=== PATIENT | male | born 1935 | race Caucasian/White ===

== ENCOUNTER 2018-06-15 02:56 | Emergency (ER) | payer MEDICARE, BC, SELFPAY ==
[2018-06-15 02:51] VITALS: BP 157/77; PULSE 59; RESP 20; TEMP 36.4; O2SAT 96; BMI 34.9
[2018-06-15] MEDS: TRAMADOL 50 MG TABLET 100 MG PO (02:58)
--- NOTE | 2018-06-15 03:30 | ED.BACK ---
HPI - Back Pain/Injury General Chief Complaint: Back Pain/Injury Stated Complaint: low back pain Time Seen by Provider: 06/15/18 03:01 Source: EMS Mode of arrival: ambulatory Limitations: no limitations History of Present Illness HPI Narrative: Patient is an 82-year-old male who presents with a left-sided back pain. He has had chronic back pain for last 40 years. He says that over the last couple of hours it has gotten significantly worse possibly over the last 2 days. He had an injection done 4-6 weeks ago. He returned from [place] 24 hr ago. He says he did not have any issue sitting on the airplane or in the car. His pain really started this evening when he woke up and tried to get up to go the bathroom. He normally has pain midline and right-sided however he is experiencing pain on the left side. It is not radiating to his legs or abdomen. He has no loss urine no change in bowel or bladder habits. He is on Eliquis for atrial fibrillation. He has not taken anything for the pain MD Complaint: back pain Related Data Previous Rx's Medication Instructions Recorded tramadol 50 mg PO Q6H PRN #10 tab 06/15/18 Allergies Allergy/AdvReac Type Severity Reaction Status Date / Time No Known Drug Allergies Allergy Verified 06/15/18 03:31 Review of Systems Review of Systems All systems reviewed & are unremarkable except as noted in HPI and below Constitutional Denies chills, Denies fever(s), Denies lethargy and Denies weakness ENT Ears, Nose, Mouth, and Throat: Denies vertigo and Denies dizziness Cardiovascular Denies chest pain, Denies irregular heart rhythm, Denies lightheadedness, Denies palpitations, Denies dyspnea, Denies dyspnea on exertion and Denies orthopnea Respiratory Denies cough, Denies dyspnea, Denies dyspnea on exertion and Denies wheezing Gastrointestinal Gastrointestinal: Denies abdominal pain, Denies change in bowel habits, Denies diarrhea, Denies nausea and Denies vomiting Musculoskeletal Reports system reviewed and no additional complaints, except as docu and Reports as per HPI Integumentary/Breasts Denies pruritus, Denies erythema, Denies rash and Denies wounds Neurologic Denies vertigo, Denies dizziness and Denies weakness Endocrine Denies palpitations Hematologic/Lymphatic Denies easy bruising Allergic/Immunologic Denies wheezing Exam Initial Vital Signs Initial Vital Signs: Vital Signs Temperature 97.5 F L 06/15/18 02:51 Pulse Rate 59 L 06/15/18 02:51 Respiratory Rate 20 06/15/18 02:51 Blood Pressure 157/77 H 06/15/18 02:51 Pulse Oximetry 96 06/15/18 02:51 GENERAL: alert elderly male ambulatory in the ED holding left side. HEENT: Head atraumatic,EOMI, pupils reactive, face symmetric, CARDIOVASCULAR: Regular rate and rhythm without murmurs, rubs or gallops. RESPIRATORY: Breath sounds equal bilaterally, no wheezes rales or rhonchi. ABDOMEN: Soft, nontender. Normoactive bowel sounds all 4 quadrants. No guarding or rebound. BACK: no midline pain he does have some paraspinal muscle pain bilaterally both right and left seems to be worse on the left. He does obviously gets spasms across his back. : No CVA tenderness EXTREMITIES: Normal range of motion, no clubbing or edema. Neurovascularly intact NEUROLOGICAL: Alert and oriented x4.Normal gait and speech. Cranial nerves II through XII grossly intact. Sensation in lower extremities equal and intact bilaterally SKIN: Warm, dry, no laceration, no petechiae, no rashes or lesions. Course Orders Ordered: Discontinued Medications Morphine Sulfate (Morphine) 4 mg SUBCUT NOW ONE Stop: 06/15/18 04:08 Last Admin: 06/15/18 04:08 Dose: 4 mg Tramadol HCl (Ultram) 100 mg PO NOW ONE Stop: 06/15/18 02:50 Last Admin: 06/15/18 02:58 Dose: 100 mg Vital Signs - 8 hr 06/15/18 02:51 06/15/18 05:00 06/15/18 05:22 Temperature 97.5 F L Pulse Rate 59 L 53 L 52 L Respiratory Rate 20 16 16 Blood Pressure 157/77 H Blood Pressure [Right Arm] 129/74 125/76 Pulse Oximetry 96 96 95 MDM - Back Pain/Injury Lab Data Lab Results 06/15/18 Range/Units 03:30 Urine Color Yellow Urine Appearance Clear Urine pH 5.0 (4.5-8.0) Ur Specific [place] 1.025 (1.000-1.035) Urine Protein Trace H (Negative) Urine Glucose (UA) Negative (Normal) g/dL Urine Ketones Trace H (NEGATIVE) Urine Occult Blood Negative (Negative) Urine Nitrate Negative (Negative) Urine Bilirubin Negative (NEGATIVE) Urine Urobilinogen 0.2 (0.2) E.U./dL Ur Leukocyte Esterase Negative (NEGATIVE) Urine RBC None seen (0-5/HPF) Urine WBC None seen (0-5/HPF) Ur Squamous Epith Cells 0-1 /hpf Urine Bacteria Occasional (0-1) (None) Hyaline Casts 0-1/lpf (None) Urine Mucus 2+ H (Negative) Ur Culture Indicated? Cult not indicated Micro UA Comment Not Reportable MDM Narrative Medical decision making narrative: resting in chair comfortably after tramadol. However once he is awake and he again has severe spasms requiring morphine. Morphine made him slightly lightheaded but not nauseous she still remains arousable. Discharge Plan Departure Patient Disposition: Home Clinical Impression: Acute exacerbation of chronic low back pain, Muscle spasm Discharge Date/Time: 06/15/18 08:51 Interventions: ED Discharge Assessment Last Done: 06/15/18 08:50 Instructions: DI for Low Back Pain Activity Restrictions/Additional Instructions: *You have been diagnosed with acute on chronic back pain *What to do: He seemed to be having muscle spasms. Heating pad, light activity increase activity as tolerated *Continue to take medications as directed Tramadol 1-2 tablets every 6 hr if needed for severe pain Tylenol 650 mg every 4-6 hours if needed for mild pain *Follow up with your primary care provider in 2-3 days *Return to ER if you should have worsening pain, increased leg weakness, loss of urine, fever or any new, worsening or concerning symptoms Prescriptions: New tramadol 50 mg tablet 50 mg PO Q6H PRN (Reason: pain) Qty: 10 RF: 0 Referrals: Ratna Antoine [Primary Care Provider] -
[2018-06-15 03:32] LABS: RBC Urine None Seen (0-5/HPF); WBC Urine None Seen (0-5/HPF)
[2018-06-15 03:33] LABS: Appearance Urine UA CLEAR; Bilirubin Urine UA NEGATIVE (NEGATIVE); Color Urine UA YELLOW; Glucose Urine UA NEGATIVE (Normal); Ketones Urine UA TRACE (NEGATIVE); Leukocyte Esterase Urine UA NEGATIVE (NEGATIVE); Nitrite Urine UA NEGATIVE (Negative); Occult Blood Urine UA NEGATIVE (Negative); Protein Urine UA TRACE (Negative); Specific Gravity Urine UA 1.025 (1.000-1.035); Urobilinogen Urine UA 0.2 E.U./dL (0.2)
[2018-06-15 03:45] LABS: Bacteria Urine Occasional (0-1); Culture Indicated Urine Cult Not Indicated; Hyaline Casts Urine 0-1/LPF; Mucus Urine 2+ (Negative); Squamous Epithelial Cell Urine 0-1 /HPF
[2018-06-15] MEDS: MORPHINE 4 MG/ML INJ SUBCUT (04:08)
[2018-06-15 05:00] VITALS: BP 129/74; PULSE 53; RESP 16; O2SAT 96
[2018-06-15 05:22] VITALS: BP 125/76; PULSE 52; RESP 16; O2SAT 95
[2018-06-15 06:27] VITALS: BP 128/79; PULSE 51; RESP 16; O2SAT 95
[2018-06-15 07:21] VITALS: BP 144/75; PULSE 52; RESP 20; O2SAT 96
[2018-06-15 08:50] VITALS: BP 133/74; PULSE 50; RESP 18; O2SAT 96
== END 2018-06-15 08:51 | disposition home or self-care (01) ==
PROVIDERS: Emergency Provider Emergency Medicine; PCP Internal Medicine
DX: M62.830 Muscle spasm of back (principal); M54.5 Low back pain; G89.29 Other chronic pain
CPT/HCPCS: 81001; 99283; J2270

== ENCOUNTER → 2018-08-26 08:14 | Outpatient (CLI) | payer MEDICARE, BC, SELFPAY ==
[2018-08-26 09:04] LABS: Appearance Urine UA CLEAR; Bilirubin Urine UA NEGATIVE (NEGATIVE); Color Urine UA YELLOW; Glucose Urine UA NEGATIVE (Negative); Ketones Urine UA NEGATIVE (NEGATIVE); Leukocyte Esterase Urine UA NEGATIVE (NEGATIVE); Nitrite Urine UA NEGATIVE (Negative); Occult Blood Urine UA NEGATIVE (Negative); Protein Urine UA NEGATIVE (Negative); Urobilinogen Urine UA 0.2 E.U./dL (0.2); pH Urine UA 5.5 (4.5-8.0)
[2018-08-26 09:38] LABS: Add Manual Diff / Slide Review NO; Basophils Absolute Auto 100 /uL (0-100); Basophils Percent Auto 1.1 % (0-2); Eosinophils Absolute Auto 200 /uL (0-450); Eosinophils Percent Auto 2.9 % (2-4); Hematocrit 48.2 % (41-53); Hemoglobin 15.9 g/dL (13.5-17.5); Lymphocytes Absolute Auto 1900 /uL (1100-4500); Lymphocytes Percent Auto 29.9 % (25-40); Mean Corpuscular HGB Conc 32.9 % (30-36); Mean Corpuscular Hemoglobin 29.1 PG (26-34); Mean Corpuscular Volume 88.5 fL (80-100); Monocytes Absolute Auto 500 /uL (0-900); Neutrophils Absolute Auto 3800 /uL (1500-7000); Neutrophils Percent Auto 58.1 % (50-75); Platelet Count 146 X10^3/uL (150-400); Red Blood Cell Count 5.44 X10^6/uL (4.5-5.9); Red Cell Distribution Width 14.5 % (11.6-14.8); White Blood Cell Count 6.5 X10^3/uL (4.5-11.0)
[2018-08-26 09:55] LABS: Alanine Aminotransferase 33 IU/L (21-72); Albumin 4.2 g/dL (3.5-5.0); Albumin Globulin Ratio 1.8 (1.0-2.8); Alkaline Phosphatase 51 U/L (38-126); Aspartate Aminotransferase 24 IU/L (17-59); BUN Creatinine Ratio 24.5 (6-22); Bilirubin Total 1.1 mg/dL (0.2-1.3); Blood Urea Nitrogen 27 mg/dL (9-20); Carbon Dioxide 26 mmol/L (22-32); Chloride 105 mmol/L (98-107); Cholesterol 191 mg/dL (140-199); Estimated Glomerular Filt Rate > 60.0 mL/min (>60); Globulin 2.3 g/dL (1.7-4.1); Glucose 99 mg/dL (80-110); HDL Cholesterol 33 mg/dL (40-60); HEMOLYSIS < 15 (0-50); LDL Cholesterol Calculated 121 mg/dL (<100); Potassium 4.3 mmol/L (3.4-5.1); Sodium 140 mmol/L (137-145); Total Protein 6.5 g/dL (6.3-8.2); Triglycerides 184 mg/dL (35-150)
== END ==
PROVIDERS: PCP Family Medicine; Visit Provider Family Medicine
DX: I10 Essential (primary) hypertension (principal); Z51.81 Encounter for therapeutic drug level monitoring; Z86.711 Personal history of pulmonary embolism
CPT/HCPCS: 36415; 80053; 80061; 81003; 84443; 85025

== ENCOUNTER 2018-10-15 13:31 | Day surgery (SDC) | payer MEDICARE, BC, SELFPAY ==
[2018-10-15] VITALS (7 sets, daily range): BP systolic 125–152; BP diastolic 76–93; PULSE 61–66; RESP 16–188; TEMP 36–37.4; O2SAT 94–99
--- NOTE | 2018-10-15 | PATH_ITS ---
[facility] Accession Number: [id number] . 01 Material submitted: . ESOPHAGUS BIOPSY AT 41CM . 01 Clinical history: . BARR'S . 02 Diagnosis: Esophagus, Biopsy at 41 cm: Squamocolumnar junctional mucosa with specialized intestinal metaplasia, consistent with Barr's esophagus. Negative for dysplasia and malignancy. MRV/10/20/2018 . 02 Electronically signed: . Honey Alfaro MD, Pathologist NPI- [id number] . 01 Gross description: . ESOPHAGUS BIOPSY AT 41CM: Received in formalin are multiple fragment(s) of arzola, soft tissue measuring 0.3 x 0.2 x 0.1 cm in aggregate submitted entirely in 1 cassette(s) /CKI /CKI . 02 Microscopic: . An alcian blue stain was performed to evaluate for intestinal metaplasia and is positive. The control stain showed appropriate reactivity. . 02 Pathologist provided ICD-10: K22.70 . 02 CPT . 126577, 990950 Performed at: 01 [facility] [address] [facility], [place], [place] [id number] MD Cabrera Silva MD Phone: [phone] Performed at: 02 [facility] [address] [place], [place] [id number] MD Honey Alfaro MD Phone: [phone]
[2018-10-15] MEDS: SODIUM CHLORIDE 0.9% 1,000 ML 200 ML IV (14:52)
--- NOTE | 2018-10-15 15:29 | PM.HP.1 ---
History of Present Illness Chief complaint: EGD 58092/[id number] Patient History Medical History AAA (abdominal aortic aneurysm) (Chronic ~2013) Ankle pain (Chronic) Atrial fibrillation (Chronic) Haile's syndrome (Chronic) Cataracts, bilateral (Chronic) Chronic back pain (Chronic) Colon polyps (Chronic) Deep vein thrombosis (Chronic) Diverticular disease (Chronic) Elevated PSA (Chronic) Foot pain (Chronic) Gout (Chronic) Hearing loss (Chronic) Heart failure, diastolic (Chronic) History of urinary incontinence (Chronic) Hypertension (Chronic) Knee pain (Chronic) Lumbar spine pain (Chronic) Peripheral neuropathy (Chronic) Prostate cancer (Chronic ~2007) Pulmonary embolism (Chronic ~2013) Rheumatoid arthritis (Chronic) Shoulder pain (Chronic) Skin cancer (Chronic ~1989) Chicken pox (Resolved) Fractures (Resolved) Measles (Resolved) Social History household members: spouse Smoking Status: Former smoker (quite 1975) Tobacco: How many years used: 20 alcohol intake: current (Occasional) Family & Social History Social History: household members spouse Tobacco & Substance use: Smoking Status Former smoker alcohol intake current alcohol intake frequency 0-2 drinks per day Substance Use Type does not use Meds Home Medications Medication Instructions Recorded Confirmed Type tramadol 50 mg PO Q6H PRN #10 tab 06/15/18 08/20/18 Rx apixaban 5 mg tablet 2.5 mg PO BID tab 08/18/18 08/20/18 History calcium polycarbophil 625 mg tablet 625 mg PO DAILY tab 08/18/18 08/20/18 History furosemide 40 mg tablet 40 mg PO DAILY 08/18/18 08/20/18 History gabapentin 100 mg capsule 100 mg PO DAILY 08/18/18 08/20/18 History hydralazine 10 mg tablet 10 mg PO BID tab 08/18/18 08/20/18 History lisinopril 20 mg tablet 20 mg PO DAILY 08/18/18 08/20/18 History magnesium oxide 400 mg capsule 400 mg PO DAILY cap 08/18/18 08/20/18 History metoprolol tartrate 25 mg tablet 25 mg PO BID 08/18/18 10/15/18 History potassium chloride ER 10 mEq 10 meq PO DAILY 08/18/18 08/20/18 History tablet,extended release(part/cryst) tizanidine 2 mg capsule 2 mg PO TID PRN 08/18/18 10/15/18 History apixaban [Eliquis] 5 mg PO BID 10/15/18 10/15/18 History atorvastatin 10 mg PO QPM 10/15/18 10/15/18 History chlorthalidone 25 mg PO DAILY 10/15/18 10/15/18 History gabapentin 100 mg PO 10/15/18 History losartan 100 mg PO DAILY 10/15/18 10/15/18 History Allergies Allergy/AdvReac Type Severity Reaction Status Date / Time No Known Drug Allergies Allergy Verified 10/15/18 14:45 Review of Systems Review of Systems All systems reviewed & are unremarkable except as noted in HPI and below Exam Vital Signs (past 8 hours): - 10/15/18 14:32 Temperature 98.4 F Pulse Rate 65 Respiratory Rate 16 Blood Pressure 152/86 H Pulse Oximetry 98 Oxygen Delivery Method Room Air Narrative Exam Narrative: Awake alert oriented x3, pupil equal round reactive to light, lungs clear to auscultation, heart regular rate and rhythm, abdomen soft nontender nondistended Assessment & Plan Assessment & Plan narrative: EGD with biopsies, Haile's esophagus
--- NOTE | 2018-10-15 16:41 | PM.OP.ENDO ---
Operative Date/Time/Diagnoses Date of procedure: 10/15/18 Procedure & Clinicians Study performed: EGD with biopsy Monitored anesthesia care Indications: History of Haile's esophagus Procedure Notes Procedure in detail: Prior to the procedure, history and physical was performed, and patient medications and allergies were reviewed. Preprocedure nursing history and assessment was reviewed. Patient identification and proposed procedure were verified by the physician and nurse in the procedure room. The physical status of the patient was reassessed after the procedure. After informed consent was obtained including risks, benefits, and alternatives, the scope was passed under direct vision. Throughout the procedure, the patient's blood pressure, pulse, and oxygen saturations were monitored continuously. The upper endoscope was introduced through the mouth and advanced to the 2nd portion of the duodenum. Retroflexion was performed in the stomach. The patient tolerated the procedure well. In the lower esophagus, there were 3 tongues of flat, salmon colored mucosa the longest of which extended 2 cm above the top of the gastric folds. The upper extent of salmon-colored mucosa was 39-40 cm from the incisors. Top of the gastric folds was located at 42 cm. There were no other suspicious looking lesions or nodules noted. Haile's Biopsies taken in a targeted fashion and placed into a single jar. If Haile's is confirmed, [place] class would be C0M2. A 5 cm hiatal hernia was noted. Retroflexion revealed an otherwise normal fundus and cardia. The stomach was otherwise normal appearing The examined duodenum was normal appearing Impression: Short segment Haile's esophagus, biopsied 5 cm hiatal hernia Normal appearing duodenum Plan for aftercare: Follow-up pathology results Follow an anti-reflux diet and lifestyle Resume home medications Follow-up in GI clinic as previously recommended Discharge home with escort
--- NOTE | 2018-10-15 16:56 | SUR.PHASEI ---
turned self to his back. Sleeping, resp unlabored
--- NOTE | 2018-10-15 17:06 | SUR.PHASEI ---
1706 VSS, anxious to go home. Resp unlabored, doesn't use O2 at home, weaning off.
--- NOTE | 2018-10-15 17:21 | SUR.PHASEII ---
1710 late entry - to bedside. Patient declines PO intake. IV dc''d, clothes given. States that he does not need additional assistance in dressing.
--- NOTE | 2018-10-15 17:29 | SUR.PHASEII ---
1726 To car in W/C by an RN. Stable, No questions/concerns.
== END 2018-10-15 17:26 | disposition home or self-care (01) ==
PROVIDERS: PCP Family Medicine; Visit Provider Internal Medicine
PROC: 0DJ08ZZ Inspection of Upper Intestinal Tract, Via Natural or Artificial Opening Endoscopic (ICD-10-PCS; CPT 43235; principal; 2018-10-15 15:00)
DX: K22.70 Barrett's esophagus without dysplasia (principal); R13.14 Dysphagia, pharyngoesophageal phase; K21.9 Gastro-esophageal reflux disease without esophagitis; K44.9 Diaphragmatic hernia without obstruction or gangrene; I48.91 Unspecified atrial fibrillation; I50.9 Heart failure, unspecified; I10 Essential (primary) hypertension; Z79.01 Long term (current) use of anticoagulants
CPT/HCPCS: 43239; 88305; 88313; J2704

== ENCOUNTER → 2018-10-16 08:16 | Outpatient (CLI) | payer MEDICARE, BC, SELFPAY ==
--- NOTE | 2018-10-16 09:00 | DI.NM.S_ITS ---
PATIENT NAME: SALLY VELA : 1935 EXAM DATE: 10/16/2018 9:27 ORD. : BENNY JONES M.D. CC: QUAN GILL D.O. MODALITY: DE PATIENT TYPE: Out CONTRAST MEDIA: STATION ID: [id number] FLUORO TIME: PROCEDURE: DE LUH PERF SPECT R&S PHARM Rest and pharmacological stress myocardial perfusion SPECT with gated imaging and ejection fraction RADIOPHARMACEUTICAL: 26.3 mCi Tc-99m tetrafosmin IV at rest and 24.9 mCi Tc-99m tetrafosmin IV at peak effect of pharmacological stress. [id number]-ubaxzefv was performed. INDICATIONS: PERSISTENT ATRIAL FIBRILLATION TECHNIQUE: Radiopharmaceutical was injected at peak stress test, and also at rest. SPECT images were obtained. SPECT myocardial perfusion images were displayed in short axis, horizontal long axis, and vertical long axis views. Gated images were reviewed using Nanostellar software. COMPARISON: None. CARDIAC STRESS: A pharmacologic stress test was performed under the supervision of an attending staff, using an infusion of Lexiscan. Hemodynamic data: There is normal blood pressure and heart rate response to pharmacologic stress. Symptoms: The patient denied anginal chest pain. Aminophylline: Not used EKG: No diagnostic changes of ischemia; no ectopy. FINDINGS: Raw data: There is good myocardial uptake of radiotracer. No significant motion artifacts. Lung-toheart ratio is 0.37 (normal is less than 0.38 for tetrafosmin tracer). Left ventricle function: Gated images demonstrate mild septal hypokinesis and otherwise normal left ventricular wall thickening. No other segmental wall motion abnormalities. No transient ischemic dilation; TID is 1.01 (normal less than 1.3). Left ventricle resting end diastolic volume is 158 mL. Left ventricle stress ejection fraction is 69%; normal range is above 45%. Myocardial perfusion: There is a small, mild fixed defect in in the apical to mid anteroseptal wall which is present both at rest and stress. Unfortunately prone imaging could not be performed due to patient's inability to lay prone. IMPRESSION: Continued Report - Page 2 of 2 PATIENT NAME: SALLY VELA : 1935 EXAM DATE: 10/16/2018 9:[address] BENNY JONES M.D. CC: QUAN GILL D.O. MODALITY: NM PATIENT TYPE: Out CONTRAST MEDIA: STATION ID: [id number] FLUORO TIME: -Probably abnormal stress study with a small, fixed, anteroseptal defect and associated septal hypokinesis. However, the prone imaging could not be performed. SSS is 3, SRS is 4. -Normal ejection fraction. -No TID. Dictated by: Teodoro Loco on 10/17/2018 at 19:23 Approved by: Teodoro Loco on 10/17/2018 at 19:32
--- NOTE | 2018-10-16 09:22 | PM.TREADMILL ---
Cardiac Stress Test Report Referral & Results Date Patient Seen: 10/16/18 Requesting provider: Yony Cline Indication: Atrial fibrillation Rest ECG: Atrial fibrillation with controlled ventricular response Procedure Note: After both written and verbal informed consent the patient had an IV started by the diagnostic imaging RN and then was hooked up to the treadmill monitoring system. The patient was placed on the treadmill at 1 mile an hour with no elevation and was then injected with the Sheryl scan material. The Cardiolite was then immediately administered. The patient spent an additional 2-3 minutes on the treadmill before being returned to the [facility] in the supine position. The patient had a normal response to all infused materials. Impression: Severely limited exercise capacity has patient was barely able to keep up with the treadmill at its lowest settings Perfusion imaging will be reported separately Please note: Actual ECG tracings can be found in the PACS system.
== END ==
PROVIDERS: PCP Family Medicine; Visit Provider Internal Medicine Cardiovascular Disease
DX: I48.1 Persistent atrial fibrillation (principal)
CPT/HCPCS: 78452; 93016; 93017; 93018; A9502; J2785

== ENCOUNTER → 2018-10-17 08:30 | Outpatient (CLI) | payer MEDICARE, BC, SELFPAY ==
--- NOTE | 2018-10-17 | DI.ECHO.S_ITS ---
[facility] +---------+ : : [address] [place] : : : : [id number] : : : : Phone: [phone] Echocardiogram Report + + :Name: SALLY VELA Study Date: 10/17/2018 Height: 75 in : :[facility] Weight: 285 lb : : Gender: Male BSA: 2.6 m2 : :: 1935 Age: 83 yrs BP: 138/82 mmHg: :Reason For Study: AFIB : : Performed By: Bessy Washington : :Referring: BENNY CLINE : + + Interpretation Summary 1) Mildly increase left ventricular thickness with normal size and low normal systolic function (EF 50-55%). 2) Normal right ventricular size and function. 3) Left atrium is moderately to severely enlarged. 4) No significant valvular abnormalities. 5) The ascending aorta is mildly enlarged at 4.3cm. 6) No prior Echo available for comparison. Procedure: A two-dimensional transthoracic echocardiogram with color flow and Doppler was performed. The study quality was technically adequate. Comparison is made with the echocardiogram of 10/11/2005. Patient was supine after left ventricular endocardium images were taken in the apicals due to unbearable left shoulder pain. The patient was in atrial fibrillation with heart rates between 50-64 bpm during the exam. Left Ventricle: Left ventricular wall thickness is mildly increased. The left ventricle is normal in size. The ejection fraction is estimated to be 50- 55%. Diastolic function could not be accurately assessed due to atrial fibrillation. Right Ventricle: The right ventricle is normal in size and function. Atria: Left atrium is moderately to severely enlarged. Right atrial size is normal. There is no Doppler evidence for an interatrial shunt. Mitral Valve: There is mild mitral annular calcification. There is trace mitral regurgitation. Aortic Valve: The aortic valve is mildly calcified. Aortic valve appears to be trileaflet. There is no aortic valve stenosis. There is mild aortic regurgitation. Tricuspid Valve: The tricuspid valve is normal in structure and function. There is a trace or physiologic amount of tricuspid regurgitation. Pulmonic Valve: The pulmonic valve is not well visualized. There is a trace or physiologic amount of pulmonic regurgitation. Great Vessels: The aortic root is normal size. The ascending aorta is mildly enlarged. The aortic arch is mildly enlarged. The pulmonary is not well visualized. The IVC is dilated (diameter is greater than 2.1 cm) and it collapses less than 50% with a sniff. This suggests a high right atrial pressure of 15 mm Hg. Pericardium/ Pleura There is no pericardial effusion. There is no pleural effusion. MMode/2D Measurements & Calculations LVIDd: 5.0 cm LVOT diam: 2.5 cm LVIDs: 3.5 cm Ao root diam: 3.7 cm FS: 30.5 % asc Aorta Diam: 4.3 cm IVSd: 1.2 cm Ao Arch Diam (distal): 3.6 cm LVPWd: 1.1 cm LV ford. diameter/BSA (cm/m^2): 2.0 LV sys. diameter/BSA (cm/m^2): 1.4 LA A2 area: 31.7 cm2 RA long axis: 6.2 cm LA A4 area: 27.1 cm2 RA area: 21.7 cm2 LA length (vol): 6.6 cm RA vol: 64.3 ml LA vol: 110.0 ml RA : 25.2 ml/m2 LA vol index: 43.1 ml/m2 RVD1 (basal): 2.9 cm Doppler Measurements & Calculations Ao V2 max: 123.4 cm/sec LVOT Max Gary: 89.6 cm/sec Ao V2 mean: 79.0 cm/sec LV V1 max P.2 mmHg Ao max P.1 mmHg LV V1 VTI: 18.4 cm Ao mean P.8 mmHg OSMANY(I,D): 4.1 cm2 Ao V2 VTI: 21.8 cm OSMANY(V,D): 3.5 cm2 sev ratio: 0.85 OSMANY indexed to BSA (cm^2/m^2): 1.6 MV E max gary: 87.9 cm/sec SV(LVOT): 89.4 ml MV dec time: 0.20 sec Reading Physician:10:06 AM
== END ==
PROVIDERS: PCP Family Medicine; Visit Provider Internal Medicine Cardiovascular Disease
DX: I35.1 Nonrheumatic aortic (valve) insufficiency (principal); I48.1 Persistent atrial fibrillation; I77.89 Other specified disorders of arteries and arterioles
CPT/HCPCS: 93306

== ENCOUNTER → 2018-11-24 15:40 | Outpatient (CLI) | payer MEDICARE, BC, SELFPAY ==
--- NOTE | 2018-11-24 | DI.RAD.S_ITS ---
PROCEDURE: XR CHEST 2V INDICATIONS: Dynspnea on exertion TECHNIQUE: 2 views of the chest were acquired. COMPARISON: None. FINDINGS: Surgical changes and devices: Internal aortic stent graft, descending thoracic aorta.. Lungs and pleura: Lungs are clear. No pleural effusions or pneumothorax. Mediastinum: Mediastinal contours are normal. Heart size is normal. Bones and chest wall: No suspicious bony abnormalities. Soft tissues appear unremarkable. IMPRESSION: Aortic stent graft, no sign of CHF or cardiomegaly at this time. Dictated by: Harvey Eubanks M.D. on 11/24/2018 at 17:16 Approved by: Harvey Eubanks M.D. on 11/24/2018 at 17:17
[2018-11-24 16:24] LABS: Add Manual Diff / Slide Review NO; Basophils Absolute Auto 0 /uL (0-100); Basophils Percent Auto 0.3 % (0-2); Eosinophils Absolute Auto 100 /uL (0-450); Eosinophils Percent Auto 0.7 % (2-4); Hematocrit 49.2 % (41-53); Hemoglobin 16.3 g/dL (13.5-17.5); Lymphocytes Absolute Auto 900 /uL (1100-4500); Lymphocytes Percent Auto 11.6 % (25-40); Mean Corpuscular HGB Conc 33.1 % (30-36); Mean Corpuscular Hemoglobin 29.1 PG (26-34); Monocytes Absolute Auto 500 /uL (0-900); Neutrophils Absolute Auto 6200 /uL (1500-7000); Neutrophils Percent Auto 81.4 % (50-75); Platelet Count 132 X10^3/uL (150-400); Red Blood Cell Count 5.58 X10^6/uL (4.5-5.9); Red Cell Distribution Width 14.8 % (11.6-14.8); White Blood Cell Count 7.6 X10^3/uL (4.5-11.0)
[2018-11-24 17:36] LABS: Blood Urea Nitrogen 25 mg/dL (9-20); Calcium 9.5 mg/dL (8.4-10.2); Carbon Dioxide 22 mmol/L (22-32); Chloride 103 mmol/L (98-107); Estimated Glomerular Filt Rate > 60.0 mL/min (>60); Glucose 103 mg/dL (80-110); HEMOLYSIS < 15 (0-50); Potassium 4.3 mmol/L (3.4-5.1); Sodium 138 mmol/L (137-145)
== END ==
PROVIDERS: Family Provider Family Medicine; PCP Family Medicine; Visit Provider Internal Medicine Cardiovascular Disease
DX: R06.09 Other forms of dyspnea (principal)
CPT/HCPCS: 36415; 71046; 80048; 85025

== ENCOUNTER → 2019-05-04 10:25 | Outpatient (CLI) | payer MEDICARE, BC, SELFPAY ==
--- NOTE | 2019-05-04 | DI.RAD.S_ITS ---
PROCEDURE: XR CHEST 2V INDICATIONS: SHORTNESS OF BREATH TECHNIQUE: 2 views of the chest were acquired. COMPARISON: [facility], CR, XR CHEST 2V, 11/24/2018, 15:58. FINDINGS: Surgical changes and devices: Thoracic aortic stent graft noted, as before Lungs and pleura: No acute consolidation. Scattered subsegmental atelectasis and/or scarring. No pleural effusion. No pneumothorax. Elevation right hemidiaphragm as before Mediastinum: Mediastinal contours are normal. Heart size is normal. Bones and chest wall: No suspicious bony abnormalities. Soft tissues appear unremarkable. IMPRESSION: No acute consolidation. No interval change Dictated by: Dante Patel M.D. on 05/04/2019 at 11:34 Approved by: Dante Patel M.D. on 05/04/2019 at 11:35
[2019-05-04 11:10] LABS: Add Manual Diff / Slide Review NO; Basophils Absolute Auto 100 /uL (0-100); Basophils Percent Auto 0.9 % (0-2); Eosinophils Absolute Auto 200 /uL (0-450); Eosinophils Percent Auto 2.4 % (2-4); Hematocrit 47.7 % (41-53); Hemoglobin 16.2 g/dL (13.5-17.5); Lymphocytes Absolute Auto 1800 /uL (1100-4500); Mean Corpuscular Hemoglobin 30.5 PG (26-34); Mean Corpuscular Volume 89.7 fL (80-100); Monocytes Absolute Auto 500 /uL (0-900); Monocytes Percent Auto 7.1 % (3-14); Neutrophils Absolute Auto 4700 /uL (1500-7000); Neutrophils Percent Auto 64.6 % (50-75); Platelet Count 149 X10^3/uL (150-400); Red Blood Cell Count 5.31 X10^6/uL (4.5-5.9); White Blood Cell Count 7.3 X10^3/uL (4.5-11.0)
[2019-05-04 11:23] LABS: BUN Creatinine Ratio 22.7 (6-22); Blood Urea Nitrogen 25 mg/dL (9-20); Calcium 9.3 mg/dL (8.4-10.2); Carbon Dioxide 26 mmol/L (22-32); Chloride 103 mmol/L (98-107); Estimated Glomerular Filt Rate > 60.0 mL/min (>60); Glucose 103 mg/dL (80-110); HEMOLYSIS 18 (0-50); Potassium 3.8 mmol/L (3.4-5.1); Sodium 141 mmol/L (137-145)
[2019-05-04 11:32] LABS: B Type Natriuretic Peptide 138 (<100)
== END ==
PROVIDERS: Family Provider Family Medicine; PCP Family Medicine; Visit Provider Internal Medicine Cardiovascular Disease
DX: R06.02 Shortness of breath (principal); I10 Essential (primary) hypertension
CPT/HCPCS: 36415; 71046; 80048; 83880; 85025

== ENCOUNTER → 2019-05-19 08:49 | Outpatient (CLI) | payer MEDICARE, BC, SELFPAY ==
--- NOTE | 2019-05-19 | DI.US.S_ITS ---
PROCEDURE: US RENAL COMPLETE INDICATIONS: CYST OF KIDNEY, ACQUIRED TECHNIQUE: Real-time scanning was performed of the kidneys and bladder, with image documentation. COMPARISON: US, ABDOMEN SONOGRAM, 10/18/2008, 8:06. FINDINGS: Kidneys: Kidneys are normal in size. Right kidney measures 11.0 cm long; left kidney measures 10.7 cm long. Right renal cortical thickness is 1.6 cm; left renal cortical thickness is 1.2 cm. Renal cortical echotexture is normal. No hydronephrosis or nephrolithiasis. No suspicious solid mass lesions. There are multiple bilateral renal cysts, largest which is on the left which is mildly complex with wall irregularity and mural calcification measuring 3.9 x 3.7 x 4.0 cm. Focal right renal cortical scarring present. Bladder: Urinary bladder decompressed and suboptimally visualized. Miscellaneous: No free pelvic fluid. IMPRESSION: 1. Bilateral renal cysts, largest of which is on the left and mildly complex (Bosniak 2F). Recommend continued sonographic surveillance or alternatively renal protocol CT could be performed for further characterization as underlying cystic renal neoplasm cannot entirely be excluded. Dictated by: Amilcar LR Interpreted: Jayne Slaughter MD on 05/19/2019 at 10:07 Approved by: Jayne Slaughter M.D. on 05/19/2019 at 12:48
== END ==
PROVIDERS: Family Provider Family Medicine; PCP Family Medicine; Visit Provider Physician Assistant
DX: N28.1 Cyst of kidney, acquired (principal)
CPT/HCPCS: 76770

== ENCOUNTER → 2019-06-09 08:56 | Outpatient (CLI) | payer MEDICARE, BC, SELFPAY ==
--- NOTE | 2019-06-09 | DI.RAD.S_ITS ---
PROCEDURE: XR CHEST 2V INDICATIONS: SHORT OF BREATH TECHNIQUE: 2 views of the chest were acquired. COMPARISON: [facility], CR, XR CHEST 2V, 05/04/2019, 10:36. FINDINGS: Surgical changes and devices: Descending aortic stentgraft. Lungs and pleura: Lungs are clear. No pleural effusions or pneumothorax. Mediastinum: Mediastinal contours are normal. Heart size is normal. Bones and chest wall: No suspicious bony abnormalities. Soft tissues appear unremarkable. IMPRESSION: No acute process. Dictated by: Ayaan Madsen M.D. on 06/09/2019 at 9:38 Approved by: Ayaan Madsen M.D. on 06/09/2019 at 9:39
[2019-06-09 09:34] LABS: Add Manual Diff / Slide Review NO; Basophils Absolute Auto 0 /uL (0-100); Basophils Percent Auto 0.7 % (0-2); Eosinophils Absolute Auto 200 /uL (0-450); Eosinophils Percent Auto 2.4 % (2-4); Hematocrit 48.3 % (41-53); Hemoglobin 16.2 g/dL (13.5-17.5); Lymphocytes Absolute Auto 1600 /uL (1100-4500); Lymphocytes Percent Auto 25.6 % (25-40); Mean Corpuscular HGB Conc 33.5 % (30-36); Mean Corpuscular Hemoglobin 30.3 PG (26-34); Mean Corpuscular Volume 90.4 fL (80-100); Monocytes Absolute Auto 500 /uL (0-900); Monocytes Percent Auto 8.2 % (3-14); Neutrophils Absolute Auto 3900 /uL (1500-7000); Neutrophils Percent Auto 63.1 % (50-75); Platelet Count 137 X10^3/uL (150-400); Red Blood Cell Count 5.34 X10^6/uL (4.5-5.9); Red Cell Distribution Width 14.2 % (11.6-14.8); White Blood Cell Count 6.2 X10^3/uL (4.5-11.0)
[2019-06-09 09:45] LABS: BUN Creatinine Ratio 27.3 (6-22); Blood Urea Nitrogen 30 mg/dL (9-20); Calcium 9.3 mg/dL (8.4-10.2); Carbon Dioxide 27 mmol/L (22-32); Chloride 104 mmol/L (98-107); Estimated Glomerular Filt Rate > 60.0 mL/min (>60); Glucose 110 mg/dL (80-110); HEMOLYSIS < 15 (0-50); Potassium 4.1 mmol/L (3.4-5.1); Sodium 142 mmol/L (137-145)
[2019-06-09 09:53] LABS: B Type Natriuretic Peptide 143 (<100)
== END ==
PROVIDERS: PCP Family Medicine; Visit Provider Internal Medicine Cardiovascular Disease
DX: R06.02 Shortness of breath (principal); I10 Essential (primary) hypertension
CPT/HCPCS: 36415; 71046; 80048; 83880; 85025

== ENCOUNTER → 2019-11-02 13:32 | Outpatient (CLI) | payer MEDICARE, BC, SELFPAY ==
--- NOTE | 2019-11-02 13:34 | DI.RAD.S_ITS ---
PROCEDURE: XR LUMBAR SPINE 2-3V INDICATIONS: R lumbar pain post fall TECHNIQUE: 3 views of the lumbar spine were acquired. COMPARISON: [facility], CR, XR LUMBAR SPINE WITH OBLIQUES, 06/08/2019, 8:13. [facility], MR, MR LUMBAR SPINE WITHOUT CONTRAST, 12/02/2017, 10:17. [facility], CR, XR CHEST 2V, 06/09/2019, 9:23. FINDINGS: Bones: 5 [id number] vertebrae are present. There is normal bony alignment. No lower vertebral body compression fractures but there is a presumed acute mild superior endplate impaction fracture with slight anterior wedging at L1, with approximately 20% middle third vertebral body height reduction when compared to the normal L2 level immediately below.. No suspicious bony lesions. Soft tissues: Overlying bowel gas pattern is normal. No suspicious soft tissue calcifications. IVC filter noted to right of the spinal margin, previously present IMPRESSION: 20% height reduction from presumed acute T1 compression fracture. IVC filter positioned to right of the spine. Dictated by: Harvey Eubanks M.D. on 11/02/2019 at 14:00 Approved by: Harvey Eubanks M.D. on 11/02/2019 at 14:04
== END ==
PROVIDERS: PCP Internal Medicine; Referring Provider Nurse Practitioner; Visit Provider Nurse Practitioner
DX: M54.5 Low back pain (principal)
CPT/HCPCS: 72100

== ENCOUNTER → 2019-11-13 13:35 | Outpatient (CLI) | payer MEDICARE, BC, SELFPAY ==
[2019-11-15 05:01] LABS: COVID19 Sendout Not Detected (Not Detected)
== END ==
PROVIDERS: PCP Internal Medicine; Visit Provider Internal Medicine
DX: Z20.828 Contact with and (suspected) exposure to other viral communicable diseases (principal)
CPT/HCPCS: 87635

== ENCOUNTER 2019-11-17 06:34 | Day surgery (SDC) | payer MEDICARE, BC, SELFPAY ==
[2019-11-13 12:53] VITALS: BMI 35.8
[2019-11-17] VITALS (11 sets, daily range): BP systolic 95–138; BP diastolic 54–81; PULSE 54–68; RESP 8–20; TEMP 36–36.1; O2SAT 92–99; BMI 33.9
--- NOTE | 2019-11-17 | PATH_ITS ---
[facility] Accession Number: [id number] . 01 Material submitted: . bone - L1 BONE BIOPSY . 02 Diagnosis: L1 Vertebral Bone, Biopsy: Fragments of remodeling bone. Variably fibrotic marrow with maturing trilineage hematopoiesis. No evidence of malignancy. [facility] 11/19/2019 1217 Local . 02 Electronically signed: . Kush Cristobal MD, PhD, Pathologist NPI- [id number] . 01 Gross description: . Received one formalin-filled container, labeled with the patient's name and labeled L1 bone biopsy. The specimen consists of a 0.5 x 0.3 x 0.3 cm portion of bone, entirely submitted in one cassette and will be placed in decal for softening. ([id number]) /[facility] 11/18/2019 0224 Local . 02 Pathologist provided ICD-10: S32.010A, M54.5 . 02 CPT . 846856, 353805 Performed at: 01 [facility] [address] [facility], [place], [place] [id number] MD Cabrera Silva MD Phone: [phone] Performed at: 02 [facility] [address] [place], [place] [id number] MD Honey Alfaro MD Phone: [phone]
--- NOTE | 2019-11-17 | DI.RAD.S_ITS ---
PROCEDURE: XR LUMBAR SPINE 2-3V INDICATIONS: KYPHO TECHNIQUE: 2 views of the lumbar spine were acquired. COMPARISON: [facility], CR, XR LUMBAR SPINE 2-3V, 11/02/2019, 13:33. FINDINGS: Bones: Immediate postprocedural imaging, showing vertebroplasty/kyphoplasty bone cement placed within the L1 vertebral body without retropulsion of bone cement into the spinal canal. Soft tissues: Overlying bowel gas pattern is normal. No suspicious soft tissue calcifications. IMPRESSION: Vertebroplasty/kyphoplasty bone cement within the L1, and normal position. Dictated by: Harvey Eubanks M.D. on 11/17/2019 at 9:42 Approved by: Harvey Eubanks M.D. on 11/17/2019 at 9:49
[2019-11-17] MEDS: LACTATED RINGERS 1,000 ML 42 ML IV (07:30)
--- NOTE | 2019-11-17 07:46 | PM.PREOP ---
Pre-operative Note Interval Note History & Physical reviewed/Exam performed by Physician: Yes Changes to H&P: No
[2019-11-17] MEDS: CEFAZOLIN 2 GM/100 ML FROZ.PIGGY IV (08:00)
--- NOTE | 2019-11-17 08:21 | SUR.OPER ---
Prone on flat padded spine table, head in foam head support, padded chest supports, gel pad at knees, lower legs supported by pillows; nipples, genitalia and toes free of pressure, arms secured on foam padded arm boards at <90 degrees abduction. Tape over blanket at thigh secured to table.
[2019-11-17] MEDS: BUPIVACAINE 0.25% W/ EPI 30 ML VIAL INJ (08:26)
--- NOTE | 2019-11-17 08:47 | PM.OP.1 ---
Operative Date/Time/Diagnoses Date of procedure: 11/17/19 Time of procedure: 08:47 Pre-op diagnosis: L1 compression fracture Back pain Post-op diagnosis: same Procedure & Clinicians Procedure: L1 kyphoplasty Same procedure as scheduled: Yes Indications: [age] year old male with intractable pain from an acute L1 compression fracture. They had failed conservative management and requested operative intervention. Risks and benefits of surgery were discussed and appropriate consents were obtained. Surgeon: Tacho Chang Click Yes if Unassisted: Yes Anesthesia Type: General Operative Notes Findings: None Closure Type: primary Specimen(s): other (L1 vertebral biopsy) Estimated Blood Loss (mL): 2 Procedure in detail: The patient was brought to the operating room and intubated on the table. They were then rolled over to the well-padded prone position. Time-out was performed. We confirmed positioning with two fluoroscopy views. The back was prepped and draped in the standard sterile fashion. Preoperative antibiotics were given. Using fluoroscopic guidance, the planned incision site was infiltrated with Marcaine with epinephrine and injected down to the entry site of the left pedicle of L1. A small stab incision was made and we advanced a Jamshiedi needle down the left pedicle into the vertebral body. A bone biopsy was harvested from this and sent to pathology. We then passed the DFine osteotome and opened it up to create a void inside the vertebral body. We then began injecting the cement. This was done with frequent fluoroscopy imaging. There was no extravasation. Once we had good fill of the L1 vertebral body the injection was stopped and the trocars were removed. Final x-rays were taken. The wound was cleaned. Steri-Strips and sterile dressing were placed. Patient was rolled over, extubated, and brought to recovery without complications. Complications: none Post-operative Condition: stable Disposition: PACU Plan for aftercare: Outpatient. Activity as tolerated.
[2019-11-17] MEDS: fentaNYL 100 MCG/2 ML INJ IV (08:55)
--- NOTE | 2019-11-17 08:57 | SUR.PHASEI ---
0855 moaning, rates pain 8/10, lying still. Rx given per patient request. Resp unlabored, skin warm and dry.
[2019-11-17] MEDS: HYDROCODONE/ACET 5/325 TABLET 2 TAB PO (09:31)
--- NOTE | 2019-11-17 09:43 | SUR.PHASEI ---
resting at a tolerable pain level, states that it is fine unless he moves. Attempting to get ahold of daughter and w/o success. He is now able to get his on his cell phone. Watch placed on his left wrist per pt request. Tolerating PO intake well.
--- NOTE | 2019-11-17 09:55 | SUR.PHASEII ---
pt able to reach daughter, will be here in 1/2 hour. Pt declines to move, will check dressing when he is up. Pain is controlled if he is still, not if he moves.
--- NOTE | 2019-11-17 10:37 | SUR.PHASEII ---
1023 Stable, states that he feels much better, move slowly. Denies dizziness after initial episode upon sitting up. Has his possessions. Daughter here, questions answered. To car in w/c by BRIANA Sosa
--- NOTE | 2019-11-17 10:41 | SUR.PHASEII ---
Called Carin (daughter), told her that Dr. Chang wants to follow up with him in 1 1/2 weeks and that he is to resume eliquis tomorrow. Daughter repeated back instructions.
== END 2019-11-17 10:31 | disposition home or self-care (01) ==
PROVIDERS: PCP Internal Medicine; Referring Provider Orthopaedic Surgery; Visit Provider Orthopaedic Surgery
PROC: (CPT 22514; principal; 2019-11-17 07:45)
DX: M80.08XA Age-related osteoporosis with current pathological fracture, vertebra(e), initial encounter for fracture (principal); S32.010A Wedge compression fracture of first lumbar vertebra, initial encounter for closed fracture; M54.9 Dorsalgia, unspecified; M25.78 Osteophyte, vertebrae; I10 Essential (primary) hypertension; I50.9 Heart failure, unspecified; I48.91 Unspecified atrial fibrillation; I25.10 Atherosclerotic heart disease of native coronary artery without angina pectoris; Z86.711 Personal history of pulmonary embolism; Z79.01 Long term (current) use of anticoagulants
CPT/HCPCS: 22514; 72100; 76000; C1776; J0690; J2704; J3010

== ENCOUNTER → 2019-11-25 13:14 | Outpatient (CLI) | payer MEDICARE, BC, SELFPAY ==
[2019-11-25 14:33] LABS: Blood Urea Nitrogen 23 mg/dL (9-20); Calcium 9.8 mg/dL (8.4-10.2); Carbon Dioxide 30 mmol/L (22-32); Chloride 98 mmol/L (98-107); Estimated Glomerular Filt Rate > 60.0 mL/min (>60); Glucose 90 mg/dL (80-110); HEMOLYSIS < 15 (0-50); Potassium 3.5 mmol/L (3.4-5.1); Sodium 139 mmol/L (137-145)
== END ==
PROVIDERS: PCP Internal Medicine; Referring Provider Internal Medicine Cardiovascular Disease; Visit Provider Internal Medicine Cardiovascular Disease
DX: R60.0 Localized edema (principal)
CPT/HCPCS: 36415; 80048

== ENCOUNTER → 2019-12-14 12:18 | Outpatient (CLI) | payer MEDICARE, BC, SELFPAY ==
--- NOTE | 2019-12-14 | DI.US.S_ITS ---
PROCEDURE: US PERIPH VENOUS LOW EXTREM RT INDICATIONS: RIGHT LOWER EXTREMITY SWELLING TECHNIQUE: Real-time imaging, as well as color and pulse Doppler interrogation, were performed of the lower extremity deep veins from the inguinal ligament to the popliteal fossa. COMPARISON: None. FINDINGS: The common femoral, femoral and popliteal veins are normally compressible, and free of intraluminal thrombus. Color and pulse Doppler demonstrate normal phasic intraluminal flow. There is normal augmentation response to distal compression maneuver. IMPRESSION: Negative for deep venous thrombosis. Dictated by: Maurice Richard M.D. on 12/14/2019 at 14:09 Approved by: Maurice Richard M.D. on 12/14/2019 at 14:09
== END ==
PROVIDERS: PCP Internal Medicine; Referring Provider Orthopaedic Surgery; Visit Provider Orthopaedic Surgery
DX: M79.89 Other specified soft tissue disorders (principal)
CPT/HCPCS: 93971

== ENCOUNTER → 2019-12-23 12:42 | Outpatient (CLI) | payer MEDICARE, BC, SELFPAY ==
--- NOTE | 2019-12-23 | DI.MRI.S_ITS ---
PROCEDURE: MR LUMBAR SPINE WO CON INDICATIONS: Spinal stenosis, lumbar region TECHNIQUE: Noncontrast sagittal T1 spin echo and T2 fast echo, sagittal STIR, axial T1 and T2 fast spin echo through the lumbar spine. In cases with scoliosis, additional coronal T2 fast spin echo may be performed. COMPARISON: [facility], CR, XR LUMBAR SPINE 2-3V, 11/02/2019, 13:33. [facility], CR, XR LUMBAR SPINE 2-3V, 11/17/2019, 8:36. FINDINGS: Image quality: Bilateral renal cysts are partially seen. Alignment and Curvature: There is normal bony alignment. Bone Marrow: Marrow is of normal overall signal. L1 vertebroplasty cement can be seen. Spinal Cord: Conus medullaris terminates at the L1 level. Visualized cord demonstrates normal signal and size. Paraspinous Soft Tissues: No paravertebral masses. T12-L1: Mild loss of disc height is seen. Loss of disc signal is seen. Mild generalized disc bulge is seen. No significant neural foraminal or central canal narrowing can be seen. L1-L2: Moderate loss of disc height is seen. Loss of disc signal is seen. Mild to moderate disc bulge is seen. Reactive marrow endplate changes are seen, which demonstrate mixed T1 weighted and T2-weighted signal, and are attributed to a combination of edema and fatty metaplasia (Modic type I and Modic type II changes). No significant neural foraminal or central canal narrowing can be seen. L2-L3: Moderate loss of disc height is seen. Loss of disc signal is seen. Reactive marrow endplate changes are seen, which demonstrate mixed T1 weighted and T2-weighted signal, and are attributed to a combination of edema and fatty metaplasia (Modic type I and Modic type II changes). Moderate disc bulge is seen, which is eccentric to the right. There is moderate right-sided and no significant left-sided neural foraminal narrowing seen. Mild central canal narrowing is seen. L3-L4: Moderate loss of disc height is seen. Loss of disc signal is seen. Reactive marrow endplate changes are seen, which are hyperintense on T1-weighted and T2-weighted imaging and most consistent with fatty metaplasia (Modic type II changes). Moderate disc bulge is seen, which is eccentric to the right. There is at least moderate facet hypertrophy seen. Hypertrophy of the ligamentum flavum can also be seen. There is mild right-sided and no significant left-sided neural foraminal narrowing seen. Moderate central canal narrowing is seen. L4-L5: Moderate loss of disc height is seen. Loss of disc signal is seen. Moderate disc bulge is seen, which is eccentric to the right. Moderate facet joint hypertrophy is seen. Associated hypertrophy of the ligamentum flavum can be seen. There is moderate right-sided and no significant left-sided neural foraminal narrowing seen. Moderate central canal narrowing is seen. L5-S1: Mild to moderate loss of disc height and disc signal can be seen. Moderate disc bulge is seen, which is eccentric to the left. There is moderate to prominent facet hypertrophy seen. There is moderate left-sided and mild right-sided neural foraminal narrowing seen. Mild central canal narrowing is seen. IMPRESSION: L1 kyphoplasty changes. Multiple levels of degenerative change are seen, including moderate central canal narrowing at L3-L4 and L4-L5. Dictated by: Maurice Richard M.D. on 12/23/2019 at 13:54 Approved by: Maurice Richard M.D. on 12/23/2019 at 14:07
== END ==
PROVIDERS: PCP Internal Medicine; Referring Provider Orthopaedic Surgery; Visit Provider Orthopaedic Surgery
DX: M48.062 Spinal stenosis, lumbar region with neurogenic claudication (principal); M47.816 Spondylosis without myelopathy or radiculopathy, lumbar region; M47.817 Spondylosis without myelopathy or radiculopathy, lumbosacral region; N28.1 Cyst of kidney, acquired
CPT/HCPCS: 72148

== ENCOUNTER → 2020-01-05 10:02 | Outpatient (CLI) | payer MEDICARE, BC, SELFPAY ==
--- NOTE | 2020-01-05 10:06 | DI.RAD.S_ITS ---
PROCEDURE: XR CHEST 2V INDICATIONS: shortness of breath TECHNIQUE: 2 views of the chest were acquired. COMPARISON: [facility], CR, XR CHEST 2V, 06/09/2019, 9:23. [facility], CR, XR CHEST 2V, 05/04/2019, 10:36. FINDINGS: Surgical changes and devices: Aortic stent is seen overlying the descending thoracic aorta just beyond the arch.. Lungs and pleura: Lungs are clear considering mild interstitial prominence and mild chronic elevation of the right hemidiaphragm.. No pleural effusions or pneumothorax. Mediastinum: Mediastinal contours are normal. Heart size is normal. Bones and chest wall: No suspicious bony abnormalities. Soft tissues appear unremarkable. IMPRESSION: Chronic mild interstitial prominence, chronic mild elevation of the right hemidiaphragm. The source of acute shortness of breath is not seen. Aortic stent is noted. Dictated by: Harvey Eubanks M.D. on 01/05/2020 at 10:57 Approved by: Harvey Eubanks M.D. on 01/05/2020 at 10:58
[2020-01-05 11:54] LABS: Add Manual Diff / Slide Review NO; Basophils Absolute Auto 100 /uL (0-100); Basophils Percent Auto 0.9 % (0-2); Eosinophils Absolute Auto 100 /uL (0-450); Eosinophils Percent Auto 2.5 % (2-4); Hemoglobin 15.1 g/dL (13.5-17.5); Lymphocytes Absolute Auto 1400 /uL (1100-4500); Lymphocytes Percent Auto 24.2 % (25-40); Mean Corpuscular HGB Conc 33.5 % (30-36); Mean Corpuscular Hemoglobin 29.9 PG (26-34); Mean Corpuscular Volume 89.3 fL (80-100); Monocytes Absolute Auto 500 /uL (0-900); Monocytes Percent Auto 8.5 % (3-14); Neutrophils Absolute Auto 3800 /uL (1500-7000); Neutrophils Percent Auto 63.9 % (50-75); Platelet Count 123 X10^3/uL (150-400); Red Blood Cell Count 5.03 X10^6/uL (4.5-5.9); Red Cell Distribution Width 15.5 % (11.6-14.8); White Blood Cell Count 5.9 X10^3/uL (4.5-11.0)
[2020-01-05 12:23] LABS: Alanine Aminotransferase 22 IU/L (<50); Albumin 4.1 g/dL (3.5-5.0); Albumin Globulin Ratio 1.9 (1.0-2.8); Alkaline Phosphatase 63 U/L (38-126); Aspartate Aminotransferase 25 IU/L (17-59); BUN Creatinine Ratio 18.4 (6-22); Bilirubin Total 2.4 mg/dL (0.2-1.3); Blood Urea Nitrogen 19 mg/dL (9-20); Calcium 9.4 mg/dL (8.4-10.2); Carbon Dioxide 24 mmol/L (22-32); Chloride 106 mmol/L (98-107); Estimated Glomerular Filt Rate > 60.0 mL/min (>60); Globulin 2.2 g/dL (1.7-4.1); Glucose 108 mg/dL (80-110); HEMOLYSIS < 15 (0-50); Potassium 4.1 mmol/L (3.4-5.1); Sodium 141 mmol/L (137-145); Total Protein 6.3 g/dL (6.3-8.2)
[2020-01-05 12:30] LABS: NT-proBNP (BNP-Adult 18+) 1840 pg/mL (<450)
[2020-01-05 12:47] LABS: TSH w/ Reflex to FT4 1.87 uIU/mL (0.47-4.68)
== END ==
PROVIDERS: PCP Internal Medicine; Referring Provider Internal Medicine; Visit Provider Internal Medicine
DX: G89.29 Other chronic pain (principal); I10 Essential (primary) hypertension; I48.91 Unspecified atrial fibrillation; I50.30 Unspecified diastolic (congestive) heart failure; M54.9 Dorsalgia, unspecified; R06.02 Shortness of breath
CPT/HCPCS: 36415; 71046; 80053; 83880; 84443; 85025

== ENCOUNTER → 2020-01-08 06:57 | Outpatient (CLI) | payer MEDICARE, BC, SELFPAY ==
--- NOTE | 2020-01-08 07:03 | DI.ECHO.S_ITS ---
[facility]+ [facility] +---------+ : : [address] : : : : [id number] : : : : Phone: [phone]+ Echocardiogram Report + + :Name: SALLY VELA Study Date: 01/08/2020 Height: 75 in : :[facility] Weight: 280 lb : : Gender: Male BSA: 2.5 m2 : :: 1935 Age: 84 yrs BP: 142/80 mmHg: :Reason For Study: Heart failure : :Ordering Physician: Dr. Lobato : :Octavio Performed By: Latoya Page : + + Interpretation Summary Left ventricular systolic function is borderline reduced. Left ventricular ejection fraction is estimated to be 50 +/- 5%. LVEF visually has borderline decreased since prior study. There is a significant dyssynchronous contraction pattern, consistent with a conduction abnormality. Diastolic function could not be accurately assessed due to atrial fibrillation. The right ventricle is at the upper limits of normal in size. Right ventricular systolic function is at the lower limits of normal. The right ventricular systolic pressure is estimated to be at least 42 mmHg based on an estimated right atrial pressure of 15 mm Hg. Both atria are severely dilated. There is mild aortic regurgitation. There is no other significant valvular heart disease. 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 Procedure: A two-dimensional transthoracic echocardiogram with color flow and Doppler was performed. The study quality was technically adequate. Comparison is made with the echocardiogram of 10/17/2018. The patient was in atrial fibrillation with heart rates between 43-74 bpm during the exam. Left Ventricle: Based on the patient's BSA and volume measurement the left ventricle is normal in size. Left ventricular systolic function is borderline reduced. Left ventricular ejection fraction is estimated to be 50 +/- 5%. There is a significant dyssynchronous contraction pattern, consistent with a conduction abnormality. Diastolic function could not be accurately assessed due to atrial fibrillation. Right Ventricle: The right ventricle is at the upper limits of normal in size. Right ventricular systolic function is at the lower limits of normal. Atria: Both atria are severely dilated. There is no Doppler evidence for an interatrial shunt. Mitral Valve: There is mild mitral annular calcification. There is trace mitral regurgitation. Aortic Valve: The aortic valve is trileaflet. The aortic valve is mildly calcified. There is no aortic valve stenosis. There is mild aortic regurgitation. There is an eccentric jet of aortic insufficiency directed against the septum. Tricuspid Valve: The tricuspid valve is normal in structure and function. There is trace tricuspid regurgitation. The right ventricular systolic pressure is estimated to be at least 42 mmHg based on an estimated right atrial pressure of 15 mm Hg. Pulmonic Valve: The pulmonic valve is not well seen, but is grossly normal. There is trace pulmonic regurgitation. There is no other significant valvular heart disease. Great Vessels: The aortic root is normal size. 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 This is unchanged compared to the previous study. The pulmonary artery is not well visualized, but is probably normal size. The IVC is dilated (diameter is greater than 2.1 cm) and it collapses less than 50% with a sniff. This suggests a high right atrial pressure of 15 mm Hg. Pericardium/ Pleura There is no pericardial effusion. There is no pleural effusion. MMode/2D Measurements & Calculations LVIDd: 5.9 cm LVOT diam: 2.6 cm LVIDs: 5.5 cm Ao root diam: 3.8 cm FS: 6.7 % asc Aorta Diam: 4.3 cm EPSS: 0.49 cm IVSd: 0.56 cm LVPWd: 0.69 cm LV ford. diameter/BSA (cm/m^2): 2.3 LV sys. diameter/BSA (cm/m^2): 2.2 LA A2 area: 39.5 cm2 RA long axis: 6.3 cm LA A4 area: 34.7 cm2 RA area: 31.6 cm2 LA length (vol): 7.1 cm RA vol: 134.5 ml LA vol: 164.8 ml RA : 53.1 ml/m2 LA vol index: 65.1 ml/m2 IVC diam: 2.5 cm RVD1 (basal): 5.2 cm RVD2 (mid): 4.4 cm Doppler Measurements & Calculations Ao V2 max: 144.8 cm/sec LVOT Max Gary: 90.5 cm/sec Ao V2 mean: 95.8 cm/sec LV V1 max P.3 mmHg Ao max P.4 mmHg LV V1 VTI: 17.3 cm Ao mean P.2 mmHg OSMANY(I,D): 2.8 cm2 Ao V2 VTI: 31.5 cm OSMANY(V,D): 3.2 cm2 sev ratio: 0.55 OSMANY indexed to BSA (cm^2/m^2): 1.1 MV E max gary: 81.5 cm/sec TR max gary: 257.9 cm/sec Med Peak E' Gary: 7.3 cm/sec TR max P.7 mmHg E/E' med: 11.2 PA V2 max: 67.8 cm/sec Lat Peak E' Gary: 10.9 cm/sec PA V2 mean: 46.8 cm/sec E/E' lat: 7.5 PA mean P.98 mmHg E/e' average: 9.3 MV P1/2t: 52.0 msec MV P1/2t max gary: 79.9 cm/sec SV(LVOT): 89.6 ml MVA(P1/2t): 4.2 cm2 Reading Physician:04:27 PM
== END ==
PROVIDERS: PCP Internal Medicine; Referring Provider Internal Medicine; Visit Provider Internal Medicine
DX: I35.1 Nonrheumatic aortic (valve) insufficiency (principal); I77.89 Other specified disorders of arteries and arterioles; I50.30 Unspecified diastolic (congestive) heart failure; I48.91 Unspecified atrial fibrillation; I10 Essential (primary) hypertension; R06.02 Shortness of breath; M54.9 Dorsalgia, unspecified; G89.29 Other chronic pain
CPT/HCPCS: 93306

== ENCOUNTER → 2020-01-15 10:26 | Outpatient (CLI) | payer MEDICARE, BC, SELFPAY ==
[2020-01-15 12:07] LABS: BUN Creatinine Ratio 37.8 (6-22); Blood Urea Nitrogen 42 mg/dL (9-20); Calcium 9.4 mg/dL (8.4-10.2); Carbon Dioxide 30 mmol/L (22-32); Chloride 98 mmol/L (98-107); Estimated Glomerular Filt Rate > 60.0 mL/min (>60); Glucose 121 mg/dL (80-110); HEMOLYSIS < 15 (0-50); Sodium 137 mmol/L (137-145)
[2020-01-15 12:13] LABS: NT-proBNP (BNP-Adult 18+) 1520 pg/mL (<450)
== END ==
PROVIDERS: PCP Internal Medicine; Referring Provider Internal Medicine; Visit Provider Internal Medicine
DX: I10 Essential (primary) hypertension (principal); I50.30 Unspecified diastolic (congestive) heart failure; R06.02 Shortness of breath; I50.33 Acute on chronic diastolic (congestive) heart failure
CPT/HCPCS: 36415; 80048; 83880

== ENCOUNTER → 2020-02-17 08:39 | Outpatient (CLI) | payer MEDICARE, BC, SELFPAY ==
[2020-02-17 09:39] LABS: Add Manual Diff / Slide Review NO; Basophils Absolute Auto 100 /uL (0-100); Basophils Percent Auto 0.9 % (0-2); Eosinophils Absolute Auto 200 /uL (0-450); Eosinophils Percent Auto 2.7 % (2-4); Hematocrit 48.1 % (41-53); Hemoglobin 16.1 g/dL (13.5-17.5); Lymphocytes Absolute Auto 1900 /uL (1100-4500); Lymphocytes Percent Auto 28.6 % (25-40); Mean Corpuscular HGB Conc 33.4 % (30-36); Mean Corpuscular Hemoglobin 29.8 PG (26-34); Mean Corpuscular Volume 89.2 fL (80-100); Monocytes Absolute Auto 700 /uL (0-900); Monocytes Percent Auto 10.2 % (3-14); Neutrophils Absolute Auto 3900 /uL (1500-7000); Neutrophils Percent Auto 57.6 % (50-75); Platelet Count 135 X10^3/uL (150-400); Red Blood Cell Count 5.39 X10^6/uL (4.5-5.9); White Blood Cell Count 6.8 X10^3/uL (4.5-11.0)
[2020-02-17 09:52] LABS: BUN Creatinine Ratio 28.1 (6-22); Blood Urea Nitrogen 34 mg/dL (9-20); Calcium 9.6 mg/dL (8.4-10.2); Carbon Dioxide 30 mmol/L (22-32); Chloride 97 mmol/L (98-107); Estimated Glomerular Filt Rate 57.1 mL/min (>60); Glucose 98 mg/dL (80-110); HEMOLYSIS < 15 (0-50); Potassium 3.6 mmol/L (3.4-5.1); Sodium 137 mmol/L (137-145)
[2020-02-17 10:00] LABS: NT-proBNP (BNP-Adult 18+) 2110 pg/mL (<450)
== END ==
PROVIDERS: PCP Internal Medicine; Referring Provider Internal Medicine Cardiovascular Disease; Visit Provider Internal Medicine Cardiovascular Disease
DX: I10 Essential (primary) hypertension (principal); R06.09 Other forms of dyspnea
CPT/HCPCS: 36415; 80048; 83880; 85025

== ENCOUNTER → 2020-04-28 14:04 | Outpatient (CLI) | payer MEDICARE, BC, SELFPAY ==
--- NOTE | 2020-04-28 14:08 | DI.RAD.S_ITS ---
PROCEDURE: XR ABDOMEN MIN 2V INDICATIONS: abd pain TECHNIQUE: 2 views of the abdomen were acquired. COMPARISON: None. FINDINGS: Surgical changes and devices: IVC filter is projected over the L3-4 vertebral bodies. Patient is status post L1 vertebroplasty. Surgical clips are projected over the symphysis pubis and bilateral iliac bones. Bowel: No pneumoperitoneum. The bowel gas pattern is normal. Soft tissues: No masses; visualized solid organ contours appear normal in size. No suspicious abdominal calcifications. Bones: No suspicious bony abnormalities. IMPRESSION: No acute intra-abdominal findings. Dictated by: Billie Ramirez M.D. on 04/28/2020 at 16:25 Approved by: Billie Ramirez M.D. on 04/28/2020 at 16:26
--- NOTE | 2020-04-28 14:08 | DI.RAD.S_ITS ---
PROCEDURE: XR CHEST 2V INDICATIONS: congestive heart failure TECHNIQUE: 2 views of the chest were acquired. COMPARISON: [facility], CR, XR CHEST 2V, 01/05/2020, 9:30. FINDINGS: Surgical changes and devices: Thoracic aortic endograft is unchanged. Lungs and pleura: Lungs are clear. No pleural effusions or pneumothorax. Mediastinum: Mediastinal contours are normal. Heart size is normal. Bones and chest wall: No suspicious bony abnormalities. Soft tissues appear unremarkable. IMPRESSION: No acute cardiopulmonary findings. Dictated by: Billie Ramirez M.D. on 04/28/2020 at 16:25 Approved by: Billie Ramirez M.D. on 04/28/2020 at 16:25
[2020-04-28 15:17] LABS: Add Manual Diff / Slide Review NO; Basophils Absolute Auto 100 /uL (0-100); Basophils Percent Auto 0.5 % (0-2); Eosinophils Absolute Auto 100 /uL (0-450); Eosinophils Percent Auto 0.8 % (2-4); Hematocrit 51.1 % (41-53); Hemoglobin 17.4 g/dL (13.5-17.5); Lymphocytes Absolute Auto 3000 /uL (1100-4500); Lymphocytes Percent Auto 28.9 % (25-40); Mean Corpuscular Hemoglobin 30.6 PG (26-34); Mean Corpuscular Volume 90.1 fL (80-100); Monocytes Absolute Auto 700 /uL (0-900); Monocytes Percent Auto 6.6 % (3-14); Neutrophils Absolute Auto 6500 /uL (1500-7000); Neutrophils Percent Auto 63.2 % (50-75); Platelet Count 142 X10^3/uL (150-400); Red Blood Cell Count 5.68 X10^6/uL (4.5-5.9); Red Cell Distribution Width 15.9 % (11.6-14.8); White Blood Cell Count 10.3 X10^3/uL (4.5-11.0)
[2020-04-28 15:40] LABS: Alanine Aminotransferase 25 IU/L (<50); Albumin 4.3 g/dL (3.5-5.0); Albumin Globulin Ratio 1.8 (1.0-2.8); Alkaline Phosphatase 60 U/L (38-126); Amylase 80 U/L (30-110); Aspartate Aminotransferase 27 IU/L (17-59); BUN Creatinine Ratio 35.4 (6-22); Bilirubin Total 2.4 mg/dL (0.2-1.3); Blood Urea Nitrogen 62 mg/dL (9-20); Calcium 9.7 mg/dL (8.4-10.2); Carbon Dioxide 25 mmol/L (22-32); Chloride 96 mmol/L (98-107); Estimated Glomerular Filt Rate 37.3 mL/min (>60); Globulin 2.4 g/dL (1.7-4.1); Glucose 108 mg/dL (80-110); HEMOLYSIS < 15 (0-50); Lipase 206 U/L (23-300); Magnesium 2.3 mg/dL (1.6-2.3); Potassium 3.6 mmol/L (3.4-5.1); Sodium 134 mmol/L (137-145); Total Protein 6.7 g/dL (6.3-8.2)
[2020-04-28 15:49] LABS: NT-proBNP (BNP-Adult 18+) 1220 pg/mL (<450)
== END ==
PROVIDERS: PCP Internal Medicine; Referring Provider Internal Medicine; Visit Provider Internal Medicine
DX: I10 Essential (primary) hypertension (principal); I25.5 Ischemic cardiomyopathy; I50.32 Chronic diastolic (congestive) heart failure; R60.9 Edema, unspecified; R10.9 Unspecified abdominal pain
CPT/HCPCS: 36415; 71046; 74019; 80053; 82150; 83690; 83735; 83880; 85025

== ENCOUNTER → 2020-05-25 09:22 | Outpatient (CLI) | payer MEDICARE, BC, SELFPAY ==
[2020-05-25 10:44] LABS: Add Manual Diff / Slide Review NO; Basophils Absolute Auto 100 /uL (0-100); Basophils Percent Auto 0.9 % (0-2); Eosinophils Absolute Auto 100 /uL (0-450); Eosinophils Percent Auto 1.5 % (2-4); Hematocrit 47.5 % (41-53); Hemoglobin 16.1 g/dL (13.5-17.5); Lymphocytes Absolute Auto 2100 /uL (1100-4500); Lymphocytes Percent Auto 31.6 % (25-40); Mean Corpuscular HGB Conc 33.8 % (30-36); Mean Corpuscular Volume 91.6 fL (80-100); Monocytes Absolute Auto 600 /uL (0-900); Monocytes Percent Auto 8.5 % (3-14); Neutrophils Absolute Auto 3800 /uL (1500-7000); Neutrophils Percent Auto 57.5 % (50-75); Platelet Count 142 X10^3/uL (150-400); Red Blood Cell Count 5.18 X10^6/uL (4.5-5.9); Red Cell Distribution Width 15.7 % (11.6-14.8); White Blood Cell Count 6.6 X10^3/uL (4.5-11.0)
[2020-05-25 11:18] LABS: BUN Creatinine Ratio 36.1 (6-22); Blood Urea Nitrogen 48 mg/dL (9-20); Calcium 9.6 mg/dL (8.4-10.2); Carbon Dioxide 34 mmol/L (22-32); Chloride 98 mmol/L (98-107); Estimated Glomerular Filt Rate 51.2 mL/min (>60); Glucose 98 mg/dL (80-110); HEMOLYSIS < 15 (0-50); Potassium 3.6 mmol/L (3.4-5.1); Sodium 138 mmol/L (137-145)
== END ==
PROVIDERS: PCP Internal Medicine; Referring Provider Internal Medicine Cardiovascular Disease; Visit Provider Internal Medicine Cardiovascular Disease
DX: I50.32 Chronic diastolic (congestive) heart failure (principal)
CPT/HCPCS: 36415; 80048; 85025

== ENCOUNTER 2020-05-30 13:59 | Emergency (ER) | payer MEDICARE, BC, SELFPAY ==
[2020-05-30] VITALS (7 sets, daily range): BP systolic 115–141; BP diastolic 68–92; PULSE 65–90; RESP 12–16; TEMP 36.2; O2SAT 95–97; BMI 32.2
--- NOTE | 2020-05-30 14:04 | ED.MALEGU ---
HPI - Male Genitourinary General Chief complaint: Urogenital-Male Stated complaint: blood in urine Time Seen by Provider: 05/30/20 14:00 Source: patient and family Mode of arrival: Ambulatory Limitations: no limitations History of Present Illness HPI Narrative: 84-year-old male former smoker with extensive medical history including AFib with anticoagulation, AAA repair, dependent edema, hypertension, hyperlipidemia presents with family in the chief complaint of pain in his lower abdomen and back, blood in his urine and inability to urinate for the past few days. He does take an anticoagulant. He has a history of a surgically repaired AAA. He is not dizzy nor weak or lightheaded. Denies any fever or chills. His discomfort is made worse with motion and improves with rest. MD Complaint: other Onset (ago): day(s) Duration: constant Location: abdomen Severity: moderate Quality: aching Relieving factors: none Exacerbating factors: none Related Data Home Medications Medication Instructions Recorded Confirmed magnesium oxide 400 mg PO Q OTHER DAY cap 08/18/18 04/28/20 apixaban 5 mg PO BID 10/15/18 04/28/20 chlorthalidone 25 mg PO DAILY 10/15/18 04/28/20 losartan 100 mg PO DAILY 10/15/18 04/28/20 atorvastatin 10 mg tablet 10 mg PO DAILY 10/19/19 04/28/20 calcium polycarbophil 625 mg tablet 1,250 mg PO DAILY 02/02/20 04/28/20 docusate sodium 100 mg capsule 100 mg PO DAILY 02/02/20 04/28/20 furosemide 40 mg tablet 40 mg PO DAILY tab 02/02/20 04/28/20 potassium chloride 20 mEq 20 meq PO DAILY tab 02/02/20 04/28/20 tablet,extended release Previous Rx's Medication Instructions Recorded gabapentin 300 mg capsule 300 mg PO DAILY #90 cap 12/25/19 oxybutynin chloride 5 mg tablet 5 mg PO BID-TID PRN #90 tab 02/02/20 finasteride 5 mg PO DAILY #20 tab 05/30/20 Allergies Allergy/AdvReac Type Severity Reaction Status Date / Time No Known Drug Allergies Allergy Verified 04/28/20 13:34 Review of Systems Constitutional Constitutional: Denies chills, Denies fatigue, Denies fever(s), Denies frequent falls, Denies lethargy and Denies weakness Eyes Eyes: Denies change in vision, Denies eye discharge, Denies irritation and Denies loss of vision ENT Ears, Nose, Mouth, and Throat: Denies change in voice, Denies dizziness, Denies neck pain, Denies sore throat and Denies throat swelling Cardiovascular Cardiovascular: Denies chest pain, Denies irregular heart rhythm, Denies lightheadedness, Denies palpitations, Denies dyspnea, Denies dyspnea on exertion and Denies orthopnea Respiratory Respiratory: Denies cough, Denies dyspnea, Denies dyspnea on exertion and Denies wheezing Gastrointestinal Gastrointestinal: Denies abdominal pain, Denies change in bowel habits, Denies diarrhea, Denies nausea and Denies vomiting Genitourinary Genitourinary: Reports hematuria and Reports oliguria Genitourinary: Reports hematuria Musculoskeletal Musculoskeletal: Denies neck pain and Denies numbness Integumentary/Breasts Skin/Breast: Denies pruritus, Denies erythema, Denies rash and Denies wounds Neurologic Neurologic: Denies behavioral changes, Denies confusion, Denies dizziness, Denies frequent falls, Denies loss of vision, Denies numbness and Denies weakness Psychiatric Psychiatric: Denies anxiety, Denies behavioral changes, Denies confusion, Denies depression, Denies homicidal ideation and Denies suicidal ideation Endocrine Endocrine: Denies fatigue, Denies flushing and Denies palpitations Hematologic/Lymphatic Hematologic/Lymphatic: Denies easy bruising Allergic/Immunologic Allergic/Immunologic: Denies urticaria, Denies throat swelling and Denies wheezing Patient History Medical History AAA (abdominal aortic aneurysm) (Chronic ~2014) Acquired anal stenosis (Chronic) Anxiety (Acute) Aortic dilatation (Acute) Haile's syndrome (Chronic) CAD (coronary artery disease) (Acute) Cardiomyopathy (Chronic) Cataracts, bilateral (Chronic) CHF (congestive heart failure) (Acute) Chronic back pain (Chronic) Chronic diastolic congestive heart failure (Chronic) Colon polyps (Chronic) Deep vein thrombosis (Resolved ~2014) Diverticular disease (Chronic) Former smoker (Acute) Fractures (Resolved) Gout (Chronic) Hearing loss (Chronic) History of urinary incontinence (Chronic) HLD (hyperlipidemia) (Acute) Hypertension (Chronic) Knee pain (Chronic) Lumbar spine pain (Chronic) Meningitis spinal (Acute) Paroxysmal atrial fibrillation (Resolved) Peripheral edema (Chronic) Peripheral neuropathy (Chronic) Persistent atrial fibrillation (Chronic) Prostate cancer (Chronic ~2007) Pulmonary embolism (Chronic ~2013) Pulmonic valve insufficiency (Acute) Rheumatoid arthritis (Chronic) Shoulder pain (Chronic) Skin cancer (Chronic ~1989) Tricuspid insufficiency (Acute) 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 Well-nourished, well-developed patient, in mild distress. HEAD: Atraumatic. Normocephalic. EYES: Pupils equal round and reactive. Extraocular motions intact. No scleral icterus. No injection or drainage. ENT: Nose without bleeding, purulent drainage. Throat without erythema, tonsillar hypertrophy or exudate. Airway patent. NECK: Trachea midline. Non tender CARDIOVASCULAR: Irregular rate and rhythm rhythm without murmurs, gallops, or rubs. RESPIRATORY: Clear to auscultation. Breath sounds equal bilaterally. No wheezes, rales, or rhonchi. GASTROINTESTINAL: Abdomen soft, non-tender, nondistended. EXTREMITIES: No edema or joint tenderness. BACK: Nontender without deformity or crepitance. No flank tenderness. NEURO: AOx3. SKIN: No rash or erythema of visible areas Initial Vital Signs Initial Vital Signs: Vital Signs Temperature 97.1 F L 05/30/20 14:00 Pulse Rate 90 05/30/20 14:00 Respiratory Rate 16 05/30/20 14:00 Blood Pressure 141/92 H 05/30/20 14:00 Pulse Oximetry 95 05/30/20 14:00 Course Orders Ordered: ED Orders 05/30/20 14:18 Complete Blood Count AUTO DIFF Stat Comprehensive Metabolic Panel Stat Lipase Stat Partial Thromboplastin Time Stat Prostate Specific Antigen Stat Prothrombin Time INR Stat 05/30/20 15:02 CT angio chest abdomen pelvis Stat Discontinued Medications Finasteride (Proscar) 5 mg PO NOW ONE Stop: 05/30/20 17:07 Sodium Chloride (Normal Saline 0.9%) 500 mls @ 1,000 mls/hr IV BOLUS ONE Stop: 05/30/20 15:31 Last Infusion: 05/30/20 15:50 Dose: 0 mls/hr Documented by: Admin: 05/30/20 15:00 Dose: 1,000 mls/hr Documented by: RENNY Reevaluation(s) Reevaluation #1: patient passed large volume of urine, no longer having suprapubic tenderness. No abnormal findings on POC Consultations Consultation #1: Lengthy discussion with on-call Urology. Recommendation to hold oxybutynin, add finasteride, PSA, call office in the morning for close follow-up. We did discuss holding Eliquis, however high risk of stroke and vascular complications in the absence of ongoing bleeding or hemodynamic instability would suggest this is not needed this point time. Question prostate is the source of the bleeding versus, less likely hemorrhagic cyst in the kidney which appears unchanged since prior imaging in 2018. Vital Signs Vital signs: Vital Signs - 8 hr 05/30/20 14:00 05/30/20 15:00 05/30/20 15:31 Temperature 97.1 F L Pulse Rate 90 Respiratory Rate 16 Blood Pressure 141/92 H 124/69 115/71 Pulse Oximetry 95 05/30/20 16:57 05/30/20 16:58 05/30/20 17:00 Temperature Pulse Rate 68 65 Respiratory Rate Blood Pressure 117/78 120/68 Pulse Oximetry 97 96 96 MDM - Male Genitourinary Lab Data Result diagrams: 05/30/20 14:18 05/30/20 14:18 Labs: Lab Results 05/30/20 05/30/20 05/30/20 Range/Units 14:18 14:18 14:18 WBC 8.2 (4.5-11.0) X10^3/uL RBC 5.13 (4.5-5.9) X10^6/uL Hgb 15.7 (13.5-17.5) g/dL Hct 46.7 (41-53) % MCV 91.0 (80-100) fL MCH 30.7 (26-34) PG MCHC 33.8 (30-36) % RDW 15.4 H (11.6-14.8) % Plt Count 150 (150-400) X10^3/uL Neut % (Auto) 62.1 (50-75) % Lymph % (Auto) 26.0 (25-40) % Gray % (Auto) 8.5 (3-14) % Eos % (Auto) 2.2 (2-4) % Baso % (Auto) 1.2 (0-2) % Neut # (Auto) 5100 (6707-4047) /uL Lymph # (Auto) 2100 (7858-4480) /uL Gray # (Auto) 700 (0-900) /uL Eos # (Auto) 200 (0-450) /uL Baso # (Auto) 100 (0-100) /uL PT 18.1 H (10.1-12.7) SECONDS INR 1.6 H (0.9-1.3) APTT 33 (26.4-36.2) SECONDS Sodium 135 L (137-145) mmol/L Potassium 3.6 (3.4-5.1) mmol/L Chloride 98 (98-107) mmol/L Carbon Dioxide 30 (22-32) mmol/L BUN 54 H (9-20) mg/dL Creatinine 1.64 H (0.66-1.25) mg/dL Estimated GFR 40.2 L (>60) mL/min BUN/Creatinine Ratio 32.9 H (6-22) Glucose 115 H (80-110) mg/dL Calcium 9.5 (8.4-10.2) mg/dL Total Bilirubin 1.8 H (0.2-1.3) mg/dL AST 28 (17-59) IU/L ALT 21 (<50) IU/L Alkaline Phosphatase 65 (38-126) U/L Total Protein 6.7 (6.3-8.2) g/dL Albumin 4.3 (3.5-5.0) g/dL Globulin 2.4 (1.7-4.1) g/dL Albumin/Globulin Ratio 1.8 (1.0-2.8) Lipase 129 (23-300) U/L Urine Dip Bedside Urine Glucose Negative Bedside Urine Bilirubin - Negative Bedside Urine Ketone - Negative Urine Specific [place] 1.015 Bedside Urine Occult Blood - Negative Bedside Urine pH 6.0 Bedside Urine Protein - Negative Bedside Urine Urobilinogen - Negative Bedside Urine Nitrite - Negative Bedside Urine Leukocytes - Negative Esterase Imaging Data CT scan - abdomen/pelvis: Radiologist's Impression: [address] [address] [address] Scan Report Signed Patient: Nazario Liang JMR#: [id number] : 5Acct:[id number] Age/Sex: 84 / MDate of Service: 05/30/20 Loc: ED Accession Number: [id number] Procedure: CT angio chest abdomen pelvis Ordering Provider: Woody Lowry D.O. PROCEDURE: CT ANGIO CHEST ABDOMEN PELVIS INDICATIONS: abdominal pain, back pain, hematuria, known AAA TECHNIQUE: Precontrast 5 mm thick sections acquired from the lung apices to the iliac crests. After the administration of intravenous contrast, 2.5 mm thick sections again acquired from the lung apices to the iliac crests. Maximum intensity projection (MIP) oblique sagittal and coronal reformats were then acquired. For radiation dose reduction, the following was used: automated exposure control. COMPARISON: [facility], MR, MR LUMBAR SPINE WITHOUT CONTRAST, 12/02/2017, 10:17. [facility], MR, MR LUMBAR SPINE WO CON, 12/23/2019, 13:18. FINDINGS: Image quality: Excellent. AORTA: The ascending thoracic aorta has a normal caliber. The coronary arteries have atherosclerotic calcifications. The aortic arch and its branches have standard anatomy with atherosclerotic calcifications. The descending aorta has a stent graft. There is no evidence of aneurysm or dissection. No endoleak. The celiac trunk, SMA, and both renal arteries are patent. The HERBERT is patent. Lungs and pleura: No acute air space opacities. No pleural effusions or pneumothorax. Central and peripheral airways are patent and normal in caliber. Mediastinum: Heart size is normal. No pericardial effusion. No mediastinal adenopathy by size criteria. Esophagus is normal in caliber. No hiatal hernia. Bones and chest wall: No suspicious bony lesions. Multilevel degenerative changes. Vertebroplasty has been performed at L1. Schmorl's nodes are seen at multiple levels. No axillary or supraclavicular adenopathy by size criteria. The thyroid gland has multiple nodules symmetrically consistent with thyroid goiter. Solid organs: Liver: The liver has no mass or intrahepatic biliary ductal dilatation. The portal vein and hepatic veins are patent. Biliary: The gallbladder has no gallstones, pericholecystic fluid, gallbladder wall thickening, or surrounding inflammatory change. Pancreas: The pancreas has no mass or ductal dilatation. There is no surrounding inflammation. Spleen: Normal size. There are no masses. Adrenals: No hypertrophy or nodules. Kidneys: No obstructive calculus or hydronephrosis. The right kidney has a 2.7 cm cyst in the midpole and a 2.3 cm cyst in the midpole. The left kidney has a 4.1 cm cyst in the midpole, a 2.1 cm cyst in the inferior pole, a 1.8 cm cyst and in the midpole. There is a hyperdense mass measuring 54 Hounsfield units extending exophytically from the superior pole measuring 3.2 cm, likely a hemorrhagic cyst and is unchanged in size compared to a prior MRI on 12/02/2017. Peritoneum and bowel: The distal esophagus and stomach are normal. The small bowel has a normal caliber and appearance. The terminal ileum is normal. The large bowel has diverticulosis without evidence of diverticulitis. The appendix is normal. No free fluid or air. Nodes and vessels: No retroperitoneal or mesenteric adenopathy by size criteria. The IVC contains an IVC filter in an infrarenal location. Miscellaneous: No abdominal wall mass or hernia. Genitourinary: The bladder has no wall thickening or mass. No bladder calcifications. Abdominal wall: No inguinal hernias or adenopathy. IMPRESSION: 1. No aortic dissection or aneurysm of the thoracic or abdominal aorta. 2. A stent graft in the descending aorta appears well positioned with no endoleak. 3. The mesenteric arteries and renal arteries are patent with no significant stenosis. 4. IVC filter appears well position. 5. Multiple simple cysts bilaterally. 6. A hyperdense mass extending exophytically from the superior pole measuring 3.2 cm is likely a hemorrhagic cyst. 7. Thyroid goiter. This could be further evaluated with thyroid ultrasound. 8. Diverticulosis without evidence of diverticulitis. Dictated by: Helder Talamantes M.D. on 05/30/2020 at 16:24 Approved by: Helder Talamantes M.D. on 05/30/2020 at 16:46 Discharge Plan Departure Patient Disposition: Home Clinical Impression: Hematuria Qualifiers: Hematuria type: unspecified type Qualified Code(s): R31.9 - Hematuria, unspecified Instructions: DI for Hematuria Activity Restrictions/Additional Instructions: *You have been diagnosed with [hematuria, on anticoagulation] *What to do: * per my discussion with Urology please stop taking her oxybutynin. He will start 1 new prescription, finasteride which has been sent to [facility] in [place]. Otherwise, Take medications as directed *Follow up with your primary care provider in 2-3 days, call for an appointment. Let them know you were seen in the Emergency Department and that we ask that you be seen in follow up. Also, I have set this information to Urology, please call the office tomorrow morning to discuss a follow-up plan *Return to ER if you should have any new, worsening or concerning symptoms, such as [fever greater than 101, chills, inability urinate, or other bothersome symptoms] Prescriptions: New finasteride 5 mg tablet 5 mg PO DAILY Qty: 20 RF: 0 No Action magnesium oxide 400 mg capsule 400 mg PO Q OTHER DAY RF: 0 gabapentin 300 mg capsule 300 mg PO DAILY Qty: 90 RF: 1 atorvastatin 10 mg tablet 10 mg PO DAILY RF: 0 furosemide 40 mg tablet 40 mg PO DAILY RF: 0 potassium chloride 20 mEq tablet extended release 20 meq PO DAILY RF: 0 docusate sodium [Stool Softener] 100 mg capsule 100 mg PO DAILY RF: 0 calcium polycarbophil [FiberCon] 625 mg tablet 1,250 mg PO DAILY RF: 0 oxybutynin chloride 5 mg tablet 5 mg PO BID-TID PRN (Reason: bladder spasms) Qty: 90 RF: 3 apixaban 5 mg tablet 5 mg PO BID RF: 0 losartan 100 mg Tablet 100 mg PO DAILY RF: 0 chlorthalidone 25 mg Tablet 25 mg PO DAILY RF: 0 Referrals: Alberto Elder MD [Physician] - Luis Alfredo Cunningham MD [Primary Care Provider] - Yony Cline MD [Physician] -
[2020-05-30 14:27] LABS: Add Manual Diff / Slide Review NO; Basophils Absolute Auto 100 /uL (0-100); Basophils Percent Auto 1.2 % (0-2); Eosinophils Absolute Auto 200 /uL (0-450); Eosinophils Percent Auto 2.2 % (2-4); Hematocrit 46.7 % (41-53); Hemoglobin 15.7 g/dL (13.5-17.5); Lymphocytes Absolute Auto 2100 /uL (1100-4500); Mean Corpuscular HGB Conc 33.8 % (30-36); Mean Corpuscular Hemoglobin 30.7 PG (26-34); Monocytes Absolute Auto 700 /uL (0-900); Monocytes Percent Auto 8.5 % (3-14); Neutrophils Absolute Auto 5100 /uL (1500-7000); Neutrophils Percent Auto 62.1 % (50-75); Platelet Count 150 X10^3/uL (150-400); Red Blood Cell Count 5.13 X10^6/uL (4.5-5.9); Red Cell Distribution Width 15.4 % (11.6-14.8); White Blood Cell Count 8.2 X10^3/uL (4.5-11.0)
[2020-05-30 14:33] LABS: INR 1.6 (0.9-1.3); Prothrombin Time 18.1 SECONDS (10.1-12.7)
[2020-05-30 14:35] LABS: PTT Partial Thromboplastin Tim 33 SECONDS (26.4-36.2)
[2020-05-30 14:40] LABS: Alanine Aminotransferase 21 IU/L (<50); Albumin 4.3 g/dL (3.5-5.0); Albumin Globulin Ratio 1.8 (1.0-2.8); Alkaline Phosphatase 65 U/L (38-126); Aspartate Aminotransferase 28 IU/L (17-59); BUN Creatinine Ratio 32.9 (6-22); Bilirubin Total 1.8 mg/dL (0.2-1.3); Blood Urea Nitrogen 54 mg/dL (9-20); Calcium 9.5 mg/dL (8.4-10.2); Carbon Dioxide 30 mmol/L (22-32); Chloride 98 mmol/L (98-107); Estimated Glomerular Filt Rate 40.2 mL/min (>60); Globulin 2.4 g/dL (1.7-4.1); Glucose 115 mg/dL (80-110); HEMOLYSIS < 15 (0-50); Lipase 129 U/L (23-300); Potassium 3.6 mmol/L (3.4-5.1); Sodium 135 mmol/L (137-145); Total Protein 6.7 g/dL (6.3-8.2)
[2020-05-30] MEDS: SODIUM CHLORIDE 0.9% 500 ML 1000 ML IV (15:00)
--- NOTE | 2020-05-30 15:02 | DI.CT.S_ITS ---
PROCEDURE: CT ANGIO CHEST ABDOMEN PELVIS INDICATIONS: abdominal pain, back pain, hematuria, known AAA TECHNIQUE: Precontrast 5 mm thick sections acquired from the lung apices to the iliac crests. After the administration of intravenous contrast, 2.5 mm thick sections again acquired from the lung apices to the iliac crests. Maximum intensity projection (MIP) oblique sagittal and coronal reformats were then acquired. For radiation dose reduction, the following was used: automated exposure control. COMPARISON: [facility], MR, MR LUMBAR SPINE WITHOUT CONTRAST, 12/02/2017, 10:17. [facility], MR, MR LUMBAR SPINE WO CON, 12/23/2019, 13:18. FINDINGS: Image quality: Excellent. AORTA: The ascending thoracic aorta has a normal caliber. The coronary arteries have atherosclerotic calcifications. The aortic arch and its branches have standard anatomy with atherosclerotic calcifications. The descending aorta has a stent graft. There is no evidence of aneurysm or dissection. No endoleak. The celiac trunk, SMA, and both renal arteries are patent. The HERBERT is patent. Lungs and pleura: No acute air space opacities. No pleural effusions or pneumothorax. Central and peripheral airways are patent and normal in caliber. Mediastinum: Heart size is normal. No pericardial effusion. No mediastinal adenopathy by size criteria. Esophagus is normal in caliber. No hiatal hernia. Bones and chest wall: No suspicious bony lesions. Multilevel degenerative changes. Vertebroplasty has been performed at L1. Schmorl's nodes are seen at multiple levels. No axillary or supraclavicular adenopathy by size criteria. The thyroid gland has multiple nodules symmetrically consistent with thyroid goiter. Solid organs: Liver: The liver has no mass or intrahepatic biliary ductal dilatation. The portal vein and hepatic veins are patent. Biliary: The gallbladder has no gallstones, pericholecystic fluid, gallbladder wall thickening, or surrounding inflammatory change. Pancreas: The pancreas has no mass or ductal dilatation. There is no surrounding inflammation. Spleen: Normal size. There are no masses. Adrenals: No hypertrophy or nodules. Kidneys: No obstructive calculus or hydronephrosis. The right kidney has a 2.7 cm cyst in the midpole and a 2.3 cm cyst in the midpole. The left kidney has a 4.1 cm cyst in the midpole, a 2.1 cm cyst in the inferior pole, a 1.8 cm cyst and in the midpole. There is a hyperdense mass measuring 54 Hounsfield units extending exophytically from the superior pole measuring 3.2 cm, likely a hemorrhagic cyst and is unchanged in size compared to a prior MRI on 12/02/2017. Peritoneum and bowel: The distal esophagus and stomach are normal. The small bowel has a normal caliber and appearance. The terminal ileum is normal. The large bowel has diverticulosis without evidence of diverticulitis. The appendix is normal. No free fluid or air. Nodes and vessels: No retroperitoneal or mesenteric adenopathy by size criteria. The IVC contains an IVC filter in an infrarenal location. Miscellaneous: No abdominal wall mass or hernia. Genitourinary: The bladder has no wall thickening or mass. No bladder calcifications. Abdominal wall: No inguinal hernias or adenopathy. IMPRESSION: 1. No aortic dissection or aneurysm of the thoracic or abdominal aorta. 2. A stent graft in the descending aorta appears well positioned with no endoleak. 3. The mesenteric arteries and renal arteries are patent with no significant stenosis. 4. IVC filter appears well position. 5. Multiple simple cysts bilaterally. 6. A hyperdense mass extending exophytically from the superior pole measuring 3.2 cm is likely a hemorrhagic cyst. 7. Thyroid goiter. This could be further evaluated with thyroid ultrasound. 8. Diverticulosis without evidence of diverticulitis. Dictated by: Helder Talamantes M.D. on 05/30/2020 at 16:24 Approved by: Helder Talamantes M.D. on 05/30/2020 at 16:46
[2020-05-30] MEDS: FINASTERIDE 5 MG TABLET PO (17:24)
[2020-05-30 18:07] LABS: Prostate Specific Antigen 0.121 ng/mL (0.10-4.00)
== END 2020-05-30 17:32 | disposition home or self-care (01) ==
PROVIDERS: Nurse Practitioner Family; Emergency Provider Emergency Medicine; PCP Internal Medicine
DX: R31.9 Hematuria, unspecified (principal); R10.30 Lower abdominal pain, unspecified; I10 Essential (primary) hypertension; E78.5 Hyperlipidemia, unspecified; R60.9 Edema, unspecified
CPT/HCPCS: 36415; 71275; 74174; 80053; 81003; 83690; 84153; 85025; 85610; 85730; 96360; 99284; Q9967

== ENCOUNTER → 2020-06-17 10:01 | Outpatient (CLI) | payer MEDICARE, BC, SELFPAY ==
--- NOTE | 2020-06-17 10:09 | DI.CT.S_ITS ---
PROCEDURE: CT ABDOMEN PELVIS WO/W CON INDICATIONS: Gross hematuria TECHNIQUE: Optional 5 mm thick noncontrast images acquired from the diaphragm to the symphysis pubis. After the administration of intravenous contrast, 5 mm thick images acquired from the diaphragm to the symphysis pubis after a 10-minute delay. 2 mm thick coronal and sagittal reformats were then performed of the kidneys and ureters. For radiation dose reduction, the following was used: automated exposure control, adjustment of mA and/or kV according to patient size. COMPARISON: , CT, CT ANGIO CHEST ABDOMEN PELVIS, 05/30/2020, 15:45. FINDINGS: Image quality: Excellent. Lung bases: Lung bases are clear. Heart size is normal. Small pericardial effusion. There is a partially imaged stent of the descending thoracic aorta. Urinary system: Hyperdense 3.3 cm exophytic upper pole left renal cyst. Other exophytic cysts arise from the mid and lower pole of the left kidney. The largest is 4.3 cm. 2 exophytic cysts arise from the mid and lower pole of the right kidney. Numerous other subcentimeter cortical cysts are present postcontrast bird no suspicious solid renal masses. Collecting systems are normal in caliber without filling defect. The opacified portions of the ureter are normal caliber. No evidence of ureteral calcification. The urinary bladder is decompressed. No calcifications. The prostate gland is normal in to diminutive in size and there are brachytherapy or a localizer seeds in place. Other solid organs: Liver is normal in size and enhancement. Gallbladder is decompressed . Biliary system is non dilated. Pancreas enhances normally. Spleen is normal in size and enhancement. No adrenal nodules. Peritoneum and bowel: Stomach and small bowel loops are normal. There is extensive diverticular disease throughout the colon. A normal appendix is seen. Bowel loops demonstrate normal wall thickness and caliber. No free fluid or air. Nodes and vessels: No retroperitoneal or mesenteric adenopathy by size criteria. Aorta and inferior vena cava are normal in size. An IVC filter is in place. Mild abdominal aortic atherosclerotic calcification. Abdominal wall: No ventral hernias. Pelvis: No pathologic free pelvic fluid. No inguinal hernias or adenopathy. Bones: No suspicious bony lesions. Vertebroplasty changes within the chronic L1 compression fracture. IMPRESSION: 1. Multiple bilateral renal cysts, one is hyperdense, but no suspicious solid renal or urinary masses. 2. 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 3. Pandiverticulosis. Dictated by: Brittney Bartholomew M.D. on 06/17/2020 at 13:15 Approved by: Brittney Bartholomew M.D. on 06/17/2020 at 13:26
== END ==
PROVIDERS: PCP Internal Medicine; Referring Provider Urology; Visit Provider Urology
DX: R31.0 Gross hematuria (principal); N28.1 Cyst of kidney, acquired; I31.3 Pericardial effusion (noninflammatory); K57.90 Diverticulosis of intestine, part unspecified, without perforation or abscess without bleeding
CPT/HCPCS: 74178; Q9967

== ENCOUNTER 2020-07-16 18:40 | Emergency (ER) | payer MEDICARE, BC, SELFPAY ==
[2020-07-16 18:48] VITALS: BP 127/73; PULSE 89; RESP 22; TEMP 36.7; O2SAT 97; BMI 33.7
--- NOTE | 2020-07-16 20:09 | ED_ITS ---
HPI - Wound/Laceration General Chief Complaint: Wound/Laceration Stated Complaint: laceration to left calf/on thinners Time Seen by Provider: 07/16/20 19:45 Source: patient and family Mode of arrival: Ambulatory Limitations: no limitations History of Present Illness HPI narrative: Patient here with his . Complains of left calf laceration. Measures 20 cm in total length. In [place] flap-like laceration. On the flap side there is of very large hematoma that is displacing the edges. Patient is on blood thinner for atrial fibrillation. Patient states he bumped into a dresser drawer that cut his left leg. No numbness or tingling. No footdrop. Related Data Home Medications Medication Instructions Recorded Confirmed magnesium oxide 400 mg PO Q OTHER DAY cap 08/18/18 06/20/20 apixaban 5 mg PO BID 10/15/18 06/20/20 chlorthalidone 25 mg PO DAILY 10/15/18 06/20/20 losartan 100 mg PO DAILY 10/15/18 06/20/20 atorvastatin 10 mg tablet 10 mg PO DAILY 10/19/19 06/20/20 calcium polycarbophil 625 mg tablet 1,250 mg PO DAILY 02/02/20 06/20/20 docusate sodium 100 mg capsule 100 mg PO DAILY 02/02/20 06/20/20 potassium chloride 20 mEq 20 meq PO DAILY tab 02/02/20 06/20/20 tablet,extended release furosemide 40 mg tablet 40 mg PO DAILY PRN tab 06/20/20 06/20/20 Previous Rx's Medication Instructions Recorded gabapentin 300 mg capsule 300 mg PO DAILY #90 cap 12/25/19 finasteride 5 mg PO DAILY #20 tab 05/30/20 cephalexin 500 mg PO QID 10 Days #40 cap 07/16/20 Allergies Allergy/AdvReac Type Severity Reaction Status Date / Time No Known Drug Allergies Allergy Verified 07/16/20 18:48 Review of Systems Review of Systems Narrative: GENERAL: Denies chills, fatigue, malaise, fever, sweats. HEENT: Denies sinus pain, ear pain, sore throat, difficulty swallowing RESPIRATORY: Denies dyspnea, cough CARDIOVASCULAR: Denies chest pain, palpitations, edema, GASTROINTESTINAL: Denies nausea, vomiting, abdominal pain, diarrhea, constipation, melena. : Denies dysuria, frequency, hematuria MUSCULOSKELETAL: Complains muscle denies bony pain SKIN: Denies rash, skin lesions NEUROLOGIC: Denies weakness, headache, numbness, change in speech, confusion PSYCHIATRIC: No SI or HI or hallucinations ROS Unobtainable: All systems reviewed & are unremarkable except as noted in HPI and below Patient History Medical History AAA (abdominal aortic aneurysm) (~2013) Acquired anal stenosis Anxiety Aortic dilatation Haile's syndrome CAD (coronary artery disease) Cardiomyopathy Cataracts, bilateral CHF (congestive heart failure) Chronic back pain Chronic diastolic congestive heart failure Chronic renal failure, stage 3 (moderate) Colon polyps Deep vein thrombosis (~2013) Diverticular disease Former smoker Fractures Gout Hearing loss History of urinary incontinence HLD (hyperlipidemia) Hypertension Knee pain Lumbar spine pain Meningitis spinal Paroxysmal atrial fibrillation Peripheral edema Peripheral neuropathy Persistent atrial fibrillation Prostate cancer (~2007) Pulmonary embolism (~2013) Pulmonic valve insufficiency Rheumatoid arthritis Shoulder pain Skin cancer (~1989) Tricuspid insufficiency Urinary incontinence due to urethral sphincter incompetence Venous stasis dermatitis Surgical History History of abdominal aortic aneurysm repair History of hydrocelectomy Hx of hernia repair Hx of shoulder surgery S/P skin biopsy Social History household members: spouse Smoking Status: Former smoker Tobacco: How many years used: 20 alcohol intake: current Smoking Status: Former smoker alcohol intake frequency: 0-2 drinks per day Substance Use Type: does not use Exam Narrative Exam Narrative: GENERAL: patient appears stated age. Well-nourished, well- developed patient, in no distress, not toxic not dyspneic HEAD: Normocephalic. . RESPIRATORY: Clear to auscultation. Breath sounds equal bilaterally. No wheezes, rales, or rhonchi. EXTREMITIES: Examination left lower extremity. No knee or ankle or foot tenderness or injury. At the mid calf laterally there is a 20 cm total length large gaping laceration in [place] like shape, skin flap. On the flap side there is a large hematoma that is displacing the edges of the skin. Unable to bring the edges together. I attempted to decompress the hematoma and also aspirate without success. I did infiltrate with lidocaine 1% with epinephrine for hemostasis. No muscle or bone injury seen. Able flex and extend at the left ankle foot without difficulty. Light touch intact to foot and toes. Strong pedal pulse. Foot is warm soft and pink. NEURO: AOx4. SKIN: Warm and dry PSYCH: Not anxious, is cooperative Initial Vital Signs Initial Vital Signs: Vital Signs Temperature 98.1 F 07/16/20 18:48 Pulse Rate 89 07/16/20 18:48 Respiratory Rate 22 07/16/20 18:48 Blood Pressure 127/73 07/16/20 18:48 Pulse Oximetry 97 07/16/20 18:48 Course Orders Ordered: Discontinued Medications Cephalexin HCl (Cephalexin 250 Mg Capsule) 500 mg PO NOW ONE Stop: 07/16/20 20:33 Last Admin: 07/16/20 20:42 Dose: 500 mg Documented by: SEAN Diphtheria/Tetanus/Acell Pertussis (Tet,Diph,Pertuss(Acell),Vac/Pf 0.5 Ml Syringe) 0.5 ml IM .ONCE ONE Stop: 07/16/20 20:33 Last Admin: 07/16/20 20:42 Dose: 0.5 ml Documented by: SEAN Reevaluation(s) Reevaluation #1: Nonocclusive/Vaseline gauze dressing with Kerlix and Coban applied. No bleeding. Patient understands at this time will need to follow-up with wound clinic as edges are not amenable to be approximated due to very large hematoma displacing the edges. Time: 20:15 Vital Signs Vital signs: Vital Signs - 8 hr 07/16/20 18:48 07/16/20 21:05 Temperature 98.1 F Pulse Rate 89 70 Respiratory Rate 22 17 Blood Pressure 127/73 123/72 Pulse Oximetry 97 96 MDM - Wound/Laceration Differential Diagnosis Differential diagnosis: Likely laceration MDM Narrative Medical decision making narrative: Appropriate for follow-up with wound clinic. [facility] wound care phone number [phone]. Will need follow-up next week. Unable to approximate the edges due to very large hematoma that is displacing the edges approximation. No blood work indicated this time. No imaging indicated. Wound is subcutaneous. No muscle or tendon or bony injury seen. Wound care office referral sheet filled out and faxed to their office from here. Discharge Plan Departure Patient Disposition: Home Clinical Impression: Laceration of left leg Qualifiers: Encounter type: initial encounter Qualified Code(s): S81.812A - Laceration without foreign body, left lower leg, initial encounter Instructions: DI for Wound Infection Activity Restrictions/Additional Instructions: Change dressing once a day with warm soap and water and then apply nonocclusive/Vaseline gauze and then Kerlix dressing and then Coban or Mono wrap to secure dressing in place. Call provided [facility] on Saturday phone #[phone]. May also see family doctor next week for recheck of your wound. Prescription for Keflex asthma sent to [facility] pharmacy here in [facility]. Pick it up tomorrow and continue it. Return if worse if any questions concerns or rebleeding of the wound that will not stop and soaking through the dressing. Prescriptions: New cephalexin 500 mg capsule 500 mg PO QID 10 Days Qty: 40 RF: 0 No Action magnesium oxide 400 mg capsule 400 mg PO Q OTHER DAY RF: 0 gabapentin 300 mg capsule 300 mg PO DAILY Qty: 90 RF: 1 atorvastatin 10 mg tablet 10 mg PO DAILY RF: 0 potassium chloride 20 mEq tablet extended release 20 meq PO DAILY RF: 0 docusate sodium [Stool Softener] 100 mg capsule 100 mg PO DAILY RF: 0 calcium polycarbophil [FiberCon] 625 mg tablet 1,250 mg PO DAILY RF: 0 furosemide 40 mg tablet 40 mg PO DAILY PRN (Reason: edema) RF: 0 apixaban 5 mg tablet 5 mg PO BID RF: 0 losartan 100 mg Tablet 100 mg PO DAILY RF: 0 chlorthalidone 25 mg Tablet 25 mg PO DAILY RF: 0 finasteride 5 mg tablet 5 mg PO DAILY Qty: 20 RF: 0 Referrals: Luis Alfredo Cunningham MD [Primary Care Provider] -
[2020-07-16] MEDS: TET,DIPH,PERTUSS(ACELL),VAC/PF 0.5 ML SYRINGE IM (20:42)
[2020-07-16] MEDS: LIDOCAINE 1% W/EPI 30 ML (20:42)
[2020-07-16] MEDS: cephALEXin 250 MG CAPSULE 500 MG PO (20:42)
[2020-07-16 21:05] VITALS: BP 123/72; PULSE 70; RESP 17; O2SAT 96
== END 2020-07-16 21:06 | disposition home or self-care (01) ==
PROVIDERS: Emergency Provider Emergency Medicine; PCP Internal Medicine
DX: S81.812A Laceration without foreign body, left lower leg, initial encounter (principal); I48.0 Paroxysmal atrial fibrillation; Z79.01 Long term (current) use of anticoagulants; I11.0 Hypertensive heart disease with heart failure; I50.9 Heart failure, unspecified; I25.10 Atherosclerotic heart disease of native coronary artery without angina pectoris; Z23 Encounter for immunization
CPT/HCPCS: 90471; 99281; 99283; 90715

== ENCOUNTER → 2020-07-20 12:05 | Outpatient (CLI) | payer MEDICARE, BC, SELFPAY | PROVIDERS: PCP Internal Medicine; Referring Provider Emergency Medicine; Visit Provider Family Medicine | DX: S91.302A Unspecified open wound, left foot, initial encounter (principal); S81.802A Unspecified open wound, left lower leg, initial encounter; L08.9 Local infection of the skin and subcutaneous tissue, unspecified; R60.0 Localized edema; I87.2 Venous insufficiency (chronic) (peripheral); N18.30 Chronic kidney disease, stage 3 unspecified; I50.9 Heart failure, unspecified | CPT/HCPCS: 11042; 11045; 87070; 87075; 87077; 87147; 87186; 87205; 99203; 99213 ==

== ENCOUNTER → 2020-07-26 12:09 | Outpatient (CLI) | payer MEDICARE, BC, SELFPAY | PROVIDERS: PCP Internal Medicine; Referring Provider Internal Medicine; Visit Provider Family Medicine | DX: S81.812A Laceration without foreign body, left lower leg, initial encounter (principal); S91.302A Unspecified open wound, left foot, initial encounter; L08.89 Other specified local infections of the skin and subcutaneous tissue | CPT/HCPCS: 87070; 87077; 87147; 87186; 87205; 99214 ==

== ENCOUNTER → 2020-07-26 14:02 | Outpatient (ROUT) | payer MEDICARE, BC, SELFPAY | PROVIDERS: PCP Internal Medicine; Visit Provider Family Medicine | DX: L08.89 Other specified local infections of the skin and subcutaneous tissue (principal) | CPT/HCPCS: 87070; 87075; 87077; 87147; 87186; 87205 ==

== ENCOUNTER → 2020-08-08 09:33 | Outpatient (CLI) | payer MEDICARE, BC, SELFPAY | PROVIDERS: PCP Internal Medicine; Referring Provider Internal Medicine; Visit Provider Family Medicine | DX: S81.802A Unspecified open wound, left lower leg, initial encounter (principal); I87.2 Venous insufficiency (chronic) (peripheral); R60.0 Localized edema | CPT/HCPCS: 99213; 99214 ==

== ENCOUNTER → 2020-08-09 09:41 | Outpatient (CLI) | payer MEDICARE, BC, SELFPAY ==
--- NOTE | 2020-08-09 | DI.MRI.S_ITS ---
PROCEDURE: MR LOWER LEG LT WO/W CON INDICATIONS: UNSPECIFIED OPEN WOUND, LOWER LEFT LEG TECHNIQUE: Noncontrast coronal T1 spin echo and STIR, sagittal T1 spin echo with fat saturation and STIR, axial T1 spin echo and T2 fast spin echo with fat saturation. After the administration of contrast, axial/sagittal/coronal T1 spin echo with fat saturation through the left lower leg. COMPARISON: None. FINDINGS: Image quality: Excellent. Bones: The visualized bone marrow demonstrates normal signal on all sequences. The overlying cortex appears intact. No abnormal intraosseous enhancement. Soft tissues: The scanned muscles demonstrate increase intramuscular fat signal suggestive of muscle atrophy. No intramuscular fluid collection or did enhancing mass. 2.6 x 1.3 x 4.1 cm oval T2 hyperintense and heterogeneously T1 hyperintense structure is noted in posterior lateral lower leg subcutaneous soft tissue at the level of proximal to mid fibular shaft and show no definite contrast enhancement. There is suggestion of ulceration over posterior aspect of mid calf region with extensive subcutaneous soft tissue edema and swelling throughout lower leg particularly over lateral aspect. No enhancing soft tissue mass is seen. IMPRESSION: 1. Full-thickness ulceration over posterior aspect of mid calf region with extensive lower leg cellulitis particularly over posterior and lateral aspect. 2.6 x 1.3 x 4.1 cm oval T2 hyperintense and heterogeneously T1 hyperintense structure in posterior lateral lower leg subcutaneous soft tissue and show no definite contrast enhancement. The appearance is not typical for an abscess collection. Finding may represent organizing hematoma or sebaceous cyst. 2. No enhancing soft tissue mass. No intramuscular fluid collection or abnormal enhancement. Mild atrophy of the calf muscles. 3. No marrow signal abnormality. No evidence of osteomyelitis. No abnormal intraosseous enhancement. Dictated by: Frankie Rivas M.D. on 08/09/2020 at 12:20 Approved by: Frankie Rivas M.D. on 08/09/2020 at 12:52
[2020-08-09 12:43] LABS: BUN Creatinine Ratio 32.8 (6-22); Blood Urea Nitrogen 44 mg/dL (9-20); Estimated Glomerular Filt Rate 50.7 mL/min (>60)
== END ==
PROVIDERS: PCP Internal Medicine; Referring Provider Family Medicine; Visit Provider Family Medicine
DX: S81.802A Unspecified open wound, left lower leg, initial encounter (principal); N18.30 Chronic kidney disease, stage 3 unspecified; L97.229 Non-pressure chronic ulcer of left calf with unspecified severity; L03.116 Cellulitis of left lower limb; R60.0 Localized edema
CPT/HCPCS: 36415; 73720; 82565; 84520

== ENCOUNTER → 2020-08-09 13:18 | Outpatient (CLI) | payer MEDICARE, BC, SELFPAY | PROVIDERS: PCP Internal Medicine; Referring Provider Internal Medicine; Visit Provider Family Medicine | DX: I87.2 Venous insufficiency (chronic) (peripheral) (principal); S81.802A Unspecified open wound, left lower leg, initial encounter; R60.0 Localized edema; L03.116 Cellulitis of left lower limb; N18.30 Chronic kidney disease, stage 3 unspecified; L97.229 Non-pressure chronic ulcer of left calf with unspecified severity | CPT/HCPCS: 36415; 73720; 82565; 84520; 99212; 99214 ==

== ENCOUNTER 2020-08-12 08:32 | Emergency (ER) | payer MEDICARE, BC, SELFPAY ==
[2020-08-12] VITALS (16 sets, daily range): BP systolic 110–157; BP diastolic 69–79; PULSE 65–86; RESP 18; TEMP 36.8; O2SAT 94–99; BMI 33.1
--- NOTE | 2020-08-12 09:12 | DI.RAD.S_ITS ---
PROCEDURE: XR KNEE RT 1TO2V INDICATIONS: fall TECHNIQUE: 2 view(s) of the knee acquired. COMPARISON: None. FINDINGS: Bones: Patient is status post knee joint arthroplasty. Hardware components are in expected positions. Visualized bony structures are intact. Soft tissues: Deep laceration over lateral aspect of right knee joint at the level of proximal tibial shaft/fibular head is seen. No other radiopaque foreign body is seen. IMPRESSION: No gross acute right knee fracture or dislocation. Deep laceration over lateral aspect of right knee with subcutaneous emphysema. Prior right total knee arthroplasty. No gross hardware complication. No other radiopaque foreign body. Dictated by: Frankie Rivas M.D. on 08/12/2020 at 10:24 Approved by: Frankie Rivas M.D. on 08/12/2020 at 10:25
--- NOTE | 2020-08-12 09:12 | DI.RAD.S_ITS ---
PROCEDURE: XR FOOT LT 2V INDICATIONS: fall TECHNIQUE: 2 views of the foot were acquired. COMPARISON: None. FINDINGS: Bones: There is moderate to severe hallux valgus. Moderate osteoarthritic changes at 1st MTP joint and articulation between 1st metatarsal head and sesamoids are seen. Well-defined plantar calcaneal enthesophyte is also noted. Hammertoe deformities are noted involving 2nd through 4th toes. No fractures or dislocations. No suspicious bony lesions. Soft tissues: No tibiotalar joint effusion. Achilles tendon appears normal. IMPRESSION: No gross acute left foot fracture or dislocation. Moderate to severe hallux valgus and moderate 2nd through 4th hammertoes. 1st MTP joint osteoarthritis. Dictated by: Frankie Rivas M.D. on 08/12/2020 at 10:18 Approved by: Frankie Rivas M.D. on 08/12/2020 at 10:21
--- NOTE | 2020-08-12 09:15 | DI.RAD.S_ITS ---
PROCEDURE: XR FOOT RT 2V INDICATIONS: fall, concern for mulitple toes TECHNIQUE: To views of the foot were acquired. COMPARISON: None. FINDINGS: Bones: Moderate to severe hallux valgus deformity is seen. 1st MTP joint osteoarthritic changes are noted. There are hammertoe deformities involving 2nd through 5th toes which obscures evaluation of the proximal phalanges. No definite acute fractures or dislocations. Well-defined plantar and dorsal calcaneal enthesophytes are seen. No suspicious bony lesions. Soft tissues: No tibiotalar joint effusion. Achilles tendon appears normal. IMPRESSION: Moderate to severe hallux valgus and 2nd through 5th hammertoes. No definite acute fracture or dislocation seen in the right foot. 1st MTP joint osteoarthritis. Well-defined plantar and dorsal calcaneal enthesophytes. Dictated by: Frankie Rivas M.D. on 08/12/2020 at 10:22 Approved by: Frankie Rivas M.D. on 08/12/2020 at 10:23
[2020-08-12] MEDS: HYDROMORPHONE 0.5 MG INJ IV ×2 (09:26→10:28)
[2020-08-12] MEDS: hydrOXYzine pamoate 25 MG CAPSULE PO (09:26)
--- NOTE | 2020-08-12 11:18 | ED.FALL ---
HPI - Fall <Yaneli Ty MD - Last Filed: 08/12/20 14:14> General Chief Complaint: Fall Stated Complaint: Fall Time Seen by Provider: 08/12/20 09:04 Source: patient and EMS Mode of arrival: EMS History of Present Illness HPI Narrative: 85-year-old gentleman with multiple medical problems diabetes, peripheral neuropathy, congestive heart failure and chronic lower extremity edema. He currently has a left lower extremity wound being followed by wound care and general surgery for which he is currently on Levaquin. This is resolving nicely. Today he suffered a mechanical fall tripped over the edge of a curve and landed on his left knee suffering a large laceration. This fall was not associated with syncope, palpitations, diaphoresis, loss of consciousness and he did not have any head impact. He has no complaints aside from the laceration to the right knee and severe knee pain. Related Data Home Medications Medication Instructions Recorded Confirmed magnesium oxide 400 mg PO Q OTHER DAY cap 08/18/18 07/27/20 apixaban 5 mg PO BID 10/15/18 07/27/20 chlorthalidone 25 mg PO DAILY 10/15/18 07/27/20 losartan 100 mg PO DAILY 10/15/18 07/27/20 atorvastatin 10 mg tablet 10 mg PO DAILY 10/19/19 07/27/20 calcium polycarbophil 625 mg tablet 1,250 mg PO DAILY 02/02/20 07/27/20 docusate sodium 100 mg capsule 100 mg PO DAILY 02/02/20 07/27/20 potassium chloride 20 mEq 20 meq PO DAILY tab 02/02/20 07/27/20 tablet,extended release furosemide 40 mg tablet 40 mg PO DAILY PRN tab 06/20/20 07/27/20 levofloxacin 750 mg tablet 750 mg PO DAILY 07/27/20 07/27/20 Previous Rx's Medication Instructions Recorded gabapentin 300 mg capsule 300 mg PO DAILY #90 cap 12/25/19 finasteride 5 mg PO DAILY #20 tab 05/30/20 Allergies Allergy/AdvReac Type Severity Reaction Status Date / Time No Known Drug Allergies Allergy Verified 08/12/20 08:38 Review of Systems <Yaneli Ty MD - Last Filed: 08/12/20 14:14> Review of Systems Narrative: Remainder of review of systems including constitutional, ENT, cardiovascular, respiratory, GI, , musculoskeletal, skin, neurologic and psychiatric systems reviewed and are unremarkable except as noted in HPI. Patient History <Yaneli Ty MD - Last Filed: 08/12/20 14:14> Medical History AAA (abdominal aortic aneurysm) (~2013) Acquired anal stenosis Anxiety Aortic dilatation Haile's syndrome CAD (coronary artery disease) Cardiomyopathy Cataracts, bilateral CHF (congestive heart failure) Chronic back pain Chronic diastolic congestive heart failure Chronic renal failure, stage 3 (moderate) Colon polyps Deep vein thrombosis (~2013) Diverticular disease Former smoker Fractures Gout Hearing loss History of urinary incontinence HLD (hyperlipidemia) Hypertension Knee pain Lumbar spine pain Meningitis spinal Paroxysmal atrial fibrillation Peripheral edema Peripheral neuropathy Persistent atrial fibrillation Prostate cancer (~2007) Pulmonary embolism (~2013) Pulmonic valve insufficiency Rheumatoid arthritis Shoulder pain Skin cancer (~1989) Tricuspid insufficiency Urinary incontinence due to urethral sphincter incompetence Venous stasis dermatitis Surgical History History of abdominal aortic aneurysm repair History of hydrocelectomy Hx of hernia repair Hx of shoulder surgery S/P skin biopsy Social History household members: spouse Smoking Status: Former smoker Tobacco: How many years used: 20 alcohol intake: current Smoking Status: Former smoker alcohol intake frequency: 0-2 drinks per day Substance Use Type: does not use Exam <Yaneli Ty MD - Last Filed: 08/12/20 14:14> Narrative Exam Narrative: General: Healthy appearing, in obvious pain secondary to the knee injury. Able to give a complete and coherent history. Well-nourished well-developed HEENT: Moist mucous membranes, normal sclera with reactive pupils, Neck: No JVD, supple Respiratory: Lungs are clear to auscultation, no wheezing no rales no rhonchi. Full and symmetrical air movement Cardiac: Regular rate and rhythm with 3/6 systolic ejection murmur murmurs no bruits Abdomen: Soft nontender good bowel tones, no flank pain Skin: Warm and dry, no rashes Neurologic: Grossly neurologically intact with no obvious asymmetries or abnormalities Extremities: He has large full-thickness laceration to the right knee that does not appear to penetrate through fascia or into the knee joint itself. He has multiple abrasions to toes 2 3 and 4 on the right side and the great toe on the left side. No other trauma to upper extremities. Not complaining of thigh hip or back pain at this time. Psych: Cooperative, appropriate insight and affect Initial Vital Signs Initial Vital Signs: Vital Signs Pulse Rate 86 08/12/20 08:35 Pulse Oximetry 99 08/12/20 08:35 <RENE Hernandez - Last Filed: 08/12/20 14:10> Initial Vital Signs Initial Vital Signs: Vital Signs Pulse Rate 86 08/12/20 08:35 Pulse Oximetry 99 08/12/20 08:35 <RENE Hernandez - Last Filed: 08/12/20 14:10> Laceration Repair Laceration 1: Site: lower extremity Side (If applicable): right Size (cm): 12 Description: flap and contaminated (Ten+ pieces of grass, dirt removed) Depth: simple, single layer (Through fascia) Local Anesthetic: lidocaine 2% and with epi Amount of anesthesia used (mL): 10 Pre-repair: wound explored, irrigated extensively (1000 cc sterile water) and deep structures intact Skin layer closed with: nylon Size (cm): 4-0 Number of sutures: 12 Technique: simple, interrupted (8) and horizontal mattress (4) Subcutaneous layer closed with: vicryl Size: 4-0 Number of sutures: 2 Technique: simple, interrupted Course <Yaneli Ty MD - Last Filed: 08/12/20 14:14> Orders Ordered: ED Orders 08/12/20 09:12 XR foot LT 2V Stat XR knee RT 1to2V Stat 08/12/20 09:15 XR foot RT 2V Stat Hydromorphone HCl (Hydromorphone 0.5 Mg Inj) 0.5 mg IV Q15MIN PRN PRN Reason: Pain, Last Admin: 08/12/20 10:28 Dose: 0.5 mg Documented by: Admin: 08/12/20 09:26 Dose: 0.5 mg Documented by: JULIETA Discontinued Medications Bacitracin (Bacitracin Oint 0.9 Gm Pckt) 1 applic TOP NOW ONE Stop: 08/12/20 14:05 Hydroxyzine Pamoate (Hydroxyzine Pamoate 25 Mg Capsule) 25 mg PO NOW ONE Stop: 08/12/20 09:13 Last Admin: 08/12/20 09:26 Dose: 25 mg Documented by: JULIETA Lidocaine/Epinephrine (Lidocaine 2% W/Epi Inj) 20 ml INJ INTRA-OP ONE Stop: 08/12/20 11:32 Last Admin: 08/12/20 11:35 Dose: 20 ml Documented by: JULIETA Vital Signs Vital signs: Vital Signs - 8 hr 08/12/20 08:35 08/12/20 08:36 08/12/20 08:38 Temperature 98.2 F Pulse Rate 86 86 83 Respiratory Rate 18 Blood Pressure 157/76 H 157/76 H Pulse Oximetry 99 98 97 08/12/20 09:00 08/12/20 09:30 08/12/20 09:31 Temperature Pulse Rate 78 80 79 Respiratory Rate Blood Pressure 113/71 120/77 Pulse Oximetry 94 99 98 08/12/20 10:31 08/12/20 10:32 08/12/20 11:00 Temperature Pulse Rate 76 65 Respiratory Rate Blood Pressure 117/69 110/69 Pulse Oximetry 99 97 95 08/12/20 11:30 08/12/20 12:00 08/12/20 12:30 Temperature Pulse Rate 73 70 67 Respiratory Rate Blood Pressure 134/79 131/71 124/71 Pulse Oximetry 98 95 94 08/12/20 13:00 Temperature Pulse Rate 70 Respiratory Rate Blood Pressure 132/78 Pulse Oximetry 97 <JAYLA Hernandez-BC - Last Filed: 08/12/20 14:10> Orders Ordered: ED Orders 08/12/20 09:12 XR foot LT 2V Stat XR knee RT 1to2V Stat 08/12/20 09:15 XR foot RT 2V Stat Hydromorphone HCl (Hydromorphone 0.5 Mg Inj) 0.5 mg IV Q15MIN PRN PRN Reason: Pain, Last Admin: 08/12/20 10:28 Dose: 0.5 mg Documented by: Admin: 08/12/20 09:26 Dose: 0.5 mg Documented by: JULIETA Discontinued Medications Bacitracin (Bacitracin Oint 0.9 Gm Pckt) 1 applic TOP NOW ONE Stop: 08/12/20 14:05 Hydroxyzine Pamoate (Hydroxyzine Pamoate 25 Mg Capsule) 25 mg PO NOW ONE Stop: 08/12/20 09:13 Last Admin: 08/12/20 09:26 Dose: 25 mg Documented by: JULIETA Lidocaine/Epinephrine (Lidocaine 2% W/Epi Inj) 20 ml INJ INTRA-OP ONE Stop: 08/12/20 11:32 Last Admin: 08/12/20 11:35 Dose: 20 ml Documented by: JULIETA Vital Signs Vital signs: Vital Signs - 8 hr 08/12/20 08:35 08/12/20 08:36 08/12/20 08:38 Temperature 98.2 F Pulse Rate 86 86 83 Respiratory Rate 18 Blood Pressure 157/76 H 157/76 H Pulse Oximetry 99 98 97 08/12/20 09:00 08/12/20 09:30 08/12/20 09:31 Temperature Pulse Rate 78 80 79 Respiratory Rate Blood Pressure 113/71 120/77 Pulse Oximetry 94 99 98 08/12/20 10:31 08/12/20 10:32 08/12/20 11:00 Temperature Pulse Rate 76 65 Respiratory Rate Blood Pressure 117/69 110/69 Pulse Oximetry 99 97 95 08/12/20 11:30 08/12/20 12:00 08/12/20 12:30 Temperature Pulse Rate 73 70 67 Respiratory Rate Blood Pressure 134/79 131/71 124/71 Pulse Oximetry 98 95 94 08/12/20 13:00 Temperature Pulse Rate 70 Respiratory Rate Blood Pressure 132/78 Pulse Oximetry 97 MDM - Fall <Yaneli Ty MD - Last Filed: 08/12/20 14:14> Medical Records Attestation: I reviewed the patient's medical records. Lab Data Attestation: I reviewed the patient's lab results. Imaging Data X-ray knee: Radiologist's Impression: FINDINGS: Bones: Patient is status post knee joint arthroplasty. Hardware components are in expected positions. Visualized bony structures are intact. Soft tissues: Deep laceration over lateral aspect of right knee joint at the level of proximal tibial shaft/fibular head is seen. No other radiopaque foreign body is seen. IMPRESSION: No gross acute right knee fracture or dislocation. Deep laceration over lateral aspect of right knee with subcutaneous emphysema. Prior right total knee arthroplasty. No gross hardware complication. No other radiopaque foreign body. Dictated by: Frankie Rivas M.D. on 08/12/2020 at 10:24 X-ray left foot: Radiologist's Impression: FINDINGS: Bones: There is moderate to severe hallux valgus. Moderate osteoarthritic changes at 1st MTP joint and articulation between 1st metatarsal head and sesamoids are seen. Well-defined plantar calcaneal enthesophyte is also noted. Hammertoe deformities are noted involving 2nd through 4th toes. No fractures or dislocations. No suspicious bony lesions. Soft tissues: No tibiotalar joint effusion. Achilles tendon appears normal. IMPRESSION: No gross acute left foot fracture or dislocation. Moderate to severe hallux valgus and moderate 2nd through 4th hammertoes. 1st MTP joint osteoarthritis. Dictated by: Frankie Rivas M.D. on 08/12/2020 at 10:18 X-ray right foot: Radiologist's Impression: FINDINGS: Bones: Moderate to severe hallux valgus deformity is seen. 1st MTP joint osteoarthritic changes are noted. There are hammertoe deformities involving 2nd through 5th toes which obscures evaluation of the proximal phalanges. No definite acute fractures or dislocations. Well-defined plantar and dorsal calcaneal enthesophytes are seen. No suspicious bony lesions. Soft tissues: No tibiotalar joint effusion. Achilles tendon appears normal. IMPRESSION: Moderate to severe hallux valgus and 2nd through 5th hammertoes. No definite acute fracture or dislocation seen in the right foot. 1st MTP joint osteoarthritis. Well-defined plantar and dorsal calcaneal enthesophytes. Dictated by: Frankie Rivas M.D. on 08/12/2020 at 10:22 [facility] Narrative Medical decision making narrative: 85-year-old gentleman with a mechanical fall this morning. He stumbled over a curb and landed on his right knee suffering a large laceration to the knee. The laceration itself does not extend into the knee joint. He has some chronic venous stasis changes over the lower extremities and abrasions to multiple toes. X-rays of both feet do not suggest any fractures. The fall was not associated with syncope, loss of consciousness, or head injury. He describes no other injuries at this time. Laceration to the right knee is repaired. There is a large area of abrasion. He is currently on Levaquin so will not need additional coverage. He is up-to-date on his tetanus status. He has an appointment with wound care on Saturday to follow up with a left lower injury wound. Will ask them to evaluate the right knee as well and evaluate when it might be appropriate to have his sutures removed. Given the depth of wound near joint I would recommend at least 14 if not 18 days Discharge Plan Departure Patient Disposition: Home Clinical Impression: Fall Qualifiers: Encounter type: initial encounter Qualified Code(s): W19.XXXA - Unspecified fall, initial encounter Contusion of knee, right Qualifiers: Encounter type: initial encounter Qualified Code(s): S80.01XA - Contusion of right knee, initial encounter Laceration of leg Qualifiers: Encounter type: initial encounter Laterality: right Qualified Code(s): S81.811A - Laceration without foreign body, right lower leg, initial encounter Instructions: DI for Laceration Repair Activity Restrictions/Additional Instructions: Thank you for coming in today You had at deep cut on your right knee that did not go into the bone or the joint. You are up-to-date on your tetanus. Your currently on Levaquin for other wound infections and that should cover any concerns for developing infections on the right side. Your next appointment at wound care is on Tuesday 08/15, we have called them to let them know that you have a new wound on the right knee and will ask them to help you care for that wound as well. Prescriptions: No Action magnesium oxide 400 mg capsule 400 mg PO Q OTHER DAY RF: 0 gabapentin 300 mg capsule 300 mg PO DAILY Qty: 90 RF: 1 atorvastatin 10 mg tablet 10 mg PO DAILY RF: 0 potassium chloride 20 mEq tablet extended release 20 meq PO DAILY RF: 0 docusate sodium [Stool Softener] 100 mg capsule 100 mg PO DAILY RF: 0 calcium polycarbophil [FiberCon] 625 mg tablet 1,250 mg PO DAILY RF: 0 furosemide 40 mg tablet 40 mg PO DAILY PRN (Reason: edema) RF: 0 levofloxacin 750 mg tablet 750 mg PO DAILY RF: 0 apixaban 5 mg tablet 5 mg PO BID RF: 0 losartan 100 mg Tablet 100 mg PO DAILY RF: 0 chlorthalidone 25 mg Tablet 25 mg PO DAILY RF: 0 finasteride 5 mg tablet 5 mg PO DAILY Qty: 20 RF: 0 Referrals: Luis Alfredo Cunningham MD [Primary Care Provider] -
[2020-08-12] MEDS: LIDOCAINE 2% W/EPI INJ 20 ML INJ (11:35)
--- NOTE | 2020-08-12 14:00 | PC.NURSE ---
I called [facility]ound [facility] regarding this patient. He has an appointment next week, and the doctor wanted them to assist with his new wounds from his fall today on his knee(s). I left them a message at 1400 today, asked them to follow up with his knees and stitch removal later on.
[2020-08-12] MEDS: BACITRACIN OINT 0.9 GM PCKT 1 APPLIC TOP (14:15)
== END 2020-08-12 14:36 | disposition home or self-care (01) ==
PROVIDERS: Emergency Provider Emergency Medicine; PCP Internal Medicine
DX: S81.011A Laceration without foreign body, right knee, initial encounter (principal); S80.01XA Contusion of right knee, initial encounter; W19.XXXA Unspecified fall, initial encounter; E11.42 Type 2 diabetes mellitus with diabetic polyneuropathy; I50.9 Heart failure, unspecified; R60.0 Localized edema
CPT/HCPCS: 12004; 73560; 73620; 96374; 99283; 99284; J1170

== ENCOUNTER 2020-08-13 12:21 | Inpatient (IN) | payer MEDICARE, BC, SELFPAY ==
[2020-08-13] VITALS (13 sets, daily range): BP systolic 95–148; BP diastolic 54–72; PULSE 67–88; RESP 15–25; TEMP 36.4–36.9; O2SAT 79–99; BMI 33.1; BMI 33.3
--- NOTE | 2020-08-13 12:37 | ED.DIZZY ---
HPI - Dizziness General Chief Complaint: Dizziness Stated Complaint: Blood Pressure Way Down, Pain Way Up, Dizzy Time Seen by Provider: 08/13/20 12:37 Source: patient, family (son-in-law) and old records reviewed Mode of arrival: Wheelchair Limitations: no limitations History of Present Illness HPI Narrative: This is a 85-year-old male who comes to the emergency department with complaint of dizziness and shortness of breath. Patient was actually seen here yesterday after trip on fall over the edge of a sidewalk that caused him to have a significant laceration over his right knee. He states he has continued to have pain in that leg and a spasm sensation but denies any new issues with his lower extremity. He states the pain started after the fall not prior to. Patient states that they checked his blood pressure at home it was low in the 70 range systolic. Patient felt lightheaded but did not pass out. He denies any chest pain or pressure but did feel short of breath he states his shortness of breath has improved he has denies any fevers, no cough, cold or congestion type symptoms. He has had some nausea but no vomiting. No diaphoresis. No major issues with bowel movements. He has had some issues with urination and difficulty urinating which started after being seen in the emergency department. Patient does have some pain in his left shoulder/arm movement. He is not sure exactly how he landed but states it is just below the shoulder joint. He denies any numbness, tingling or new weakness. Patient is on apixaban for atrial fibrillation and states he also has a history of pulmonary emboli. He also has a stent in his aorta. Patient states he did hold his 2 blood pressure medications this morning. Patient states he did take an oxycodone overnight which was helpful with sleep. Related Data Home Medications Medication Instructions Recorded Confirmed magnesium oxide 400 mg PO Q OTHER DAY cap 08/18/18 07/27/20 apixaban 5 mg PO BID 10/15/18 07/27/20 chlorthalidone 25 mg PO DAILY 10/15/18 07/27/20 losartan 100 mg PO DAILY 10/15/18 07/27/20 atorvastatin 10 mg tablet 10 mg PO DAILY 10/19/19 07/27/20 calcium polycarbophil 625 mg tablet 1,250 mg PO DAILY 02/02/20 07/27/20 docusate sodium 100 mg capsule 100 mg PO DAILY 02/02/20 07/27/20 potassium chloride 20 mEq 20 meq PO DAILY tab 02/02/20 07/27/20 tablet,extended release furosemide 40 mg tablet 40 mg PO DAILY PRN tab 06/20/20 07/27/20 levofloxacin 750 mg tablet 750 mg PO DAILY 07/27/20 07/27/20 Previous Rx's Medication Instructions Recorded gabapentin 300 mg capsule 300 mg PO DAILY #90 cap 12/25/19 finasteride 5 mg PO DAILY #20 tab 05/30/20 Allergies Allergy/AdvReac Type Severity Reaction Status Date / Time No Known Drug Allergies Allergy Verified 08/13/20 12:25 Review of Systems Review of Systems ROS Unobtainable: All systems reviewed & are unremarkable except as noted in HPI and below Patient History Medical History AAA (abdominal aortic aneurysm) (~2013) Acquired anal stenosis Anxiety Aortic dilatation Haile's syndrome CAD (coronary artery disease) Cardiomyopathy Cataracts, bilateral CHF (congestive heart failure) Chronic back pain Chronic diastolic congestive heart failure Chronic renal failure, stage 3 (moderate) Colon polyps Deep vein thrombosis (~2013) Diverticular disease Former smoker Fractures Gout Hearing loss History of urinary incontinence HLD (hyperlipidemia) Hypertension Knee pain Lumbar spine pain Meningitis spinal Paroxysmal atrial fibrillation Peripheral edema Peripheral neuropathy Persistent atrial fibrillation Prostate cancer (~2007) Pulmonary embolism (~2013) Pulmonic valve insufficiency Rheumatoid arthritis Shoulder pain Skin cancer (~1989) Tricuspid insufficiency Urinary incontinence due to urethral sphincter incompetence Venous stasis dermatitis Surgical History History of abdominal aortic aneurysm repair History of hydrocelectomy Hx of hernia repair Hx of shoulder surgery S/P skin biopsy Social History household members: spouse Smoking Status: Former smoker Tobacco: How many years used: 20 alcohol intake: current Smoking Status: Former smoker alcohol intake frequency: 0-2 drinks per day Substance Use Type: does not use Exam Narrative Exam Narrative: GEN: well nourished, well appearing male, alert and oriented x 3, patient appears to be in mild distress. HEENT: Atraumatic, pupils are equal round reactive to light, extraocular movements are intact, nares are clear, TMs are clear with no fluid, there is no conjunctival pallor. Throat is clear without any exudates, erythema, tonsillar enlargement or uvular deviation HEART: Regular rate and rhythm without murmur, clicks, rubs. JVD. LUNGS:Lungs clear to auscultation, no wheezes, rales, crackles, chest moves symmetrically, no tachypnea accessory muscle use. ABD:bowel sounds normal, soft, non-tender, no guarding, rebound, rigidity, no masses noted, no hepatosplenomegaly :No CVA tenderness MSCL: Non-tender, no muscle atrophy, muscles strength 5/5 upper and lower extremities, patient has pain of palpation just proximal left humerus below the AC joint other some point tenderness. Patient has decreased flexion and abduction, but no issues with adduction. Patient does not have any bony tenderness of the left upper arm otherwise. BACK: No cervical, thoracic or lumbar vertebral point tenderness. Patient has no discrete pain in neck with palpation. Patient has normal range of motion. Patient has sensation bilateral lower extremities. He has chronic changes in bilateral lower extremities. Patient has laceration which has been sutured on his right knee as well as abrasions on his toes, 2-4 on right and toe 1 on left. NEURO:CN 2-12 intact, sensation normal SKIN: Please see above, no other skin changes noted. Initial Vital Signs Initial Vital Signs: Vital Signs Temperature 98.5 F 08/13/20 12:25 Pulse Rate 88 08/13/20 12:25 Respiratory Rate 16 08/13/20 12:25 Blood Pressure 148/72 H 08/13/20 12:25 Pulse Oximetry 98 08/13/20 12:25 Scores GCS [place] coma scale eye opening: Spontaneous Adri coma scale verbal response: Orientated Adri coma scale motor response: Obey commands [place] coma scale total score: 15 Course Orders Ordered: ED Orders 08/13/20 12:55 XR chest 1V Stat XR shoulder LT min 2V Stat 08/13/20 13:03 CT cervical spine wo con Stat CT head/brain wo con Stat 08/13/20 13:05 Complete Blood Count AUTO DIFF Stat Comprehensive Metabolic Panel Stat NT-proBNP (BNP-Adult 18+) Stat Partial Thromboplastin Time Stat Procalcitonin Stat Prothrombin Time INR Stat Troponin I Stat 08/13/20 13:20 COVID19 Stat 08/13/20 15:03 Troponin I Stat Acetaminophen (Acetaminophen 325 Mg Tablet) 650 mg PO Q6HR PRN PRN Reason: Fever/Mild Pain (1-3) Hydrocodone Bitart/Acetaminophen (Hydrocodone/Acet 5/325 Tablet) 2 tab PO Q6HR [facility] Last Admin: 08/13/20 18:23 Dose: 2 tab Documented by: FARRAH Apixaban (Apixaban 5 Mg Tablet) 5 mg PO BID [facility] Atorvastatin Calcium (Atorvastatin 20 Mg Tablet) 10 mg PO BEDTIME [facility] Chlorthalidone (Chlorthalidone 25 Mg Tablet) 25 mg PO DAILY [facility] Docusate Sodium (Docusate 100 Mg Capsule) 100 mg PO DAILY [facility] Finasteride (Finasteride 5 Mg Tablet) 5 mg PO DAILY [facility] Furosemide (Furosemide 40 Mg/4 Ml Vial) 40 mg IV Q12HR [facility] Gabapentin (Gabapentin 300 Mg Capsule) 300 mg PO DAILY [facility] Levofloxacin (Levofloxacin 250 Mg Tablet) 750 mg PO Q48H [facility] Losartan Potassium (Losartan 50 Mg Tablet) 100 mg PO DAILY [facility] Magnesium Oxide (Magnesium Oxide 400 Mg Tablet) 400 mg PO Q48H [facility] Ondansetron HCl (Ondansetron 4 Mg/2 Ml Inj) 4 mg IV Q8HR PRN PRN Reason: Nausea And Vomiting Potassium Chloride (Potassium Chloride 20 Meq Tab) 20 meq PO BIDWM GUSTAVO Discontinued Medications Furosemide (Furosemide 40 Mg/4 Ml Vial) 40 mg IV NOW ONE Stop: 08/13/20 14:53 Last Admin: 08/13/20 14:58 Dose: 40 mg Documented by: MARTIN Furosemide (Furosemide 40 Mg/4 Ml Vial) 40 mg IV Q12HR [facility] Last Admin: 08/13/20 19:45 Dose: Not Given Documented by: FARRAH Hydromorphone HCl (Hydromorphone 0.5 Mg Inj) 0.5 mg IV NOW ONE Stop: 08/13/20 15:28 Last Admin: 08/13/20 15:34 Dose: 0.5 mg Documented by: MARTIN Oxycodone HCl (Oxycodone Ir 5 Mg Tablet) 5 mg PO NOW ONE Stop: 08/13/20 12:58 Last Admin: 08/13/20 13:16 Dose: 5 mg Documented by: MARTIN Consultations Consultation #1: Discussed with Dr. Ahmadi, accepts for observation for RHONDA with possible CHF. Time: 15:13 Vital Signs Vital signs: Vital Signs - 8 hr 08/13/20 12:25 08/13/20 12:44 08/13/20 13:00 Temperature 98.5 F Pulse Rate 88 79 75 Respiratory Rate 16 25 H Blood Pressure 148/72 H 104/63 102/57 L Pulse Oximetry 98 99 98 08/13/20 13:47 08/13/20 13:49 08/13/20 14:00 Temperature Pulse Rate 77 76 78 Respiratory Rate 19 24 21 Blood Pressure 110/56 L 104/56 L Pulse Oximetry 79 L 99 98 08/13/20 14:30 08/13/20 15:00 Temperature Pulse Rate 73 74 Respiratory Rate 18 19 Blood Pressure 99/54 L 102/60 Pulse Oximetry 97 97 MDM - Dizziness Lab Data Result diagrams: 08/13/20 13:05 08/13/20 13:05 Labs: Lab Results 08/13/20 08/13/20 08/13/20 Range/Units 13:05 13:05 13:05 WBC 10.1 (4.5-11.0) X10^3/uL RBC 4.35 L (4.5-5.9) X10^6/uL Hgb 13.5 (13.5-17.5) g/dL Hct 40.4 L (41-53) % MCV 93.0 (80-100) fL MCH 31.1 (26-34) PG MCHC 33.5 (30-36) % RDW 14.1 (11.6-14.8) % Plt Count 141 L (150-400) X10^3/uL Neut % (Auto) 74.7 (50-75) % Lymph % (Auto) 12.9 L (25-40) % [place] % (Auto) 11.3 (3-14) % Eos % (Auto) 0.3 L (2-4) % Baso % (Auto) 0.8 (0-2) % Neut # (Auto) 7500 H (9330-2095) /uL Lymph # (Auto) 1300 (2474-2081) /uL [place] # (Auto) 1100 H (0-900) /uL Eos # (Auto) 0 (0-450) /uL Baso # (Auto) 100 (0-100) /uL PT 25.3 H (10.1-12.7) SECONDS INR 2.2 H (0.9-1.3) APTT 32 (26.4-36.2) SECONDS Sodium (137-145) mmol/L Potassium (3.4-5.1) mmol/L Chloride (98-107) mmol/L Carbon Dioxide (22-32) mmol/L BUN (9-20) mg/dL Creatinine (0.66-1.25) mg/dL Estimated GFR (>60) mL/min BUN/Creatinine Ratio (6-22) Glucose (80-110) mg/dL Calcium (8.4-10.2) mg/dL Total Bilirubin (0.2-1.3) mg/dL AST (17-59) IU/L ALT (<50) IU/L Alkaline Phosphatase (38-126) U/L Troponin I 0.063 H (0.01-0.034) ng/mL NT-Pro-B Natriuret Pep (<450) pg/mL Total Protein (6.3-8.2) g/dL Albumin (3.5-5.0) g/dL Globulin (1.7-4.1) g/dL Albumin/Globulin Ratio (1.0-2.8) Procalcitonin (<0.5) ng/mL SARS-CoV-2 (PCR) (Negative) 08/13/20 08/13/20 08/13/20 Range/Units 13:05 13:05 13:20 WBC (4.5-11.0) X10^3/uL RBC (4.5-5.9) X10^6/uL Hgb (13.5-17.5) g/dL Hct (41-53) % MCV (80-100) fL MCH (26-34) PG MCHC (30-36) % RDW (11.6-14.8) % Plt Count (150-400) X10^3/uL Neut % (Auto) (50-75) % Lymph % (Auto) (25-40) % [place] % (Auto) (3-14) % Eos % (Auto) (2-4) % Baso % (Auto) (0-2) % Neut # (Auto) (0618-7077) /uL Lymph # (Auto) (3104-9161) /uL [place] # (Auto) (0-900) /uL Eos # (Auto) (0-450) /uL Baso # (Auto) (0-100) /uL PT (10.1-12.7) SECONDS INR (0.9-1.3) APTT (26.4-36.2) SECONDS Sodium 133 L (137-145) mmol/L Potassium 3.6 (3.4-5.1) mmol/L Chloride 97 L (98-107) mmol/L Carbon Dioxide 32 (22-32) mmol/L BUN 50 H (9-20) mg/dL Creatinine 2.58 H (0.66-1.25) mg/dL Estimated GFR 23.8 L (>60) mL/min BUN/Creatinine Ratio 19.4 (6-22) Glucose 98 (80-110) mg/dL Calcium 9.0 (8.4-10.2) mg/dL Total Bilirubin 2.8 H (0.2-1.3) mg/dL AST 25 (17-59) IU/L ALT 14 (<50) IU/L Alkaline Phosphatase 48 (38-126) U/L Troponin I (0.01-0.034) ng/mL NT-Pro-B Natriuret Pep 2610 H (<450) pg/mL Total Protein 6.0 L (6.3-8.2) g/dL Albumin 3.6 (3.5-5.0) g/dL Globulin 2.4 (1.7-4.1) g/dL Albumin/Globulin Ratio 1.5 (1.0-2.8) Procalcitonin 0.32 (<0.5) ng/mL SARS-CoV-2 (PCR) Negative (Negative) 08/13/20 Range/Units 15:03 WBC (4.5-11.0) X10^3/uL RBC (4.5-5.9) X10^6/uL Hgb (13.5-17.5) g/dL Hct (41-53) % MCV (80-100) fL MCH (26-34) PG MCHC (30-36) % RDW (11.6-14.8) % Plt Count (150-400) X10^3/uL Neut % (Auto) (50-75) % Lymph % (Auto) (25-40) % [place] % (Auto) (3-14) % Eos % (Auto) (2-4) % Baso % (Auto) (0-2) % Neut # (Auto) (3889-9083) /uL Lymph # (Auto) (0095-3972) /uL [place] # (Auto) (0-900) /uL Eos # (Auto) (0-450) /uL Baso # (Auto) (0-100) /uL PT (10.1-12.7) SECONDS INR (0.9-1.3) APTT (26.4-36.2) SECONDS Sodium (137-145) mmol/L Potassium (3.4-5.1) mmol/L Chloride (98-107) mmol/L Carbon Dioxide (22-32) mmol/L BUN (9-20) mg/dL Creatinine (0.66-1.25) mg/dL Estimated GFR (>60) mL/min BUN/Creatinine Ratio (6-22) Glucose (80-110) mg/dL Calcium (8.4-10.2) mg/dL Total Bilirubin (0.2-1.3) mg/dL AST (17-59) IU/L ALT (<50) IU/L Alkaline Phosphatase (38-126) U/L Troponin I 0.062 H (0.01-0.034) ng/mL NT-Pro-B Natriuret Pep (<450) pg/mL Total Protein (6.3-8.2) g/dL Albumin (3.5-5.0) g/dL Globulin (1.7-4.1) g/dL Albumin/Globulin Ratio (1.0-2.8) Procalcitonin (<0.5) ng/mL SARS-CoV-2 (PCR) (Negative) ECG Data Attestation: I personally reviewed and interpreted this ECG as follows: Prior ECG tracings: not available for review Interpretation: AFib rate of 80, QRS 86 and QTC 404. No ST elevation appreciated. T-wave inversion in V5 and V6. No priors available. Discharge Plan Departure Patient Disposition: Admitted as Observation Clinical Impression: Acute kidney injury, CHF (congestive heart failure) Admit Date/Time: 08/13/20 15:14 Admit Provider: Joe Ahmadi
--- NOTE | 2020-08-13 12:55 | DI.RAD.S_ITS ---
PROCEDURE: XR SHOULDER LT MIN 2V INDICATIONS: shoulder pain, fall yesterday TECHNIQUE: 3 views of the shoulder were acquired. COMPARISON: [facility], CT, CT CERVICAL SPINE WO CON, 08/13/2020, 13:22. [facility], CR, XR CHEST 1V, 08/13/2020, 13:04. FINDINGS: Bones: No fractures or dislocations. No suspicious bony lesions. Visualized ribs appear intact. Moderate degenerative change. Soft tissues: No suspicious soft tissue calcifications. Aortic stent. IMPRESSION: No fracture or dislocation. Dictated by: Gurpreet Rowe M.D. on 08/13/2020 at 13:31 Approved by: Gurpreet Rowe M.D. on 08/13/2020 at 13:33
--- NOTE | 2020-08-13 12:55 | DI.RAD.S_ITS ---
PROCEDURE: XR CHEST 1V INDICATIONS: dizziness, sob, fall yesterday TECHNIQUE: One view of the chest was acquired. COMPARISON: [facility], CT, CT ABDOMEN PELVIS WO/W CON, 06/17/2020, 10:07. [facility], CR, XR CHEST 2V, 04/28/2020, 14:16. [facility], CR, XR CHEST 2V, 01/05/2020, 9:30. FINDINGS: Surgical changes and devices: Descending thoracic aortic stent. Lungs and pleura: Minimal streaky opacity at the left lung base. No pleural effusions or pneumothorax. Mediastinum: Mediastinal contours appear unchanged. Elevation of the right hemidiaphragm. Heart size is normal. Bones and chest wall: No suspicious bony lesions. Prior vertebroplasty. Overlying soft tissues appear unremarkable. IMPRESSION: Minimal streaky opacity at the left lung base. Favor atelectasis. Dictated by: Gurpreet Rowe M.D. on 08/13/2020 at 13:33 Approved by: Gurpreet Rowe M.D. on 08/13/2020 at 13:35
--- NOTE | 2020-08-13 13:03 | DI.CT.S_ITS ---
PROCEDURE: CT CERVICAL SPINE WO CON INDICATIONS: fall, neck pain, not midline TECHNIQUE: Noncontrast 3 mm thick sections acquired from the skull base to the T4 level. Sagittal and coronal reformats were then constructed. For radiation dose reduction, the following was used: automated exposure control, adjustment of mA and/or kV according to patient size. COMPARISON: None. FINDINGS: Image quality: Excellent. Bones: No fractures or dislocations. Visualized superior ribs are intact. Severe degenerative change of the cervical spine. Soft tissues: Prevertebral soft tissues are normal in thickness. No paravertebral hematomas. No apical pneumothoraces. Mild mucosal thickening in the maxillary sinuses. Multinodular thyroid goiter. IMPRESSION: No acute osseous abnormality. Severe degenerative change. Multinodular thyroid goiter. Consider further evaluation with thyroid ultrasound. Dictated by: Gurpreet Rowe M.D. on 08/13/2020 at 13:35 Approved by: Gurpreet Rowe M.D. on 08/13/2020 at 13:38
--- NOTE | 2020-08-13 13:03 | DI.CT.S_ITS ---
PROCEDURE: CT HEAD/BRAIN WO CON INDICATIONS: fall, unsure if head injury, on thinners TECHNIQUE: Noncontrast 4.5 mm thick angled axial sections acquired from the foramen magnum to the vertex, with coronal and sagittal reformats. For radiation dose reduction, the following was used: automated exposure control, adjustment of mA and/or kV according to patient size. COMPARISON: None. FINDINGS: Image quality: Excellent. CSF spaces: Basal cisterns are patent. No extra-axial fluid collections. Ventricles are normal in size and shape. Brain: No midline shift. No intracranial masses or hemorrhage. No area of hypodensity in a large vascular distribution to suggest acute infarction. Periventricular hypodensity consistent with chronic microvascular ischemic change. Age-related parenchymal loss. Skull and face: Calvarium and visualized facial bones are intact, without suspicious lesions. Sinuses: Visualized sinuses and mastoids are clear. IMPRESSION: No acute intracranial abnormality. Dictated by: Gurpreet Rowe M.D. on 08/13/2020 at 13:20 Approved by: Gurpreet Rowe M.D. on 08/13/2020 at 13:22
[2020-08-13 13:14] LABS: Add Manual Diff / Slide Review NO; Basophils Absolute Auto 100 /uL (0-100); Basophils Percent Auto 0.8 % (0-2); Eosinophils Absolute Auto 0 /uL (0-450); Eosinophils Percent Auto 0.3 % (2-4); Hematocrit 40.4 % (41-53); Hemoglobin 13.5 g/dL (13.5-17.5); Lymphocytes Absolute Auto 1300 /uL (1100-4500); Lymphocytes Percent Auto 12.9 % (25-40); Mean Corpuscular HGB Conc 33.5 % (30-36); Mean Corpuscular Hemoglobin 31.1 PG (26-34); Monocytes Absolute Auto 1100 /uL (0-900); Monocytes Percent Auto 11.3 % (3-14); Neutrophils Absolute Auto 7500 /uL (1500-7000); Neutrophils Percent Auto 74.7 % (50-75); Platelet Count 141 X10^3/uL (150-400); Red Blood Cell Count 4.35 X10^6/uL (4.5-5.9); Red Cell Distribution Width 14.1 % (11.6-14.8); White Blood Cell Count 10.1 X10^3/uL (4.5-11.0)
[2020-08-13] MEDS: OXYCODONE IR 5 MG TABLET PO (13:16)
[2020-08-13 13:45] LABS: Troponin I 0.063 ng/mL (0.01-0.034)
[2020-08-13 13:46] LABS: COVID19 -Nasal RAPID Negative (Negative)
[2020-08-13 13:48] LABS: Alanine Aminotransferase 14 IU/L (<50); Albumin 3.6 g/dL (3.5-5.0); Albumin Globulin Ratio 1.5 (1.0-2.8); Alkaline Phosphatase 48 U/L (38-126); Aspartate Aminotransferase 25 IU/L (17-59); BUN Creatinine Ratio 19.4 (6-22); Bilirubin Total 2.8 mg/dL (0.2-1.3); Blood Urea Nitrogen 50 mg/dL (9-20); Carbon Dioxide 32 mmol/L (22-32); Chloride 97 mmol/L (98-107); Estimated Glomerular Filt Rate 23.8 mL/min (>60); Globulin 2.4 g/dL (1.7-4.1); Glucose 98 mg/dL (80-110); HEMOLYSIS 26 (0-50); INR 2.2 (0.9-1.3); Potassium 3.6 mmol/L (3.4-5.1); Prothrombin Time 25.3 SECONDS (10.1-12.7); Sodium 133 mmol/L (137-145)
[2020-08-13 13:51] LABS: PTT Partial Thromboplastin Tim 32 SECONDS (26.4-36.2)
[2020-08-13 13:56] LABS: NT-proBNP (BNP-Adult 18+) 2610 pg/mL (<450)
[2020-08-13 14:27] LABS: Procalcitonin 0.32 ng/mL (<0.5)
[2020-08-13] MEDS: FUROSEMIDE 40 MG/4 ML VIAL IV ×2 (14:58→23:39)
[2020-08-13] MEDS: HYDROMORPHONE 0.5 MG INJ IV (15:34)
[2020-08-13 15:51] LABS: Troponin I 0.062 ng/mL (0.01-0.034)
--- NOTE | 2020-08-13 16:15 | PC.NURSE ---
report given to BRIANA Bajwa on AC
--- NOTE | 2020-08-13 17:34 | PM.HP.1 ---
History of Present Illness History of Present Illness Date Patient Seen: 08/13/20 Time Patient Seen: 16:07 Chief complaint: Blood Pressure Way Down, Pain Way Up, Dizzy Narrative: 85-year-old male history of congestive heart atrial fibrillation failure chronic renal failure cardiomyopathy chronic edema and lower extremity wounds peripheral neuropathy and stasis dermatitis presents to the emergency room again today with increasing pain and shortness of breath. Patient yesterday was traveling into his house. He there is a small curve that he has to climb over to get into his house. His foot hit the curb and he landed on his knee. Patient sustained a significant laceration to his knee was evaluated in the emergency department for this. Had repair and an x-ray done of his knee and was discharged home. Over the ensuing 24 hours patient had worsening symptoms. He says his knee is quite bad with some spasms. But he is also now having neck pain left shoulder pain and knee pain. He would have been too bothered about the pain. But he also became short of breath this morning. His breathlessness is new to him. He just felt what like he was winded. Did not appreciate any associated dizziness or lightheaded or palpitations with it. He became concerned enough that he presented to the emergency department. In the emergency department he had a workup and evaluation. Patient had initially some mild low blood pressure but this then gradually increased. Had a CT scan of his head neck and x-rays of parts of his body that were hurting. He each 1 of these imaging showed no significant concerns. Patient had laboratory tests done. His laboratory revealed that he had quite elevated BNP over previous numbers and significantly worse kidney function. The patient states other than the shortness of breath he has been regularly taking his medication. He weighs himself every day and his weight fluctuates 10 lb. Patient has been on diuretics before for his heart failure he he says he has been taking them. Patient History Medical History AAA (abdominal aortic aneurysm) (~2013) Acquired anal stenosis Anxiety Aortic dilatation Haile's syndrome CAD (coronary artery disease) Cardiomyopathy Cataracts, bilateral CHF (congestive heart failure) Chronic back pain Chronic diastolic congestive heart failure Chronic renal failure, stage 3 (moderate) Colon polyps Deep vein thrombosis (~2013) Diverticular disease Former smoker Fractures Gout Hearing loss History of urinary incontinence HLD (hyperlipidemia) Hypertension Knee pain Lumbar spine pain Meningitis spinal Paroxysmal atrial fibrillation Peripheral edema Peripheral neuropathy Persistent atrial fibrillation Prostate cancer (~2007) Pulmonary embolism (~2013) Pulmonic valve insufficiency Rheumatoid arthritis Shoulder pain Skin cancer (~1989) Tricuspid insufficiency Urinary incontinence due to urethral sphincter incompetence Venous stasis dermatitis Surgical History History of abdominal aortic aneurysm repair History of hydrocelectomy Hx of hernia repair Hx of shoulder surgery S/P skin biopsy Family & Social History Social History: household members spouse Safety & Behavioral: Feels Safe in Current Yes Environment Been Physically Hurt or No Threatened By a Person Suicidal Ideation Description None Suicide Plan Description No Plan Tobacco & Substance use: Smoking Status Former smoker alcohol intake current alcohol intake frequency 0-2 drinks per day Substance Use Type does not use Meds Home Medications and Allergies Home Medications Medication Instructions Recorded Confirmed Type magnesium oxide 400 mg PO Q OTHER DAY cap 08/18/18 07/27/20 History apixaban 5 mg PO BID 10/15/18 07/27/20 History chlorthalidone 25 mg PO DAILY 10/15/18 07/27/20 History losartan 100 mg PO DAILY 10/15/18 07/27/20 History atorvastatin 10 mg tablet 10 mg PO DAILY 10/19/19 07/27/20 History gabapentin 300 mg capsule 300 mg PO DAILY #90 cap 12/25/19 07/27/20 Rx calcium polycarbophil 625 mg tablet 1,250 mg PO DAILY 02/02/20 07/27/20 History docusate sodium 100 mg capsule 100 mg PO DAILY 02/02/20 07/27/20 History potassium chloride 20 mEq 20 meq PO DAILY tab 02/02/20 07/27/20 History tablet,extended release finasteride 5 mg PO DAILY #20 tab 05/30/20 07/27/20 Rx furosemide 40 mg tablet 40 mg PO DAILY PRN tab 06/20/20 07/27/20 History levofloxacin 750 mg tablet 750 mg PO DAILY 07/27/20 07/27/20 History Allergies Allergy/AdvReac Type Severity Reaction Status Date / Time No Known Drug Allergies Allergy Verified 08/13/20 12:25 Exam Vital Signs (past 8 hours): - 08/13/20 12:25 08/13/20 12:44 08/13/20 13:00 Temperature 98.5 F Pulse Rate 88 79 75 Respiratory Rate 16 25 H Blood Pressure 148/72 H 104/63 102/57 L Pulse Oximetry 98 99 98 08/13/20 13:47 08/13/20 13:49 08/13/20 14:00 Temperature Pulse Rate 77 76 78 Respiratory Rate 19 24 21 Blood Pressure 110/56 L 104/56 L Pulse Oximetry 79 L 99 98 08/13/20 14:30 08/13/20 15:00 08/13/20 15:30 Temperature Pulse Rate 73 74 75 Respiratory Rate 18 19 16 Blood Pressure 99/54 L 102/60 95/56 L Pulse Oximetry 97 97 98 08/13/20 16:00 08/13/20 16:30 08/13/20 17:27 Temperature 98.2 F Pulse Rate 72 71 78 Respiratory Rate 22 18 20 Blood Pressure 103/61 108/64 Pulse Oximetry 93 96 98 Oxygen Delivery Method Room Air Objective Labs Result Diagrams: 08/13/20 13:05 08/13/20 13:05 Labs: Laboratory Results - last 24 hr 08/13/20 08/13/20 08/13/20 13:05 13:05 13:05 WBC 10.1 RBC 4.35 L Hgb 13.5 Hct 40.4 L MCV 93.0 MCH 31.1 MCHC 33.5 RDW 14.1 Plt Count 141 L Neut % (Auto) 74.7 Lymph % (Auto) 12.9 L [place] % (Auto) 11.3 Eos % (Auto) 0.3 L Baso % (Auto) 0.8 Neut # (Auto) 7500 H Lymph # (Auto) 1300 [place] # (Auto) 1100 H Eos # (Auto) 0 Baso # (Auto) 100 PT 25.3 H INR 2.2 H APTT 32 Sodium Potassium Chloride Carbon Dioxide BUN Creatinine Estimated GFR BUN/Creatinine Ratio Glucose Calcium Total Bilirubin AST ALT Alkaline Phosphatase Troponin I 0.063 H NT-Pro-B Natriuret Pep Total Protein Albumin Globulin Albumin/Globulin Ratio Procalcitonin SARS-CoV-2 (PCR) 08/13/20 08/13/20 08/13/20 13:05 13:05 13:20 WBC RBC Hgb Hct MCV MCH MCHC RDW Plt Count Neut % (Auto) Lymph % (Auto) [place] % (Auto) Eos % (Auto) Baso % (Auto) Neut # (Auto) Lymph # (Auto) [place] # (Auto) Eos # (Auto) Baso # (Auto) PT INR APTT Sodium 133 L Potassium 3.6 Chloride 97 L Carbon Dioxide 32 BUN 50 H Creatinine 2.58 H Estimated GFR 23.8 L BUN/Creatinine Ratio 19.4 Glucose 98 Calcium 9.0 Total Bilirubin 2.8 H AST 25 ALT 14 Alkaline Phosphatase 48 Troponin I NT-Pro-B Natriuret Pep 2610 H Total Protein 6.0 L Albumin 3.6 Globulin 2.4 Albumin/Globulin Ratio 1.5 Procalcitonin 0.32 SARS-CoV-2 (PCR) Negative 08/13/20 15:03 WBC RBC Hgb Hct MCV MCH MCHC RDW Plt Count Neut % (Auto) Lymph % (Auto) [place] % (Auto) Eos % (Auto) Baso % (Auto) Neut # (Auto) Lymph # (Auto) [place] # (Auto) Eos # (Auto) Baso # (Auto) PT INR APTT Sodium Potassium Chloride Carbon Dioxide BUN Creatinine Estimated GFR BUN/Creatinine Ratio Glucose Calcium Total Bilirubin AST ALT Alkaline Phosphatase Troponin I 0.062 H NT-Pro-B Natriuret Pep Total Protein Albumin Globulin Albumin/Globulin Ratio Procalcitonin SARS-CoV-2 (PCR) Assessment & Plan Assessment & Plan narrative: Acute systolic congestive heart failure patient with signs and symptoms consistent with acute systolic heart failure acute bleeding elevated BNP current shortness of breath signs and symptoms of fluid overload. Patient has a known history of cardiomyopathy and congestive heart failure. Patient also has poor renal function. Will begin gentle diuresis with Lasix 40 mg IV. Patient will be on potassium supplementation. Patient states he does not want a Gillis catheter. Will do daily weights. Will hold off on telemetry monitoring at this point. Patient will be gently diuresed over the next 12:24 p.m. is help with his shortness of breath. Or also hoping it will help improve his kidney function. Will monitor closely his electrolytes. Acute kidney injury on top of chronic renal failure stage 3. Patient has acute in [place] to his kidneys presume due to his underlying congestive heart failure and mild hypotension. Will gently diurese him. Hopefully his blood pressure tolerate this. Hopefully his kidney function will improve with diuresis. Will monitor closely his electrolytes. Fall with a recent injury and laceration to his right knee pain in his right shoulder and posterior neck and head. CT scan imaging of x-rays of his elbow and shoulder shows no significant bony abnormality or fracture. Patient has quite a bit of pain due to his fall. He will will need local wound care to his knee from the recent laceration. He has ongoing wound care due to his chronic venous stasis and ulcers. Patient will require pain medication and help with ambulation as he is quite uncomfortable. Persistent atrial fibrillation. Patient on anticoagulation his heart rate is well controlled. Will continue with his anticoagulation monitor his heart rate and blood pressure closely during his hospital stay. Chronic venous stasis and stasis dermatitis and peripheral neuropathy. Patient has some chronic wounds which she is meeting with wound care. Patient already on Levaquin will continue his Levaquin during his hospital stay. Hyperlipidemia. Patient will be continued on statin medication. Hypertension. Patient's blood pressure medication will be monitor closely as he is a little bit hypotensive. Disposition and plan will be admitted as an inpatient due to his chronic kidney disease disease with acute kidney injury systolic test suggestive heart failure and weakness and recent fall. Quality VTE Deep Vein Thrombosis/Pulmonary Embolism Present on Admission: No
[2020-08-13] MEDS: HYDROCODONE/ACET 5/325 TABLET 2 TAB PO ×2 (18:23→23:55)
[2020-08-13] MEDS: ATORVASTATIN 20 MG TABLET 10 MG PO (20:31)
[2020-08-14] VITALS (10 sets, daily range): BP systolic 80–107; BP diastolic 42–65; PULSE 62–79; RESP 13–18; TEMP 35.9–36.6; O2SAT 97–99
--- NOTE | 2020-08-14 00:35 | PC.NURSE ---
Addendum entered by Ashley Hahn R.N. 08/14/20 04:12: New order from Dr. Ahmadi for low BP, 250mL bolus NS to be given if pt becomes symptomatic. Currently pt states that he is slightly lightheaded but this is tolerable. Requested pt alert staff VOLODYMYR if he becomes more symptomatic or if his symptoms change in any way. Addendum entered by Ashley Hahn R.N. 08/14/20 03:53: BP running low, pls see worklist, call to Dr. Ahmadi Original Note: bladder scan at 2300 = 41 mL total.
[2020-08-14 05:58] LABS: Add Manual Diff / Slide Review NO; Basophils Absolute Auto 0 /uL (0-100); Basophils Percent Auto 0.5 % (0-2); Eosinophils Absolute Auto 100 /uL (0-450); Eosinophils Percent Auto 1.6 % (2-4); Hematocrit 39.6 % (41-53); Hemoglobin 13.2 g/dL (13.5-17.5); Lymphocytes Absolute Auto 1400 /uL (1100-4500); Lymphocytes Percent Auto 19.3 % (25-40); Mean Corpuscular HGB Conc 33.3 % (30-36); Mean Corpuscular Volume 93.1 fL (80-100); Monocytes Absolute Auto 800 /uL (0-900); Monocytes Percent Auto 10.7 % (3-14); Neutrophils Absolute Auto 5000 /uL (1500-7000); Neutrophils Percent Auto 67.9 % (50-75); Platelet Count 107 X10^3/uL (150-400); Red Blood Cell Count 4.25 X10^6/uL (4.5-5.9); Red Cell Distribution Width 14.1 % (11.6-14.8); White Blood Cell Count 7.4 X10^3/uL (4.5-11.0)
[2020-08-14 06:03] LABS: Creatine Kinase 115 U/L (55-170)
[2020-08-14 06:05] LABS: Alanine Aminotransferase 11 IU/L (<50); Albumin 3.3 g/dL (3.5-5.0); Albumin Globulin Ratio 1.5 (1.0-2.8); Alkaline Phosphatase 47 U/L (38-126); Aspartate Aminotransferase 23 IU/L (17-59); BUN Creatinine Ratio 20.8 (6-22); Bilirubin Total 2.4 mg/dL (0.2-1.3); Blood Urea Nitrogen 58 mg/dL (9-20); Calcium 8.6 mg/dL (8.4-10.2); Carbon Dioxide 33 mmol/L (22-32); Chloride 96 mmol/L (98-107); Estimated Glomerular Filt Rate 21.7 mL/min (>60); Globulin 2.2 g/dL (1.7-4.1); Glucose 117 mg/dL (80-110); HEMOLYSIS 16 (0-50); Potassium 3.5 mmol/L (3.4-5.1); Sodium 134 mmol/L (137-145); Total Protein 5.5 g/dL (6.3-8.2)
[2020-08-14 06:13] LABS: NT-proBNP (BNP-Adult 18+) 2660 pg/mL (<450)
[2020-08-14 06:16] LABS: Troponin I 0.052 ng/mL (0.01-0.034)
[2020-08-14 06:18] LABS: CKMB % Relative Index 1.9 % (1.5-5.0); Creatine Kinase MB 2.18 ng/mL (<2.37)
--- NOTE | 2020-08-14 08:57 | P.PN_ITS ---
Subjective Subjective Date Patient Seen: 08/14/20 Time Patient Seen: 08:57 Interval history: Patient seen and evaluated this morning. Said he had an okay night last night. Lots of knee and leg pain and spasms after his fall. Says the pain medications helping. Quite stiff. He has some significant edema and chronic venous changes and meets with wound care. Eating regular diet this morning says he does not like the food. Says he was hoping to go home today. Over the night had some hypotension episodes. Getting some blood pressure medication and Lasix to help control heart failure. Despite this his kidney function has worsened again this morning. Exam Vital Signs (past 8 hours): - 08/14/20 02:15 08/14/20 03:23 08/14/20 03:30 Temperature 97.3 F L Pulse Rate 71 68 68 Respiratory Rate 13 Blood Pressure 87/42 L 80/53 L 92/64 Pulse Oximetry 97 97 98 08/14/20 03:53 08/14/20 04:48 Temperature Pulse Rate 74 Respiratory Rate 18 Blood Pressure 86/51 L 95/56 L Pulse Oximetry 98 Oxygen Delivery Method Room Air Narrative Exam Narrative: Gen.: Alert good historian HEENT: Pupils equal round and reactive or mucosa is moist neck is supple Cardio: S1-S2 systolic murmur heart irregular Respiratory: Lungs are clear to auscultation no wheezes or crackles normal resp iratory effort. Abdomen: Soft obese nontender Extremities: Lower extremity edema chronic venous changes. Wounds which are covered. No significant drainage or signs of cellulitis or infection Neurologic: Grossly intact. Objective Labs Result Diagrams: 08/14/20 05:16 08/14/20 05:16 Labs: Laboratory Results - last 24 hr 08/13/20 08/13/20 08/13/20 13:05 13:05 13:05 WBC 10.1 RBC 4.35 L Hgb 13.5 Hct 40.4 L MCV 93.0 MCH 31.1 MCHC 33.5 RDW 14.1 Plt Count 141 L Neut % (Auto) 74.7 Lymph % (Auto) 12.9 L [place] % (Auto) 11.3 Eos % (Auto) 0.3 L Baso % (Auto) 0.8 Neut # (Auto) 7500 H Lymph # (Auto) 1300 [place] # (Auto) 1100 H Eos # (Auto) 0 Baso # (Auto) 100 PT 25.3 H INR 2.2 H APTT 32 Sodium Potassium Chloride Carbon Dioxide BUN Creatinine Estimated GFR BUN/Creatinine Ratio Glucose Calcium Total Bilirubin AST ALT Alkaline Phosphatase Total Creatine Kinase CK-MB (CK-2) CK-MB (CK-2) Rel Index Troponin I 0.063 H NT-Pro-B Natriuret Pep Total Protein Albumin Globulin Albumin/Globulin Ratio Procalcitonin SARS-CoV-2 (PCR) 08/13/20 08/13/20 08/13/20 13:05 13:05 13:20 WBC RBC Hgb Hct MCV MCH MCHC RDW Plt Count Neut % (Auto) Lymph % (Auto) [place] % (Auto) Eos % (Auto) Baso % (Auto) Neut # (Auto) Lymph # (Auto) [place] # (Auto) Eos # (Auto) Baso # (Auto) PT INR APTT Sodium 133 L Potassium 3.6 Chloride 97 L Carbon Dioxide 32 BUN 50 H Creatinine 2.58 H Estimated GFR 23.8 L BUN/Creatinine Ratio 19.4 Glucose 98 Calcium 9.0 Total Bilirubin 2.8 H AST 25 ALT 14 Alkaline Phosphatase 48 Total Creatine Kinase CK-MB (CK-2) CK-MB (CK-2) Rel Index Troponin I NT-Pro-B Natriuret Pep 2610 H Total Protein 6.0 L Albumin 3.6 Globulin 2.4 Albumin/Globulin Ratio 1.5 Procalcitonin 0.32 SARS-CoV-2 (PCR) Negative 08/13/20 08/14/20 08/14/20 15:03 05:16 05:16 WBC 7.4 RBC 4.25 L Hgb 13.2 L Hct 39.6 L MCV 93.1 MCH 31.0 MCHC 33.3 RDW 14.1 Plt Count 107 L Neut % (Auto) 67.9 Lymph % (Auto) 19.3 L [place] % (Auto) 10.7 Eos % (Auto) 1.6 L Baso % (Auto) 0.5 Neut # (Auto) 5000 Lymph # (Auto) 1400 [place] # (Auto) 800 Eos # (Auto) 100 Baso # (Auto) 0 PT INR APTT Sodium 134 L Potassium 3.5 Chloride 96 L Carbon Dioxide 33 H BUN 58 H Creatinine 2.79 H Estimated GFR 21.7 L BUN/Creatinine Ratio 20.8 Glucose 117 H Calcium 8.6 Total Bilirubin 2.4 H AST 23 ALT 11 Alkaline Phosphatase 47 Total Creatine Kinase CK-MB (CK-2) CK-MB (CK-2) Rel Index Troponin I 0.062 H NT-Pro-B Natriuret Pep 2660 H Total Protein 5.5 L Albumin 3.3 L Globulin 2.2 Albumin/Globulin Ratio 1.5 Procalcitonin SARS-CoV-2 (PCR) 08/14/20 05:16 WBC RBC Hgb Hct MCV MCH MCHC RDW Plt Count Neut % (Auto) Lymph % (Auto) [place] % (Auto) Eos % (Auto) Baso % (Auto) Neut # (Auto) Lymph # (Auto) [place] # (Auto) Eos # (Auto) Baso # (Auto) PT INR APTT Sodium Potassium Chloride Carbon Dioxide BUN Creatinine Estimated GFR BUN/Creatinine Ratio Glucose Calcium Total Bilirubin AST ALT Alkaline Phosphatase Total Creatine Kinase 115 CK-MB (CK-2) 2.18 CK-MB (CK-2) Rel Index 1.9 Troponin I 0.052 H NT-Pro-B Natriuret Pep Total Protein Albumin Globulin Albumin/Globulin Ratio Procalcitonin SARS-CoV-2 (PCR) [facility] Medical History AAA (abdominal aortic aneurysm) (~2013) Acquired anal stenosis Anxiety Aortic dilatation Haile's syndrome CAD (coronary artery disease) Cardiomyopathy Cataracts, bilateral CHF (congestive heart failure) Chronic back pain Chronic diastolic congestive heart failure Chronic renal failure, stage 3 (moderate) Colon polyps Deep vein thrombosis (~2013) Diverticular disease Former smoker Fractures Gout Hearing loss History of urinary incontinence HLD (hyperlipidemia) Hypertension Knee pain Lumbar spine pain Meningitis spinal Paroxysmal atrial fibrillation Peripheral edema Peripheral neuropathy Persistent atrial fibrillation Prostate cancer (~2007) Pulmonary embolism (~2013) Pulmonic valve insufficiency Rheumatoid arthritis Shoulder pain Skin cancer (~1989) Tricuspid insufficiency Urinary incontinence due to urethral sphincter incompetence Venous stasis dermatitis Surgical History History of abdominal aortic aneurysm repair History of hydrocelectomy Hx of hernia repair Hx of shoulder surgery S/P skin biopsy Social History household members: spouse Smoking Status: Former smoker Tobacco: How many years used: 20 alcohol intake: current Assessment & Plan Assessment & Plan narrative: Acute kidney injury with chronic renal failure. Artem pollard's BUN and creatinine has worsened again this morning. Had hypotension yesterday evening. Was also given Lasix for her heart failure. Plan today.. Anti hypertension medication. Renally dose other medication. Think will have to gently hydrate to help blood pressure up and perfuse kidneys better. Congestive heart failure chronic with acute exacerbation. Patient has an elevated BNP known history of systolic congestive heart failure. Had some diuresis yesterday with some hypotension. Renal function has worsened. Unfortunately I think we can have to give him some fluids today. Which we will do to see if we can perfuse the kidneys due to the low blood pressure. He has ongoing kidney injury. Fall with recent laceration to knee and ongoing shoulder pain neck pain. Patient has some stiffness in his knee today. He will work with physical therapy. Has a lot to chronic venous changes and wound therapy. This laceration will be difficult for the patient to recover from and will need wound care for help in healing. Persistent atrial fibrillation. Heart rate well controlled blood pressure is low. Not any rate control at this point. Will renally dose his anticoagulation today as his creatinine is quite elevated. Continue to monitor closely his blood pressure and pulse. Chronic venous stasis and stasis dermatitis with ongoing wound care his next appointment is Saturday I do not think he is going to make this he is quite worried about this. He is on Levaquin treatment for his wounds. We will continue this during his hospital stay Hypertension patient is hypotensive blood pressure medication will be held. Disposition and plan. Hold antihypertensive medication. Gently hydrate. Work with Physical therapy today and some wound care. Recheck kidney function tomorrow hopefully patient's kidney function will improve he is anxious to go home. Quality VTE Deep Vein Thrombosis/Pulmonary Embolism Present on Admission: No
[2020-08-14] MEDS: MAGNESIUM OXIDE 400 MG TABLET PO (09:56)
[2020-08-14] MEDS: POTASSIUM CHLORIDE 20 MEQ TAB PO ×2 (09:56→17:16)
[2020-08-14] MEDS: SODIUM CHLORIDE 0.9% 1,000 ML 100 ML IV ×2 (09:56→23:48)
[2020-08-14] MEDS: FINASTERIDE 5 MG TABLET PO (09:57)
[2020-08-14] MEDS: GABAPENTIN 300 MG CAPSULE PO (09:57)
[2020-08-14] MEDS: DOCUSATE 100 MG CAPSULE PO (09:58)
[2020-08-14] MEDS: levoFLOXacin 250 MG TABLET 750 MG PO (09:58)
[2020-08-14] MEDS: APIXABAN 5 MG TABLET 2.5 MG PO ×2 (09:59→20:24)
--- NOTE | 2020-08-14 13:30 | PC.NURSE ---
Addendum entered by Elena Naylor R.N. 08/14/20 14:19: Patient now working with physical and occupational therapy. We will change out his bed to a lynet as soon as he is up. Refused offer of vicodin now x2. Original Note: Patient is unable to stand up with walker and gait belt and two staff members. He has multiple skin issues to his body including a bruise to his coccyx, a laceration to his knee with 20 stitches, and bilateral lower leg PVD, with edema. He also has bilateral neuropathy to both feet. into see patient and has d/cd his blood pressure medication and his lasix. He has a history of kidney function issues and some chf. He is on NS at 100cc/hr. He has refused his vicodin x2 when offered. He has voiced about 410cc of yellow urine in the urinal, he has his own underpants on with a pad applied in the inside as he has significant urgency incontinence.
--- NOTE | 2020-08-14 14:50 | PT.IIE ---
Current Diagnoses Heart failure, unspecified (08/13/20) Surgical History (Last Reviewed 08/13/20 @ 17:38 by Joe Ahmadi MD) History of abdominal aortic aneurysm repair History of hydrocelectomy Hx of hernia repair Hx of shoulder surgery S/P skin biopsy Medical History (Last Reviewed 08/13/20 @ 17:38 by Joe Ahmadi MD) AAA (abdominal aortic aneurysm) (~2013) Acquired anal stenosis Anxiety Aortic dilatation Haile's syndrome CAD (coronary artery disease) Cardiomyopathy Cataracts, bilateral CHF (congestive heart failure) Chronic back pain Chronic diastolic congestive heart failure Chronic renal failure, stage 3 (moderate) Colon polyps Deep vein thrombosis (~2013) Diverticular disease Former smoker Fractures Gout Hearing loss History of urinary incontinence HLD (hyperlipidemia) Hypertension Knee pain Lumbar spine pain Meningitis spinal Paroxysmal atrial fibrillation Peripheral edema Peripheral neuropathy Persistent atrial fibrillation Prostate cancer (~2007) Pulmonary embolism (~2013) Pulmonic valve insufficiency Rheumatoid arthritis Shoulder pain Skin cancer (~1989) Tricuspid insufficiency Urinary incontinence due to urethral sphincter incompetence Venous stasis dermatitis Physical Therapy Inpatient Evaluation/Re-Eval M1 PT/OT-IP Prior Functional Status Start: 08/14/20 15:22 Freq: NEEDED Status: Active Protocol: Document 08/14/20 15:22 RM (Rec: 08/14/20 15:33 RM [id number]) Medical Review Prior Functional Status Medical History Reviewed Yes Communication no defecits, able to make needs known Mobility and Gait (I) without AD, reports limited distance 50-100 yds d/ t hip and back pain Activities of Daily Living and IADL's (I) with ADL/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 2 w/ grab bar Home Environment Standard Height Toilet,Walk in Shower,Built-In Shower Seat Home Equipment Grab Bars In Shower Employment Status Retired Additional Social History Comment Patient reports that his has limited ability to provide physical assist, but that his children may be able to provide some assistance. M2 PT-IP Current Condition Start: 08/14/20 13:51 Freq: NEEDED Status: Active Protocol: Document 08/14/20 14:48 AW (Rec: 08/14/20 16:48 AW [id number]) Physical Therapy Current Condition Current Condition Evaluation Date 08/14/20 Treatment Diagnosis RHONDA, acute CHF exacerbation; R knee pain; difficulty in walking Onset Date 08/12/20 Weight Bearing Status Weight Bearing Status Full Weight Bearing M3 PT-IP Subjective Start: 08/14/20 13:51 Freq: NEEDED Status: Active Protocol: Document 08/14/20 14:48 AW (Rec: 08/14/20 16:48 AW [id number]) Subjective Physical Therapy Visit Type Type Initial Evaluation Visit Start Time 14:11 Visit Stop Time 14:48 Total Visit Minutes 37 Notes Co-eval with OT Number of WEATHER OBSERVER Visits 0 Physical Therapy Visit Comments Patient Comments I haven't been out of bed in two days and I'm not sure I can stand on this leg. Patient Goals Pt hopes to return home. Therapy Pain Assessment Pain When Pain Assessed During Mobility Pain Present Pain Present Pain Reported Location Right Knee Intensity 10 Scale Used 0/10 at rest M4 PT-IP Mobility and Gait Start: 08/14/20 13:51 Freq: NEEDED Status: Active Protocol: Document 08/14/20 14:48 AW (Rec: 08/14/20 16:48 AW [id number]) PT-Bed Mobility Assessment Supine to Sit Supine to Sit Minimal Assistance,1 Person Assistance Scooting Scooting to Edge of Bed Contact Guard Assistance PT-Transfer Assessment Sit to and From Stand Sit to and from Stand Minimal Assistance,2 Person Assistance,Use of Upper Extremities Equipment Transfer Assistive Device Gait Belt,Front Wheeled Walker Orthotic/Prosthetic Devices or Brace: No Transfers Transfer Destination Chair Transfer Technique Stand Step Pivot Transfer Ability Level of Assist Contact Guard Assistance,Use of Upper Extremities Comments Mobility Comments Pt was lying in bed as PT and OT arrived. He was exceptionally reactive to touch at RLE but was able to move his legs toward the left EOB with PT providing assist to gently lower the right leg. Pt was able to sit EOB with good balance. PT procured bariatric walker and pt stood from the bed (raised ~3 from lowest position) min A x 2 with cues to push from the bed surface. Pt required min assist to move his hands from bed to walker frame but once standing, he was able to bear weight on both legs, shifting with heavy BUE weightbearing as weight shifted to the right . Pt marched in place with FWW and then took steps ~3 feet toward the chair to transfer with cues for RLE positioning and use of BUE to slow descent . Sitting was poorly controlled due to RLE pain. Pt then stood from the chair with min 2PA and ambulated around the room with chair follow min 1PA before sitting again. Pt agreed to sit up on the chair and to use the call light for all mobility needs. Call light and all needs were placed within reach. Gait Assessment Gait Gait Assistance Required: Contact Guard Assist,Minimum Assistance Distance (Feet) 20 Able to Maintain Weight Bearing Status Yes During Gait Assistive Devices Assistive Device Gait Belt,Front Wheeled Walker Orthotic/Prosthetic Devices or Brace: No Gait Deviations General Gait Pattern Antalgic,Decreased Stride Length,Decreased Feet Clearance,Flexed Trunk,Step-to Gait,Wide Based Gait Factors Limiting Gait Function Factors Limiting Gait Function Decreased Activity Tolerance, Decreased Sensation,Decreased Strength,Limited Range of Motion,Pain,Poor Balance,Poor Safety Awareness Comments Gait Comments See mobility comments for details. Stair Climbing Assessment Comments Stair Climbing Comments Not assessed. PT-Balance Assessment Sitting Balance and Reactions Static Sitting Balance Ability Good Dynamic Sitting Balance Ability Good Standing Balance and Reactions Static Standing Balance Ability Fair Dynamic Standing Balance Ability Fair Device Used FWW M5 PT-IP Objective Assessments Start: 08/14/20 13:51 Freq: NEEDED Status: Active Protocol: Document 08/14/20 14:48 AW (Rec: 08/14/20 16:48 AW [id number]) Orientation Orientation/Cognition Level of Alertness Alert Orientation Name,Date,Day of Week,Place, Situation Language Function Ability No Deficits Noted Safety Awareness Decreased Safety Awareness Gross Range of Motion Lower Extremity ROM Assessment Right Impaired Impairments right knee AROM limited by pain Strength Lower Extremity Strength Assessment Bilaterally Impaired Hip L 4-/5 Knee L 3-/5 Ankle L 4/5 Comments Strength Comments RLE grossly 4/5 Coordination Assessment Gross Coordination Gross Coordination WNL Sensation Assessment Sensation Gross Sensation Right LE Impaired,Left LE Impaired Comments Sensation Comments peripheral neuropathy affects sensation in bilateral feet with distal more affected than proximal Muscle Tone Muscle Tone WNL Yes M6 PT-IP Treatment Start: 08/14/20 13:51 Freq: NEEDED Status: Active Protocol: Document 08/14/20 14:48 AW (Rec: 08/14/20 16:48 AW [id number]) Physical Therapy Treatment Education Education Provided Safety Other Treatments Other Treatment Performed Provided education on role of PT, plan of care, rationale for use of an assistive device . M7 PT-IP Assessment and Plan Start: 08/14/20 13:51 Freq: NEEDED Status: Active Protocol: Document 08/14/20 14:48 AW (Rec: 08/14/20 16:48 AW [id number]) PT Summary Assessment and Plan Potential Rehabilitation Potential Good Status of Condition at Evaluation Evolving Summary Impairments Pain,ROM,Strength,Balance, Sensation,Bed Mobility, Transfers,Gait,Activity Tolerance Assessment Summary Nazario is an 85 yo man seen for PT evaluation after a GLF resulting in right knee pain. He is also admitted with RHONDA and acute CHF with SOB. Pt is an independent ambulator up to 100 yards without AD at baseline. On evaluation, pt required min assist x 2 for short distance ambulation with FWW. Pt states his will not be able to physically assist him at home. PT recommends SNF rehab to improve independent mobility prior to safe return home. If pt goes home, will need HH PT. Goals Bed Mobility Goal Independent Transfer Goal Standby Assistance,Front Wheeled Walker Gait Goal Standby Assistance,Front Wheel Walker Gait Distance 100 Other Goals - up/down 2 steps with unilateral rail SBA - improve gait to 100 feet SBA without AD Days to Meet Goals 10 Frequency of Treatment Frequency Of Treatment Once a Day Treatment Plan Physical Therapy Treatment Plan Bed Mobility Training,Transfer Training,Gait Training, Therapeutic Exercise,Balance Retraining,Discharge Planning, Hot or Cold Pack Other Recommendations and Next Treatment transfers; progress gait Focus training with FWW; stairs when able if pt going home Recommendations To Nursing Amount of Assist Needed 2 Person Assist Discharge Recommendations PT Discharge Recommendations Home with Assistance,Home Health,SNF Rehab Other Discharge Recommendations SNF vs home with assist and HH depending on progress Equipment Needed for Home Before May need FWW (wide or enmanuel) Discharge Transportation Needs at Discharge Private Vehicle,Wheelchair/ Cabulance
--- NOTE | 2020-08-14 15:35 | OT.IP.EVAL ---
Current Diagnoses Heart failure, unspecified (08/13/20) Past Medical History (Last Reviewed 08/13/20 @ 17:38 by Joe Ahmadi MD) AAA (abdominal aortic aneurysm) (~2013) Acquired anal stenosis Anxiety Aortic dilatation Haile's syndrome CAD (coronary artery disease) Cardiomyopathy Cataracts, bilateral CHF (congestive heart failure) Chronic back pain Chronic diastolic congestive heart failure Chronic renal failure, stage 3 (moderate) Colon polyps Deep vein thrombosis (~2013) Diverticular disease Former smoker Fractures Gout Hearing loss History of urinary incontinence HLD (hyperlipidemia) Hypertension Knee pain Lumbar spine pain Meningitis spinal Paroxysmal atrial fibrillation Peripheral edema Peripheral neuropathy Persistent atrial fibrillation Prostate cancer (~2007) Pulmonary embolism (~2013) Pulmonic valve insufficiency Rheumatoid arthritis Shoulder pain Skin cancer (~1989) Tricuspid insufficiency Urinary incontinence due to urethral sphincter incompetence Venous stasis dermatitis Surgical History (Last Reviewed 08/13/20 @ 17:38 by Joe Ahmadi MD) History of abdominal aortic aneurysm repair History of hydrocelectomy Hx of hernia repair Hx of shoulder surgery S/P skin biopsy Occupational Therapy Inpatient Evaluation/Re-Eval M1 PT/OT-IP Prior Functional Status Start: 08/14/20 15:22 Freq: NEEDED Status: Active Protocol: Document 08/14/20 15:22 RM (Rec: 08/14/20 15:33 RM [id number]) Medical Review Prior Functional Status Medical History Reviewed Yes Communication no defecits, able to make needs known Mobility and Gait (I) without AD, reports limited distance 50-100 yds d/ t hip and back pain Activities of Daily Living and IADL's (I) with 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 2 w/ grab bar Home Environment Standard Height Toilet,Walk in Shower,Built-In Shower Seat Home Equipment Grab Bars In Shower Employment Status Retired Additional Social History Comment Patient reports that his has limited ability to provide physical assist, but that his children may be able to provide some assistance. M2 OT-IP Current Condition Start: 08/14/20 15:22 Freq: Status: Active Protocol: Document 08/14/20 15:22 RM (Rec: 08/14/20 15:33 RM [id number]) Occupational Therapy Current Condition Current Condition Evaluation Date 08/14/20 Treatment Diagnosis GLF w/ R knee pain and impaired mobility and acute CHF and kidney injury Diagnosis Onset Date 08/13/20 M3 OT- IP Subjective and Pain Start: 08/14/20 15:22 Freq: Status: Active Protocol: Document 08/14/20 15:22 RM (Rec: 08/14/20 15:33 RM [id number]) OT- Subjective Occupational Therapy Visit Type Type Initial Evaluation Visit Start Time 14:10 Visit Stop Time 14:45 Total Visit Minutes 35 Notes co-tx w/ PT Humera Gibbs Occupational Therapy Visit Comments Patient Comments I just have trouble standing up and then I can do it. Patient/Caregiver Goals Discharge home OT Pain Assessment Pain When Pain Assessed During Mobility Pain Present Pain Present Pain Reported Location Right Knee Intensity 10 Scale Used Numeric (0 - 10) Description Acute Management Techniques Modification of Treatment M4 OT- IP ADL's Start: 08/14/20 15:22 Freq: Status: Active Protocol: Document 08/14/20 15:22 RM (Rec: 08/14/20 15:33 RM [id number]) OT ADL-Dressing General Eval Lower Body Dressing Ability Moderate Assistance OT ADL-Toileting General Evaluation Toileting Ability Minimal Assistance Areas Needing Assistance Manage Clothing Devices Toileting Assistive Devices Urinal M5 OT- IP IADL's Start: 08/14/20 15:22 Freq: Status: Active Protocol: Document 08/14/20 15:22 RM (Rec: 08/14/20 15:33 [id number]) OT-Instrumental Activities of Daily Living Deficits IADL Deficits Identified Deficits Home Safety Awareness Awareness of Need for Assistance at Home Decreased Awareness M6 OT- IP Functional Cognition Start: 08/14/20 15:22 Freq: Status: Active Protocol: Document 08/14/20 15:22 RM (Rec: 08/14/20 15:33 [id number]) Cognitive Factors Limiting Selfcare Function Cognitive Ability Level of Alertness Alert Patient Orientation Name,Age,Birthday,Month,Date, Year,Day of Week,Place, Situation Attention Span Ability Capable of Focused Attention, Capable of Sustained Attention Ability to Follow Commands Able to Follow Multi-Step Commands Safety Awareness Underestimates Need for Assistance OT- Vision and Hearing OT- Hearing Assessment OT- Hearing Assessment WFL OT- Vision Assessment Visual Acuity WFL M7 OT- IP Mobility and Balance Start: 08/14/20 15:22 Freq: Status: Active Protocol: Document 08/14/20 15:22 RM (Rec: 08/14/20 15:33 RM [id number]) OT- Bed Mobility Assessment Supine to Sit Supine to Sit Assist Contact Guard Assistance,1 Person Assistance OT-Transfer Assessment Sit to and From Stand Sit to and from Stand Minimal Assistance,2 Person Assistance Transfers Transfer Ability Contact Guard Assistance Technique Transfer Destination Chair Devices Transfer Assistive Devices Gait Belt,Front Wheeled Walker OT- Gait Assessment Gait Gait Assistance Required: Contact Guard Assist,1 Person Assist Distance (Feet) 20 OT- Balance Assessment Sitting Balance and Reactions Static Sitting Balance Ability Good Dynamic Sitting Balance Ability Good Standing Balance and Reactions Static Standing Balance Ability Fair Dynamic Standing Balance Ability Fair M8 OT- IP Objective Assessments Start: 08/14/20 15:22 Freq: Status: Active Protocol: Document 08/14/20 15:22 RM (Rec: 08/14/20 15:33 RM [id number]) OT Gross Range of Motion Upper Extremity Range of Motion Assessment Within Functional Limits OT Strength Upper Extremity Strength Assessment Bilaterally Impaired 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 Strength Hand Dominance Right Comments Strength Comments generalized weakness 4/5 M9 OT- IP Assessment and Plan Start: 08/14/20 15:22 Freq: Status: Active Protocol: Document 08/14/20 15:22 RM (Rec: 08/14/20 15:33 RM [id number]) OT Summary Assessment and Plan Potential Rehabilitation Potential Good Analytic Complexity at Evaluation Moderate Summary OT Impairments Pain,Range of Motion,Strength, Balance,Functional Mobility, Dressing,Toileting,Bathing, Toilet Transfers,Shower Transfers,Activity Tolerance Progress Towards Goals Slow Progress due to Pain Assessment Summary Patient is an 85 year old male who presents with significant RLE pain with movement as well as decreased strength and balance resulting in impaired performance with functional mobility and self-care. Discussed recommendation for SNF given limited support and home and need for 2 person assist with transfers at this time. Patient endorses goal still to discharge home at this time. Goals Dressing Goal Independent Toileting Goal Independent Bathing Goal Independent Toilet Transfer Goal Independent Shower Transfer Goal Independent Days to Meet Goals 14 Frequency of Treatment Frequency Of Treatment Once a Day Treatment Plan OT Treatment Plan ADL Training,Functional Mobility,IADL Training, Neuromuscular Re-education, Therapeutic Exercises,Patient/ Family Education,Discharge Planning Discharge Recommendations OT Discharge Recommendations SNF Rehab Home Equipment Needs BSC, shower chair Transportation Needs at Discharge Private Vehicle
--- NOTE | 2020-08-14 16:46 | CM.DANOTE ---
Discharge Planning/Care Management DCP: assessment: case received, EMR reviewed and met with pt this afternoon. Introduced self and role. Pt is found lying in bed, listening to opera song on TV. He winces in apparent pain every few minutes, noting, it's just a spasm. Pt is an 85 year old male who admitted yesterday afternoon to care of Dr. Ahmadi. PCP: Dr. Cunningham Payer: Medicare and [facility]. Pt confirms he has never had HH services or a snf stay. I am sure I won't need anything, I really hope to be able to go home maybe tomorrow and continue with wound care clinic/[facility] and Dr. [facility] clinic. Pt says between the 2 places he gets care about every week. He drives himself there. PT and OT did first eval co-treat today and their notes say snf is recommended. Pt says once I am on my feet I am fine. Pt uses no AD at baseline. Assured him the DCP team would be following as POC unfolds to assist with any d/c needs. Will need close followup and will also look to Dr. Cunningham or partner on some guidance with the d/c plan. Advanced directive, confirm from FAMILY Start: 08/13/20 17:27 Freq: Q24H Status: Active Protocol: Document 08/13/20 17:48 KMD (Rec: 08/13/20 17:54 KMD [id number]) Advance Directive, confirm on record Time 17:54 Person contacted Patient Copy received No CM Discharge Assessment Start: 08/14/20 16:45 Freq: Status: Active Protocol: Document 08/14/20 16:45 ITV (Rec: 08/14/20 16:46 ITV [id number]) Discharge Planning Assessment Advance Directives? Yes History Provided By Patient,Medical Record Has Patient been admitted in last 30 No days? Prior Living Arrangements House Household Members spouse Type of transporation used prior to Drives own vehicle admit Is patient alert and oriented? Yes
[2020-08-14] MEDS: HYDROCODONE/ACET 5/325 TABLET 2 TAB PO ×2 (17:50→23:49)
[2020-08-14] MEDS: ATORVASTATIN 20 MG TABLET 10 MG PO (20:24)
[2020-08-15] VITALS (7 sets, daily range): BP systolic 97–123; BP diastolic 55–76; PULSE 60–83; RESP 15–20; TEMP 36.1–37.1; O2SAT 96–99
[2020-08-15] MEDS: HYDROCODONE/ACET 5/325 TABLET 2 TAB PO ×2 (05:22→15:56)
[2020-08-15 06:12] LABS: BUN Creatinine Ratio 26.1 (6-22); Blood Urea Nitrogen 53 mg/dL (9-20); Calcium 8.2 mg/dL (8.4-10.2); Carbon Dioxide 31 mmol/L (22-32); Chloride 101 mmol/L (98-107); Estimated Glomerular Filt Rate 31.4 mL/min (>60); Glucose 117 mg/dL (80-110); HEMOLYSIS < 15 (0-50); Potassium 3.5 mmol/L (3.4-5.1); Sodium 136 mmol/L (137-145)
[2020-08-15] MEDS: GABAPENTIN 300 MG CAPSULE PO (08:17)
[2020-08-15] MEDS: DOCUSATE 100 MG CAPSULE PO (08:17)
[2020-08-15] MEDS: POTASSIUM CHLORIDE 20 MEQ TAB PO ×2 (08:17→17:52)
[2020-08-15] MEDS: APIXABAN 5 MG TABLET 2.5 MG PO ×2 (08:17→20:04)
[2020-08-15] MEDS: FINASTERIDE 5 MG TABLET PO (08:18)
--- NOTE | 2020-08-15 08:23 | PM.PN.1 ---
Subjective Subjective Date Patient Seen: 08/15/20 Time Patient Seen: 08:23 Interval history: Patient status at time of admission and care over the weekend discussed with Dr. Garrido Patient this morning was really hoping to make it to his wound care appointment. Having lots of pain in the right knee where he fell and lacerated himself prior to this admission. Feels much better. Was sitting up in the chair at the bedside working on eating breakfast and felt like that went a lot better. If warned for the pain he feel like he be back to normal. No other complaints issues problems. Specifically denies any shortness of breath or trouble breathing etcetera Exam Vital Signs (past 8 hours): - 08/15/20 05:15 08/15/20 07:00 Temperature 97.3 F L 97.9 F Pulse Rate 62 83 Respiratory Rate 16 20 Blood Pressure 104/67 123/76 Pulse Oximetry 96 99 Oxygen Delivery Method Room Air Oxygen Flow Rate 0 Narrative Exam Narrative: Right knee dressed without drainage exquisitely tender to palpation however no erythema fluid collection etcetera Objective Labs Result Diagrams: 08/14/20 05:16 08/15/20 05:15 Labs: Laboratory Results - last 24 hr 08/15/20 05:15 Sodium 136 L Potassium 3.5 Chloride 101 Carbon Dioxide 31 BUN 53 H Creatinine 2.03 H Estimated GFR 31.4 L BUN/Creatinine Ratio 26.1 H Glucose 117 H Calcium 8.2 L PFSH Medical History AAA (abdominal aortic aneurysm) (~2013) Acquired anal stenosis Anxiety Aortic dilatation Haile's syndrome CAD (coronary artery disease) Cardiomyopathy Cataracts, bilateral CHF (congestive heart failure) Chronic back pain Chronic diastolic congestive heart failure Chronic renal failure, stage 3 (moderate) Colon polyps Deep vein thrombosis (~2013) Diverticular disease Former smoker Fractures Gout Hearing loss History of urinary incontinence HLD (hyperlipidemia) Hypertension Knee pain Lumbar spine pain Meningitis spinal Paroxysmal atrial fibrillation Peripheral edema Peripheral neuropathy Persistent atrial fibrillation Prostate cancer (~2007) Pulmonary embolism (~2013) Pulmonic valve insufficiency Rheumatoid arthritis Shoulder pain Skin cancer (~1989) Tricuspid insufficiency Urinary incontinence due to urethral sphincter incompetence Venous stasis dermatitis Surgical History History of abdominal aortic aneurysm repair History of hydrocelectomy Hx of hernia repair Hx of shoulder surgery S/P skin biopsy Social History household members: spouse Smoking Status: Former smoker Tobacco: How many years used: 20 alcohol intake: current Assessment & Plan Assessment & Plan narrative: 1. Acute kidney injury-numbers are better this morning. I think he needs to continue on IV fluids for now. Ejection fraction is relatively normal his congestive heart failure is diastolic based and therefore I do not think he is exquisitely sensitive to fluids. He should remain off of furosemide for now. Blood pressure for now however until renal function improves. Patient's baseline creatinine is probably about 1.3-1.6. He is approaching that. 2. Atrial fibrillation with long-term anticoagulation-at this point I am beginning to wonder whether not anticoagulation is safe for this patient. He has had 2 significant falls and or injuries in the last several weeks. He certainly is at high risk. Will continue for now however. Of note his metoprolol was discontinued by Cardiology back in May because of bradycardia. Will take that off of his home med list 3. Right knee pain-fully evaluated in the ER with his initial presentation no evidence of fracture etcetera. No evidence of secondary complications such as infection etcetera. Likely some element of contusion perhaps exacerbated by his anticoagulation. Continue with skilled therapies and conservative management. Overall patient would benefit from additional time in the hospital for IV fluids and skilled therapies. Continue with both of the above and recheck creatinine/BUN tomorrow. Anticipate more likely than not discharge in the next 24 hours. Note: Greater than 30 minutes was spent evaluating the patient on the floor, including examining the patient, discussing clinical course with clinical and nursing staff, reviewing clinical course in the computer, preparing documentation and writing orders for continued management of care, discussing status with family as appropriate, reviewing plans for the next 24 hours with both patient/family and nursing staff as appropriate. Quality VTE Deep Vein Thrombosis/Pulmonary Embolism Present on Admission: No
[2020-08-15] MEDS: SODIUM CHLORIDE 0.9% 1,000 ML 100 ML IV ×2 (08:24→20:00)
--- NOTE | 2020-08-15 09:27 | OT.IP.TRT ---
Current Diagnoses Heart failure, unspecified (08/13/20) Occupational Therapy Treatment Note M2 OT-IP Current Condition Start: 08/14/20 15:22 Freq: Status: Active Protocol: Document 08/14/20 15:22 RM (Rec: 08/14/20 15:33 RM [id number]) Occupational Therapy Current Condition Current Condition Evaluation Date 08/14/20 Treatment Diagnosis GLF w/ R knee pain and impaired mobility and acute CHF and kidney injury Diagnosis Onset Date 08/13/20 M3 OT- IP Subjective and Pain Start: 08/14/20 15:22 Freq: Status: Active Protocol: Document 08/15/20 10:37 [facility] (Rec: 08/15/20 10:47 [facility] [id number]) OT- Subjective Occupational Therapy Visit Type Type Treatment Note Visit Start Time 08:05 Visit Stop Time 09:27 Total Visit Minutes 23 Notes Pt seen for split treatment of [phone] and [phone] Occupational Therapy Visit Comments Patient Comments Pt not wanting to get up as waiting on breakfast and when checking on pt later just assisted by nursing to get back in bed. Patient/Caregiver Goals To go home. OT Pain Assessment Pain When Pain Assessed At Rest Pain Present Pain Present Pain Reported M4 OT- IP ADL's Start: 08/14/20 15:22 Freq: Status: Active Protocol: Document 08/15/20 10:37 [facility] (Rec: 08/15/20 10:47 [facility] [id number]) OT MLG-Tixy-Gwuvzdi Comments OT Self-Feeding Comments Pt states had no issues. OT ADL-Grooming Comments OT Grooming Comments Pt not wanting to do at this time. OT ADL-Dressing Comments OT Dressing Comments Suggested use of lb dressing equipment and pt states is content on doing it his way and mainly just wears shorts and slip on shoes. OT ADL-Toileting Comments OT Toileting Comments Pt not having to go. Pt states does not feel that he needs a RTS or BSC as is use to pulling on the wash basin and pushing down on the toilet at home. OT ADL-Bathing Comments OT Bathing Comments Pt refused as states will just take one at home if he goes home today. Pt states has built in shower seats but questionable as to how low they are and would benefit from a shower chair. M5 OT- IP IADL's Start: 08/14/20 15:22 Freq: Status: Active Protocol: Document 08/14/20 15:22 RM (Rec: 08/14/20 15:33 RM [id number]) OT-Instrumental Activities of Daily Living Deficits IADL Deficits Identified Deficits Home Safety Awareness Awareness of Need for Assistance at Home Decreased Awareness. Spoke to pt on use of tall chair to assist for cooking needs, so he can sit and be off his legs. M6 OT- IP Functional Cognition Start: 08/14/20 15:22 Freq: Status: Active Protocol: Document 08/14/20 15:22 RM (Rec: 08/14/20 15:33 RM [id number]) Cognitive Factors Limiting Selfcare Function Cognitive Ability Level of Alertness Alert Patient Orientation Name,Age,Birthday,Month,Date, Year,Day of Week,Place, Situation Attention Span Ability Capable of Focused Attention, Capable of Sustained Attention Ability to Follow Commands Able to Follow Multi-Step Commands Safety Awareness Underestimates Need for Assistance OT- Vision and Hearing OT- Hearing Assessment OT- Hearing Assessment WFL OT- Vision Assessment Visual Acuity WFL M8 OT- IP Objective Assessments Start: 08/14/20 15:22 Freq: Status: Active Protocol: Document 08/14/20 15:22 RM (Rec: 08/14/20 15:33 RM [id number]) OT Gross Range of Motion Upper Extremity Range of Motion Assessment Within Functional Limits OT Strength Upper Extremity Strength Assessment Bilaterally Impaired Hand Log Snaker Strength Hand Dominance Right Comments Strength Comments generalized weakness 4/5 M9 OT- IP Assessment and Plan Start: 08/14/20 15:22 Freq: Status: Active Protocol: Document 08/15/20 10:37 [facility] (Rec: 08/15/20 10:47 [facility] [id number]) OT Summary Assessment and Plan Potential Rehabilitation Potential Good Analytic Complexity at Evaluation Moderate Summary OT Impairments Pain,Range of Motion,Strength, Balance,Functional Mobility, Dressing,Toileting,Bathing, Toilet Transfers,Shower Transfers,Activity Tolerance Progress Towards Goals Progressing Toward Goals,Slow Progress due to Medical Issues ,Slow Progress due to Activity Tolerance Assessment Summary Pt not wanting to get up for therapist as waiting on breakfast and nursing just assisted him back to bed. Pt is insistent that his set-up at home is more conducive to him being able to get up better as has a lift chair and mobile lift that also assist him to stand. Able to go over energy conservation and fall prevention strategies with pt and pt able to said good understanding. When medically stable suggest home with assist and home health as pt refusing to go to skilled rehab. Pt will also benefit from a FWW, pt is insistent that he will not need one as he furniture cruises. Goals Dressing Goal Independent Toileting Goal Independent Bathing Goal Independent Toilet Transfer Goal Independent Shower Transfer Goal Independent Days to Meet Goals 10 Frequency of Treatment Frequency Of Treatment Once a Day Treatment Plan OT Treatment Plan ADL Training,Functional Mobility,IADL Training, Neuromuscular Re-education, Therapeutic Exercises,Patient/ Family Education,Discharge Planning Discharge Recommendations OT Discharge Recommendations Home with Assistance,Home Health,SNF Rehab Home Equipment Needs BSC, shower chair, FWW Transportation Needs at Discharge Private Vehicle,Wheelchair/ Cabulance
--- NOTE | 2020-08-15 11:15 | PT.IPTN ---
Current Diagnoses Heart failure, unspecified (08/13/20) Physical Therapy Treatment Note M2 PT-IP Current Condition Start: 08/14/20 13:51 Freq: NEEDED Status: Active Protocol: Document 08/14/20 14:48 AW (Rec: 08/14/20 16:48 AW [id number]) Physical Therapy Current Condition Current Condition Evaluation Date 08/14/20 Treatment Diagnosis RHONDA, acute CHF exacerbation; R knee pain; difficulty in walking Onset Date 08/12/20 Weight Bearing Status Weight Bearing Status Full Weight Bearing M3 PT-IP Subjective Start: 08/14/20 13:51 Freq: NEEDED Status: Active Protocol: Document 08/15/20 11:14 AW (Rec: 08/15/20 12:32 AW [id number]) Subjective Physical Therapy Visit Type Type Treatment Note Visit Start Time 10:44 Visit Stop Time 11:14 Total Visit Minutes 30 Number of [employer] TECHNICIAN Visits 0 Physical Therapy Visit Comments Patient Comments The spasms are the worst part but once I'm up, I'm ok. Patient Goals Pt hopes to return home. Therapy Pain Assessment Pain When Pain Assessed At Rest Pain Present Pain Present Pain Reported Location Right Knee Intensity 10 Scale Used Numeric (0 - 10) M4 PT-IP Mobility and Gait Start: 08/14/20 13:51 Freq: NEEDED Status: Active Protocol: Document 08/15/20 11:14 AW (Rec: 08/15/20 12:32 AW [id number]) PT-Bed Mobility Assessment Supine to Sit Supine to Sit Contact Guard Assistance,1 Person Assistance Scooting Scooting to Edge of Bed Contact Guard Assistance PT-Transfer Assessment Sit to and From Stand Sit to and from Stand Moderate Assistance,1 Person Assistance,Use of Upper Extremities Equipment Transfer Assistive Device Gait Belt,Front Wheeled Walker Orthotic/Prosthetic Devices or Brace: No Transfers Transfer Destination Bed Transfer Technique Stand Step Pivot Transfer Ability Level of Assist Minimal Assistance,1 Person Assistance,Use of Upper Extremities Comments Mobility Comments Pt was lying in bed as PT arrived with minimal pain complaint at rest. Pt completed bed mobility with CGA in order to protect his skin from shear injury on the bed frame. Pt was able to sit EOB with good seated balance. With bed raised ~3 ( consistent with height of bed at home), sit to stand required mod assist x 1 with verbal cues for hand and LE placement. Pt stood with urinal to void while PT provided CGA for stability. Pt then ambulated around the room 25 feet with FWW CGA. He returned to EOB and required assist to control descent. Pt agreed to practice sit to stand and completed three more reps with mod 1PA and reduced cueing needed. Pt returned to supine CGA to protect LE from scraping on bed. Pt was positioned with call light and all needs in reach, bed alarm on for safety. Gait Assessment Gait Gait Assistance Required: Contact Guard Assist,1 Person Assist Distance (Feet) 25 Able to Maintain Weight Bearing Status Yes During Gait Assistive Devices Assistive Device Gait Belt,Front Wheeled Walker Orthotic/Prosthetic Devices or Brace: No Gait Deviations General Gait Pattern Antalgic,Decreased Stride Length,Decreased Feet Clearance,Flexed Trunk,Step-to Gait,Wide Based Gait Factors Limiting Gait Function Factors Limiting Gait Function Decreased Activity Tolerance, Decreased Sensation,Decreased Strength,Limited Range of Motion,Pain,Poor Balance,Poor Safety Awareness Comments Gait Comments Pt was able to don his own left shoe in preparation for gait. Donning right shoe required PT assist. Swelling is more significant on right side today. See mobility comments for gait details. Stair Climbing Assessment Comments Stair Climbing Comments Not assessed. PT-Balance Assessment Sitting Balance and Reactions Static Sitting Balance Ability Good Dynamic Sitting Balance Ability Good Standing Balance and Reactions Static Standing Balance Ability Fair Dynamic Standing Balance Ability Fair Device Used FWW Physical Therapy Treatment Education Education Provided Safety Other Treatments Other Treatment Performed Educated pt on need for FWW during transfers and gait. Also suggesting raised toilet seat and/or BSC for home if pt discharging to home environment. M7 PT-IP Assessment and Plan Start: 08/14/20 13:51 Freq: NEEDED Status: Active Protocol: Document 08/15/20 11:14 AW (Rec: 08/15/20 12:32 AW [id number]) PT Summary Assessment and Plan Potential Rehabilitation Potential Good Status of Condition at Evaluation Evolving Summary Impairments Pain,ROM,Strength,Balance, Sensation,Bed Mobility, Transfers,Gait,Activity Tolerance Progress Towards Goals Slow Progress due to Pain,Slow Progress due to Medical Issues,Slow Progress due to Activity Tolerance Assessment Summary Pt states he has a mobile assist device which he can attach to chairs to help him stand at home. Treatment focused on sit to stand, transfers, and short distance ambulation with FWW today. Pt continues to require assist with all activities. With PT present, pt coordinated with his daughter, Maryam, to be present at 10:00 tomorrow morning for caregiver training since pt is refusing SNF. Pt is open to HH PT. Pt's daughter Maryam lives in [place] but is currently staying at the pt's house and can stay until other daughter, Cecilia, arrives Saturday night from [place]. Pt also identifies a son-in- law, Nader, in [place] who will be able to assist intermittently. Goals Bed Mobility Goal Independent Transfer Goal Standby Assistance,Front Wheeled Walker Gait Goal Standby Assistance,Front Wheel Walker Gait Distance 100 Other Goals - up/down 2 steps with unilateral rail SBA - improve gait to 100 feet SBA without AD Days to Meet Goals 10 Frequency of Treatment Frequency Of Treatment Once a Day Treatment Plan Physical Therapy Treatment Plan Bed Mobility Training,Transfer Training,Gait Training, Therapeutic Exercise,Balance Retraining,Discharge Planning, Hot or Cold Pack Other Recommendations and Next Treatment CGT with daughter at 10:00 Focus Saturday; transfers; gait training with FWW; stairs with caregiver Recommendations To Nursing Amount of Assist Needed 2 Person Assist Discharge Recommendations PT Discharge Recommendations Home with Assistance,Home Health,SNF Rehab Other Discharge Recommendations SNF vs home with assist and HH depending on progress Equipment Needed for Home Before FWW, BSC or raised toilet seat Discharge Transportation Needs at Discharge Private Vehicle
--- NOTE | 2020-08-15 12:22 | PC.NURSE ---
Spoke with Trinity at wound care clinic, patient had an appt this am at 0800 for left leg dressing change. Trinity brought wound care orders and supplies for this RN to change. Changed dressing to left leg as per wound care orders. Dressing to right knee removed, this wound occurred Saturday the due to a fall at home. Stitches intact, wound cleansed with saline and vaseline guaze placed and covered with a coversite. No active drainage noted. Patient tolerated well and refused pain medication at this time.
--- NOTE | 2020-08-15 14:40 | PT-IP ANOTE ---
Spoke with pt's daughter, Carin, who was visiting in pt's room. Discussed plan for caregiver training in the AM and advised on equipment needs with referral to [employer] for loaner equipment. Carin and her sister, Cecilia, plan to tag team and stay with the pt as needed at discharge. All are agreeable to HH therapy services.
--- NOTE | 2020-08-15 15:32 | CM.DPC ---
DCP Cont: Humera, physical therapist, came by care management's office and stated that daughter is in the room, and patient has good family support at home. Plan is for home, but home health is recommended by physical therapy. Went into patient's room. Daughter, Carin, was in the room. Introduced self and role. Confirmed that between Carin and other daughter, they will be taking turns assisting patient at home. Mentioned home health, and patient stated, he thinks that he may have had it before at one time. Brought in a Medicare Choice List for patient and daughter to review. Patient confirmed that he is home bound, but has had help getting to the wound clinic for his chronic wounds. Will need to have his provider sign a face to face for home health. P: DCP to continue to follow. Will have provider sign face to face. Provided care management's phone number if they have additional questions, and decide on an agency. If no decisions on agency by tomorrow, will go by random choice on calendar. Will recommend nursing, P.T, and O.T. Meredith Walls RN/Chief Administrative Officer
--- NOTE | 2020-08-15 18:26 | PC.NURSE ---
Addendum entered by Liz Perez R.N. 08/15/20 21:57: Pt had relatively uneventful evening. Condition remains essentially unchanged. Call light w/in reach, bed alarm on for pt safety. Continue w/plan of care. Original Note: Pt visiting w/daughter. Med @ 1555 w/ [place] for discomfort w/fair relief Lungs clear, SpO2 96% RA IV NS infusing into left wrist area @ 100cc/hr via pump w/o incidence. Bilateral legs present w/purplish discoloration. Pulses + Call light w/in reach, pt calls appropriately for needs.
[2020-08-15] MEDS: ATORVASTATIN 20 MG TABLET 10 MG PO (20:03)
[2020-08-16] MEDS: HYDROCODONE/ACET 5/325 TABLET 2 TAB PO (00:53)
[2020-08-16 04:04] VITALS: BP 102/61; PULSE 58; RESP 16; TEMP 35.9; O2SAT 98
[2020-08-16 05:56] LABS: BUN Creatinine Ratio 28.7 (6-22); Blood Urea Nitrogen 45 mg/dL (9-20); Carbon Dioxide 28 mmol/L (22-32); Chloride 105 mmol/L (98-107); Estimated Glomerular Filt Rate 42.2 mL/min (>60); Glucose 113 mg/dL (80-110); HEMOLYSIS < 15 (0-50); Potassium 3.8 mmol/L (3.4-5.1); Sodium 137 mmol/L (137-145)
--- NOTE | 2020-08-16 06:49 | PC.NURSE ---
Pt dressing on R calf changed. Tolerated well, R leg still TTT.
--- NOTE | 2020-08-16 07:59 | PM.DS.1 ---
History of Present Illness History of Present Illness Date Patient Seen: 08/16/20 Time Patient Seen: 08:00 Chief complaint: Blood Pressure Way Down, Pain Way Up, Dizzy Narrative: 85-year-old male history of congestive heart atrial fibrillation failure chronic renal failure cardiomyopathy chronic edema and lower extremity wounds peripheral neuropathy and stasis dermatitis presents to the emergency room again today with increasing pain and shortness of breath. Patient yesterday was traveling into his house. He there is a small curve that he has to climb over to get into his house. His foot hit the curb and he landed on his knee. Patient sustained a significant laceration to his knee was evaluated in the emergency department for this. Had repair and an x-ray done of his knee and was discharged home. Over the ensuing 24 hours patient had worsening symptoms. He says his knee is quite bad with some spasms. But he is also now having neck pain left shoulder pain and knee pain. He would have been too bothered about the pain. But he also became short of breath this morning. His breathlessness is new to him. He just felt what like he was winded. Did not appreciate any associated dizziness or lightheaded or palpitations with it. He became concerned enough that he presented to the emergency department. In the emergency department he had a workup and evaluation. Patient had initially some mild low blood pressure but this then gradually increased. Had a CT scan of his head neck and x-rays of parts of his body that were hurting. He each 1 of these imaging showed no significant concerns. Patient had laboratory tests done. His laboratory revealed that he had quite elevated BNP over previous numbers and significantly worse kidney function. The patient states other than the shortness of breath he has been regularly taking his medication. He weighs himself every day and his weight fluctuates 10 lb. Patient has been on diuretics before for his heart failure he he says he has been taking them. {from Dr. Ahmadi's H&P 08/13/20} Discharge Providers Provider Date of admission: 08/13/20 15:14 Discharge Date: 08/16/20 Primary care physician: Luis Alfredo Maddox MD Consults: 08/14/20 12:27 Consult to Occupational Therapy Evaluate & Treat Comment: Physician Instructions: Evaluate and treat Consult to Physical Therapy Evaluate & Treat Comment: Physician Instructions: Evaluate and Treat Discharge provider: Luis Alfredo Maddox MD Summary Hospital Course Discharge Diagnosis: 1. Acute kidney injury, resolved 2. Chronic congestive heart failure with preserved ejection fraction 3. Persistent atrial fibrillation, on long-term anticoagulation 4. Status post ground level fall 5. Right knee contusion 6. Chronic renal failure stage 3 7. Peripheral edema 8. Chronic back pain Hospital Course: Patient was admitted via emergency department as above. He presented with weakness hypotension and acute kidney injury. Initially felt perhaps to be volume overloaded and attempts at diuresis were not helpful, therefore based on that lack of response and clinical course patient was given IV fluids. With this his renal function improve his blood pressure stabilized and he was much improved over the course of 24-48 hours. He was seen by Physical therapy able to be up and around with a walker. Initially had severe knee pain from his fall which occurred just prior to admission but fortunately was much improved upon discharge Patient's blood pressure remained quite labile including episodes of modest hypotension. Therefore his home antihypertensive therapy was significantly altered, his losartan was held and will continue to be held at discharge patient also had persistent lower extremity edema despite the relative volume depletion as above causing his acute kidney injury. This will likely take several days to fully mobilize. Patient will continue to use as needed furosemide cautiously at home Patient also received IV antibiotics followed by oral antibiotics upon admission. Patient was felt to have completed a course of antibiotic therapy for his potential wound and this was not continued at discharge Status at Discharge Cognitive/behavioral status at discharge: at baseline, oriented Functional status at discharge: uses cane/walker Overall status at discharge: patient is progressing back to baseline Time Spent with Patient Time spent: Less than 30 minutes Exam Vital Signs (past 8 hours): - 08/16/20 04:04 Temperature 96.7 F L Pulse Rate 58 L Respiratory Rate 16 Blood Pressure 102/61 Pulse Oximetry 98 Oxygen Delivery Method Room Air Oxygen Flow Rate 0 Objective Labs Result Diagrams: 08/14/20 05:16 08/16/20 05:00 Labs: Laboratory Results - last 24 hr 08/16/20 05:00 Sodium 137 Potassium 3.8 Chloride 105 Carbon Dioxide 28 BUN 45 H Creatinine 1.57 H Estimated GFR 42.2 L BUN/Creatinine Ratio 28.7 H Glucose 113 H Calcium 8.0 L [facility] Medical History AAA (abdominal aortic aneurysm) (~2013) Acquired anal stenosis Anxiety Aortic dilatation Haile's syndrome CAD (coronary artery disease) Cardiomyopathy Cataracts, bilateral CHF (congestive heart failure) Chronic back pain Chronic diastolic congestive heart failure Chronic renal failure, stage 3 (moderate) Colon polyps Deep vein thrombosis (~2013) Diverticular disease Former smoker Fractures Gout Hearing loss History of urinary incontinence HLD (hyperlipidemia) Hypertension Knee pain Lumbar spine pain Meningitis spinal Paroxysmal atrial fibrillation Peripheral edema Peripheral neuropathy Persistent atrial fibrillation Prostate cancer (~2007) Pulmonary embolism (~2013) Pulmonic valve insufficiency Rheumatoid arthritis Shoulder pain Skin cancer (~1989) Tricuspid insufficiency Urinary incontinence due to urethral sphincter incompetence Venous stasis dermatitis Surgical History History of abdominal aortic aneurysm repair History of hydrocelectomy Hx of hernia repair Hx of shoulder surgery S/P skin biopsy Social History household members: spouse Smoking Status: Former smoker Tobacco: How many years used: 20 alcohol intake: current Discharge Plan Discharge Plan Patient Disposition: Home Health Service Discharge orders & Medications Prescriptions: Continued magnesium oxide 400 mg capsule 400 mg PO Q OTHER DAY RF: 0 gabapentin 300 mg capsule 300 mg PO DAILY Qty: 90 RF: 1 atorvastatin 10 mg tablet 10 mg PO DAILY RF: 0 potassium chloride 20 mEq tablet extended release 20 meq PO DAILY RF: 0 docusate sodium [Stool Softener] 100 mg capsule 100 mg PO DAILY RF: 0 calcium polycarbophil [FiberCon] 625 mg tablet 1,250 mg PO DAILY RF: 0 furosemide 40 mg tablet 40 mg PO DAILY PRN (Reason: edema) RF: 0 apixaban 5 mg tablet 5 mg PO BID RF: 0 finasteride 5 mg tablet 5 mg PO DAILY Qty: 20 RF: 0 hydrocodone-acetaminophen 5-325 mg tablet 1 tab PO PRN PRN (Reason: Pain (Scale Score 4-6)) RF: 0 oxybutynin chloride 5 mg tablet 5 mg PO DAILY RF: 0 Discontinued losartan 100 mg Tablet 100 mg PO DAILY RF: 0 chlorthalidone 25 mg Tablet 25 mg PO DAILY RF: 0 oxycodone 5 mg tablet 5 mg PO Q4H PRN (Reason: Pain (Scale Score 7-10)) RF: 0 Follow up/Referrals: Luis Alfredo Maddox MD [Primary Care Provider] - 08/30/20 3:00 pm (appt:08/30 @ 3:[address] maddox arrive 15 minutes prior to scheduled apppointment ) Diet/Activity/Treatments Diet: Low-sodium Visit Report/Discharge Packet Instructions: DI for Prescription Opioid Use Discharge Data Primary Care Provider: Luis Alfredo Maddox VTE Deep Vein Thrombosis/Pulmonary Embolism Present on Admission: No
[2020-08-16 08:00] VITALS: BP 132/76; PULSE 72; RESP 16; TEMP 37; O2SAT 99
--- NOTE | 2020-08-16 08:28 | CM.DPC ---
Addendum entered by Meredith Walls R.N. 08/16/20 11:02: David from [facility] called back and stated that he does have referral. Original Note: DCP Cont: Patient is being discharged home today. Met with patient regarding home health, and he has chosen [facility]. Dr. Cunningham signed face to face. Called [facility] and left them a message. Faxed face sheet, orders, face to face, H&P and DC summary. P: Patient is discharging home today with [facility], RN, P.T, O.T. Meredith Walls RN/Wire Stitcher
[2020-08-16] MEDS: DOCUSATE 100 MG CAPSULE PO (08:43)
[2020-08-16] MEDS: FINASTERIDE 5 MG TABLET PO (08:43)
[2020-08-16] MEDS: POTASSIUM CHLORIDE 20 MEQ TAB PO (08:43)
[2020-08-16] MEDS: APIXABAN 5 MG TABLET 2.5 MG PO (08:43)
[2020-08-16] MEDS: GABAPENTIN 300 MG CAPSULE PO (08:44)
[2020-08-16] MEDS: levoFLOXacin 250 MG TABLET 750 MG PO (08:47)
[2020-08-16] MEDS: MAGNESIUM OXIDE 400 MG TABLET PO (08:56)
[2020-08-16] MEDS: ACETAMINOPHEN 325 MG TABLET 650 MG PO (08:59)
--- NOTE | 2020-08-16 10:17 | PT.IPTN ---
Current Diagnoses Heart failure, unspecified (08/13/20) Physical Therapy Treatment Note M2 PT-IP Current Condition Start: 08/14/20 13:51 Freq: NEEDED Status: Active Protocol: Document 08/14/20 14:48 AW (Rec: 08/14/20 16:48 AW [id number]) Physical Therapy Current Condition Current Condition Evaluation Date 08/14/20 Treatment Diagnosis RHONDA, acute CHF exacerbation; R knee pain; difficulty in walking Onset Date 08/12/20 Weight Bearing Status Weight Bearing Status Full Weight Bearing M3 PT-IP Subjective Start: 08/14/20 13:51 Freq: NEEDED Status: Active Protocol: Document 08/16/20 10:17 AW (Rec: 08/16/20 10:28 AW [id number]) Subjective Physical Therapy Visit Type Type Treatment Note Visit Start Time 10:00 Visit Stop Time 10:17 Total Visit Minutes 17 Notes Pt's daughter, Carin, present for caregiver training Number of GYM SUPERVISOR Visits 0 Physical Therapy Visit Comments Patient Comments Pt is dressed and hoping to discharge [facility] Therapy Pain Assessment Pain When Pain Assessed During Mobility Pain Present Pain Present Pain Reported M4 PT-IP Mobility and Gait Start: 08/14/20 13:51 Freq: NEEDED Status: Active Protocol: Document 08/16/20 10:17 AW (Rec: 08/16/20 10:28 AW [id number]) PT-Transfer Assessment Sit to and From Stand Sit to and from Stand Minimal Assistance,1 Person Assistance,Use of Upper Extremities Equipment Transfer Assistive Device Gait Belt,Front Wheeled Walker Orthotic/Prosthetic Devices or Brace: No Transfers Transfer Destination Bed Transfer Technique Stand Step Pivot Transfer Ability Level of Assist Minimal Assistance,1 Person Assistance,Use of Upper Extremities Comments Mobility Comments Pt was sitting EOB dressed and ready to go as PT arrived. PT instructed daughter in donning gait belt and assisting with sit to stand. Daughter was able to safely provide assist. Pt then ambulated with FWW 120 feet to therapy stairs, participated with stair training, and then ambulated back to his room SBA /CGA with improved gait mechanics and safety awareness . He transferred back to the bed surface CGA. Called OT for additional training and left pt in the room with his daughter remaining. Gait Assessment Gait Gait Assistance Required: Standby Assistance,Contact Guard Assist Distance (Feet) 120 Able to Maintain Weight Bearing Status Yes During Gait Assistive Devices Assistive Device Gait Belt,Front Wheeled Walker Orthotic/Prosthetic Devices or Brace: No Gait Deviations General Gait Pattern Antalgic,Decreased Stride Length,Decreased Feet Clearance,Flexed Trunk,Step-to Gait,Wide Based Gait Factors Limiting Gait Function Factors Limiting Gait Function Decreased Activity Tolerance, Decreased Sensation,Decreased Strength,Limited Range of Motion,Pain,Poor Balance,Poor Safety Awareness Comments Gait Comments Pt required CGA fading to SBA as distance increased. He did require cues to slow down for safety. Pt's daughter was able to provide appropriate level of assist on the walk back to pt's room. Stair Climbing Assessment Evaluation Level of Assist On Stairs Contact Guard Assistance,1 Person Assistance Devices Stair Climbing Assistive Devices Left Railing,Right Railing Technique/Endurance Stair Climbing Direction Ascend and Descend Stair Climbing Technique Step to Step Number of Steps Climbed 3 Stair Climbing Set # Repetitions (reps) 1 Comments Stair Climbing Comments Daughter instructed in level of assist and positioning for herself. Pt declined further training after one attempt but daughter felt confident she could manage with clear instructions. PT-Balance Assessment Sitting Balance and Reactions Static Sitting Balance Ability Good Dynamic Sitting Balance Ability Good Standing Balance and Reactions Static Standing Balance Ability Good Dynamic Standing Balance Ability Fair Device Used FWW M5 PT-IP Objective Assessments Start: 08/14/20 13:51 Freq: NEEDED Status: Active Protocol: Document 08/14/20 14:48 AW (Rec: 08/14/20 16:48 AW [id number]) Orientation Orientation/Cognition Level of Alertness Alert Orientation Name,Date,Day of Week,Place, Situation Language Function Ability No Deficits Noted Safety Awareness Decreased Safety Awareness Gross Range of Motion Lower Extremity ROM Assessment Right Impaired Impairments right knee AROM limited by pain Strength Lower Extremity Strength Assessment Bilaterally Impaired Hip L 4-/5 Knee L 3-/5 Ankle L 4/5 Comments Strength Comments RLE grossly 4/5 Coordination Assessment Gross Coordination Gross Coordination WNL Sensation Assessment Sensation Gross Sensation Right LE Impaired,Left LE Impaired Comments Sensation Comments peripheral neuropathy affects sensation in bilateral feet with distal more affected than proximal Muscle Tone Muscle Tone WNL Yes M6 PT-IP Treatment Start: 08/14/20 13:51 Freq: NEEDED Status: Active Protocol: Document 08/16/20 10:17 AW (Rec: 08/16/20 10:28 AW [id number]) Physical Therapy Treatment Education Education Provided Safety Other Treatments Other Treatment Performed Daughter participated in caregiver training. Discussed that daughter has acquired FWW and raised toilet seat for home use. M7 PT-IP Assessment and Plan Start: 08/14/20 13:51 Freq: NEEDED Status: Active Protocol: Document 08/16/20 10:17 AW (Rec: 08/16/20 10:28 AW [id number]) PT Summary Assessment and Plan Potential Rehabilitation Potential Good Status of Condition at Evaluation Stable Summary Impairments Pain,ROM,Strength,Balance, Sensation,Bed Mobility, Transfers,Gait,Activity Tolerance Progress Towards Goals Progressing Toward Goals,Slow Progress due to Pain Assessment Summary Pt improved his activity tolerance greatly at this session and had improved gait mechanics with FWW. He responded well to cues to correct forward lean with FWW and decreased his step-to patterning slightly. Pt's daughter was able to provide appropriate level of assist for all activities. Plan is for home with daughters assisting and home health services. Goals Bed Mobility Goal Independent Transfer Goal Standby Assistance,Front Wheeled Walker Gait Goal Standby Assistance,Front Wheel Walker Gait Distance 100 Other Goals - up/down 2 steps with unilateral rail SBA - improve gait to 100 feet SBA without AD Days to Meet Goals 10 Frequency of Treatment Frequency Of Treatment Once a Day Treatment Plan Physical Therapy Treatment Plan Bed Mobility Training,Transfer Training,Gait Training, Therapeutic Exercise,Balance Retraining,Discharge Planning, Hot or Cold Pack Recommendations To Nursing Amount of Assist Needed 1 Person Assist Discharge Recommendations PT Discharge Recommendations Home with Assistance,Home Health Equipment Needed for Home Before FWW, BSC or raised toilet seat Discharge Transportation Needs at Discharge Private Vehicle
--- NOTE | 2020-08-16 10:38 | OT.IP.TRT ---
Current Diagnoses Heart failure, unspecified (08/13/20) Occupational Therapy Treatment Note M2 OT-IP Current Condition Start: 08/14/20 15:22 Freq: Status: Active Protocol: Document 08/14/20 15:22 RM (Rec: 08/14/20 15:33 RM [id number]) Occupational Therapy Current Condition Current Condition Evaluation Date 08/14/20 Treatment Diagnosis GLF w/ R knee pain and impaired mobility and acute CHF and kidney injury Diagnosis Onset Date 08/13/20 M3 OT- IP Subjective and Pain Start: 08/14/20 15:22 Freq: Status: Active Protocol: Document 08/16/20 11:26 [facility] (Rec: 08/16/20 11:45 [facility] [id number]) OT- Subjective Occupational Therapy Visit Type Type Treatment Note Visit Start Time 10:25 Visit Stop Time 10:38 Total Visit Minutes 13 Occupational Therapy Visit Comments Patient Comments Pt's daughter present for caregiver training. Patient/Caregiver Goals To go home. OT Pain Assessment Pain When Pain Assessed At Rest Pain Present Pain Present Pain Reported M4 OT- IP ADL's Start: 08/14/20 15:22 Freq: Status: Active Protocol: Document 08/16/20 11:26 [facility] (Rec: 08/16/20 11:45 [facility] [id number]) OT [id number] Comments OT Self-Feeding Comments NOt at meal time. OT ADL-Grooming Comments OT Grooming Comments Already performed, OT ADL-Dressing Comments OT Dressing Comments Pt already dressed and per daughter aid states had assist pt for 20% of the task. Pt still not wanting to use LB dressing equipment and insisting on doing it his own way. OT ADL-Toileting Comments OT Toileting Comments Pt did not have to use the toilet. Emphasized would be best to get RTS/BSC as pt's daughter is highly open to suggestions however pt insist that his way of pulling the wash basin and pushing up on the toilet at home works the best for him. Pt to have home health to help do hands on therapy and safety suggestions in his home environment. OT ADL-Bathing Comments OT Bathing Comments Also suggested best to have a shower chair for showering needs, pt's daughter agreed. M5 OT- IP IADL's Start: 08/14/20 15:22 Freq: Status: Active Protocol: Document 08/14/20 15:22 RM (Rec: 08/14/20 15:33 RM [id number]) OT-Instrumental Activities of Daily Living Deficits IADL Deficits Identified Deficits Home Safety Awareness Awareness of Need for Assistance at Home Decreased Awareness M6 OT- IP Functional Cognition Start: 08/14/20 15:22 Freq: Status: Active Protocol: Document 08/16/20 11:26 [facility] (Rec: 08/16/20 11:45 [facility] [id number]) Cognitive Factors Limiting Selfcare Function Cognitive Ability Level of Alertness Alert Patient Orientation Name,Age,Birthday,Month,Date, Year,Day of Week,Place, Situation Attention Span Ability Capable of Focused Attention, Capable of Sustained Attention Ability to Follow Commands Able to Follow Multi-Step Commands Safety Awareness Underestimates Need for Assistance Cognitive Comments Cognitive Assessment Comments Pt scored 96 seconds on [place] Making Part B which implies mild/mod impairments for visual attention, task switching,speed of processing, executive thinking, and mental flexibility. In addition to pt's pain with his right knee would be best for pt not to drive at this time. M7 OT- IP Mobility and Balance Start: 08/14/20 15:22 Freq: Status: Active Protocol: Document 08/14/20 15:22 RM (Rec: 08/14/20 15:33 RM [id number]) OT- Bed Mobility Assessment Supine to Sit Supine to Sit Assist Contact Guard Assistance,1 Person Assistance OT-Transfer Assessment Sit to and From Stand Sit to and from Stand Minimal Assistance,2 Person Assistance Transfers Transfer Ability Contact Guard Assistance Technique Transfer Destination Chair Devices Transfer Assistive Devices Gait Belt,Front Wheeled Walker OT- Gait Assessment Gait Gait Assistance Required: Contact Guard Assist,1 Person Assist Distance (Feet) 20 OT- Balance Assessment Sitting Balance and Reactions Static Sitting Balance Ability Good Dynamic Sitting Balance Ability Good Standing Balance and Reactions Static Standing Balance Ability Fair Dynamic Standing Balance Ability Fair M8 OT- IP Objective Assessments Start: 08/14/20 15:22 Freq: Status: Active Protocol: Document 08/14/20 15:22 RM (Rec: 08/14/20 15:33 RM [id number]) OT Gross Range of Motion Upper Extremity Range of Motion Assessment Within Functional Limits OT Strength Upper Extremity Strength Assessment Bilaterally Impaired 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 Strength Hand Dominance Right Comments Strength Comments generalized weakness 4/5 M9 OT- IP Assessment and Plan Start: 08/14/20 15:22 Freq: Status: Active Protocol: Document 08/16/20 11:26 [facility] (Rec: 08/16/20 11:45 [facility] [id number]) OT Summary Assessment and Plan Potential Rehabilitation Potential Good Analytic Complexity at Evaluation Moderate Summary Progress Towards Goals Progressing Toward Goals Assessment Summary Able to speak to pt and his daughter regarding safety suggestions, equipment needs, and need for assist for ADL's. Pt's daughter has good understanding for all needs and pt is still insistent that he will be fine and can manage on his own. Pt to go home with his daughter to assist and also have home health. Discharge Recommendations OT Discharge Recommendations Home with 25/02 Assist,Home Health Home Equipment Needs BSC, shower chair, FWW Transportation Needs at Discharge Private Vehicle
--- NOTE | 2020-08-16 11:13 | PC.NURSE ---
Edema and venous stastis to BLLE 2+, hemosiderin, drsgs resecured with paper tape, c/d/i; LS diminished; pt transfers with SBA and fww D/C instructions given to patient and patient's daughter: careful review of CHF guidelines, including copy for refrigerator; emphasis on fall prevention; rx medication doses and changes and f/u appt discussed; print out of most recent labs provided; at 1100 pt escorted to private vehicle via wheelchair
== END 2020-08-16 11:17 | disposition home or self-care (01) | DRG 683 ==
LOC: ED 15:13 → AC 08-14 09:32
PROVIDERS: Admitting Provider Family Medicine; Emergency Provider Emergency Medicine; PCP Internal Medicine; Referring Provider Emergency Medicine; Visit Provider Internal Medicine
DX: N17.9 Acute kidney failure, unspecified (principal); I13.0 Hypertensive heart and chronic kidney disease with heart failure and stage 1 through stage 4 chronic kidney disease, or unspecified chronic kidney disease; I48.19 Other persistent atrial fibrillation; I50.32 Chronic diastolic (congestive) heart failure; N18.30 Chronic kidney disease, stage 3 unspecified; I95.9 Hypotension, unspecified; I87.2 Venous insufficiency (chronic) (peripheral); I25.10 Atherosclerotic heart disease of native coronary artery without angina pectoris; Z87.891 Personal history of nicotine dependence; S81.011A Laceration without foreign body, right knee, initial encounter; W01.0XXA Fall on same level from slipping, tripping and stumbling without subsequent striking against object, initial encounter; M25.511 Pain in right shoulder; Z20.822 Contact with and (suspected) exposure to COVID-19; G89.29 Other chronic pain; E78.5 Hyperlipidemia, unspecified; Z79.01 Long term (current) use of anticoagulants
CPT/HCPCS: 36415; 51798; 70450; 71045; 72125; 73030; 73560; 73620; 80048; 80053; 82550; 82553; 83880; 84145; 84484; 85025; 85610; 85730; 87635; 93005; 96374; 96375; 97116; 97161; 97166; 97530; 97535; 99223; 99232; 99233; 99238; 99285; C9803; J1170; J1940

== ENCOUNTER → 2020-08-17 09:51 | Outpatient (CLI) | payer MEDICARE, BC, SELFPAY ==
[2020-08-13 17:18] VITALS: BMI 33.3
== END ==
PROVIDERS: PCP Internal Medicine; Referring Provider Internal Medicine; Visit Provider Family Medicine
DX: E11.628 Type 2 diabetes mellitus with other skin complications (principal); S81.802A Unspecified open wound, left lower leg, initial encounter; R60.0 Localized edema; I87.2 Venous insufficiency (chronic) (peripheral); N18.30 Chronic kidney disease, stage 3 unspecified; I50.9 Heart failure, unspecified; S80.12XA Contusion of left lower leg, initial encounter; S81.801A Unspecified open wound, right lower leg, initial encounter; L03.115 Cellulitis of right lower limb; R26.89 Other abnormalities of gait and mobility
CPT/HCPCS: 11042; 87070; 87075; 87205; 99214

== ENCOUNTER 2020-08-26 12:32 | Emergency (ER) | payer MEDICARE, BC, SELFPAY ==
[2020-08-13 17:18] VITALS: BMI 33.3
[2020-08-26] VITALS (7 sets, daily range): BP systolic 136–162; BP diastolic 74–86; PULSE 69–84; RESP 16–18; TEMP 36.9; O2SAT 96–98
--- NOTE | 2020-08-26 12:43 | ED_ITS ---
HPI - Fall <JERZY Perez - Last Filed: 08/26/20 15:57> General Chief Complaint: Fall Stated Complaint: Slipped off chair,low back pain Time Seen by Provider: 08/26/20 12:33 History of Present Illness HPI Narrative: 85yo male with a history of chronic leg wounds, CHF, hypertension, and chronic back pain, presents to the emergency department complaining of low back pain after fall. Patient states he was sitting in his chair when he reached to get a file that was on his right in his chair fell to the side and backwards. Patient states he was unable to get up due to chronic wounds and pain in his legs so he called 911. He denies hitting his head, denies any neck pain but does report increased low back pain. Patient denies any other injuries. He denies any syncope, fevers, chills, nausea, vomiting, diarrhea, chest pain, shortness of breath, shoulder pain, hip pain, arm pain, worsening leg tay, or any other concerns. He states he was recently discharged yesterday from the hospital for wound care to his lower legs. He denies any worsening pa in to his lower legs. Related Data Home Medications Medication Instructions Recorded Confirmed magnesium oxide 400 mg PO Q OTHER DAY cap 08/18/18 08/14/20 apixaban 5 mg PO BID 10/15/18 08/14/20 atorvastatin 10 mg tablet 10 mg PO DAILY 10/19/19 08/14/20 calcium polycarbophil 625 mg tablet 1,250 mg PO DAILY 02/02/20 08/14/20 docusate sodium 100 mg capsule 100 mg PO DAILY 02/02/20 08/14/20 potassium chloride 20 mEq 20 meq PO DAILY tab 02/02/20 08/14/20 tablet,extended release furosemide 40 mg tablet 40 mg PO DAILY PRN tab 06/20/20 08/14/20 hydrocodone-acetaminophen 1 tab PO PRN PRN 08/14/20 08/14/20 oxybutynin chloride 5 mg PO DAILY 08/14/20 08/15/20 Previous Rx's Medication Instructions Recorded gabapentin 300 mg capsule 300 mg PO DAILY #90 cap 12/25/19 finasteride 5 mg PO DAILY #20 tab 05/30/20 cyclobenzaprine 10 mg PO TID PRN #14 tab 08/26/20 Allergies Allergy/AdvReac Type Severity Reaction Status Date / Time No Known Drug Allergies Allergy Verified 08/17/20 09:51 Review of Systems <JERZY Perez - Last Filed: 08/26/20 15:57> Review of Systems Narrative: REVIEW OF SYSTEMS: GENERAL: Denies fever. HENT: No head trauma. CARDIOVASCULAR: No chest pain or syncope. RESPIRATORY: No shortness of breath or cough. GASTROINTESTINAL: No nausea or vomiting. GENITOURINARY: No flank pain. MUSCULOSKELETAL: Complains of low back pain, see HPI. INTEGUMENTARY: Reports chronic leg wounds, see HPI. NEURO: No numbness and no tingling. Patient History <JERZY Perez - Last Filed: 08/26/20 15:57> Medical History AAA (abdominal aortic aneurysm) (~2013) Acquired anal stenosis Anxiety Aortic dilatation Haile's syndrome CAD (coronary artery disease) Cardiomyopathy Cataracts, bilateral CHF (congestive heart failure) Chronic back pain Chronic diastolic congestive heart failure Chronic renal failure, stage 3 (moderate) Colon polyps Deep vein thrombosis (~2013) Diverticular disease Former smoker Fractures Gout Hearing loss History of urinary incontinence HLD (hyperlipidemia) Hypertension Knee pain Lumbar spine pain Meningitis spinal Paroxysmal atrial fibrillation Peripheral edema Peripheral neuropathy Persistent atrial fibrillation Prostate cancer (~2007) Pulmonary embolism (~2013) Pulmonic valve insufficiency Rheumatoid arthritis Shoulder pain Skin cancer (~1989) Tricuspid insufficiency Urinary incontinence due to urethral sphincter incompetence Venous stasis dermatitis Surgical History History of abdominal aortic aneurysm repair History of hydrocelectomy Hx of hernia repair Hx of shoulder surgery S/P skin biopsy Social History household members: spouse Smoking Status: Former smoker Tobacco: How many years used: 20 alcohol intake: current Smoking Status: Former smoker alcohol intake frequency: 0-2 drinks per day Substance Use Type: does not use Exam <JERZY Perez - Last Filed: 08/26/20 15:57> Initial Vital Signs Initial Vital Signs: Vital Signs Temperature 98.4 F 08/26/20 12:41 Pulse Rate 80 08/26/20 12:41 Respiratory Rate 16 08/26/20 12:41 Blood Pressure 162/74 H 08/26/20 12:41 Pulse Oximetry 97 08/26/20 12:41 PHYSICAL EXAMINATION: GENERAL: Obese male, answers questions properly. HENT: Normocephalic, atraumatic. EYES: Symmetrical, sclera white, no periorbital swelling. CARDIOVASCULAR: S1 and S2 sounds normal. Regular rate and rhythm, no murmurs, clicks, or bruits. No pedal edema. RESPIRATORY: Normal respiratory rate, trachea midline, airway patent. No stridor, nasal flaring or accessory muscle use. Lungs are clear in all petit. MUSCULOSKELETAL: Tenderness to lower lumbar area, moderate spinal tenderness to lower lumbar region intact sensation to lower extremities. Worsening pain bending and moving. Patient has difficulty standing and walking EXTREMITIES: CMS intact. Lower extremities with bandages from previous wounds, no surrounding erythema, no significant tenderness with palpation. 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 SKIN: Warm, dry, soft, appropriate color for ethnicity. No lesions, rashes, or wounds. NEURO: Alert and Oriented X 3. No sensory deficits. PSYCH: Appropriate affect and mood. <Gene Cesar DO - Last Filed: 08/26/20 17:07> Initial Vital Signs Initial Vital Signs: Vital Signs Temperature 98.4 F 08/26/20 12:41 Pulse Rate 80 08/26/20 12:41 Respiratory Rate 16 08/26/20 12:41 Blood Pressure 162/74 H 08/26/20 12:41 Pulse Oximetry 97 08/26/20 12:41 Course <JERZY Perez - Last Filed: 08/26/20 15:57> Course Course Narrative: Patient given Valium in the emergency department to help with pain. Orders Ordered: ED Orders 08/26/20 12:51 CT lumbar spine wo con Stat Discontinued Medications Diazepam (Diazepam 5 Mg Tablet) 5 mg PO NOW ONE Stop: 08/26/20 14:11 Last Admin: 08/26/20 14:16 Dose: 5 mg Documented by: ENRRIQUE Vital Signs Vital signs: Vital Signs - 8 hr 08/26/20 12:41 08/26/20 12:43 08/26/20 12:57 Temperature 98.4 F Pulse Rate 80 84 69 Respiratory Rate 16 Blood Pressure 162/74 H 145/78 H Pulse Oximetry 97 98 97 08/26/20 13:00 08/26/20 13:30 08/26/20 14:00 Temperature Pulse Rate 81 83 80 Respiratory Rate 18 Blood Pressure 136/86 142/75 H 145/86 H Pulse Oximetry 96 97 96 08/26/20 14:02 Temperature Pulse Rate 75 Respiratory Rate Blood Pressure 148/81 H Pulse Oximetry 96 <Gnee Cesar, DO - Last Filed: 08/26/20 17:07> Orders Ordered: ED Orders 08/26/20 12:51 CT lumbar spine wo con Stat Discontinued Medications Diazepam (Diazepam 5 Mg Tablet) 5 mg PO NOW ONE Stop: 08/26/20 14:11 Last Admin: 08/26/20 14:16 Dose: 5 mg Documented by: ENRRIQUE Vital Signs Vital signs: Vital Signs - 8 hr 08/26/20 12:41 08/26/20 12:43 08/26/20 12:57 Temperature 98.4 F Pulse Rate 80 84 69 Respiratory Rate 16 Blood Pressure 162/74 H 145/78 H Pulse Oximetry 97 98 97 08/26/20 13:00 08/26/20 13:30 08/26/20 14:00 Temperature Pulse Rate 81 83 80 Respiratory Rate 18 Blood Pressure 136/86 142/75 H 145/86 H Pulse Oximetry 96 97 96 08/26/20 14:02 Temperature Pulse Rate 75 Respiratory Rate Blood Pressure 148/81 H Pulse Oximetry 96 Discharge Plan Departure Patient Disposition: Home Clinical Impression: Back pain Qualifiers: Back pain location: low back pain Chronicity: chronic Back pain laterality: midline Sciatica presence: without sciatica Qualified Code(s): M54.5 - Low back pain Lumbar strain Qualifiers: Encounter type: initial encounter Qualified Code(s): S39.012A - Strain of muscle, fascia and tendon of lower back, initial encounter Instructions: How to Prevent Falls Activity Restrictions/Additional Instructions: Thank you for entrusting me with your care today. As discussed, your CT is negative for any fractures. I suspect that the fall exacerbated your chronic back pain, I prescribed you a muscle relaxer, I recommend using Tylenol as needed for pain. Your medication was sent to [facility] in [place]. Avoid taking narcotic pain medication with muscle relaxers as a can decrease your drive to breathe. Follow-up with your primary care provider in the next week for further evaluation. Return emergency department for any new or worsening symptoms. Prescriptions: New cyclobenzaprine 10 mg tablet 10 mg PO TID PRN (Reason: muscle spasm) Qty: 14 RF: 0 No Action magnesium oxide 400 mg capsule 400 mg PO Q OTHER DAY RF: 0 gabapentin 300 mg capsule 300 mg PO DAILY Qty: 90 RF: 1 atorvastatin 10 mg tablet 10 mg PO DAILY RF: 0 potassium chloride 20 mEq tablet extended release 20 meq PO DAILY RF: 0 docusate sodium [Stool Softener] 100 mg capsule 100 mg PO DAILY RF: 0 calcium polycarbophil [FiberCon] 625 mg tablet 1,250 mg PO DAILY RF: 0 furosemide 40 mg tablet 40 mg PO DAILY PRN (Reason: edema) RF: 0 apixaban 5 mg tablet 5 mg PO BID RF: 0 finasteride 5 mg tablet 5 mg PO DAILY Qty: 20 RF: 0 hydrocodone-acetaminophen 5-325 mg tablet 1 tab PO PRN PRN (Reason: Pain (Scale Score 4-6)) RF: 0 oxybutynin chloride 5 mg tablet 5 mg PO DAILY RF: 0 Referrals: Luis Alfredo Cunningham MD [Primary Care Provider] - <Gene Cesar DO - Last Filed: 08/26/20 17:07> [facility] Dr Cesar Co-Sign Statement: I was available for consultation during this patient's emergency department visit. This chart is signed by myself for administrative purposes only. I did not have direct contact with this patient during this visit. They were seen independently by the APC.
--- NOTE | 2020-08-26 12:51 | DI.CT.S_ITS ---
PROCEDURE: CT LUMBAR SPINE WO CON INDICATIONS: Spinal pain post fall TECHNIQUE: Noncontrast 3 mm thick sections acquired from the T12 level to the sacrum. Sagittal and coronal reformats were constructed. For radiation dose reduction, the following was used: automated exposure control. COMPARISON: [facility], MR, MR LUMBAR SPINE WO CON, 12/23/2019, 13:18. Located Within [facility], MR, MR LUMBAR SPINE WITHOUT CONTRAST, 12/02/2017, 10:17. [facility], CT, CT ABDOMEN PELVIS WO/W CON, 06/17/2020, 10:07. [facility], CR, XR LUMBAR SPINE 2 OR 3 VIEWS, 11/25/2019, 13:55. [facility], CR, XR LUMBAR SPINE 2-3V, 11/17/2019, 8:36. [facility], CR, XR LUMBAR SPINE 2-3V, 11/02/2019, 13:33. [facility], CR, XR LUMBAR SPINE WITH OBLIQUES, 06/08/2019, 8:13. Located Within [facility], CT, CT LOWER EXTREMITY RIGHT WITH CONTRAST, 08/19/2020, 11:54. FINDINGS: Image quality: Excellent. Bones: No acute vertebral body compression fractures. No suspicious lytic or blastic bony lesions. Central spinal caliber is of normal overall caliber. No pars defects. Prior T1 kyphoplasty changes can be seen. Multiple levels of degenerative change are seen, which are similar to the priors. Minimal levoconvex scoliotic curvature is seen. No focal AP alignment abnormality is seen. Soft tissues: No retroperitoneal masses or hematomas. Visualized aorta is normal in caliber. Atherosclerotic calcification is noted. An IVC filter can be seen. There is a likely hyperdense cyst again seen along the superior pole of the left kidney. IMPRESSION: No acute fractures are seen. Prior T1 kyphoplasty changes. Multiple levels of degenerative change are seen, which are considered to be stable. Incidental note is made of: Atherosclerotic calcification Apparent left kidney hyperdense cyst Dictated by: Maurice Richard M.D. on 08/26/2020 at 12:19 Approved by: Maurice Richard M.D. on 08/26/2020 at 12:30
[2020-08-26] MEDS: diazePAM 5 MG TABLET PO (14:16)
--- NOTE | 2020-08-26 15:59 | PC.NURSE ---
Pt waiting for ambulance. Valium has helped spasms and pt is able to elevate the head of bed to 45 degrees. Pt will attempt to transfer to wheelchair when daughter arrives and will attempt to go home POV.
--- NOTE | 2020-08-26 16:38 | CM.SWNOTE ---
GEM EXPERT note GEM EXPERT receives call from pt dtr. Del Rosario. Carin explains that patient recently was d/c from a 7 day stay at [facility] and declined SNF placement. Carin expresses concern from patient and informs GEM EXPERT that EMS had been called 2x today due to patient falls. Carin reports that she believes that patient is in need of SNF placement, but patient currently not open to idea. Carin explains that [facility] arranged HH for patient, but family is concerned that patient is in need of caregiving assistance. GEM EXPERT provides brief overview of differences between HH and caregiving, and provides some support on how to access caregiving. Carin explains that paying for caregiving would not be an issue. Carin thanks GEM EXPERT for time and states she will work to arrange private caregving for patient. AURA Tobin
== END 2020-08-26 16:17 | disposition home or self-care (01) ==
PROVIDERS: Emergency Provider Nurse Practitioner; PCP Internal Medicine
DX: S39.012A Strain of muscle, fascia and tendon of lower back, initial encounter (principal); W07.XXXA Fall from chair, initial encounter; I50.9 Heart failure, unspecified; I10 Essential (primary) hypertension; I25.10 Atherosclerotic heart disease of native coronary artery without angina pectoris; I48.0 Paroxysmal atrial fibrillation; E66.9 Obesity, unspecified
CPT/HCPCS: 72131; 99283; 99284

== ENCOUNTER → 2020-08-30 15:37 | Outpatient (CLI) | payer MEDICARE, BC, SELFPAY ==
[2020-08-13 17:18] VITALS: BMI 33.3
[2020-08-30 16:31] LABS: BUN Creatinine Ratio 24.4 (6-22); Blood Urea Nitrogen 29 mg/dL (9-20); Calcium 8.8 mg/dL (8.4-10.2); Carbon Dioxide 23 mmol/L (22-32); Chloride 109 mmol/L (98-107); Estimated Glomerular Filt Rate 58.1 mL/min (>60); Glucose 103 mg/dL (80-110); HEMOLYSIS 16 (0-50); Potassium 4.6 mmol/L (3.4-5.1); Sodium 141 mmol/L (137-145)
== END ==
PROVIDERS: PCP Internal Medicine; Referring Provider Internal Medicine; Visit Provider Internal Medicine
DX: I50.32 Chronic diastolic (congestive) heart failure (principal); N18.32 Chronic kidney disease, stage 3b
CPT/HCPCS: 36415; 80048; 83735

== ENCOUNTER → 2020-09-01 09:29 | Outpatient (CLI) | payer MEDICARE, BC, SELFPAY ==
[2020-08-13 17:18] VITALS: BMI 33.3
== END ==
PROVIDERS: PCP Internal Medicine; Referring Provider Internal Medicine; Visit Provider Family Medicine
DX: I87.2 Venous insufficiency (chronic) (peripheral) (principal); S81.802A Unspecified open wound, left lower leg, initial encounter; S81.801A Unspecified open wound, right lower leg, initial encounter; R60.0 Localized edema; R26.89 Other abnormalities of gait and mobility
CPT/HCPCS: 11042; 11045; 99213

== ENCOUNTER → 2020-09-08 09:04 | Outpatient (CLI) | payer MEDICARE, BC, SELFPAY ==
[2020-08-13 17:18] VITALS: BMI 33.3
== END ==
PROVIDERS: PCP Internal Medicine; Referring Provider Internal Medicine; Visit Provider Family Medicine
DX: I87.2 Venous insufficiency (chronic) (peripheral) (principal); L97.821 Non-pressure chronic ulcer of other part of left lower leg limited to breakdown of skin; L97.811 Non-pressure chronic ulcer of other part of right lower leg limited to breakdown of skin; R60.0 Localized edema; R26.89 Other abnormalities of gait and mobility; L08.9 Local infection of the skin and subcutaneous tissue, unspecified
CPT/HCPCS: 11042; 11045; 87070; 87075; 87077; 87186; 87205; 99214

== ENCOUNTER → 2020-09-15 13:30 | Outpatient (CLI) | payer MEDICARE, BC, SELFPAY ==
[2020-08-13 17:18] VITALS: BMI 33.3
== END ==
PROVIDERS: PCP Internal Medicine; Referring Provider Internal Medicine; Visit Provider Family Medicine
DX: I87.2 Venous insufficiency (chronic) (peripheral) (principal); L97.821 Non-pressure chronic ulcer of other part of left lower leg limited to breakdown of skin; L97.815 Non-pressure chronic ulcer of other part of right lower leg with muscle involvement without evidence of necrosis; R60.0 Localized edema; N18.30 Chronic kidney disease, stage 3 unspecified; R26.89 Other abnormalities of gait and mobility; B95.7 Other staphylococcus as the cause of diseases classified elsewhere; Z79.2 Long term (current) use of antibiotics
CPT/HCPCS: 11042; 11045; 99214

== ENCOUNTER → 2020-09-15 14:34 | Outpatient (CLI) | payer MEDICARE, BC, SELFPAY ==
[2020-08-13 17:18] VITALS: BMI 33.3
[2020-09-15 14:44] LABS: Bacteria Urine None Seen; RBC Urine None Seen (0-5/HPF)
[2020-09-15 15:03] LABS: Add Manual Diff / Slide Review NO; Basophils Absolute Auto 100 /uL (0-100); Basophils Percent Auto 1.3 % (0-2); Eosinophils Absolute Auto 200 /uL (0-450); Eosinophils Percent Auto 1.9 % (2-4); Hemoglobin 11.7 g/dL (13.5-17.5); Lymphocytes Absolute Auto 1800 /uL (1100-4500); Lymphocytes Percent Auto 21.9 % (25-40); Mean Corpuscular HGB Conc 31.8 % (30-36); Mean Corpuscular Hemoglobin 28.9 PG (26-34); Mean Corpuscular Volume 91.1 fL (80-100); Monocytes Absolute Auto 700 /uL (0-900); Monocytes Percent Auto 8.7 % (3-14); Neutrophils Absolute Auto 5300 /uL (1500-7000); Neutrophils Percent Auto 66.2 % (50-75); Platelet Count 254 X10^3/uL (150-400); Red Blood Cell Count 4.06 X10^6/uL (4.5-5.9); Red Cell Distribution Width 15.9 % (11.6-14.8); White Blood Cell Count 8.1 X10^3/uL (4.5-11.0)
[2020-09-15 15:20] LABS: Albumin 3.9 g/dL (3.5-5.0); BUN Creatinine Ratio 16.2 (6-22); Blood Urea Nitrogen 18 mg/dL (9-20); Calcium 9.1 mg/dL (8.4-10.2); Carbon Dioxide 29 mmol/L (22-32); Chloride 107 mmol/L (98-107); Estimated Glomerular Filt Rate > 60.0 mL/min (>60); Glucose 81 mg/dL (80-110); HEMOLYSIS < 15 (0-50); Phosphorous 3.6 mg/dL (2.3-3.7); Potassium 4.4 mmol/L (3.4-5.1); Sodium 142 mmol/L (137-145)
[2020-09-15 15:23] LABS: Appearance Urine UA CLEAR; Bilirubin Urine UA NEGATIVE (NEGATIVE); Color Urine UA YELLOW; Glucose Urine UA NEGATIVE (Negative); Ketones Urine UA TRACE (NEGATIVE); Leukocyte Esterase Urine UA NEGATIVE (NEGATIVE); Nitrite Urine UA NEGATIVE (Negative); Occult Blood Urine UA NEGATIVE (Negative); Protein Urine UA NEGATIVE (Negative); Urobilinogen Urine UA 0.2 E.U./dL (0.2)
[2020-09-15 15:42] LABS: Amorphous Sediment Urine 1+; Culture Indicated Urine Cult Not Indicated; Mucus Urine 1+ (Negative); Squamous Epithelial Cell Urine 0-1 /HPF (0-5/HPF); WBC Urine 0-1/HPF (0-5/HPF)
[2020-09-15 16:08] LABS: Creatinine Urine Random 208.2 mg/dL
[2020-09-15 16:13] LABS: Microalbumi Creatinin Ratio Ur 16.3 ug/mg CR (<30); Microalbumin Urine Random 3.4 mg/dL (0-1.6)
== END ==
PROVIDERS: PCP Internal Medicine; Referring Provider Internal Medicine Nephrology; Visit Provider Internal Medicine Nephrology
DX: N17.9 Acute kidney failure, unspecified (principal)
CPT/HCPCS: 36415; 80069; 81001; 82043; 82570; 85025

== ENCOUNTER → 2020-09-21 10:20 | Outpatient (CLI) | payer MEDICARE, BC, SELFPAY ==
[2020-08-13 17:18] VITALS: BMI 33.3
== END ==
PROVIDERS: PCP Internal Medicine; Referring Provider Internal Medicine; Visit Provider Family Medicine
DX: I87.2 Venous insufficiency (chronic) (peripheral) (principal); L97.821 Non-pressure chronic ulcer of other part of left lower leg limited to breakdown of skin; L97.815 Non-pressure chronic ulcer of other part of right lower leg with muscle involvement without evidence of necrosis; R60.0 Localized edema
CPT/HCPCS: 11042

== ENCOUNTER → 2020-09-28 09:33 | Outpatient (CLI) | payer MEDICARE, BC, SELFPAY ==
[2020-08-13 17:18] VITALS: BMI 33.3
== END ==
PROVIDERS: PCP Internal Medicine; Referring Provider Internal Medicine; Visit Provider Family Medicine
DX: I87.2 Venous insufficiency (chronic) (peripheral) (principal); L97.821 Non-pressure chronic ulcer of other part of left lower leg limited to breakdown of skin; L97.811 Non-pressure chronic ulcer of other part of right lower leg limited to breakdown of skin
CPT/HCPCS: 29581

== ENCOUNTER → 2020-10-05 11:01 | Outpatient (CLI) | payer MEDICARE, BC, SELFPAY ==
[2020-08-13 17:18] VITALS: BMI 33.3
== END ==
PROVIDERS: PCP Internal Medicine; Referring Provider Internal Medicine; Visit Provider Family Medicine
DX: I87.2 Venous insufficiency (chronic) (peripheral) (principal); L97.821 Non-pressure chronic ulcer of other part of left lower leg limited to breakdown of skin; L97.815 Non-pressure chronic ulcer of other part of right lower leg with muscle involvement without evidence of necrosis; R60.0 Localized edema; N18.30 Chronic kidney disease, stage 3 unspecified; R26.89 Other abnormalities of gait and mobility
CPT/HCPCS: 11042; 97597; 97607

== ENCOUNTER → 2020-10-07 11:20 | Outpatient (CLI) | payer MEDICARE, BC, SELFPAY ==
[2020-08-13 17:18] VITALS: BMI 33.3
== END ==
PROVIDERS: PCP Internal Medicine; Referring Provider Internal Medicine; Visit Provider Family Medicine
DX: I87.2 Venous insufficiency (chronic) (peripheral) (principal); L97.811 Non-pressure chronic ulcer of other part of right lower leg limited to breakdown of skin
CPT/HCPCS: 97607

== ENCOUNTER → 2020-10-10 14:17 | Outpatient (CLI) | payer MEDICARE, BC, SELFPAY ==
[2020-08-13 17:18] VITALS: BMI 33.3
== END ==
PROVIDERS: PCP Internal Medicine; Referring Provider Internal Medicine; Visit Provider Family Medicine
DX: I87.2 Venous insufficiency (chronic) (peripheral) (principal); L97.821 Non-pressure chronic ulcer of other part of left lower leg limited to breakdown of skin; L97.811 Non-pressure chronic ulcer of other part of right lower leg limited to breakdown of skin; R60.0 Localized edema
CPT/HCPCS: 97607

== ENCOUNTER → 2020-10-13 09:52 | Outpatient (CLI) | payer MEDICARE, BC, SELFPAY ==
[2020-08-13 17:18] VITALS: BMI 33.3
== END ==
PROVIDERS: PCP Internal Medicine; Referring Provider Internal Medicine; Visit Provider Family Medicine
DX: I87.2 Venous insufficiency (chronic) (peripheral) (principal); L97.221 Non-pressure chronic ulcer of left calf limited to breakdown of skin; L97.811 Non-pressure chronic ulcer of other part of right lower leg limited to breakdown of skin; R60.0 Localized edema; N18.30 Chronic kidney disease, stage 3 unspecified; I50.9 Heart failure, unspecified; R26.89 Other abnormalities of gait and mobility
CPT/HCPCS: 11042; 15271; Q4110

== ENCOUNTER → 2020-10-19 09:23 | Outpatient (CLI) | payer MEDICARE, BC, SELFPAY ==
[2020-08-13 17:18] VITALS: BMI 33.3
== END ==
PROVIDERS: PCP Internal Medicine; Referring Provider Internal Medicine; Visit Provider Family Medicine
DX: T81.41XA Infection following a procedure, superficial incisional surgical site, initial encounter (principal); I87.2 Venous insufficiency (chronic) (peripheral); L97.221 Non-pressure chronic ulcer of left calf limited to breakdown of skin; L97.811 Non-pressure chronic ulcer of other part of right lower leg limited to breakdown of skin; R60.0 Localized edema; N18.30 Chronic kidney disease, stage 3 unspecified; I50.9 Heart failure, unspecified; R26.89 Other abnormalities of gait and mobility; L02.426 Furuncle of left lower limb
CPT/HCPCS: 10061; 87070; 87075; 87077; 87147; 87186; 87205; 99213; 99214

== ENCOUNTER → 2020-10-26 10:11 | Outpatient (CLI) | payer MEDICARE, BC, SELFPAY ==
[2020-08-13 17:18] VITALS: BMI 33.3
== END ==
PROVIDERS: PCP Internal Medicine; Referring Provider Internal Medicine; Visit Provider Family Medicine
DX: I87.2 Venous insufficiency (chronic) (peripheral) (principal); L02.416 Cutaneous abscess of left lower limb; L97.321 Non-pressure chronic ulcer of left ankle limited to breakdown of skin; L97.811 Non-pressure chronic ulcer of other part of right lower leg limited to breakdown of skin; R60.0 Localized edema; L76.22 Postprocedural hemorrhage of skin and subcutaneous tissue following other procedure; Z79.01 Long term (current) use of anticoagulants; E11.22 Type 2 diabetes mellitus with diabetic chronic kidney disease
CPT/HCPCS: 10060; 99214

== ENCOUNTER 2020-10-26 10:47 | Emergency (ER) | payer MEDICARE, BC, SELFPAY ==
[2020-08-13 17:18] VITALS: BMI 33.3
[2020-10-26 10:50] VITALS: BP 167/90; PULSE 88; RESP 15; TEMP 36.9; O2SAT 100; BMI 33.7
--- NOTE | 2020-10-26 11:12 | ED.EXTPRO ---
HPI - Extremity Problem General Chief complaint: Extremity Problem,Nontraumatic Stated complaint: left lower leg bleed x45 minutes ago Time Seen by Provider: 10/26/20 10:54 Source: patient Mode of arrival: Wheelchair Limitations: no limitations History of Present Illness HPI Narrative: 85-year-old gentleman with a history of coronary artery disease with cardiomyopathy, congestive heart failure, chronic renal failure, hypertension, paroxysmal AFib for which he is anticoagulated on apixaban was at the Wound care clinic today with an abscess/wound that was drained and has continued to bleed postprocedure. Patient was brought to the ER for further evaluation. Related Data Home Medications Medication Instructions Recorded Confirmed magnesium oxide 400 mg PO Q OTHER DAY cap 08/18/18 10/17/20 apixaban 5 mg PO BID 10/15/18 10/17/20 atorvastatin 10 mg tablet 10 mg PO DAILY 10/19/19 10/17/20 calcium polycarbophil 625 mg tablet 1,250 mg PO DAILY 02/02/20 10/17/20 docusate sodium 100 mg capsule 100 mg PO DAILY 02/02/20 10/17/20 oxybutynin chloride 5 mg PO DAILY 08/14/20 10/17/20 Previous Rx's Medication Instructions Recorded gabapentin 300 mg capsule 300 mg PO DAILY #90 cap 12/25/19 finasteride 5 mg PO DAILY #20 tab 05/30/20 cyclobenzaprine 10 mg PO TID PRN #14 tab 08/26/20 furosemide 40 mg tablet 40 mg PO DAILY PRN #60 tab 08/30/20 hydrocodone 5 mg-acetaminophen 325 1 - 2 tab PO Q6H PRN #60 tab 08/30/20 mg tablet potassium chloride 20 mEq 20 meq PO BID #180 tab 09/12/20 tablet,extended release Allergies Allergy/AdvReac Type Severity Reaction Status Date / Time No Known Drug Allergies Allergy Verified 10/26/20 10:55 Review of Systems Review of Systems Narrative: Slight increased pain in the left calf which is why the wound was drained today. No fevers, chills, cough. Patient History Medical History AAA (abdominal aortic aneurysm) (~2013) Acquired anal stenosis Anxiety Aortic dilatation Haile's syndrome CAD (coronary artery disease) Cardiomyopathy Cataracts, bilateral CHF (congestive heart failure) Chronic back pain Chronic diastolic congestive heart failure Chronic renal failure, stage 3 (moderate) Colon polyps Deep vein thrombosis (~2013) Diverticular disease Former smoker Fractures Gout Hearing loss History of urinary incontinence HLD (hyperlipidemia) Hypertension Knee pain Lumbar spine pain Meningitis spinal Paroxysmal atrial fibrillation Peripheral edema Peripheral neuropathy Persistent atrial fibrillation Prostate cancer (~2007) Pulmonary embolism (~2013) Pulmonic valve insufficiency Rheumatoid arthritis Shoulder pain Skin cancer (~1989) Tricuspid insufficiency Urinary incontinence due to urethral sphincter incompetence Venous stasis dermatitis Surgical History History of abdominal aortic aneurysm repair History of hydrocelectomy Hx of hernia repair Hx of shoulder surgery S/P skin biopsy Social History household members: spouse Smoking Status: Former smoker Tobacco: How many years used: 20 alcohol intake: current Smoking Status: Former smoker alcohol intake frequency: 0-2 drinks per day Substance Use Type: does not use Exam Narrative Exam Narrative: General: Alert appropriate in no acute distress Respiratory: Able to speak in full sentences, no obvious respiratory distress Skin: Lower extremity chronic venous stasis changes Neurologic: Grossly intact no obvious asymmetries or abnormalities Psych: appropriate insight and affect, cooperative Left calf: Small wound with developed clot at the orifice still with losing around the clot after significant time with pressure in place. Deep horizontal suture was placed for hemostasis that worked quite well. Pressure dressing with an Mono wrap was placed Initial Vital Signs Initial Vital Signs: Vital Signs Temperature 98.5 F 10/26/20 10:50 Pulse Rate 88 10/26/20 10:50 Respiratory Rate 15 10/26/20 10:50 Blood Pressure 167/90 H 10/26/20 10:50 Pulse Oximetry 100 10/26/20 10:50 Procedures Laceration Repair Left calf: Site: lower extremity Side (If applicable): left Description: other (Bleeding recent I and D Wound, surface opening approximately 3mm in diameter) Amount of anesthesia used (mL): 10 Skin layer closed with: nylon (Deep horizontal mattress for hemostasis but still allowing for drainage) Size (cm): other (2-0) Number of sutures: 1 Technique: horizontal mattress Course Orders Ordered: Discontinued Medications Lidocaine/Sodium Bicarbonate (Lido 1%/Sod Bicarb 8.4% (10ml) 10 Ml Syringe) 10 ml INJ NOW ONE Stop: 10/26/20 12:47 Last Admin: 10/26/20 12:48 Dose: 10 ml Documented by: SHERI Vital Signs Vital signs: Vital Signs - 8 hr 10/26/20 10:50 10/26/20 12:28 Temperature 98.5 F Pulse Rate 88 62 Respiratory Rate 15 18 Blood Pressure 167/90 H 131/73 Pulse Oximetry 100 97 MDM - Extremity (Nontraumatic) MDM Narrative Medical decision making narrative: 85-year-old gentleman on apixaban with small wound lanced on the left posterior calf with continued bleeding. After an hour of pressure there is still some oozing and a deep horizontal suture using 2-0 nylon was placed with adequate resolution of bleeding. Pressure dressing, mild pressure with Mono wrap, will be continued for the next couple of hours. Reviewed removal of the dressing with both the patient and his daughter and reassurance that if he has any pain or feels that his toes are cramping or cold he needs to release the pressure in the dressing. Discharge Plan Departure Patient Disposition: Home Clinical Impression: Post-op bleeding Qualifiers: Surgical complication system/body Area: musculoskeletal system Procedure type: musculoskeletal Qualified Code(s): M96.830 - Postprocedural hemorrhage of a musculoskeletal structure following a musculoskeletal system procedure Activity Restrictions/Additional Instructions: Thank you for coming in today We tried quite a while to see if the bleeding would stop on it's own but it did not I placed a large suture at the base of the wound to control the bleeding. The opening of the wound is still open to allow drainage. Please keep the pressure dressing in place until later this evening and then make sure you replaced the gauze(do expect to see blood on the gauze) and make sure that the dressing is loose enough that you have good blood flow to your toes Please keep your wound care appointment for Saturday I would recommend having the suture removed in about a week . If you have more bleeding, increasing pain, redness other signs or symptoms that concern you please return to the ER Prescriptions: No Action magnesium oxide 400 mg capsule 400 mg PO Q OTHER DAY RF: 0 gabapentin 300 mg capsule 300 mg PO DAILY Qty: 90 RF: 1 potassium chloride 20 mEq tablet extended release 20 meq PO BID Qty: 180 RF: 3 atorvastatin 10 mg tablet 10 mg PO DAILY RF: 0 docusate sodium [Stool Softener] 100 mg capsule 100 mg PO DAILY RF: 0 calcium polycarbophil [FiberCon] 625 mg tablet 1,250 mg PO DAILY RF: 0 hydrocodone-acetaminophen 5-325 mg tablet 1 - 2 tab PO Q6H PRN (Reason: Pain (Scale Score 4-6)) Qty: 60 RF: 0 furosemide 40 mg tablet 40 mg PO DAILY PRN (Reason: edema) Qty: 60 RF: 3 apixaban 5 mg tablet 5 mg PO BID RF: 0 cyclobenzaprine 10 mg tablet 10 mg PO TID PRN (Reason: muscle spasm) Qty: 14 RF: 0 finasteride 5 mg tablet 5 mg PO DAILY Qty: 20 RF: 0 oxybutynin chloride 5 mg tablet 5 mg PO DAILY RF: 0 Referrals: Luis Alfredo Cunningham MD [Primary Care Provider] -
--- NOTE | 2020-10-26 11:18 | PC.NURSE ---
Pt states that after seeing wound care this AM his L lower leg would not stop bleeding after they cleaned his wound. Pt is on Eliquis. Wound is pressure wrapped at this time, no bleeding noted.
[2020-10-26 12:28] VITALS: BP 131/73; PULSE 62; RESP 18; O2SAT 97
[2020-10-26] MEDS: LIDO 1%/SOD BICARB 8.4% (10ML) 10 ML SYRINGE INJ (12:48)
== END 2020-10-26 13:25 | disposition home or self-care (01) ==
PROVIDERS: Emergency Provider Emergency Medicine; PCP Internal Medicine
DX: L76.21 Postprocedural hemorrhage of skin and subcutaneous tissue following a dermatologic procedure (principal)

== ENCOUNTER 2020-10-26 16:42 | Inpatient (IN) | payer MEDICARE, BC, SELFPAY ==
[2020-08-13 17:18] VITALS: BMI 33.3
[2020-10-26] VITALS (18 sets, daily range): BP systolic 114–185; BP diastolic 58–99; PULSE 80–98; RESP 12–32; TEMP 35.8–37.1; O2SAT 96–100; BMI 33.7
[2020-10-26] MEDS: HYDROMORPHONE 1 MG INJ IV (17:09)
[2020-10-26 17:13] LABS: Add Manual Diff / Slide Review NO; Basophils Absolute Auto 100 /uL (0-100); Basophils Percent Auto 1.1 % (0-2); Eosinophils Absolute Auto 300 /uL (0-450); Eosinophils Percent Auto 2.4 % (2-4); Hematocrit 41.6 % (41-53); Hemoglobin 13.5 g/dL (13.5-17.5); Lymphocytes Absolute Auto 2900 /uL (1100-4500); Mean Corpuscular HGB Conc 32.4 % (30-36); Mean Corpuscular Hemoglobin 28.6 PG (26-34); Mean Corpuscular Volume 88.3 fL (80-100); Monocytes Absolute Auto 800 /uL (0-900); Neutrophils Absolute Auto 6300 /uL (1500-7000); Neutrophils Percent Auto 60.5 % (50-75); Platelet Count 175 X10^3/uL (150-400); Red Blood Cell Count 4.71 X10^6/uL (4.5-5.9); Red Cell Distribution Width 16.9 % (11.6-14.8); White Blood Cell Count 10.4 X10^3/uL (4.5-11.0)
--- NOTE | 2020-10-26 17:18 | ED.LOWEXIN ---
HPI - Extremity Injury (Lower) General Chief Complaint: Extremity Injury, Lower Stated Complaint: severe pain Time Seen by Provider: 10/26/20 17:01 Mode of arrival: Wheelchair History of Present Illness HPI Narrative: 85-year-old gentleman with a history of paroxysmal atrial fibrillation anticoagulated on apixaban was seen by wound care earlier today with I and D of a lesion on the left calf with venous bleeding that was not able to be controlled afterwards. He was in the emergency room and seen by myself and after an hour of pressure still some oozing so a deep suture was placed to still allow drainage. Approximately 4 hours after being discharged home he comes back in severe pain with increasing hematoma underneath the wound the left calf. IV is started pain medicine is given. Will ask for surgical consultation. Dr. Núñez graciously agreed to see him while she was already in the emergency department Related Data Home Medications Medication Instructions Recorded Confirmed magnesium oxide 400 mg PO Q OTHER DAY cap 08/18/18 10/17/20 apixaban 5 mg PO BID 10/15/18 10/26/20 atorvastatin 10 mg tablet 10 mg PO DAILY 10/19/19 10/17/20 calcium polycarbophil 625 mg tablet 1,250 mg PO DAILY 02/02/20 10/17/20 docusate sodium 100 mg capsule 100 mg PO DAILY 02/02/20 10/17/20 oxybutynin chloride 5 mg PO DAILY 08/14/20 10/17/20 Previous Rx's Medication Instructions Recorded gabapentin 300 mg capsule 300 mg PO DAILY #90 cap 12/25/19 finasteride 5 mg PO DAILY #20 tab 05/30/20 cyclobenzaprine 10 mg PO TID PRN #14 tab 08/26/20 furosemide 40 mg tablet 40 mg PO DAILY PRN #60 tab 08/30/20 hydrocodone 5 mg-acetaminophen 325 1 - 2 tab PO Q6H PRN #60 tab 08/30/20 mg tablet potassium chloride 20 mEq 20 meq PO BID #180 tab 09/12/20 tablet,extended release Allergies Allergy/AdvReac Type Severity Reaction Status Date / Time No Known Drug Allergies Allergy Verified 10/26/20 18:34 Review of Systems Review of Systems Narrative: Otherwise unremarkable Patient History Medical History AAA (abdominal aortic aneurysm) (~2013) Acquired anal stenosis Anxiety Aortic dilatation Haile's syndrome CAD (coronary artery disease) Cardiomyopathy Cataracts, bilateral CHF (congestive heart failure) Chronic back pain Chronic diastolic congestive heart failure Chronic renal failure, stage 3 (moderate) Colon polyps Deep vein thrombosis (~2013) Diverticular disease Former smoker Fractures Gout Hearing loss History of urinary incontinence HLD (hyperlipidemia) Hypertension Knee pain Lumbar spine pain Meningitis spinal Paroxysmal atrial fibrillation Peripheral edema Peripheral neuropathy Persistent atrial fibrillation Prostate cancer (~2007) Pulmonary embolism (~2013) Pulmonic valve insufficiency Rheumatoid arthritis Shoulder pain Skin cancer (~1989) Tricuspid insufficiency Urinary incontinence due to urethral sphincter incompetence Venous stasis dermatitis Surgical History History of abdominal aortic aneurysm repair History of hydrocelectomy Hx of hernia repair Hx of shoulder surgery S/P skin biopsy Social History household members: spouse Smoking Status: Former smoker Tobacco: How many years used: 20 alcohol intake: current Smoking Status: Former smoker alcohol intake frequency: 0-2 drinks per day Substance Use Type: does not use Exam Narrative Exam Narrative: General: Alert , in severe pain Respiratory: Able to speak in full sentences, no obvious respiratory distress Skin: Chronic venous stasis changes lower extremities unchanged from earlier today Neurologic: Grossly intact no obvious asymmetries or abnormalities Psych:appropriate insight and affect, cooperative Extremities: Left calf with 4 mm wound opening with suture placed earlier today is noted no weeping from the wound there is a large developing hematoma underneath the wound extending to the posterior portion of the calf estimated volume of hematoma is in the 500 cc range. There is no evidence of compartment syndrome with soft compartments anteriorly and exquisite tenderness from the pressure and the posterior calf. He does have poor distal pulses however he does have good capillary refill as he had earlier this morning Initial Vital Signs Initial Vital Signs: Vital Signs Temperature 98.8 F 10/26/20 16:54 Pulse Rate 98 H 10/26/20 16:54 Respiratory Rate 32 H 10/26/20 16:54 Blood Pressure 185/99 H 10/26/20 16:54 Pulse Oximetry 99 10/26/20 16:54 Course Orders Ordered: Acetaminophen (Acetaminophen 325 Mg Tablet) 650 mg PO Q6HR PRN PRN Reason: Pain, Mild (1-3) Last Admin: 10/27/20 04:26 Dose: 650 mg Documented by: MANNIE Atorvastatin Calcium (Atorvastatin 20 Mg Tablet) 10 mg PO DAILY [facility], [facility] Calcium Polycarbophil (Calcium Polycarbophil 625 Mg Tablet) 1,250 mg PO DAILY [facility] Cyclobenzaprine HCl (Cyclobenzaprine 10 Mg Tablet) 10 mg PO Q8HR PRN PRN Reason: Spasms Last Admin: 10/27/20 04:26 Dose: 10 mg Documented by: MANNIE Diphenhydramine HCl (Diphenhydramine 50 Mg/Ml Vial) 25 mg IV Q6HR PRN PRN Reason: Itching Docusate Sodium (Docusate 100 Mg Capsule) 100 mg PO BID PRN PRN Reason: Constipation Finasteride (Finasteride 5 Mg Tablet) 5 mg PO DAILY [facility] Furosemide (Furosemide 40 Mg Tablet) 40 mg PO DAILY PRN PRN Reason: edema Furosemide (Furosemide 40 Mg/4 Ml Vial) 40 mg IV DAILY [facility]1983 Cefazolin Sodium/Dextrose (Ancef) 2 gm in 100 mls @ 200 mls/hr IV Q8H [facility], [facility] Last Infusion: 10/27/20 03:15 Dose: 0 mls/hr Documented by: Admin: 10/27/20 02:43 Dose: 200 mls/hr Documented by: MANNIE Magnesium Oxide (Magnesium Oxide 400 Mg Tablet) 400 mg PO EVERY OTHER DAY [facility] Morphine Sulfate (Morphine 2 Mg/Ml Inj) 2 mg IV Q4HR PRN PRN Reason: Pain, Moderate (4-6) Last Admin: 10/27/20 05:59 Dose: 2 mg Documented by: Admin: 10/27/20 01:57 Dose: 2 mg Documented by: Admin: 10/26/20 21:13 Dose: 2 mg Documented by: BESS Naloxone HCl (Naloxone 0.4 Mg/Ml Vial) 0.2 mg IV Q2MIN PRN PRN Reason: Opiate Reversal Ondansetron HCl (Ondansetron 4 Mg/2 Ml Inj) 4 mg IV Q4HR PRN PRN Reason: Nausea And Vomiting Oxycodone HCl (Oxycodone Ir 5 Mg Tablet) 5 mg PO Q6HR PRN PRN Reason: Pain, Moderate (4-6) Last Admin: 10/27/20 02:41 Dose: 5 mg Documented by: MANNIE Potassium Chloride (Potassium Chloride 20 Meq Tab) 20 meq PO BID [facility] Last Admin: 10/26/20 22:26 Dose: 20 meq Documented by: NAVYA Sennosides (Sennosides 8.6 Mg Tablet) 17.2 mg PO DAILY [facility] Discontinued Medications Cyclobenzaprine HCl (Cyclobenzaprine 10 Mg Tablet) 10 mg PO TID PRN PRN Reason: muscle spasm Gabapentin (Gabapentin 300 Mg Capsule) 300 mg PO DAILY GUSTAVO Gabapentin (Gabapentin 300 Mg Capsule) 300 mg PO NOW ONE Stop: 10/27/20 04:16 Last Admin: 10/27/20 04:26 Dose: 300 mg Documented by: MANNIE Hydromorphone HCl (Hydromorphone 0.5 Mg Inj) 0.5 mg IV Q15MIN PRN PRN Reason: Pain, Last Admin: 10/26/20 17:53 Dose: 0.5 mg Documented by: RANDY Hydromorphone HCl (Hydromorphone 1 Mg Inj) 1 mg IV NOW ONE Stop: 10/26/20 17:03 Last Admin: 10/26/20 17:09 Dose: 1 mg Documented by: SEAN Cefazolin Sodium/Dextrose (Ancef) 2 gm in 100 mls @ 200 mls/hr IV NOW ONE Stop: 10/26/20 18:39 Last Infusion: 10/26/20 18:55 Dose: 0 mls/hr Documented by: Admin: 10/26/20 18:46 Dose: 200 mls/hr Documented by: NANCY Oxybutynin (Oxybutynin 5 Mg Tablet) 5 mg PO DAILY [facility]1983 Oxycodone HCl (Oxycodone Ir 5 Mg Tablet) 5 mg PO NOW ONE Stop: 10/27/20 04:14 Last Admin: 10/27/20 04:26 Dose: 5 mg Documented by: MANNIE Vital Signs Vital signs: Vital Signs - 8 hr 10/26/20 16:54 Temperature 98.8 F Pulse Rate 98 H Respiratory Rate 32 H Blood Pressure 185/99 H Pulse Oximetry 99 MDM - Extremity Injury (Lower) Lab Data Result diagrams: 10/27/20 06:00 10/27/20 06:00 Labs: Lab Results 10/26/20 10/26/20 10/26/20 Range/Units 17:05 17:05 17:15 WBC 10.4 (4.5-11.0) X10^3/uL RBC 4.71 (4.5-5.9) X10^6/uL Hgb 13.5 (13.5-17.5) g/dL Hct 41.6 (41-53) % MCV 88.3 (80-100) fL MCH 28.6 (26-34) PG MCHC 32.4 (30-36) % RDW 16.9 H (11.6-14.8) % Plt Count 175 (150-400) X10^3/uL Neut % (Auto) 60.5 (50-75) % Lymph % (Auto) 28.0 (25-40) % [place] % (Auto) 8.0 (3-14) % Eos % (Auto) 2.4 (2-4) % Baso % (Auto) 1.1 (0-2) % Neut # (Auto) 6300 (8291-9828) /uL Lymph # (Auto) 2900 (9902-3541) /uL [place] # (Auto) 800 (0-900) /uL Eos # (Auto) 300 (0-450) /uL Baso # (Auto) 100 (0-100) /uL Sodium 139 (137-145) mmol/L Potassium 3.8 (3.4-5.1) mmol/L Chloride 104 (98-107) mmol/L Carbon Dioxide 22 (22-32) mmol/L BUN 22 H (9-20) mg/dL Creatinine 0.91 (0.66-1.25) mg/dL Estimated GFR > 60.0 (>60) mL/min BUN/Creatinine Ratio 24.2 H (6-22) Glucose 127 H (80-110) mg/dL Calcium 9.6 (8.4-10.2) mg/dL Total Bilirubin 2.4 H (0.2-1.3) mg/dL AST 30 (17-59) IU/L ALT 23 (<50) IU/L Alkaline Phosphatase 57 (38-126) U/L Total Protein 6.4 (6.3-8.2) g/dL Albumin 4.1 (3.5-5.0) g/dL Globulin 2.3 (1.7-4.1) g/dL Albumin/Globulin Ratio 1.8 (1.0-2.8) SARS-CoV-2 (PCR) Negative (Negative) MDM Narrative Medical decision making narrative: 85-year-old woman with an I and D left lateral calf earlier this morning in the wound care clinic with persistent bleeding. Seen evaluated after that in the emergency room after at least an hour of significant pressure placed still somewhat losing. Hemostatic deep suture was placed in the wound with no evidence of bleeding upon discharge. Returns a number of hours later clearly with bleeding continuing deep to the wound and now with significant hematoma posterior portion of the calf and severe pain. He is taken to the operating room for exploration, evacuation of the hematoma and attempts to obtain actual hemostasis. Dr. Núñez is consulted in the emergency department Discharge Plan Departure Patient Disposition: Admitted as Observation Clinical Impression: Hematoma Admit Date/Time: 10/26/20 18:07 Admit Provider: Joe Ahmadi
[2020-10-26 17:42] LABS: Alanine Aminotransferase 23 IU/L (<50); Albumin 4.1 g/dL (3.5-5.0); Albumin Globulin Ratio 1.8 (1.0-2.8); Alkaline Phosphatase 57 U/L (38-126); Aspartate Aminotransferase 30 IU/L (17-59); BUN Creatinine Ratio 24.2 (6-22); Bilirubin Total 2.4 mg/dL (0.2-1.3); Blood Urea Nitrogen 22 mg/dL (9-20); Calcium 9.6 mg/dL (8.4-10.2); Carbon Dioxide 22 mmol/L (22-32); Chloride 104 mmol/L (98-107); Estimated Glomerular Filt Rate > 60.0 mL/min (>60); Globulin 2.3 g/dL (1.7-4.1); Glucose 127 mg/dL (80-110); HEMOLYSIS < 15 (0-50); Potassium 3.8 mmol/L (3.4-5.1); Sodium 139 mmol/L (137-145); Total Protein 6.4 g/dL (6.3-8.2)
--- NOTE | 2020-10-26 17:44 | PM.HP.1 ---
History of Present Illness History of Present Illness Date Patient Seen: 10/26/20 Time Patient Seen: 17:45 Chief complaint: severe pain Narrative: This is an 85 yo man with a complex medical and surgical history who is anticoagulated on eliquis and has a chronic left leg wound which was debrided by wound care this morning, and then he was sent to the ER for ongoing bleeding. Dr. Ty in the ER placed a suture in the wound and stopped the bleeding. The patient returned to the ER a few hours later with a tense calf and an expanding hematoma. He is in the ER in exquisite pain and can not tolerate a full exam. He clearly has a massive hematoma dissecting through tissue planes and causing severe pain. The patient's history includes CHF, CAD, atrial fibrillation, aortic dilation, Cardiomyopathy, CRF stage 3, DVT, IVC filter, HTN, RA, venous stasis dermatitis. ROS: Exquisite pain in left leg. Difficult to obtain complete ROS due to patient distress. PE: GENERAL: Alert , oriented, in acute distress due to left lower extremity pain. Appears stated age. Answers questions promptly and appropriately. Vital signs noted. HENT: Normocephalic, atraumatic. hard of hearing. EYES: Conjunctiva pink, sclera white, no periorbital swelling. CARDIOVASCULAR: Tachycardic at 98. chronic bilateral lower extremity edema with venous stasis changes RESPIRATORY: tachypneic at 32 apparently due to distress, satting well on room air GASTROINTESTINAL: Abdomen soft and non-distended GENITALURINARY: No flank tenderness. MUSCULOSKELETAL: posterior left calf, exquisitely tender, hard mass, consistent with tense subcu hematoma. There is a dressing in place on the left lateral surface just below the knee, and under the dressing there is a suture in the middle of an open wound with a clot in it. No active bleeding is seen SKIN: extensive venous stasis changes in the lower extremities NEURO: Alert and Oriented X 3. No gross sensory deficits, or cognitive issues. PSYCH: Appropriate affect and mood. Patient History Medical History AAA (abdominal aortic aneurysm) (~2013) Acquired anal stenosis Anxiety Aortic dilatation Haile's syndrome CAD (coronary artery disease) Cardiomyopathy Cataracts, bilateral CHF (congestive heart failure) Chronic back pain Chronic diastolic congestive heart failure Chronic renal failure, stage 3 (moderate) Colon polyps Deep vein thrombosis (~2013) Diverticular disease Former smoker Fractures Gout Hearing loss History of urinary incontinence HLD (hyperlipidemia) Hypertension Knee pain Lumbar spine pain Meningitis spinal Paroxysmal atrial fibrillation Peripheral edema Peripheral neuropathy Persistent atrial fibrillation Prostate cancer (~2007) Pulmonary embolism (~2013) Pulmonic valve insufficiency Rheumatoid arthritis Shoulder pain Skin cancer (~1989) Tricuspid insufficiency Urinary incontinence due to urethral sphincter incompetence Venous stasis dermatitis Surgical History History of abdominal aortic aneurysm repair History of hydrocelectomy Hx of hernia repair Hx of shoulder surgery S/P skin biopsy Family & Social History Social History: household members spouse Safety & Behavioral: Feels Safe in Current Yes Environment Been Physically Hurt or No Threatened By a Person Tobacco & Substance use: Smoking Status Former smoker alcohol intake current alcohol intake frequency 0-2 drinks per day Substance Use Type does not use Meds Home Medications and Allergies Home Medications Medication Instructions Recorded Confirmed Type magnesium oxide 400 mg PO Q OTHER DAY cap 08/18/18 10/17/20 History apixaban 5 mg PO BID 10/15/18 10/17/20 History atorvastatin 10 mg tablet 10 mg PO DAILY 10/19/19 10/17/20 History gabapentin 300 mg capsule 300 mg PO DAILY #90 cap 12/25/19 10/17/20 Rx calcium polycarbophil 625 mg tablet 1,250 mg PO DAILY 02/02/20 10/17/20 History docusate sodium 100 mg capsule 100 mg PO DAILY 02/02/20 10/17/20 History finasteride 5 mg PO DAILY #20 tab 05/30/20 10/17/20 Rx oxybutynin chloride 5 mg PO DAILY 08/14/20 10/17/20 History cyclobenzaprine 10 mg PO TID PRN #14 tab 08/26/20 10/17/20 Rx furosemide 40 mg tablet 40 mg PO DAILY PRN #60 tab 08/30/20 10/17/20 Rx hydrocodone 5 mg-acetaminophen 325 1 - 2 tab PO Q6H PRN #60 tab 08/30/20 10/17/20 Rx mg tablet potassium chloride 20 mEq 20 meq PO BID #180 tab 09/12/20 10/17/20 Rx tablet,extended release Allergies Allergy/AdvReac Type Severity Reaction Status Date / Time No Known Drug Allergies Allergy Verified 10/26/20 10:55 Exam Vital Signs (past 8 hours): - 10/26/20 16:54 Temperature 98.8 F Pulse Rate 98 H Respiratory Rate 32 H Blood Pressure 185/99 H Pulse Oximetry 99 Oxygen Delivery Method Room Air Objective Labs Result Diagrams: 10/26/20 17:05 10/26/20 17:05 Labs: Laboratory Results - last 24 hr 10/26/20 10/26/20 17:05 17:05 WBC 10.4 RBC 4.71 Hgb 13.5 Hct 41.6 MCV 88.3 MCH 28.6 MCHC 32.4 RDW 16.9 H Plt Count 175 Neut % (Auto) 60.5 Lymph % (Auto) 28.0 Stanton % (Auto) 8.0 Eos % (Auto) 2.4 Baso % (Auto) 1.1 Neut # (Auto) 6300 Lymph # (Auto) 2900 Stanton # (Auto) 800 Eos # (Auto) 300 Baso # (Auto) 100 Sodium 139 Potassium 3.8 Chloride 104 Carbon Dioxide 22 BUN 22 H Creatinine 0.91 Estimated GFR > 60.0 BUN/Creatinine Ratio 24.2 H Glucose 127 H Calcium 9.6 Total Bilirubin 2.4 H AST 30 ALT 23 Alkaline Phosphatase 57 Total Protein 6.4 Albumin 4.1 Globulin 2.3 Albumin/Globulin Ratio 1.8 Assessment & Plan Assessment and plan (1) Persistent atrial fibrillation: Status: Chronic (2) Cardiomyopathy: Problem details: EF 50% 01/2020 Qualifiers: Cardiomyopathy type: ischemic Qualified Code(s): I25.5 - Ischemic cardiomyopathy Status: Chronic (3) Chronic diastolic congestive heart failure: Status: Chronic (4) Chronic renal failure, stage 3 (moderate): Qualifiers: Chronic kidney disease stage 3 subtype: stage 3b (GFR 30-44) Qualified Code(s): N18.32 - Chronic kidney disease, stage 3b Status: Chronic (5) Peripheral edema: Status: Chronic (6) Post-op bleeding: Qualifiers: Procedure type: musculoskeletal Surgical complication system/body Area: musculoskeletal system Qualified Code(s): M96.830 - Postprocedural hemorrhage of a musculoskeletal structure following a musculoskeletal system procedure Status: Acute (7) Peripheral neuropathy: Qualifiers: Peripheral neuropathy type: polyneuropathy, other Qualified Code(s): G62.89 - Other specified polyneuropathies Status: Chronic (8) Anticoagulated by anticoagulation treatment: Status: Acute Assessment & Plan narrative: this is an 85-year-old man with complex medical and surgical history, who comes into the ER with a tense and exquisitely painful hematoma in his left lower leg. Earlier today he had debridement by wound care which resulted in some bleeding a trip to the ER. A suture placed by the ER doctor. After returning home from the ER, he came back in with an expanding hematoma in his left calf causing him severe pain. He was not able tolerate an exam or any bedside wound care due to his exquisite pain. Risks and benefits of management of this wound in the OR were discussed with the patient including risks of anesthesia, given that he has eaten 4 hours ago, and will require rapid sequence intubation to protect his airway. Risk of nerve injury, ongoing bleeding, loss or reduction of limb function, infection, need for additional procedures, need for prolonged hospitalization, exacerbation of his medical comorbidities. The patient desires to proceed with surgery. Plan: Emergently to the OR for decompression of this hematoma and hemostasis of whatever is bleeding I have consult to Dr. Ahmadi for his input on the patient's medical comorbidities COVID-19 COVID-19 status: Result pending Result date/Date tested (Pos, Neg/Pending): 10/26/20 Time Spent With Patient Time with patient: 25 - 35 minutes Quality VTE Deep Vein Thrombosis/Pulmonary Embolism Present on Admission: Yes
[2020-10-26] MEDS: HYDROMORPHONE 0.5 MG INJ IV (17:53)
[2020-10-26 18:13] LABS: COVID19 - ADMIT (NP swab/PCR) Negative (Negative)
[2020-10-26] MEDS: CEFAZOLIN 2 GM/100 ML FROZ.PIGGY IV (18:46)
--- NOTE | 2020-10-26 19:37 | SUR.PHASEI ---
report given to BRIANA Julian.
[2020-10-26 19:39] LABS: Hematocrit 35.4 % (41-53); Hemoglobin 11.3 g/dL (13.5-17.5)
--- NOTE | 2020-10-26 19:43 | PM.OP.1 ---
Operative Date/Time/Diagnoses Date of procedure: 10/26/20 Time of procedure: 19:43 Pre-op diagnosis: Expanding hematoma left calf Post-op diagnosis: same (about three units of blood and clots tracking between the subcutaneous fat and gastrocnemius muscle fascia) Procedure & Clinicians Procedure: Emergency evacuation of hematoma and compression of the left lower leg with Coban dressing Same procedure as scheduled: Yes Indications: This is an 85 yo man anticoagulated on Eliquis who had some wound care today which resulted in bleeding. A suture was placed in the skin to stop his bleeding, and resulted in a large hematoma tracking into the space between the muscle and subcutaneous fat in the posterior calf area. Surgeon: Maribell Madrigal Click Yes if Unassisted: Yes Anesthesia Type: General Operative Notes Findings: Large hematoma with approximately three units of blood and clots in the posterior calf Specimen(s): none sent Estimated Blood Loss (mL): 900 Blood products transfused: none Procedure in detail: The patient was brought into the OR, placed supine on the OR table, and appropriate preoperative antibiotics were given. Sequential compression device was placed on the right leg and turned on. General anesthesia was induced and the patient was intubated with an ETT by the anesthesiologist. The doppler was used to check signals in the left foot. Biphasic signals were heard in the AT and PT arteries of the left foot. The left lower leg was prepped and draped in sterile fashion. A surgical timeout was conducted. The suture and packing were removed from the wound. The suction catheter was used to begin suctioning out blood and clots from the wound. There was not adequate room for drainage of large clots, and so the incision was extended inferiorly another 3 cm. I then compressed the skin overlying the very large hematoma and voluminous blood and clots were expressed from the incision. There was bright red and dark blood and copious clot material. Visually, about three units of blood and clots were removed both by compression and suction. Once the hematoma was evacuated, Coban was used to compress the leg and obliterate the space. The open wound was packed with Kerlix. The remainder of the calf was wrapped again with coban to compress the hematoma and obliterate the entire space which had been created by the expanding hematoma. At this point, doppler was used to check arterial signals in the foot. There was a biphasic signal detected in the PT and AT arteries. The patient was awakened from anesthesia and extubated. He tolerated the procedure well. Needle, sponge and instrument counts were correct x 2. The patient was transferred to PACU in stable condition. Complications: none Post-operative Condition: stable Disposition: PACU
--- NOTE | 2020-10-26 19:59 | SUR.PHASEI ---
Pt with no pain, doppler pulses to l foot. Lab yomi blood h/h reported to Dr Fish. Coordinator made aware of ICU bed neededs.
--- NOTE | 2020-10-26 20:01 | SUR.PHASEI ---
Awaiting bed assignment.
--- NOTE | 2020-10-26 20:34 | P.HP_ITS ---
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 Patient's been getting wound care to his lower extremity. Lower extremities are extremely fragile due to chronic venous stasis. The wound care center they did some debridement today and there was some bleeding he was sent to the emergency room after the bleeding was not able to be stopped. In the emergency room a stitch was placed bleeding was controlled. Patient came back to the emergency room for hours with continued bleeding and increasing pain in his lower extremity. This was evaluated by a surgeon. There was concern about a hematoma and due to his significant pain patient was taken to the OR to open up the wound. During the or process. The wound was opened he had approximately 3 units of blood. Patient did well surgically. And postoperatively did well. Patient was given a limited amount of fluid in the operating room. His postoperative care was complicated I was asked to address and evaluate him because of his anticoagulation. Last dose of Eliquis was this morning. On my arrival to the floor. Patient is having some postoperative bleeding. His hemoglobin hematocrit preoperatively was 11.3 and postoperative hemoglobin hematocrit is pending.. Patient's vital signs are currently stable with a normal blood pressure and normal pulse. Patient is not tachycardic. He is complaining of lower extremity pain. He is not short of breath. He is having no difficulty with chest pain lightheadedness and dizziness. Due to the blood loss in the emergency room and continue bleeding. He has a type and screen with 2 units available. His protime and INR is slightly prolonged with 1.6 has the INR. Patient History Medical History AAA (abdominal aortic aneurysm) (~2013) Acquired anal stenosis Anxiety Aortic dilatation Haile's syndrome CAD (coronary artery disease) Cardiomyopathy Cataracts, bilateral CHF (congestive heart failure) Chronic back pain Chronic diastolic congestive heart failure Chronic renal failure, stage 3 (moderate) Colon polyps Deep vein thrombosis (~2013) Diverticular disease Former smoker Fractures Gout Hearing loss History of urinary incontinence HLD (hyperlipidemia) Hypertension Knee pain Lumbar spine pain Meningitis spinal Paroxysmal atrial fibrillation Peripheral edema Peripheral neuropathy Persistent atrial fibrillation Prostate cancer (~2007) Pulmonary embolism (~2013) Pulmonic valve insufficiency Rheumatoid arthritis Shoulder pain Skin cancer (~1989) Tricuspid insufficiency Urinary incontinence due to urethral sphincter incompetence Venous stasis dermatitis Surgical History History of abdominal aortic aneurysm repair History of hydrocelectomy Hx of hernia repair Hx of shoulder surgery S/P skin biopsy Family & Social History Social History: household members spouse Safety & Behavioral: Feels Safe in Current Yes Environment Been Physically Hurt or No Threatened By a Person Tobacco & Substance use: Smoking Status Former smoker alcohol intake current alcohol intake frequency 3 or more drinks per day Substance Use Type does not use Meds Home Medications and Allergies Home Medications Medication Instructions Recorded Confirmed Type magnesium oxide 400 mg PO Q OTHER DAY cap 08/18/18 10/17/20 History apixaban 5 mg PO BID 10/15/18 10/26/20 History atorvastatin 10 mg tablet 10 mg PO DAILY 10/19/19 10/17/20 History gabapentin 300 mg capsule 300 mg PO DAILY #90 cap 12/25/19 10/17/20 Rx calcium polycarbophil 625 mg tablet 1,250 mg PO DAILY 02/02/20 10/17/20 History docusate sodium 100 mg capsule 100 mg PO DAILY 02/02/20 10/17/20 History finasteride 5 mg PO DAILY #20 tab 05/30/20 10/17/20 Rx oxybutynin chloride 5 mg PO DAILY 08/14/20 10/17/20 History cyclobenzaprine 10 mg PO TID PRN #14 tab 08/26/20 10/17/20 Rx furosemide 40 mg tablet 40 mg PO DAILY PRN #60 tab 08/30/20 10/17/20 Rx hydrocodone 5 mg-acetaminophen 325 1 - 2 tab PO Q6H PRN #60 tab 08/30/20 10/17/20 Rx mg tablet potassium chloride 20 mEq 20 meq PO BID #180 tab 09/12/20 10/17/20 Rx tablet,extended release Allergies Allergy/AdvReac Type Severity Reaction Status Date / Time No Known Drug Allergies Allergy Verified 10/26/20 18:34 Exam Vital Signs (past 8 hours): - 10/26/20 16:54 10/26/20 17:54 10/26/20 18:24 Temperature 98.8 F 97.1 F L Pulse Rate 98 H 95 H 92 H Respiratory Rate 32 H 20 Blood Pressure 185/99 H 180/96 H 176/92 H Pulse Oximetry 99 97 96 10/26/20 19:22 10/26/20 19:27 10/26/20 19:32 Temperature 98.3 F Pulse Rate 93 H 97 H 91 H Respiratory Rate 14 14 12 Blood Pressure 120/58 L 119/60 125/65 Pulse Oximetry 97 98 98 10/26/20 19:45 10/26/20 20:13 Temperature 97.8 F 97.8 F Pulse Rate 92 H 80 Respiratory Rate 12 16 Blood Pressure 128/70 134/71 Pulse Oximetry 97 97 Oxygen Delivery Method Nasal Cannula Oxygen Flow Rate 2 Narrative Exam Narrative: Gen.: Patient is alert good historian. HEENT: Pupils equal and reactive and in reactive or mucosa is moist Cardio: S1-S2 systolic murmur present. Irregular rate and rhythm. Respiratory: Lungs are clear no wheezes or crackles. Abdomen: Soft nontender. Extremities: Lower extremities show chronic venous stasis changes. There is a bandage in place in his right lower extremity. Has swelling to his foot. Capillary refill is prolonged. Pulses were dopplerable. Neurologic: Grossly intact. Objective Labs Result Diagrams: 10/27/20 06:00 10/27/20 06:00 Labs: Laboratory Results - last 24 hr 10/26/20 10/26/20 10/26/20 17:05 17:05 17:15 WBC 10.4 RBC 4.71 Hgb 13.5 Hct 41.6 MCV 88.3 MCH 28.6 MCHC 32.4 RDW 16.9 H Plt Count 175 Neut % (Auto) 60.5 Lymph % (Auto) 28.0 Marshall % (Auto) 8.0 Eos % (Auto) 2.4 Baso % (Auto) 1.1 Neut # (Auto) 6300 Lymph # (Auto) 2900 Marshall # (Auto) 800 Eos # (Auto) 300 Baso # (Auto) 100 Sodium 139 Potassium 3.8 Chloride 104 Carbon Dioxide 22 BUN 22 H Creatinine 0.91 Estimated GFR > 60.0 BUN/Creatinine Ratio 24.2 H Glucose 127 H Calcium 9.6 Total Bilirubin 2.4 H AST 30 ALT 23 Alkaline Phosphatase 57 Total Protein 6.4 Albumin 4.1 Globulin 2.3 Albumin/Globulin Ratio 1.8 SARS-CoV-2 (PCR) Negative Blood Type Antibody Screen 10/26/20 10/26/20 19:28 19:28 WBC RBC Hgb 11.3 L Hct 35.4 L MCV MCH MCHC RDW Plt Count Neut % (Auto) Lymph % (Auto) Marshall % (Auto) Eos % (Auto) Baso % (Auto) Neut # (Auto) Lymph # (Auto) Marshall # (Auto) Eos # (Auto) Baso # (Auto) Sodium Potassium Chloride Carbon Dioxide BUN Creatinine Estimated GFR BUN/Creatinine Ratio Glucose Calcium Total Bilirubin AST ALT Alkaline Phosphatase Total Protein Albumin Globulin Albumin/Globulin Ratio SARS-CoV-2 (PCR) Blood Type A Positive Antibody Screen Negative Assessment & Plan Assessment & Plan narrative: Left lower extremity calf hematoma status post evacuation-patient was taken to the OR and had evacuation of a hematoma approximately 3 units of blood. Patient postoperatively is continuing to bleed. He has type and screen for 2 units. Currently he is hemodynamically stable with normal blood pressure and normal pulse and he is not tachycardic. Will do serial hemoglobin and hematocrits q.4 hours. Patient is also anticoagulated with Eliquis his last dose was this morning. Patient is high risk for thrombotic events due to his atrial fibrillation recurrent venous thromboembolism and recurrent PEs patient has a vena cava filter in place. He was taken to the OR before receiving anticoagulation because of high concern of thrombotic events. And was hemodynamically stable. Plan at this point will be to do serial hemoglobin hematocrit. Will hold off on reversal with Kcentra the continues have bleeding required trach blood transfusions and will go ahead and proceed with that. Will allow surgery to continue with wound compression dressing. Discussed surgical care with Dr. Núñez. Acute blood loss due to lower extremity hematoma and continued bleeding Q.4 hours hemoglobin hematocrit transfuse if hemoglobin below 9. IV Lasix 20 mg will be given given after each unit. Chronic venous stasis. Certainly contributing to his lower extremity wounds. Difficulty with circulation very fragile skin. Continue with the compression of lower extremities. Atrial fibrillation patient's heart rates well controlled he is in atrial fibrillation at this point. He is currently not on a beta-winsome. Will much closely is pulse for signs of significant tachycardia or worsening of his atrial fibrillation. His Eliquis will be on hold. His blood pressure is good. Reviewed his echocardiogram here from just a few months ago has bilateral severe atrial enlargement. Congestive heart failure diastolic without acute exacerbation. Cardiomyopathy. Patient has history of heart failure. Mildly reduced ejection fraction and concern for diastolic failure as well. Will need to be careful with fluid and electrolyte status. And if needed very careful in the amount of blood he receives. Will continue with judicious management of his fluid and electrolytes. Provide IV Lasix if needed after blood transfusions. Will mo nitor closely for signs of heart failure. Order a BNP. Hyperlipidemia. Patient is on a statin medication he will be continued while he is here in the hospital with that. BPH. Patient on finasteride and and oxybutynin. We will go ahead and stop his oxybutynin at this point. Continue with his finasteride. He is having good urinary output. Chronic renal failure stage 3. Patient's blood results showed normal BUN and creatinine this point. Will monitor closely his renal function due to his bleeding fluid shifts heart failure. Code status. Patient is a full code. Quality VTE Deep Vein Thrombosis/Pulmonary Embolism Present on Admission: Yes
[2020-10-26 21:01] LABS: INR 1.6 (0.9-1.3); Prothrombin Time 18.3 SECONDS (10.1-12.7)
--- NOTE | 2020-10-26 21:10 | SUR.PHASEI ---
2015 pt ready for transfer, bleeding noted under leg from knee to calf, VSS, Dr. ventura called, informed of pts condition and vital signs. Instructed to transfer pt upstairs for Dr. Ahmadi to examine. Pt transported up to room 231 via bed with o2 at 2/l and on cardiac moniter. Pt left with BRIANA Uribe in stable condition.
[2020-10-26] MEDS: MORPHINE 2 MG/ML INJ IV (21:13)
[2020-10-26 22:21] LABS: Hematocrit 34.1 % (41-53); Hemoglobin 11.1 g/dL (13.5-17.5)
--- NOTE | 2020-10-26 22:21 | PC.ADMIT ---
[id number] [facility] Admission Note: Pt arrived via bed from OR with dressing on Left leg, oozing blood from dressing (surgeon aware), Mak/Sal, Dr Ahmadi and Dr Madrigal at bedside to evaluate and discuss plan for patient. New orders for serial H/H, and possible transfusions. Pt oriented to room and call light system, left leg dressing reinforced with [employer] wraps per verbal order from surgeon. Bed low and locked, call light within reach, will continue to monitor. The patient,Nazario Liang,85 y/o, was given written information regarding hospital policies, unit procedures and contact persons. Patient's smoking status: Former smoker. Vital Signs - 8 hr 10/26/20 16:54 10/26/20 17:54 10/26/20 18:24 Temperature 98.8 F 97.1 F L Pulse Rate 98 H 95 H 92 H Respiratory Rate 32 H 20 Blood Pressure 185/99 H 180/96 H 176/92 H Pulse Oximetry 99 97 96 10/26/20 19:22 10/26/20 19:27 10/26/20 19:32 Temperature 98.3 F Pulse Rate 93 H 97 H 91 H Respiratory Rate 14 14 12 Blood Pressure 120/58 L 119/60 125/65 Pulse Oximetry 97 98 98 10/26/20 19:45 10/26/20 20:13 10/26/20 20:21 Temperature 97.8 F 97.8 F Pulse Rate 92 H 80 84 Respiratory Rate 12 16 14 Blood Pressure 128/70 134/71 114/80 Pulse Oximetry 97 97 98 10/26/20 20:32 10/26/20 20:37 10/26/20 20:40 Temperature 97.8 F Pulse Rate 91 H 89 80 Respiratory Rate 16 15 12 Blood Pressure 127/73 135/81 144/70 H Pulse Oximetry 97 98 99 10/26/20 20:55 10/26/20 21:10 10/26/20 21:25 Temperature 97.6 F 97.8 F Pulse Rate 85 83 84 Respiratory Rate 17 14 13 Blood Pressure 131/70 138/70 145/71 H Pulse Oximetry 98 100 100 10/26/20 21:40 10/26/20 21:55 10/26/20 22:10 Temperature 96.6 F L 96.5 F L 97.5 F L Pulse Rate 84 83 81 Respiratory Rate 16 22 27 H Blood Pressure 142/73 H 163/82 H 176/77 H Pulse Oximetry 98 98 98
[2020-10-26] MEDS: POTASSIUM CHLORIDE 20 MEQ TAB PO (22:26)
--- NOTE | 2020-10-26 22:34 | PC.NURSE ---
reviewed patient medications, pt does not have a list of medications with dosages and schedule present. He confirmed that he took all of the already listed medications but could not confirm doses or last date and time taken.
[2020-10-27] VITALS (9 sets, daily range): BP systolic 109–145; BP diastolic 57–72; PULSE 69–80; RESP 16–27; TEMP 35.8–36.7; O2SAT 95–100
[2020-10-27] MEDS: MORPHINE 2 MG/ML INJ IV ×4 (01:57→18:42)
[2020-10-27 01:58] LABS: Hematocrit 32.6 % (41-53); Hemoglobin 10.3 g/dL (13.5-17.5)
[2020-10-27] MEDS: OXYCODONE IR 5 MG TABLET PO ×4 (02:41→17:05)
[2020-10-27] MEDS: CEFAZOLIN 2 GM/100 ML FROZ.PIGGY IV ×3 (02:43→18:47)
[2020-10-27] MEDS: ACETAMINOPHEN 325 MG TABLET 650 MG PO ×2 (04:26→17:06)
[2020-10-27] MEDS: GABAPENTIN 300 MG CAPSULE PO (04:26)
[2020-10-27] MEDS: CYCLOBENZAPRINE 10 MG TABLET PO ×3 (04:26→19:39)
[2020-10-27 06:12] LABS: Add Manual Diff / Slide Review NO; Basophils Absolute Auto 100 /uL (0-100); Basophils Percent Auto 0.8 % (0-2); Eosinophils Absolute Auto 100 /uL (0-450); Eosinophils Percent Auto 1.8 % (2-4); Hemoglobin 10.1 g/dL (13.5-17.5); Lymphocytes Absolute Auto 1500 /uL (1100-4500); Lymphocytes Percent Auto 22.3 % (25-40); Mean Corpuscular HGB Conc 32.5 % (30-36); Mean Corpuscular Hemoglobin 28.3 PG (26-34); Mean Corpuscular Volume 87.2 fL (80-100); Monocytes Absolute Auto 600 /uL (0-900); Neutrophils Absolute Auto 4400 /uL (1500-7000); Neutrophils Percent Auto 66.1 % (50-75); Platelet Count 132 X10^3/uL (150-400); Red Blood Cell Count 3.56 X10^6/uL (4.5-5.9); Red Cell Distribution Width 16.5 % (11.6-14.8); White Blood Cell Count 6.7 X10^3/uL (4.5-11.0)
[2020-10-27 06:25] LABS: INR 1.5 (0.9-1.3); Prothrombin Time 17.3 SECONDS (10.1-12.7)
[2020-10-27 06:29] LABS: Blood Urea Nitrogen 20 mg/dL (9-20); Calcium 8.6 mg/dL (8.4-10.2); Carbon Dioxide 27 mmol/L (22-32); Chloride 104 mmol/L (98-107); Estimated Glomerular Filt Rate > 60.0 mL/min (>60); Glucose 119 mg/dL (80-110); HEMOLYSIS < 15 (0-50); Magnesium 1.8 mg/dL (1.6-2.3); Phosphorous 3.9 mg/dL (2.3-3.7); Sodium 136 mmol/L (137-145)
[2020-10-27 06:38] LABS: NT-proBNP (BNP-Adult 18+) 893 pg/mL (<450)
--- NOTE | 2020-10-27 06:53 | PC.NURSE ---
Shift change: Pt presents A&Ox4 and comfortable. L leg is wrapped in coban and [place] wrap. Small amount of blood has seeped onto chucks pads under L knee. L foot is discolored, cool with cap refill <2 sec. 3+ pitting edema to bilateral feet. Pt can lift leg and move his toes. 0200: 2mg morphine IV given for L left pain. 0230: Pt has been having mild pain through out shift but reports increased tight pressure in the hyatt and heels at this time. Pt given oxycodone 5mg PO and L leg repositioned and elevated to decrease swelling. Chucks pad and pillow cases changed and will continue to monitor for blood loss. 0426: Pt moaning and bracing in bed. Due to continued severe spasmic leg pain pt given flexeril 10mg, gabapentin 300mg, oxycodone 5mg. 0600: 2mg morphine IV given for continued L leg pain. 0630: Pain has resolved and pt is sleeping. Small amount of blood has seeped onto the new chucks pad (placed 0230) at proximal, posterior knee. L foot is discolored, cool with cap refill <2 sec. 3+ pitting edema to bilateral feet. Pt can lift leg and move his toes. 0700: Pt able to stand and use urinal at the bedside.
--- NOTE | 2020-10-27 07:56 | P.PN_ITS ---
Subjective Subjective Date Patient Seen: 10/27/20 Time Patient Seen: 07:35 Interval history: I awakened patient from a deep sleep. He was a little bit confused but seem to reorient mostly Claiming a little bit of difficulty breathing although his really not able to be specific Was little uncertain as to what is been going on with his left leg, although certain that it is the source of his problem I have reviewed The emergency department notes as well as Dr. Madrigal's op note Overnight patient has been stable. Required a bit of oxygen initially but is now off oxygen doing well Exam Vital Signs (past 8 hours): - 10/27/20 00:19 10/27/20 01:45 10/27/20 02:00 Temperature 96.4 F L Pulse Rate 80 69 76 Respiratory Rate 17 16 16 Blood Pressure 145/63 H 114/63 133/69 Pulse Oximetry 95 95 98 10/27/20 04:00 Temperature 96.8 F L Pulse Rate 80 Respiratory Rate 27 H Blood Pressure 116/72 Pulse Oximetry 98 Oxygen Delivery Method Room Air Oxygen Flow Rate 2 Narrative Exam Narrative: HEENT if in unremarkable Neck-no lymphadenopathy Lungs-somewhat diminished breath sounds at the bases no wheezes no crackles overall good breath sounds Heart-irregular Abdomen-benign Extremities-left lower leg wrapped with dressing, bit of oozing behind the knee onto the pillow, good color at the toes with good capillary refill at the toes Objective Labs Result Diagrams: 10/27/20 06:00 10/27/20 06:00 Labs: Laboratory Results - last 24 hr 10/26/20 10/26/20 10/26/20 17:05 17:05 17:15 WBC 10.4 RBC 4.71 Hgb 13.5 Hct 41.6 MCV 88.3 MCH 28.6 MCHC 32.4 RDW 16.9 H Plt Count 175 Neut % (Auto) 60.5 Lymph % (Auto) 28.0 [place] % (Auto) 8.0 Eos % (Auto) 2.4 Baso % (Auto) 1.1 Neut # (Auto) 6300 Lymph # (Auto) 2900 [place] # (Auto) 800 Eos # (Auto) 300 Baso # (Auto) 100 PT INR Sodium 139 Potassium 3.8 Chloride 104 Carbon Dioxide 22 BUN 22 H Creatinine 0.91 Estimated GFR > 60.0 BUN/Creatinine Ratio 24.2 H Glucose 127 H Calcium 9.6 Phosphorus Magnesium Total Bilirubin 2.4 H AST 30 ALT 23 Alkaline Phosphatase 57 NT-Pro-B Natriuret Pep Total Protein 6.4 Albumin 4.1 Globulin 2.3 Albumin/Globulin Ratio 1.8 Nasal Screen MRSA (PCR) SARS-CoV-2 (PCR) Negative Blood Type Antibody Screen 10/26/20 10/26/20 10/26/20 19:28 19:28 20:47 WBC RBC Hgb 11.3 L Hct 35.4 L MCV MCH MCHC RDW Plt Count Neut % (Auto) Lymph % (Auto) [place] % (Auto) Eos % (Auto) Baso % (Auto) Neut # (Auto) Lymph # (Auto) [place] # (Auto) Eos # (Auto) Baso # (Auto) PT 18.3 H INR 1.6 H Sodium Potassium Chloride Carbon Dioxide BUN Creatinine Estimated GFR BUN/Creatinine Ratio Glucose Calcium Phosphorus Magnesium Total Bilirubin AST ALT Alkaline Phosphatase NT-Pro-B Natriuret Pep Total Protein Albumin Globulin Albumin/Globulin Ratio Nasal Screen MRSA (PCR) SARS-CoV-2 (PCR) Blood Type A Positive Antibody Screen Negative 10/26/20 10/26/20 10/26/20 21:00 22:14 23:30 WBC RBC Hgb 11.1 L Cancelled Hct 34.1 L Cancelled MCV MCH MCHC RDW Plt Count Neut % (Auto) Lymph % (Auto) [place] % (Auto) Eos % (Auto) Baso % (Auto) Neut # (Auto) Lymph # (Auto) [place] # (Auto) Eos # (Auto) Baso # (Auto) PT INR Sodium Potassium Chloride Carbon Dioxide BUN Creatinine Estimated GFR BUN/Creatinine Ratio Glucose Calcium Phosphorus Magnesium Total Bilirubin AST ALT Alkaline Phosphatase NT-Pro-B Natriuret Pep Total Protein Albumin Globulin Albumin/Globulin Ratio Nasal Screen MRSA (PCR) Negative for mrsa SARS-CoV-2 (PCR) Blood Type Antibody Screen 10/27/20 10/27/20 10/27/20 01:53 06:00 06:00 WBC 6.7 RBC 3.56 L Hgb 10.3 L 10.1 L Hct 32.6 L 31.0 L MCV 87.2 MCH 28.3 MCHC 32.5 RDW 16.5 H Plt Count 132 L Neut % (Auto) 66.1 Lymph % (Auto) 22.3 L [place] % (Auto) 9.0 Eos % (Auto) 1.8 L Baso % (Auto) 0.8 Neut # (Auto) 4400 Lymph # (Auto) 1500 [place] # (Auto) 600 Eos # (Auto) 100 Baso # (Auto) 100 PT 17.3 H INR 1.5 H Sodium Potassium Chloride Carbon Dioxide BUN Creatinine Estimated GFR BUN/Creatinine Ratio Glucose Calcium Phosphorus Magnesium Total Bilirubin AST ALT Alkaline Phosphatase NT-Pro-B Natriuret Pep Total Protein Albumin Globulin Albumin/Globulin Ratio Nasal Screen MRSA (PCR) SARS-CoV-2 (PCR) Blood Type Antibody Screen 10/27/20 10/27/20 06:00 06:00 WBC RBC Hgb Hct MCV MCH MCHC RDW Plt Count Neut % (Auto) Lymph % (Auto) [place] % (Auto) Eos % (Auto) Baso % (Auto) Neut # (Auto) Lymph # (Auto) [place] # (Auto) Eos # (Auto) Baso # (Auto) PT INR Sodium 136 L Potassium 4.0 Chloride 104 Carbon Dioxide 27 BUN 20 Creatinine 0.91 Estimated GFR > 60.0 BUN/Creatinine Ratio 22.0 Glucose 119 H Calcium 8.6 Phosphorus 3.9 H Magnesium 1.8 Total Bilirubin AST ALT Alkaline Phosphatase NT-Pro-B Natriuret Pep 893 H Total Protein Albumin Globulin Albumin/Globulin Ratio Nasal Screen MRSA (PCR) SARS-CoV-2 (PCR) Blood Type Antibody Screen [facility] Medical History AAA (abdominal aortic aneurysm) (~2013) Acquired anal stenosis Anxiety Aortic dilatation Haile's syndrome CAD (coronary artery disease) Cardiomyopathy Cataracts, bilateral CHF (congestive heart failure) Chronic back pain Chronic diastolic congestive heart failure Chronic renal failure, stage 3 (moderate) Colon polyps Deep vein thrombosis (~2013) Diverticular disease Former smoker Fractures Gout Hearing loss History of urinary incontinence HLD (hyperlipidemia) Hypertension Knee pain Lumbar spine pain Meningitis spinal Paroxysmal atrial fibrillation Peripheral edema Peripheral neuropathy Persistent atrial fibrillation Prostate cancer (~2007) Pulmonary embolism (~2013) Pulmonic valve insufficiency Rheumatoid arthritis Shoulder pain Skin cancer (~1989) Tricuspid insufficiency Urinary incontinence due to urethral sphincter incompetence Venous stasis dermatitis Surgical History History of abdominal aortic aneurysm repair History of hydrocelectomy Hx of hernia repair Hx of shoulder surgery S/P skin biopsy Social History household members: spouse Smoking Status: Former smoker Tobacco: How many years used: 20 alcohol intake: current Assessment & Plan Assessment & Plan narrative: 1. Status post operative debridement of large hematoma left lower extremity. This is clearly due in part to his anticoagulation as well as his ongoing wound issues for which he is being seen at the wound care clinic. At this point obviously he needs to remain off of his anticoagulation until this is much more stable and more healed. Continued management as per her surgery. Patient's blood count this morning is certainly acceptable 2. Chronic anticoagulation-patient chronic and coagulated due to his atrial fibrillation as well as history of multiple DVTs and PEs. However he does have a [place] filter in place as per patient's history and so I think the more important reason for anticoagulation currently has been his atrial fibrillation. Therefore I think it is entirely appropriate to discontinue his anticoagulation temporarily in the short-term to allow healing to occur of this left lower extremity issue. His filter should provide some protection from recurrent pulm onary embolism and his risk of stroke from his atrial fibrillation is relatively small compared to risk of bleeding etcetera. I would suggest several weeks off anticoagulation to allow more complete healing although ultimately long-term he would still benefit from full anticoagulation with Eliquis or similar 3. Chronic diastolic congestive heart failure-patient may have some mild symptoms currently but he appears to be euvolemic to me. Exam does not suggest congestive heart failure. He will receive another dose of IV Lasix this morning. I would then Lasix while we are monitoring him here in the hospital etcetera 4. Atrial fibrillation-patient's heart rate well controlled with current m edications no change. 5. Chronic renal failure stage 3-patient's creatinine BUN are actually normal at this point. Continue to monitor specially with the diuretic therapy as above Overall patient's medical issues appear to be relatively stable. His biggest issue relates to his left lower extremity wound and issues around bleeding etcetera. Continue management as per general surgery entirely appropriate Quality VTE Deep Vein Thrombosis/Pulmonary Embolism Present on Admission: Yes
[2020-10-27] MEDS: FINASTERIDE 5 MG TABLET PO (08:13)
[2020-10-27] MEDS: POTASSIUM CHLORIDE 20 MEQ TAB PO ×2 (08:13→21:48)
[2020-10-27] MEDS: ATORVASTATIN 20 MG TABLET 10 MG PO (08:13)
[2020-10-27] MEDS: FUROSEMIDE 40 MG/4 ML VIAL IV (08:52)
[2020-10-27] MEDS: SODIUM CHLORIDE 0.9% FLUSH 10 ML IV ×2 (09:17→21:00)
[2020-10-27 10:35] LABS: Hematocrit 33.4 % (41-53); Hemoglobin 10.8 g/dL (13.5-17.5)
[2020-10-27] MEDS: calcium polycarbophiL 625 MG TABLET 1250 MG PO (11:37)
--- NOTE | 2020-10-27 13:07 | PM.PN.1 ---
Subjective Subjective Date Patient Seen: 10/27/20 Time Patient Seen: 08:30 Interval history: Pt was taken to the OR last night for evacuation of a large hematoma which was dissecting between the subcu and muscle of the calf of the left leg. He reports feeling better than when he came into the ER, but his left leg feels very tight. Exam Vital Signs (past 8 hours): - 10/27/20 08:00 10/27/20 12:16 Temperature 98.0 F 97.4 F L Pulse Rate 80 77 Respiratory Rate 16 18 Blood Pressure 124/61 111/57 L Pulse Oximetry 99 100 Oxygen Delivery Method Room Air Oxygen Flow Rate 0 Narrative Exam Narrative: GENERAL: Alert , comfortable. Appears younger than stated age. Answers questions promptly and appropriately. Vital signs noted. HENT: Normocephalic, atraumatic. hard of hearing. EYES: Conjunctiva pink, sclera white, no periorbital swelling. CARDIOVASCULAR: Regular rate. chronic bilateral lower extremity edema with venous stasis changes RESPIRATORY: Non tachypneic, breathing comfortably and satting well on room air GASTROINTESTINAL: Abdomen soft and non-distended GENITALURINARY: No flank tenderness. MUSCULOSKELETAL: Left lower leg is wrapped with an Mono wrap, and toes are warm but deeply discolored due to venous stasis changes and congestion SKIN: extensive venous stasis changes in the lower extremities NEURO: Alert and Oriented X 3. No gross sensory deficits, or cognitive issues. PSYCH: Appropriate affect and mood. Objective Labs Result Diagrams: 10/27/20 21:40 10/27/20 06:00 Labs: Laboratory Results - last 24 hr 10/26/20 10/26/20 10/26/20 17:05 17:05 17:15 WBC 10.4 RBC 4.71 Hgb 13.5 Hct 41.6 MCV 88.3 MCH 28.6 MCHC 32.4 RDW 16.9 H Plt Count 175 Neut % (Auto) 60.5 Lymph % (Auto) 28.0 [place] % (Auto) 8.0 Eos % (Auto) 2.4 Baso % (Auto) 1.1 Neut # (Auto) 6300 Lymph # (Auto) 2900 [place] # (Auto) 800 Eos # (Auto) 300 Baso # (Auto) 100 PT INR Sodium 139 Potassium 3.8 Chloride 104 Carbon Dioxide 22 BUN 22 H Creatinine 0.91 Estimated GFR > 60.0 BUN/Creatinine Ratio 24.2 H Glucose 127 H Calcium 9.6 Phosphorus Magnesium Total Bilirubin 2.4 H AST 30 ALT 23 Alkaline Phosphatase 57 NT-Pro-B Natriuret Pep Total Protein 6.4 Albumin 4.1 Globulin 2.3 Albumin/Globulin Ratio 1.8 Nasal Screen MRSA (PCR) SARS-CoV-2 (PCR) Negative Blood Type Antibody Screen 10/26/20 10/26/20 10/26/20 19:28 19:28 20:47 WBC RBC Hgb 11.3 L Hct 35.4 L MCV MCH MCHC RDW Plt Count Neut % (Auto) Lymph % (Auto) [place] % (Auto) Eos % (Auto) Baso % (Auto) Neut # (Auto) Lymph # (Auto) [place] # (Auto) Eos # (Auto) Baso # (Auto) PT 18.3 H INR 1.6 H Sodium Potassium Chloride Carbon Dioxide BUN Creatinine Estimated GFR BUN/Creatinine Ratio Glucose Calcium Phosphorus Magnesium Total Bilirubin AST ALT Alkaline Phosphatase NT-Pro-B Natriuret Pep Total Protein Albumin Globulin Albumin/Globulin Ratio Nasal Screen MRSA (PCR) SARS-CoV-2 (PCR) Blood Type A Positive Antibody Screen Negative 10/26/20 10/26/20 10/26/20 21:00 22:14 23:30 WBC RBC Hgb 11.1 L Cancelled Hct 34.1 L Cancelled MCV MCH MCHC RDW Plt Count Neut % (Auto) Lymph % (Auto) [place] % (Auto) Eos % (Auto) Baso % (Auto) Neut # (Auto) Lymph # (Auto) [place] # (Auto) Eos # (Auto) Baso # (Auto) PT INR Sodium Potassium Chloride Carbon Dioxide BUN Creatinine Estimated GFR BUN/Creatinine Ratio Glucose Calcium Phosphorus Magnesium Total Bilirubin AST ALT Alkaline Phosphatase NT-Pro-B Natriuret Pep Total Protein Albumin Globulin Albumin/Globulin Ratio Nasal Screen MRSA (PCR) Negative for mrsa SARS-CoV-2 (PCR) Blood Type Antibody Screen 10/27/20 10/27/20 10/27/20 01:53 06:00 06:00 WBC 6.7 RBC 3.56 L Hgb 10.3 L 10.1 L Hct 32.6 L 31.0 L MCV 87.2 MCH 28.3 MCHC 32.5 RDW 16.5 H Plt Count 132 L Neut % (Auto) 66.1 Lymph % (Auto) 22.3 L [place] % (Auto) 9.0 Eos % (Auto) 1.8 L Baso % (Auto) 0.8 Neut # (Auto) 4400 Lymph # (Auto) 1500 [place] # (Auto) 600 Eos # (Auto) 100 Baso # (Auto) 100 PT 17.3 H INR 1.5 H Sodium Potassium Chloride Carbon Dioxide BUN Creatinine Estimated GFR BUN/Creatinine Ratio Glucose Calcium Phosphorus Magnesium Total Bilirubin AST ALT Alkaline Phosphatase NT-Pro-B Natriuret Pep Total Protein Albumin Globulin Albumin/Globulin Ratio Nasal Screen MRSA (PCR) SARS-CoV-2 (PCR) Blood Type Antibody Screen 10/27/20 10/27/20 10/27/20 06:00 06:00 10:15 WBC RBC Hgb 10.8 L Hct 33.4 L MCV MCH MCHC RDW Plt Count Neut % (Auto) Lymph % (Auto) [place] % (Auto) Eos % (Auto) Baso % (Auto) Neut # (Auto) Lymph # (Auto) [place] # (Auto) Eos # (Auto) Baso # (Auto) PT INR Sodium 136 L Potassium 4.0 Chloride 104 Carbon Dioxide 27 BUN 20 Creatinine 0.91 Estimated GFR > 60.0 BUN/Creatinine Ratio 22.0 Glucose 119 H Calcium 8.6 Phosphorus 3.9 H Magnesium 1.8 Total Bilirubin AST ALT Alkaline Phosphatase NT-Pro-B Natriuret Pep 893 H Total Protein Albumin Globulin Albumin/Globulin Ratio Nasal Screen MRSA (PCR) SARS-CoV-2 (PCR) Blood Type Antibody Screen [facility] Medical History AAA (abdominal aortic aneurysm) (~2013) Acquired anal stenosis Anxiety Aortic dilatation Haile's syndrome CAD (coronary artery disease) Cardiomyopathy Cataracts, bilateral CHF (congestive heart failure) Chronic back pain Chronic diastolic congestive heart failure Chronic renal failure, stage 3 (moderate) Colon polyps Deep vein thrombosis (~2013) Diverticular disease Former smoker Fractures Gout Hearing loss History of urinary incontinence HLD (hyperlipidemia) Hypertension Knee pain Lumbar spine pain Meningitis spinal Paroxysmal atrial fibrillation Peripheral edema Peripheral neuropathy Persistent atrial fibrillation Prostate cancer (~2007) Pulmonary embolism (~2013) Pulmonic valve insufficiency Rheumatoid arthritis Shoulder pain Skin cancer (~1989) Tricuspid insufficiency Urinary incontinence due to urethral sphincter incompetence Venous stasis dermatitis Surgical History History of abdominal aortic aneurysm repair History of hydrocelectomy Hx of hernia repair Hx of shoulder surgery S/P skin biopsy Social History household members: spouse Smoking Status: Former smoker Tobacco: How many years used: 20 alcohol intake: current Assessment & Plan Assessment and plan (1) Persistent atrial fibrillation: Status: Chronic (2) Cardiomyopathy: Problem details: EF 50% 01/2020 Qualifiers: Cardiomyopathy type: ischemic Qualified Code(s): I25.5 - Ischemic cardiomyopathy Status: Chronic (3) Chronic diastolic congestive heart failure: Status: Chronic (4) Chronic renal failure, stage 3 (moderate): Qualifiers: Chronic kidney disease stage 3 subtype: stage 3b (GFR 30-44) Qualified Code(s): N18.32 - Chronic kidney disease, stage 3b Status: Chronic (5) Peripheral edema: Status: Chronic (6) Post-op bleeding: Qualifiers: Procedure type: musculoskeletal Surgical complication system/body Area: musculoskeletal system Qualified Code(s): M96.830 - Postprocedural hemorrhage of a musculoskeletal structure following a musculoskeletal system procedure Status: Acute (7) Peripheral neuropathy: Qualifiers: Peripheral neuropathy type: polyneuropathy, other Qualified Code(s): G62.89 - Other specified polyneuropathies Status: Chronic (8) Anticoagulated by anticoagulation treatment: Status: Acute Assessment & Plan narrative: This is an 85-year-old man with complex medical and surgical history, who came into the ER last night with a tense and exquisitely painful hematoma in his left lower leg. Earlier during the day yesterday he had debridement by wound care which resulted in some bleeding and a trip to the ER. A suture was placed in the skin by the ER doctor. After returning home from the ER, he came back in with an expanding hematoma in his left calf causing him severe pain. He was not able tolerate an exam or any bedside wound care due to his exquisite pain. In the OR, and about 3 units of blood and clots were evacuated from a large open space between his subcutaneous tissue and muscle in the left calf. Overnight he had some oozing, and an expected drop in his hemoglobin. He remained hemodynamically stable, and pain was reasonably well controlled. Although the hematoma was evacuated, hemostasis was not achieved in the OR due to anticoagulation. His bleeding is medical bleeding at this point, and is not expected to resolve until his anticoagulation has been reversed. Because of his clotting history K centra was not given. The dressing can be taken down with surgeon at bedside once we reach 48 hours from last Eliquis dose. will be rounding on Saturday. He may prefer to leave the compression dressing on until Saturday, at which point I will take it down at bedside if the patient is able to tolerate that. If not, he may need to have the dressing changed in the OR. Plan: hold anticoagulation and keep compression dressing on until 48 hours from last dose of Eliquis Bed rest, avoid dangling or weight bearing on the left leg; PT for mobility in the bed Follow CBC and transfuse as appropriate COVID-19 COVID-19 status: Result pending Result date/Date tested (Pos, Neg/Pending): 10/26/20 Time Spent With Patient Time with patient: 25 - 35 minutes Quality VTE Deep Vein Thrombosis/Pulmonary Embolism Present on Admission: Yes
--- NOTE | 2020-10-27 13:08 | PT-IP ANOTE ---
PT eval received and instructions of: mobiltiy in bed; no dangle or weight on left leg. informed nurse regarding order received and clarification needed since PT needs mobility goals for skilled services and that if pt is not allowed to dangle LLE down, then pt cannot sit up or stand up to mobility. nurse stated that she will clarify with the doctor. Talked to nurse after a few minutes and stated that the doctor informed: no PT for now and pt is on bed rest order. informed nurse that PT order will be discharged and agreed.
[2020-10-27 14:39] LABS: Hematocrit 30.3 % (41-53); Hemoglobin 9.8 g/dL (13.5-17.5)
--- NOTE | 2020-10-27 14:46 | PC.NURSE ---
AM shift Pt is A/ox2, forgetful, especially after narcotics. Pain is better controlled with oxycodone and morphine and flexiril. Mono wrap to LLE is intact. ANTISQUEAK WORKER to L toes <2 seconds, but collor remains dusky, as is the RLE. Pulses + to BLE. Pt reports the pain has been spastic this shift. Flexiril given and effective. Sleeping comfortably at present. 1415 labs drawn from midline. H/H stable thus far. Daughter into visit, updated on POC. No active weeping to chucks pads at this time. No reinforcement needed to dressing. Plan for dressing removal 10/28 with surgeon. This may need to be done in OR. Per Dr Madrigal, pt is not to ambulate, not to be OOB. PT orders cancelled at this time. Pt has been using the urinal, stood up OOB once prior to staff getting in room. Reeducated about safety of LLE and surgeons order. If pt is unable to void in bed, pantoja order ok'd.
--- NOTE | 2020-10-27 15:39 | CM.DANOTE ---
Discharge Planning/Care Management DCP: assessment: case received, EMR reviewed and met with pt. Introduced self and role. Pt is an 85 year old male who admitted last evening to care of both Dr. Madrigal and Dr. Ahmadi: it is unclear at this point, per luis RN caring for pt who is primary and who is consulting. PCP Dr. Cunningham is seeing pt: will hope to obtain some clarity tomorrow re this. Payer: Medicare and BS out of [facility]. Pt was seen in the ER yesterday and taken to ER for emergency evacuation of L calf expanding hematoma and compression of left lower leg with Coban dressing. Dr. Madrigal documents that approximately 3 units of blood and clots were found in the posterior calf. Pt was found to be a bit groggy and RN caring for pt noted the pain medications were seeming to make him a bit impulsive and not as clear as his baseline. Pt did confirm in discussion that he had private caregivers in the home as well as [facility] services and these were discontinued about 2 weeks ago. He stated that his daughter Marisol Rausch/listed on face sheet lives in [place] and that daughter Carin Hopkins: cell: [phone] lives locally (but not with him). He states he and his Paige Liang : [phone] are the only ones at the house now and I drive myself to the wound care clinic. Called cell listed for Paige but was routed to with no identiers so only a brief message was left. Pt agreed that further discussion could be held with his daughter Carin re the POC. Spoke then with Carin by phone and introduced self and role. Carin confirmed above information given by pt was accurate. She stated that Paige had memory/cognitive deficits and would not be able to participate in the decision making. She stated that her father is very intact mentally but he is stubborn and often refuses to follow advice. She states this is the only reason he is driving himself to the wound clinic. She further noted that Dr. Madrigal had been updating her and the last she knew there was a consideration of a transfer to a facility that could provide a vascular surgeon. Did let her know that Dr. Madrigal's note for today indicates she is taking pt to OR tomorrow for wound check/dressing change. Gave her the direct contact info to the DCP/nurse desk ([phone]) and assured her that if pt does not transfer the DCP team will be following for options that may include snf (IF pt were open to same) vs HH and ? of resumption of private caregivers. Will check in tomorrow and be following. Anticipate the POC going forward will be clearer by then. PT had an order and this was cancelled this morning as pt continues on bedrest. Expect this will be reordered when pt is medically stable enough for same. CM Discharge Assessment Start: 10/27/20 15:30 Freq: Status: Active Protocol: Document 10/27/20 15:35 ITV (Rec: 10/27/20 15:39 ITV [id number]) Discharge Planning Assessment Advance Directives? Yes History Provided By Patient,Family Member,Medical Record Household Members spouse Is patient alert and oriented? Yes White-board Updated in Patient Room with Yes name and ext. # of Real Estate Sales Associate Review Status In Process
[2020-10-27] MEDS: DOCUSATE 100 MG CAPSULE PO (17:06)
[2020-10-27 17:29] LABS: Hematocrit 30.6 % (41-53)
[2020-10-27 21:48] LABS: Hematocrit 29.7 % (41-53); Hemoglobin 9.4 g/dL (13.5-17.5)
--- NOTE | 2020-10-27 22:51 | PC.NURSE ---
Shift change: Pt is resting in bed with relaxed posture and eyes closed. Pt is A&O to self, place. Pt is aware of situation but is forgetful of details. Compared to admission, pt's L foot has an improvement in ecchymosis and slight decrease in his pitting edema. No new seepage of blood noted around L leg DUKE wraps. Respirations are unlabored and even. 1600: Pt attempts to get out of bed and found sitting a the bedside. Pt educate on need for bed rest and minimal movement of post op leg. Pt uses urinal with 200cc output of dark yellow urine. Bed alarm is on and call light within reach. 1800: Pt ate entire dinner. Pain medications: tylenol PO 650mg, oxycodone 5mg PO at 1705. Morphine 2mg IV 184. Flexeril 10mg PO 1969. [id number]: Pt resting calmly watching tv or sleeping. 2200: Midline dressing changed per protocol, heparin flushed and caps changed. Pt remained in bed entire shift after the one event of sitting up at the bedside at 1600. Pt voids frequently in urinal through out shift with output ranging from 50-100cc. No BM. Pt pain easily controlled by ordered pain medications. Pt denied nausea, CP, SOB, dizziness through out shift.
[2020-10-28] MEDS: CEFAZOLIN 2 GM/100 ML FROZ.PIGGY IV ×3 (02:35→19:09)
[2020-10-28] MEDS: SODIUM CHLORIDE 0.9% FLUSH 10 ML IV ×4 (02:36→22:14)
[2020-10-28 04:13] VITALS: BP 126/66; PULSE 75; RESP 14; TEMP 36.6; O2SAT 97
[2020-10-28] MEDS: MORPHINE 2 MG/ML INJ IV ×3 (04:54→20:00)
[2020-10-28 05:03] LABS: Add Manual Diff / Slide Review NO; Basophils Absolute Auto 0 /uL (0-100); Basophils Percent Auto 0.5 % (0-2); Eosinophils Absolute Auto 200 /uL (0-450); Hematocrit 29.1 % (41-53); Hemoglobin 9.3 g/dL (13.5-17.5); Lymphocytes Absolute Auto 1200 /uL (1100-4500); Lymphocytes Percent Auto 18.6 % (25-40); Mean Corpuscular HGB Conc 31.9 % (30-36); Mean Corpuscular Hemoglobin 28.1 PG (26-34); Mean Corpuscular Volume 88.3 fL (80-100); Monocytes Absolute Auto 600 /uL (0-900); Monocytes Percent Auto 9.1 % (3-14); Neutrophils Absolute Auto 4200 /uL (1500-7000); Neutrophils Percent Auto 67.8 % (50-75); Platelet Count 118 X10^3/uL (150-400); Red Cell Distribution Width 16.8 % (11.6-14.8); White Blood Cell Count 6.2 X10^3/uL (4.5-11.0)
[2020-10-28 05:10] LABS: BUN Creatinine Ratio 19.1 (6-22); Blood Urea Nitrogen 18 mg/dL (9-20); Calcium 8.4 mg/dL (8.4-10.2); Carbon Dioxide 27 mmol/L (22-32); Chloride 103 mmol/L (98-107); Estimated Glomerular Filt Rate > 60.0 mL/min (>60); Glucose 105 mg/dL (80-110); HEMOLYSIS < 15 (0-50); Magnesium 1.9 mg/dL (1.6-2.3); Phosphorous 3.8 mg/dL (2.3-3.7); Potassium 4.1 mmol/L (3.4-5.1); Sodium 135 mmol/L (137-145)
--- NOTE | 2020-10-28 07:54 | PM.PN.1 ---
Subjective Subjective Date Patient Seen: 10/28/20 Time Patient Seen: 07:54 Interval history: Patient is awake and alert this morning. Does not seem to be largely confused like he was yesterday. Continues to have shooting pains into that left leg but really otherwise is doing okay. Per surgery holding off on wrapping the leg until and after time as a lapse that his Eliquis will have worn off completely. That should be sometime tomorrow. Blood counts this morning shows slight decrease as expected but not in a worrisome fashion. Chemistries unremarkable Vital signs have been stable Exam Vital Signs (past 8 hours): - 10/28/20 04:13 Temperature 97.8 F Pulse Rate 75 Respiratory Rate 14 Blood Pressure 126/66 Pulse Oximetry 97 Oxygen Delivery Method Room Air Oxygen Flow Rate 0 Objective Labs Result Diagrams: 10/28/20 04:50 10/28/20 04:50 Labs: Laboratory Results - last 24 hr 10/27/20 10/27/20 10/27/20 10:15 14:25 17:25 WBC RBC Hgb 10.8 L 9.8 L 10.0 L Hct 33.4 L 30.3 L 30.6 L MCV MCH MCHC RDW Plt Count Neut % (Auto) Lymph % (Auto) [place] % (Auto) Eos % (Auto) Baso % (Auto) Neut # (Auto) Lymph # (Auto) [place] # (Auto) Eos # (Auto) Baso # (Auto) Sodium Potassium Chloride Carbon Dioxide BUN Creatinine Estimated GFR BUN/Creatinine Ratio Glucose Calcium Phosphorus Magnesium 10/27/20 10/28/20 10/28/20 21:40 04:50 04:50 WBC 6.2 RBC 3.30 L Hgb 9.4 L 9.3 L Hct 29.7 L 29.1 L MCV 88.3 MCH 28.1 MCHC 31.9 RDW 16.8 H Plt Count 118 L Neut % (Auto) 67.8 Lymph % (Auto) 18.6 L [place] % (Auto) 9.1 Eos % (Auto) 4.0 Baso % (Auto) 0.5 Neut # (Auto) 4200 Lymph # (Auto) 1200 [place] # (Auto) 600 Eos # (Auto) 200 Baso # (Auto) 0 Sodium 135 L Potassium 4.1 Chloride 103 Carbon Dioxide 27 BUN 18 Creatinine 0.94 Estimated GFR > 60.0 BUN/Creatinine Ratio 19.1 Glucose 105 Calcium 8.4 Phosphorus 3.8 H Magnesium 1.9 PFSH Medical History AAA (abdominal aortic aneurysm) (~2013) Acquired anal stenosis Anxiety Aortic dilatation Haile's syndrome CAD (coronary artery disease) Cardiomyopathy Cataracts, bilateral CHF (congestive heart failure) Chronic back pain Chronic diastolic congestive heart failure Chronic renal failure, stage 3 (moderate) Colon polyps Deep vein thrombosis (~2013) Diverticular disease Former smoker Fractures Gout Hearing loss History of urinary incontinence HLD (hyperlipidemia) Hypertension Knee pain Lumbar spine pain Meningitis spinal Paroxysmal atrial fibrillation Peripheral edema Peripheral neuropathy Persistent atrial fibrillation Prostate cancer (~2007) Pulmonary embolism (~2013) Pulmonic valve insufficiency Rheumatoid arthritis Shoulder pain Skin cancer (~1989) Tricuspid insufficiency Urinary incontinence due to urethral sphincter incompetence Venous stasis dermatitis Surgical History History of abdominal aortic aneurysm repair History of hydrocelectomy Hx of hernia repair Hx of shoulder surgery S/P skin biopsy Social History household members: spouse Smoking Status: Former smoker Tobacco: How many years used: 20 alcohol intake: current Assessment & Plan Assessment & Plan narrative: 1. Left lower extremity-status post hematoma evacuation-continues to have leg wrapped. Amount of oozing seems to be less to me today than it was yesterday. Continues off anticoagulation and no further interventions for that leg unless required by increased bleeding etcetera until sometime tomorrow allowing time for Eliquis to fully leave system. 2. Acute blood loss anemia-patient's blood counts of slowly drifted down. Ideally would like to keep his hematocrit at 29-30. This would allow some margin for additional bleeding. However he is now off his anticoagulation 1 would think that we can achieve hemostasis and he is unlikely to have any large volume bleeding at this point. Continue to monitor for now with consideration of transfusion should blood counts fall further. 3. Chronic anticoagulation-as noted yesterday, it is my opinion that patient should remain off his Eliquis until this left lower extremity is substantially healed. Should be protected from pulmonary embolism by his IVC filter and his other indication for anticoagulation is is atrial fibrillation which in this setting is relatively low risk certainly lower than risk of further bleeding should he be reanticoagulated. 4. Chronic diastolic congestive heart failure-continue patient's Lasix for now. Will switch to oral dosing beginning today. 5. Atrial fibrillation-patient seems to have good rate control with current medications no changes. 6. Chronic renal failure-patient's numbers continue to be normal with low creatinine and BUN. Continue to monitor, especially as he processes the remainder of the blood products in his left lower extremity. Overall patient is stable. Needs further evaluation of the leg once we feel like it is safe given his anticoagulation status which will likely be tomorrow. Medical issues appear to be stable at this time. Patient can come off of ICU status at this point in my opinion and I have placed that order (made that transfer actually) Note: Greater than 30 minutes was spent evaluating the patient on the floor, including examining the patient, discussing clinical course with clinical and nursing staff, reviewing clinical course in the computer, preparing documentation and writing orders for continued management of care, discussing status with family as appropriate, reviewing plans for the next 24 hours with both patient/family and nursing staff as appropriate. Quality VTE Deep Vein Thrombosis/Pulmonary Embolism Present on Admission: Yes
[2020-10-28 08:30] VITALS: BP 129/66; PULSE 82; RESP 20; TEMP 36.9; O2SAT 96
[2020-10-28] MEDS: POTASSIUM CHLORIDE 20 MEQ TAB PO ×2 (09:06→22:14)
[2020-10-28] MEDS: calcium polycarbophiL 625 MG TABLET 1250 MG PO (09:06)
[2020-10-28] MEDS: FINASTERIDE 5 MG TABLET PO (09:06)
[2020-10-28] MEDS: SENNOSIDES 8.6 MG TABLET 17.2 MG PO (09:07)
[2020-10-28] MEDS: ACETAMINOPHEN 325 MG TABLET 650 MG PO (09:07)
[2020-10-28] MEDS: ATORVASTATIN 20 MG TABLET 10 MG PO (09:07)
[2020-10-28] MEDS: FUROSEMIDE 40 MG TABLET PO (09:07)
[2020-10-28] MEDS: CYCLOBENZAPRINE 10 MG TABLET PO (09:15)
[2020-10-28] MEDS: OXYCODONE IR 5 MG TABLET PO ×2 (10:16→22:13)
[2020-10-28 12:49] VITALS: BP 142/72; PULSE 63; RESP 20; TEMP 37.1; O2SAT 97
[2020-10-28 16:00] VITALS: BP 118/58; PULSE 74; RESP 18; TEMP 36.3; O2SAT 99
[2020-10-28 19:30] VITALS: BP 122/60; PULSE 73; RESP 18; TEMP 36.5; O2SAT 99
--- NOTE | 2020-10-28 20:35 | P.PN_ITS ---
Subjective Subjective Date Patient Seen: 10/28/20 Time Patient Seen: 20:35 Interval history: Patient is a gentleman post exploration of a hematoma on his calf. Having severe pain in that leg. touching it causes a great deal of discomfort to him. This may not be new however. Exam Vital Signs (past 8 hours): - 10/28/20 12:49 10/28/20 16:00 10/28/20 19:30 Temperature 98.7 F 97.4 F L 97.7 F Pulse Rate 63 74 73 Respiratory Rate 20 18 18 Blood Pressure 142/72 H 118/58 L 122/60 Pulse Oximetry 97 99 99 Oxygen Delivery Method Room Air Oxygen Flow Rate 0 Narrative Exam Narrative: I removed all the dressings. there is very little edema in the leg right now but the skin is not normal in appearance either due to compression. I removed the packing and there is no ongoing bleeding from the wound that was explored. There is an ulcer in the center of the calf and I do not know if this was present preop or postop. The area where presumptively the hematoma was is discolored and I can't tell if the skin is viable in that area or not. The discoloring looks more like bruising then tissue but the skin is not exactly normal in appearance and there is still some a edema in the folds of the skin in that area. I gently cleansed the entire leg with chlorhexidine scrub and rinsed it with water. I applied Silvadene cream to the ulcer in the middle of the calf and also to the open wound which had been packed. I reapplied Mono wraps but not as tight as the those that had been on to control the bleeding that had ensued and lead to the exploration. The patient's leg was elevated above his heart. Objective Labs Result Diagrams: 10/28/20 04:50 10/28/20 04:50 Labs: Laboratory Results - last 24 hr 10/27/20 10/28/20 10/28/20 21:40 04:50 04:50 WBC 6.2 RBC 3.30 L Hgb 9.4 L 9.3 L Hct 29.7 L 29.1 L MCV 88.3 MCH 28.1 MCHC 31.9 RDW 16.8 H Plt Count 118 L Neut % (Auto) 67.8 Lymph % (Auto) 18.6 L [place] % (Auto) 9.1 Eos % (Auto) 4.0 Baso % (Auto) 0.5 Neut # (Auto) 4200 Lymph # (Auto) 1200 [place] # (Auto) 600 Eos # (Auto) 200 Baso # (Auto) 0 Sodium 135 L Potassium 4.1 Chloride 103 Carbon Dioxide 27 BUN 18 Creatinine 0.94 Estimated GFR > 60.0 BUN/Creatinine Ratio 19.1 Glucose 105 Calcium 8.4 Phosphorus 3.8 H Magnesium 1.9 PFSH Medical History AAA (abdominal aortic aneurysm) (~2013) Acquired anal stenosis Anxiety Aortic dilatation Haile's syndrome CAD (coronary artery disease) Cardiomyopathy Cataracts, bilateral CHF (congestive heart failure) Chronic back pain Chronic diastolic congestive heart failure Chronic renal failure, stage 3 (moderate) Colon polyps Deep vein thrombosis (~2013) Diverticular disease Former smoker Fractures Gout Hearing loss History of urinary incontinence HLD (hyperlipidemia) Hypertension Knee pain Lumbar spine pain Meningitis spinal Paroxysmal atrial fibrillation Peripheral edema Peripheral neuropathy Persistent atrial fibrillation Prostate cancer (~2007) Pulmonary embolism (~2013) Pulmonic valve insufficiency Rheumatoid arthritis Shoulder pain Skin cancer (~1989) Tricuspid insufficiency Urinary incontinence due to urethral sphincter incompetence Venous stasis dermatitis Surgical History History of abdominal aortic aneurysm repair History of hydrocelectomy Hx of hernia repair Hx of shoulder surgery S/P skin biopsy Social History household members: spouse Smoking Status: Former smoker Tobacco: How many years used: 20 alcohol intake: current Assessment & Plan Post-op Postoperative Procedures: Procedures Operation Date: 10/26/20 18:30 Actual Procedures Side Surgeon p evacuate hematoma left calf Left Maribell Madrigal MD Postoperative status narrative: Wound actually looks pretty good. There is some questionable areas of skin that are discolored that may just be due to blood staining rather than tissue necrosis. These will have to be evaluated over the next several days. Postoperative plan narrative: Silvadene dressing daily. Will probably have to be done at least initially in the presence of the physician. Continue IV an tibiotics at this time based on the appearance of the wound at present. Time Spent With Patient Time with patient: 15-24 minutes Quality VTE Deep Vein Thrombosis/Pulmonary Embolism Present on Admission: Yes
--- NOTE | 2020-10-28 22:51 | PC.NURSE ---
dressing changed by Dr. Arora - packing removed, wound washed, telfa and silvedene placed on open wound. ABD pads and loose kerlix +gauze applied. Pt stable, other than dressing change no changes in status.
[2020-10-29] VITALS (7 sets, daily range): BP systolic 121–153; BP diastolic 62–97; PULSE 75–82; RESP 16–18; TEMP 35.9–38.1; O2SAT 96–100
[2020-10-29] MEDS: CEFAZOLIN 2 GM/100 ML FROZ.PIGGY IV ×3 (02:37→18:13)
[2020-10-29] MEDS: SODIUM CHLORIDE 0.9% FLUSH 10 ML IV ×4 (02:37→20:14)
[2020-10-29 05:54] LABS: Add Manual Diff / Slide Review NO; Basophils Absolute Auto 100 /uL (0-100); Basophils Percent Auto 0.9 % (0-2); Eosinophils Absolute Auto 200 /uL (0-450); Eosinophils Percent Auto 3.1 % (2-4); Hematocrit 28.3 % (41-53); Hemoglobin 9.1 g/dL (13.5-17.5); Lymphocytes Absolute Auto 1200 /uL (1100-4500); Lymphocytes Percent Auto 21.3 % (25-40); Mean Corpuscular HGB Conc 32.3 % (30-36); Mean Corpuscular Hemoglobin 28.2 PG (26-34); Mean Corpuscular Volume 87.4 fL (80-100); Monocytes Absolute Auto 600 /uL (0-900); Monocytes Percent Auto 10.3 % (3-14); Neutrophils Absolute Auto 3800 /uL (1500-7000); Neutrophils Percent Auto 64.4 % (50-75); Platelet Count 112 X10^3/uL (150-400); Red Blood Cell Count 3.24 X10^6/uL (4.5-5.9); Red Cell Distribution Width 15.8 % (11.6-14.8); White Blood Cell Count 5.9 X10^3/uL (4.5-11.0)
[2020-10-29 06:03] LABS: BUN Creatinine Ratio 15.5 (6-22); Blood Urea Nitrogen 15 mg/dL (9-20); Calcium 8.5 mg/dL (8.4-10.2); Carbon Dioxide 28 mmol/L (22-32); Chloride 101 mmol/L (98-107); Estimated Glomerular Filt Rate > 60.0 mL/min (>60); Glucose 108 mg/dL (80-110); HEMOLYSIS < 15 (0-50); Magnesium 1.9 mg/dL (1.6-2.3); Phosphorous 3.4 mg/dL (2.3-3.7); Potassium 4.1 mmol/L (3.4-5.1); Sodium 134 mmol/L (137-145)
--- NOTE | 2020-10-29 06:31 | PC.NURSE ---
Child Caregiver Private Home Note-Patient slept with LLE elevated on pillows, willow wrap CDI, toes are erythemic and numb with < 2sec cap refill, has known neuropathy. Moans and grimaces during movement, but declines need for analgesics. VSS.
[2020-10-29] MEDS: ATORVASTATIN 20 MG TABLET 10 MG PO (08:39)
[2020-10-29] MEDS: POTASSIUM CHLORIDE 20 MEQ TAB PO ×2 (08:40→20:14)
[2020-10-29] MEDS: FUROSEMIDE 40 MG TABLET PO (08:40)
[2020-10-29] MEDS: SENNOSIDES 8.6 MG TABLET 17.2 MG PO (08:40)
[2020-10-29] MEDS: FINASTERIDE 5 MG TABLET PO (08:40)
[2020-10-29] MEDS: SILVER SULFADIAZINE 1% CREAM 25 GM 1 APPLIC TOP (08:41)
[2020-10-29] MEDS: OXYCODONE IR 5 MG TABLET PO (08:56)
--- NOTE | 2020-10-29 08:56 | P.PN_ITS ---
Subjective Subjective Date Patient Seen: 10/29/20 Time Patient Seen: 08:56 Interval history: Pt c/o severe pain with wound care last night. Says leg is feeling ok right now. Exam Vital Signs (past 8 hours): Oxygen Delivery Method Room Air Oxygen Flow Rate 0 Narrative Exam Narrative: GENERAL: Alert , comfortable. Appears younger than stated age. Answers questions promptly and appropriately. Vital signs noted. HENT: Normocephalic, atraumatic. hard of hearing. EYES: Conjunctiva pink, sclera white, no periorbital swelling. CARDIOVASCULAR: Regular rate. chronic bilateral lower extremity edema with venous stasis changes RESPIRATORY: Non tachypneic, breathing comfortably and satting well on room air GASTROINTESTINAL: Abdomen soft and non-distended GENITALURINARY: No flank tenderness. MUSCULOSKELETAL: Left lower leg is wrapped with an Mono wrap, and toes are warm and mildly discolored due to venous stasis changes and congestion; dressings removed during exam. There are areas of the wound which are exquisitely tender. Patient could not tolerate very much examination of the wound. On the posterior calf there is a 20 cm x 20 cm area of discoloration, and fluctuance, consistent with the area of skin which was from the underlying muscle and fascia due to the presence of the large hematoma which was evacuated SKIN: extensive venous stasis changes in the lower extremities NEURO: Alert and Oriented X 3. No gross sensory deficits, or cognitive issues. PSYCH: Appropriate affect and mood. Objective Labs Result Diagrams: 10/29/20 05:30 10/29/20 05:30 Labs: Laboratory Results - last 24 hr 10/29/20 10/29/20 05:30 05:30 WBC 5.9 RBC 3.24 L Hgb 9.1 L Hct 28.3 L MCV 87.4 MCH 28.2 MCHC 32.3 RDW 15.8 H Plt Count 112 L Neut % (Auto) 64.4 Lymph % (Auto) 21.3 L [place] % (Auto) 10.3 Eos % (Auto) 3.1 Baso % (Auto) 0.9 Neut # (Auto) 3800 Lymph # (Auto) 1200 [place] # (Auto) 600 Eos # (Auto) 200 Baso # (Auto) 100 Sodium 134 L Potassium 4.1 Chloride 101 Carbon Dioxide 28 BUN 15 Creatinine 0.97 Estimated GFR > 60.0 BUN/Creatinine Ratio 15.5 Glucose 108 Calcium 8.5 Phosphorus 3.4 Magnesium 1.9 PFS Medical History AAA (abdominal aortic aneurysm) (~2013) Acquired anal stenosis Anxiety Aortic dilatation Haile's syndrome CAD (coronary artery disease) Cardiomyopathy Cataracts, bilateral CHF (congestive heart failure) Chronic back pain Chronic diastolic congestive heart failure Chronic renal failure, stage 3 (moderate) Colon polyps Deep vein thrombosis (~2013) Diverticular disease Former smoker Fractures Gout Hearing loss History of urinary incontinence HLD (hyperlipidemia) Hypertension Knee pain Lumbar spine pain Meningitis spinal Paroxysmal atrial fibrillation Peripheral edema Peripheral neuropathy Persistent atrial fibrillation Prostate cancer (~2007) Pulmonary embolism (~2013) Pulmonic valve insufficiency Rheumatoid arthritis Shoulder pain Skin cancer (~1989) Tricuspid insufficiency Urinary incontinence due to urethral sphincter incompetence Venous stasis dermatitis Surgical History History of abdominal aortic aneurysm repair History of hydrocelectomy Hx of hernia repair Hx of shoulder surgery S/P skin biopsy Social History household members: spouse Smoking Status: Former smoker Tobacco: How many years used: 20 alcohol intake: current Assessment & Plan Assessment and plan (1) Persistent atrial fibrillation: Status: Chronic (2) Cardiomyopathy: Problem details: EF 50% 01/2020 Qualifiers: Cardiomyopathy type: ischemic Qualified Code(s): I25.5 - Ischemic c ardiomyopathy Status: Chronic (3) Chronic diastolic congestive heart failure: Status: Chronic (4) Chronic renal failure, stage 3 (moderate): Qualifiers: Chronic kidney disease stage 3 subtype: stage 3b (GFR 30-44) Qualified Code(s): N18.32 - Chronic kidney disease, stage 3b Status: Chronic (5) Peripheral edema: Status: Chronic (6) Post-op bleeding: Qualifiers: Procedure type: musculoskeletal Surgical complication system/body Area: musculoskeletal system Qualified Code(s): M96.830 - Postprocedural hemorrhage of a musculoskeletal structure following a musculoskeletal system procedure Status: Acute (7) Peripheral neuropathy: Qualifiers: Peripheral neuropathy type: polyneuropathy, other Qualified Code(s): G62.89 - Other specified polyneuropathies Status: Chronic (8) Anticoagulated by anticoagulation treatment: Status: Acute Assessment & Plan narrative: This is an 85-year-old man with complex medical and surgical history, who came into the ER last night with a tense and exquisitely painful hematoma in his left lower leg. Earlier during the day yesterday he had debridement by wound care which resulted in some bleeding and a trip to the ER. A suture was placed in the skin by the ER doctor. After returning home from the ER, he came back in with an expanding hematoma in his left calf causing him severe pain. He was not able tolerate an exam or any bedside wound care due to his exquisite pain. In the OR, and about 3 units of blood and clots were evacuated from a large open space between his subcutaneous tissue and muscle in the left calf. Overnight he had some oozing, and an expected drop in his hemoglobin. He remained hemodynamically stable, and pain was reasonably well controlled. Although the hematoma was evacuated, hemostasis was not achieved in the OR due to anticoagulation. His bleeding is medical bleeding at this point, and is not expected to resolve until his anticoagulation has been reversed. Because of his clotting history K centra was not given. The dressing was taken down by Dr. Arora on 10/28, which was apparently quite painful for the patient. I took the dressing down again today, and could not really get a good assessment of the wound due to the patient's pain. It does not appear to be grossly necrotic, but there are areas that appear to be self demarcating. I suggest that we do a dressing change in the operating room in about 48 hours, which will give the skin a chance to declare itself, we will be able to get a better assessment of the entire wound, and what will be viable. If he has a significant area of necrosis, he may need to transfer for plastic surgery intervention/burn consult. This will be determined when we get a good look at the wound in the OR. I would plan on doing that Saturday most likely to give us the best chance of getting a good idea of what is going on with the wound PE Plan: hold anticoagulation continue daily wound care and wound surveillance Okay to be out of bed, with toe-touch only on the left leg COVID-19 COVID-19 status: Result pending Result date/Date tested (Pos, Neg/Pending): 10/26/20 Time Spent With Patient Time with patient: 25 - 35 minutes Quality VTE Deep Vein Thrombosis/Pulmonary Embolism Present on Admission: Yes
[2020-10-29] MEDS: MORPHINE 4 MG/ML INJ IV (09:02)
--- NOTE | 2020-10-29 09:28 | P.PN_ITS ---
Subjective Subjective Date Patient Seen: 10/29/20 Time Patient Seen: 09:28 Interval history: Pt reports he is doing ok and denies pain as long as his leg is not being moved. Not much appetite but keeping liquids down. Urinating with difficulty due to the leg, having occasional spasms. Feels need to defecate but nothing came out when put on the bedpan. Exam Vital Signs (past 8 hours): - 10/29/20 08:00 Temperature 98.4 F Pulse Rate 75 Respiratory Rate 18 Blood Pressure 153/80 H Pulse Oximetry 100 Oxygen Delivery Method Room Air Oxygen Flow Rate 0 Narrative Exam Narrative: alert elder in no discomfort as long as his leg is not moved Const General: cooperative, healthy appearing, comfortable and well developed Resp Effort & Inspection: normal respiratory effort and able to speak in complete sentences Auscultation: clear to auscultation bilaterally Cardio Rate: regular rate Rhythm: abnormal rhythm Heart Sounds: S1 normal and S2 normal GI Palpation: soft Auscultation: normal bowel sounds Neuro General: patient alert, patient awake and patient oriented x3 Speech: speech normal Sensory Exam: no sensory deficits noted Extrem Other: LLE in dressing wrap, distal NV intact, minimal blood soaking through Psych Appearance: grossly normal Mental Status: mental status grossly normal Speech and Movement: speech and movement normal Mood: congruent mood Affect: normal affect Objective Labs Result Diagrams: 10/29/20 05:30 10/29/20 05:30 Labs: Laboratory Results - last 24 hr 10/29/20 10/29/20 05:30 05:30 WBC 5.9 RBC 3.24 L Hgb 9.1 L Hct 28.3 L MCV 87.4 MCH 28.2 MCHC 32.3 RDW 15.8 H Plt Count 112 L Neut % (Auto) 64.4 Lymph % (Auto) 21.3 L [place] % (Auto) 10.3 Eos % (Auto) 3.1 Baso % (Auto) 0.9 Neut # (Auto) 3800 Lymph # (Auto) 1200 [place] # (Auto) 600 Eos # (Auto) 200 Baso # (Auto) 100 Sodium 134 L Potassium 4.1 Chloride 101 Carbon Dioxide 28 BUN 15 Creatinine 0.97 Estimated GFR > 60.0 BUN/Creatinine Ratio 15.5 Glucose 108 Calcium 8.5 Phosphorus 3.4 Magnesium 1.9 [facility] Medical History AAA (abdominal aortic aneurysm) (~2013) Acquired anal stenosis Anxiety Aortic dilatation Haile's syndrome CAD (coronary artery disease) Cardiomyopathy Cataracts, bilateral CHF (congestive heart failure) Chronic back pain Chronic diastolic congestive heart failure Chronic renal failure, stage 3 (moderate) Colon polyps Deep vein thrombosis (~2013) Diverticular disease Former smoker Fractures Gout Hearing loss History of urinary incontinence HLD (hyperlipidemia) Hypertension Knee pain Lumbar spine pain Meningitis spinal Paroxysmal atrial fibrillation Peripheral edema Peripheral neuropathy Persistent atrial fibrillation Prostate cancer (~2007) Pulmonary embolism (~2013) Pulmonic valve insufficiency Rheumatoid arthritis Shoulder pain Skin cancer (~1989) Tricuspid insufficiency Urinary incontinence due to urethral sphincter incompetence Venous stasis dermatitis Surgical History History of abdominal aortic aneurysm repair History of hydrocelectomy Hx of hernia repair Hx of shoulder surgery S/P skin biopsy Social History household members: spouse Smoking Status: Former smoker Tobacco: How many years used: 20 alcohol intake: current Assessment & Plan Assessment & Plan narrative: #LLE wound s/p hematoma evacuation Dressing examined by Dr. Madrigal this morning, she is planning a full dressing change in the OR on Saturday. Not much oozing, Hgb remaining essentially stable today, continue to trend. #acute blood loss anemia HGB holding steady, continue to trend. Monitor for signs of increased bleeding. #chronic anticoagulation d/t afib/PE hx #IVC filter in place concur with continuing to hold anticoagulants, IVC filter in place, risk of s troke < risk of bleed at present, appreciate surgical notes. #atrial fibrillation rate controlled, holding anticoagulants #diastolic CHF continue PO lasix #hx of chronic renal failure creatinine and GFR wnl. Continue to trend. #constipation adding dulcolax, encourage moving around, maybe sitting on commode will help. code: full diet: as tolerated activity: toe touch LLE as tolerated, try to sit up in chair today Quality VTE Deep Vein Thrombosis/Pulmonary Embolism Present on Admission: Yes
[2020-10-29] MEDS: DOCUSATE 100 MG CAPSULE 200 MG PO (11:44)
--- NOTE | 2020-10-29 12:00 | PT.IIE ---
Current Diagnoses Other specified polyneuropathies (10/26/20) Ischemic cardiomyopathy (10/26/20) Other persistent atrial fibrillation (10/26/20) Chronic diastolic (congestive) heart failure (10/26/20) Postprocedural hemorrhage of skin and subcutaneous tissue following other procedure (10/26/20) Postprocedural hemorrhage of a musculoskeletal structure following a musculoskeletal system procedure (10/26/20) Chronic kidney disease, stage 3b (10/26/20) Edema, unspecified (10/26/20) technician terminal and repeater (current) use of anticoagulants (10/26/20) Surgery Performed Operation Date: 10/26/20 18:30 Actual Procedures p evacuate hematoma left calf(Left) - Maribell Madrigal MD Surgical History (Last Reviewed 10/29/20 @ 08:57 by Maribell Madrigal MD) History of abdominal aortic aneurysm repair History of hydrocelectomy Hx of hernia repair Hx of shoulder surgery S/P skin biopsy Medical History (Last Reviewed 10/29/20 @ 08:57 by Maribell Madrigal MD) AAA (abdominal aortic aneurysm) (~2013) Acquired anal stenosis Anxiety Aortic dilatation Haile's syndrome CAD (coronary artery disease) Cardiomyopathy Cataracts, bilateral CHF (congestive heart failure) Chronic back pain Chronic diastolic congestive heart failure Chronic renal failure, stage 3 (moderate) Colon polyps Deep vein thrombosis (~2013) Diverticular disease Former smoker Fractures Gout Hearing loss History of urinary incontinence HLD (hyperlipidemia) Hypertension Knee pain Lumbar spine pain Meningitis spinal Paroxysmal atrial fibrillation Peripheral edema Peripheral neuropathy Persistent atrial fibrillation Prostate cancer (~2007) Pulmonary embolism (~2013) Pulmonic valve insufficiency Rheumatoid arthritis Shoulder pain Skin cancer (~1989) Tricuspid insufficiency Urinary incontinence due to urethral sphincter incompetence Venous stasis dermatitis Physical Therapy Inpatient Evaluation/Re-Eval M1 PT/OT-IP Prior Functional Status Start: 10/29/20 15:32 Freq: NEEDED Status: Active Protocol: Document 10/29/20 12:00 AB (Rec: 10/29/20 16:00 AB [id number]) Medical Review Prior Functional Status Medical History Reviewed Yes Communication able to make needs known Mobility and Gait pt stated that he is independent with all mobilities and ambulation without AD Social History Household Members spouse Living Arrangements House Number of Floors (Floors) One Floor Number of Stairs To Enter/Railing? 2 steps with R grab bar by the door Home Environment High Toilet,Walk in Shower, Built-In Shower Seat Home Equipment Front Wheel Walker,Straight Cane,Hand Held Shower,Grab Bars In Shower Additional Social History Comment pt stated that spouse will not be able to provide assistance has an adjustable bed without rails M2 PT-IP Current Condition Start: 10/29/20 15:32 Freq: NEEDED Status: Active Protocol: Document 10/29/20 12:00 AB (Rec: 10/29/20 16:00 AB [id number]) Physical Therapy Current Condition Current Condition Evaluation Date 10/29/20 Treatment Diagnosis LLE hematoma s/p evacuation; difficulty in walking Onset Date 10/26/20 Weight Bearing Status Allowed Weight Bearing Amount (enter % TTWB LLE or #) (%) M3 PT-IP Subjective Start: 10/29/20 15:32 Freq: NEEDED Status: Active Protocol: Document 10/29/20 12:00 AB (Rec: 10/29/20 16:00 AB [id number]) Subjective Physical Therapy Visit Type Type Initial Evaluation Visit Start Time 12:00 Visit Stop Time 12:31 Total Visit Minutes 31 Notes informed pt regarding PT and pt is concerned stated that he thought he is not supposed to get out of bed. informed pt regarding doctor's updated order : Okay to be out of bed , with toe-touch only on the left leg. pt agreed to do PT Number of ORNAMENTAL METAL FABRICATOR APPRENTICE Visits 0 Physical Therapy Visit Comments Patient Comments pt is agreeable to do PT Therapy Pain Assessment Pain When Pain Assessed During Mobility Location Left Leg Scale Used pain scale not stated Pain Behaviors Guarding,Wincing Pain Management Techniques Distraction,Modification of Treatment,Re-positioning, Timing of Activity with Medications M4 PT-IP Mobility and Gait Start: 10/29/20 15:32 Freq: NEEDED Status: Active Protocol: Document 10/29/20 12:00 AB (Rec: 10/29/20 16:00 AB [id number]) PT-Bed Mobility Assessment Supine to Sit Supine to Sit Standby Assistance,Head of Bed Elevated,Bedrails Sit to Supine Sit to Supine Standby Assistance PT-Transfer Assessment Sit to and From Stand Sit to and from Stand Moderate Assistance,Maximum Assistance,1 Person Assistance ,Use of Upper Extremities Equipment Transfer Assistive Device Gait Belt,Front Wheeled Walker Orthotic/Prosthetic Devices or Brace: Yes Comments Mobility Comments educated pt on weight bearing restriction and limitation for TTWB and if not sure of weight, to be conservative do NWB and pt agreed. pt completed supine to sit SBA. used bed rail and had HOB elevated up. pt was able to sit on EOB CGA. pt prefers to move LLE by himself due to c/ o pain but have to adjust bed to be able to complete task. pt requested to use the urinal . completed sit to stand mod to max A with bed elevated up. pt required mod to max A to maintain standing balance using FWW and cued for NWB on LLE. NAC asssited pt with use of urinal. intructed pt to take a step using FWW NWB on LLE. pt attempted but unable. instructed to pivot towards HOB and completed with max A but unable to complete and stated that he will scoot seated to get to HOB. refused to sit up on chair. stated that chair is too low and he will not be able to get up from there. scooted towards HOB SBA before laying back in bed and used bed rail to assist. completed sit to supine SBA use of bed rail. positioned in bed. call light and table placed within reach. Gait Assessment Comments Gait Comments unable PT-Balance Assessment Sitting Balance and Reactions Static Sitting Balance Ability Good Dynamic Sitting Balance Ability Good Standing Balance and Reactions Static Standing Balance Ability Poor Dynamic Standing Balance Ability Poor Device Used FWW M5 PT-IP Objective Assessments Start: 10/29/20 15:32 Freq: NEEDED Status: Active Protocol: Document 10/29/20 12:00 AB (Rec: 10/29/20 16:00 AB [id number]) Orientation Orientation/Cognition Level of Alertness Alert Orientation Name,Place,Situation Language Function Ability No Deficits Noted Safety Awareness Understands Safety Issues Memory Description No Deficits Noted Strength Lower Extremity Strength Assessment Left Impaired Hip 3+/5 Knee 3+/5 Ankle n/t Muscle Tone Muscle Tone WNL Yes M6 PT-IP Treatment Start: 10/29/20 15:32 Freq: NEEDED Status: Active Protocol: Document 10/29/20 12:00 AB (Rec: 10/29/20 16:00 AB [id number]) Physical Therapy Treatment Education Education Provided Weight Bearing Status,Safety M7 PT-IP Assessment and Plan Start: 03/27/21 15:32 Freq: NEEDED Status: Active Protocol: Document 10/29/20 12:00 AB (Rec: 10/29/20 16:00 AB [id number]) PT Summary Assessment and Plan Potential Rehabilitation Potential Fair Status of Condition at Evaluation Evolving Summary Impairments Pain,ROM,Strength,Balance, Coordination,Sensation,Bed Mobility,Transfers,Gait, Activity Tolerance Assessment Summary pt unable to transfer and refuse to sit up on chair but was able to stand mod to max A on a high bed. will require more assistance on a regular surface. pt stated that spouse will not be able to assist him. d/c plan depending on progress. pt will need to be stronger and more independent that current level and also weight bearing restriction is affecting mobility and is currently NWB/ TTWB on LLE. pt will require SNF rehab at this time. will continue to assess progress. Goals Bed Mobility Goal Independent Transfer Goal Minimal Assistance,Front Wheeled Walker Gait Goal Minimal Assistance,Front Wheel Walker Gait Distance 25 Other Goals improve transfer using FWW to SBA and ambulation to CGA using FWW 50 ft Days to Meet Goals 10 Frequency of Treatment Frequency Of Treatment Once a Day Treatment Plan Physical Therapy Treatment Plan Bed Mobility Training,Transfer Training,Gait Training, Therapeutic Exercise,Balance Retraining,Post Op Education, Discharge Planning,Hot or Cold Pack,Neuromuscular Re-ed, Coordination Retraining,Manual Therapy Precautions Other Precautions LLE TTWB Recommendations To Nursing Amount of Assist Needed Mechanical Lift Discharge Recommendations PT Discharge Recommendations SNF Rehab Transportation Needs at Discharge Wheelchair/Cabulance,Stretcher /Ambulance
--- NOTE | 2020-10-29 13:28 | PC.NURSE ---
Day Shift Note Dressing change to LLE done by Dr. Madrigal this morning. Premedicated with oxycodone and morphine IV per emar. Silvadene applied, telfa, and ABD pad. Wrapped with DUKE bandage. Pt tolerated well. Pt ok to toe touch weight bear per MD, pt declined to get up to chair due to pain. Educated on pain medications and reason to use but declines any further pain meds at this time. Leg elevated on pillow, CMS is intact.
--- NOTE | 2020-10-29 15:48 | CM.DPC ---
DCP cONT: It is noted that patient most likely will go back to the OR, for his wound. If the area is necrotic, then he could possibly be transferred to higher level hospital with vascular surgeons. Patient has been going to the wound clinic prior to hospitalization, and was sent over to the hospital due to excessive bleeding with clots. P: DCP will continue to follow closely for needs. At this time, he is unable to work with P.T. due to his wound. Meredith Walls RN/Internet And E Business Project Manager
[2020-10-29] MEDS: ACETAMINOPHEN 325 MG TABLET 650 MG PO (20:13)
--- NOTE | 2020-10-29 22:29 | PC.NURSE ---
Pt has declined pain medication this shift, states that discomfort is mild and tolerable. L leg elevated, pulses palpable, dressing dry and intact. Tmax this shift 100.6F, Tylenol given with good effect.
[2020-10-30] MEDS: OXYCODONE IR 5 MG TABLET PO ×2 (00:20→23:41)
[2020-10-30 00:31] VITALS: BP 155/90; PULSE 85; RESP 16; TEMP 36.3; O2SAT 99
[2020-10-30] MEDS: CEFAZOLIN 2 GM/100 ML FROZ.PIGGY IV ×3 (02:37→18:50)
[2020-10-30 04:51] VITALS: BP 123/66; PULSE 75; RESP 16; TEMP 36.7; O2SAT 94
--- NOTE | 2020-10-30 06:36 | PC.NURSE ---
Manager Data Note-2 person assist to BSC with minimal toe-touch to Lt leg, willow wrap remains CDI. No BM, passing lots of flatus. Medicated for pain with oxycodone per prn order. VSS.
[2020-10-30 08:00] VITALS: BP 156/72; PULSE 86; RESP 18; TEMP 37.1; O2SAT 100
[2020-10-30] MEDS: ATORVASTATIN 20 MG TABLET 10 MG PO (08:23)
[2020-10-30] MEDS: SENNOSIDES 8.6 MG TABLET 17.2 MG PO (08:23)
[2020-10-30] MEDS: FUROSEMIDE 40 MG TABLET PO (08:23)
[2020-10-30] MEDS: FINASTERIDE 5 MG TABLET PO (08:24)
[2020-10-30] MEDS: POTASSIUM CHLORIDE 20 MEQ TAB PO ×2 (08:24→20:31)
[2020-10-30] MEDS: DOCUSATE 100 MG CAPSULE 200 MG PO (08:24)
[2020-10-30] MEDS: SODIUM CHLORIDE 0.9% FLUSH 10 ML IV ×2 (08:25→18:55)
--- NOTE | 2020-10-30 08:55 | P.PN_ITS ---
Subjective Subjective Date Patient Seen: 10/30/20 Time Patient Seen: 08:55 Interval history: No acute events overnight. Patient tolerated some PT, and sitting up at the bedside commode. Exam Vital Signs (past 8 hours): - 10/30/20 04:51 Temperature 98.0 F Pulse Rate 75 Respiratory Rate 16 Blood Pressure 123/66 Pulse Oximetry 94 Oxygen Delivery Method Room Air Oxygen Flow Rate 0 Narrative Exam Narrative: GENERAL: Alert , comfortable. Appears younger than stated age. Answers questions promptly and appropriately. Vital signs noted. HENT: Normocephalic, atraumatic. hard of hearing. EYES: Conjunctiva pink, sclera white, no periorbital swelling. CARDIOVASCULAR: Regular rate. chronic bilateral lower extremity edema with venous stasis changes RESPIRATORY: Non tachypneic, breathing comfortably and satting well on room air Extremities: Left lower leg wrap in place. Not removed during exam. SKIN: extensive venous stasis changes in the lower extremities NEURO: Alert and Oriented X 3. No gross sensory deficits, or cognitive issues. PSYCH: Appropriate affect and mood. Objective Labs Result Diagrams: 10/29/20 05:30 10/29/20 05:30 [facility] Medical History AAA (abdominal aortic aneurysm) (~2013) Acquired anal stenosis Anxiety Aortic dilatation Haile's syndrome CAD (coronary artery disease) Cardiomyopathy Cataracts, bilateral CHF (congestive heart failure) Chronic back pain Chronic diastolic congestive heart failure Chronic renal failure, stage 3 (moderate) Colon polyps Deep vein thrombosis (~2013) Diverticular disease Former smoker Fractures Gout Hearing loss History of urinary incontinence HLD (hyperlipidemia) Hypertension Knee pain Lumbar spine pain Meningitis spinal Paroxysmal atrial fibrillation Peripheral edema Peripheral neuropathy Persistent atrial fibrillation Prostate cancer (~2007) Pulmonary embolism (~2013) Pulmonic valve insufficiency Rheumatoid arthritis Shoulder pain Skin cancer (~1989) Tricuspid insufficiency Urinary incontinence due to urethral sphincter incompetence Venous stasis dermatitis Surgical History History of abdominal aortic aneurysm repair History of hydrocelectomy Hx of hernia repair Hx of shoulder surgery S/P skin biopsy Social History household members: spouse Smoking Status: Former smoker Tobacco: How many years used: 20 alcohol intake: current Assessment & Plan Assessment and plan (1) Persistent atrial fibrillation: Status: Chronic (2) Cardiomyopathy: Problem details: EF 50% 01/2020 Qualifiers: Cardiomyopathy type: ischemic Qualified Code(s): I25.5 - Ischemic cardiomyopathy Status: Chronic (3) Chronic diastolic congestive heart failure: Status: Chronic (4) Chronic renal failure, stage 3 (moderate): Qualifiers: Chronic kidney disease stage 3 subtype: stage 3b (GFR 30-44) Qualified Code(s): N18.32 - Chronic kidney disease, stage 3b Status: Chronic (5) Peripheral edema: Status: Chronic (6) Post-op bleeding: Qualifiers: Procedure type: musculoskeletal Surgical complication system/body Area: musculoskeletal system Qualified Code(s): M96.830 - Postprocedural hemorrhage of a musculoskeletal structure following a musculoskeletal system procedure Status: Acute (7) Peripheral neuropathy: Qualifiers: Peripheral neuropathy type: polyneuropathy, other Qualified Code(s): G62.89 - Other specified polyneuropathies Status: Chronic (8) Anticoagulated by anticoagulation treatment: Status: Acute Assessment & Plan narrative: This is an 85-year-old man with complex medical and surgical history, who came into the ER last night with a tense and exquisitely painful hematoma in his left lower leg. Earlier during the day yesterday he had debridement by wound care which resulted in some bleeding and a trip to the ER. A suture was placed in the skin by the ER doctor. After returning home from the ER, he came back in with an expanding hematoma in his left calf causing him severe pain. He was not able tolerate an exam or any bedside wound care due to his exquisite pain. In the OR, and about 3 units of blood and clots were evacuated from a large open space between his subcutaneous tissue and muscle in the left calf. Overnight he had some oozing, and an expected drop in his hemoglobin. He remained hemodynamically stable, and pain was reasonably well controlled. Although the hematoma was evacuated, hemostasis was not achieved in the OR due to anticoagulation. His bleeding is medical bleeding at this point, and is not expected to resolve until his anticoagulation has been reversed. Because of his clotting history K centra was not given. The dressing was taken down by Dr. Arora on 10/28, and by me on 10/29. The wound does not appear to be grossly necrotic, but there are areas that appear to be self demarcating. I suggest that we do a dressing change in the operating room on Saturday. If he has a significant area of necrosis, he may need to transfer for plastic surgery intervention/burn consult. I am adding him onto the OR schedule at 9AM. Plan: hold anticoagulation leave dressing in place today unless saturated Okay to be out of bed, with toe-touch only on the left leg Work with PT as tolerated NPO at midnight COVID-19 COVID-19 status: Result pending Result date/Date tested (Pos, Neg/Pending): 10/26/20 Time Spent With Patient Time with patient: 25 - 35 minutes Quality VTE Deep Vein Thrombosis/Pulmonary Embolism Present on Admission: Yes
--- NOTE | 2020-10-30 11:04 | PM.PN.1 ---
Subjective Subjective Date Patient Seen: 10/30/20 Time Patient Seen: 10:04 Interval history: Pt passed uneventful night. Feels ok today, no oozing from bandage. Appetite minimal, still no bwoel movement x5d. Got up a bit but moving slowly d/t leg. Pain controlled. Exam Vital Signs (past 8 hours): - 10/30/20 04:51 10/30/20 08:00 Temperature 98.0 F 98.7 F Pulse Rate 75 86 Respiratory Rate 16 18 Blood Pressure 123/66 156/72 H Pulse Oximetry 94 100 Oxygen Delivery Method Room Air Oxygen Flow Rate 0 Narrative Exam Narrative: older gentleman in bed watching tv Const General: cooperative, healthy appearing, comfortable and well developed Orientation: alert, awake and oriented x3 Resp Effort & Inspection: normal respiratory effort and able to speak in complete sentences Auscultation: clear to auscultation bilaterally Cardio Rate: regular rate Rhythm: abnormal rhythm irregularly irregular Heart Sounds: S1 normal and S2 normal Extrem Other: LLE in extension with clean willow wrap. Distal NV intact. No oozing or discharge. Psych Appearance: grossly normal Mental Status: mental status grossly normal Speech and Movement: speech and movement normal Mood: congruent mood Affect: normal affect Objective Labs Result Diagrams: 10/29/20 05:30 10/29/20 05:30 [facility] Medical History AAA (abdominal aortic aneurysm) (~2013) Acquired anal stenosis Anxiety Aortic dilatation Haile's syndrome CAD (coronary artery disease) Cardiomyopathy Cataracts, bilateral CHF (congestive heart failure) Chronic back pain Chronic diastolic congestive heart failure Chronic renal failure, stage 3 (moderate) Colon polyps Deep vein thrombosis (~2013) Diverticular disease Former smoker Fractures Gout Hearing loss History of urinary incontinence HLD (hyperlipidemia) Hypertension Knee pain Lumbar spine pain Meningitis spinal Paroxysmal atrial fibrillation Peripheral edema Peripheral neuropathy Persistent atrial fibrillation Prostate cancer (~2007) Pulmonary embolism (~2013) Pulmonic valve insufficiency Rheumatoid arthritis Shoulder pain Skin cancer (~1989) Tricuspid insufficiency Urinary incontinence due to urethral sphincter incompetence Venous stasis dermatitis Surgical History History of abdominal aortic aneurysm repair History of hydrocelectomy Hx of hernia repair Hx of shoulder surgery S/P skin biopsy Social History household members: spouse Smoking Status: Former smoker Tobacco: How many years used: 20 alcohol intake: current Assessment & Plan Assessment & Plan narrative: #LLE wound s/p hematoma evacuation Trending Hgb, pt on schedule tomorrow for OR for dressing change under anesthesia. Pain controlled, pt keeping it protected. Distal NV intact. #acute blood loss anemia HGB holding steady, continue to trend. Monitor for signs of increased bleeding. #chronic anticoagulation d/t afib/PE hx #IVC filter in place concur with continuing to hold anticoagulants, IVC filter in place. #atrial fibrillation rate controlled, holding anticoagulants as above, risk of stroke < risk of bleed at present #diastolic CHF stable, continue PO lasix #hx of chronic renal failure creatinine and GFR wnl, avoid unnecessary nephrotoxics. #constipation scheduling BM for today, appreciate nursing assistance code: full DVT ppx: ICDs and VCF diet: as tolerated activity: toe touch LLE as tolerated, try to sit up in chair as tolerated Quality VTE Deep Vein Thrombosis/Pulmonary Embolism Present on Admission: Yes
[2020-10-30 11:26] LABS: Hematocrit 30.1 % (41-53); Hemoglobin 9.7 g/dL (13.5-17.5); Mean Corpuscular HGB Conc 32.4 % (30-36); Mean Corpuscular Hemoglobin 28.2 PG (26-34); Mean Corpuscular Volume 87.1 fL (80-100); Platelet Count 151 X10^3/uL (150-400); Red Blood Cell Count 3.45 X10^6/uL (4.5-5.9); Red Cell Distribution Width 16.3 % (11.6-14.8); White Blood Cell Count 7.3 X10^3/uL (4.5-11.0)
[2020-10-30 12:00] VITALS: BP 130/64; PULSE 72; RESP 18; TEMP 37.4; O2SAT 98
--- NOTE | 2020-10-30 12:02 | PT-IP ANOTE ---
Pt refused PT in am. States he has been up with nursing x2.
[2020-10-30 15:43] VITALS: BP 125/73; PULSE 75; RESP 16; TEMP 36.6; O2SAT 99
[2020-10-30 20:47] VITALS: BP 125/66; PULSE 92; RESP 17; TEMP 36.8; O2SAT 97
[2020-10-31] VITALS (19 sets, daily range): BP systolic 118–172; BP diastolic 60–87; PULSE 62–111; RESP 12–23; TEMP 35.8–37.3; O2SAT 95–100; BMI 33.7
[2020-10-31] MEDS: CEFAZOLIN 2 GM/100 ML FROZ.PIGGY IV ×3 (03:22→18:16)
[2020-10-31] MEDS: MORPHINE 2 MG/ML INJ IV (03:27)
[2020-10-31 04:36] LABS: Add Manual Diff / Slide Review NO; Basophils Absolute Auto 0 /uL (0-100); Basophils Percent Auto 0.7 % (0-2); Eosinophils Absolute Auto 100 /uL (0-450); Eosinophils Percent Auto 2.2 % (2-4); Hematocrit 27.6 % (41-53); Lymphocytes Absolute Auto 900 /uL (1100-4500); Lymphocytes Percent Auto 13.2 % (25-40); Mean Corpuscular HGB Conc 32.5 % (30-36); Mean Corpuscular Hemoglobin 28.3 PG (26-34); Mean Corpuscular Volume 87.1 fL (80-100); Monocytes Absolute Auto 700 /uL (0-900); Monocytes Percent Auto 9.7 % (3-14); Neutrophils Absolute Auto 5000 /uL (1500-7000); Neutrophils Percent Auto 74.2 % (50-75); Platelet Count 142 X10^3/uL (150-400); Red Blood Cell Count 3.18 X10^6/uL (4.5-5.9); Red Cell Distribution Width 16.6 % (11.6-14.8); White Blood Cell Count 6.7 X10^3/uL (4.5-11.0)
[2020-10-31 04:43] LABS: BUN Creatinine Ratio 17.8 (6-22); Blood Urea Nitrogen 16 mg/dL (9-20); Calcium 8.4 mg/dL (8.4-10.2); Carbon Dioxide 28 mmol/L (22-32); Chloride 103 mmol/L (98-107); Estimated Glomerular Filt Rate > 60.0 mL/min (>60); Glucose 120 mg/dL (80-110); HEMOLYSIS < 15 (0-50); Potassium 3.8 mmol/L (3.4-5.1); Sodium 135 mmol/L (137-145)
--- NOTE | 2020-10-31 07:41 | PM.PN.1 ---
Subjective Subjective Date Patient Seen: 10/31/20 Time Patient Seen: 07:41 Interval history: Patient had uneventful weekend. Plan is for him to go back to the OR today for dressing change with possible debridement of any necrotic tissue and decision making regarding need for more specially care Still having lots of pain although perhaps minimally better than previous. Denies any other symptoms. Denies any real change in breathing orthopnea PND etcetera Lab work essentially unremarkable. Hemoglobin hematocrit basically stable with a tiny bit of up and down. Electrolytes renal function remained normal Exam Vital Signs (past 8 hours): - 10/31/20 00:09 10/31/20 03:38 Temperature 98.9 F 98.6 F Pulse Rate 93 H 84 Respiratory Rate 23 20 Blood Pressure 130/68 144/81 H Pulse Oximetry 97 95 Oxygen Delivery Method Room Air Oxygen Flow Rate 0 Objective Labs Result Diagrams: 10/31/20 04:27 10/31/20 04:27 Labs: Laboratory Results - last 24 hr 10/30/20 10/31/20 10/31/20 11:20 04:27 04:27 WBC 7.3 6.7 RBC 3.45 L 3.18 L Hgb 9.7 L 9.0 L Hct 30.1 L 27.6 L MCV 87.1 87.1 MCH 28.2 28.3 MCHC 32.4 32.5 RDW 16.3 H 16.6 H Plt Count 151 142 L Neut % (Auto) 74.2 Lymph % (Auto) 13.2 L [place] % (Auto) 9.7 Eos % (Auto) 2.2 Baso % (Auto) 0.7 Neut # (Auto) 5000 Lymph # (Auto) 900 L [place] # (Auto) 700 Eos # (Auto) 100 Baso # (Auto) 0 Sodium 135 L Potassium 3.8 Chloride 103 Carbon Dioxide 28 BUN 16 Creatinine 0.90 Estimated GFR > 60.0 BUN/Creatinine Ratio 17.8 Glucose 120 H Calcium 8.4 PFSH Medical History AAA (abdominal aortic aneurysm) (~2013) Acquired anal stenosis Anxiety Aortic dilatation Haile's syndrome CAD (coronary artery disease) Cardiomyopathy Cataracts, bilateral CHF (congestive heart failure) Chronic back pain Chronic diastolic congestive heart failure Chronic renal failure, stage 3 (moderate) Colon polyps Deep vein thrombosis (~2013) Diverticular disease Former smoker Fractures Gout Hearing loss History of urinary incontinence HLD (hyperlipidemia) Hypertension Knee pain Lumbar spine pain Meningitis spinal Paroxysmal atrial fibrillation Peripheral edema Peripheral neuropathy Persistent atrial fibrillation Prostate cancer (~2007) Pulmonary embolism (~2013) Pulmonic valve insufficiency Rheumatoid arthritis Shoulder pain Skin cancer (~1989) Tricuspid insufficiency Urinary incontinence due to urethral sphincter incompetence Venous stasis dermatitis Surgical History History of abdominal aortic aneurysm repair History of hydrocelectomy Hx of hernia repair Hx of shoulder surgery S/P skin biopsy Social History household members: spouse Smoking Status: Former smoker Tobacco: How many years used: 20 alcohol intake: current Assessment & Plan Assessment & Plan narrative: 1. Status post evacuation hematoma left leg-patient to return to OR for further evaluation today. Management as per General surgery. Currently has lab work ordered daily for the next several days, I would certainly want to check the CBC and BMP tomorrow after surgery but I think his findings at times surgery today will dictate whether not it makes sense to continue to do that. 2. Patient's other medical problems include his chronic renal failure is chronic congestive heart failure with preserved left ventricular function his persistent atrial fibrillation etcetera are all stable. Patient remain off any oral anticoagulation or parental anticoagulation of any sort until issues around his leg and bleeding have been more completely resolved. Note: Greater than 20 minutes was spent evaluating the patient on the floor, including examining the patient, discussing clinical course with clinical and nursing staff, reviewing clinical course in the computer, preparing documentation and writing orders for continued management of care, discussing status with family as appropriate, reviewing plans for the next 24 hours with both patient/family and nursing staff as appropriate. Quality VTE Deep Vein Thrombosis/Pulmonary Embolism Present on Admission: Yes
[2020-10-31] MEDS: LACTATED RINGERS 1,000 ML 42 ML IV (08:16)
--- NOTE | 2020-10-31 08:38 | P.OP.PRE_ITS ---
Pre-operative Note COVID-19 COVID-19 status: Negative Result date/Date tested (Pos, Neg/Pending): 10/26/20 Interval Note History & Physical reviewed/Exam performed by Physician: Yes Changes to H&P: No H&P completed within 30 days and has changed as indicated here:: Per Dr. Fish, Dr. Madrigal, and Dr. Pastor, ok to go ahead with OR without repeating COVID test. Discussed w charge nurse and operations research director. All in agreement to go ahead without retesting as patient is within 5 days of original test and is asymptomatic.
--- NOTE | 2020-10-31 09:27 | SUR.OPER ---
RightLateral on padded OR bed, head on pillow, gel axillary roll in place, bottom leg bent with gel pad under knee to foot, bump under left hip, left leg under control of surgeon. Upper arm supported by pillows and secured over bottom arm to padded arm board. Safety belt at hip, tape over blanket over torso.
[2020-10-31] MEDS: BUPIVACAINE 0.25% W/ EPI (PF) 10 ML VIAL 20 ML INJ (09:40)
[2020-10-31] MEDS: SILVER SULFADIAZINE 1% CREAM 25 GM 1 APPLIC TOP (09:47)
--- NOTE | 2020-10-31 10:22 | PM.OP.1 ---
Operative Date/Time/Diagnoses Date of procedure: 10/31/20 Time of procedure: 10:22 Pre-op diagnosis: left posterior leg wound Post-op diagnosis: other (Left posterior leg wound 15cm x 20cm wound with 5cm x 5cm full thickness necrosis of the skin and 15cm x 15cm partial thickness desquamation with exposed dermis) Procedure & Clinicians Procedure: Wound washout, debridment, and partial closure Same procedure as scheduled: Yes Indications: Partially necrotic wound five days out from evacuation of extensive hematoma. Returning to OR for second look/washout/debridement/closure. Surgeon: Maribell Madrigal Click Yes if Unassisted: Yes Anesthesia Type: General Operative Notes Findings: 15 x 20cm partial thickness wound, with 15 x 15cm area of desquamation with exposed dermis; 5 x 10cm of flaccid, necrotic skin degloved from underlying muscle/fascia which has not survived; 8 x 3cm incisional wound at left latera aspect of the leg just inferior and lateral to the tibial tuberosity; granulating, no active bleeding or purulent discharge Specimen(s): none sent Estimated Blood Loss (mL): 10 Procedure in detail: The patient was brought into the OR, placed supine on the OR table, and appropriate preoperative antibiotics were given. Sequential compression device was placed on the right leg and turned on. General anesthesia was induced and the patient was intubated with an LMA by the anesthesiologist. The left lower leg was prepped and draped in sterile fashion. A surgical timeout was conducted. The wound was then irrigated with normal saline. The left lateral leg open incision was found to be about 9 cm x 3 cm, and beginning to granulate. It appeared clean, with no active bleeding, or drainage of fluid or purulence. This area was closed with two 3-0 Nylon horizontal mattress sutures. The posterior calf wound includes an area of 20cm x 20cm desquamation with patches of exposed dermis. At the inferior portion of the wound there is a 5cm x 10cm area of necrotic, flaccid full thickness degloving with skin and subcutaneous tissue. It was not excised, but was left to provide coverage to the underlying muscle and fascia. The entire wound was washed with saline and coated with Slivadene. It was then covered with Tegaderm and ABD pads, secured with willow wrap. The patient was awakened from anesthesia and extubated. He tolerated the procedure well. Needle, sponge and instrument counts were correct x 2. The patient was transferred to PACU in stable condition. Complications: none Post-operative Condition: stable Disposition: PACU Plan for aftercare: Recommendation to transfer for plastic surgery / burn consult.
--- NOTE | 2020-10-31 10:42 | PC.NURSE ---
Addendum entered by Danyelle Platt R.N. 10/31/20 15:16: Pt decliend x1 Lisinopril order. that has never worked well for me BP rechecked, 130/57. WCTM for HTN. Addendum entered by Danyelle Platt R.N. 10/31/20 14:43: Transfer to facility in process, per Dr Madrigal reporting that it may up to 5 days before there is a bed available/accepting MD. Update to Patient, and to daughter Carin. CM inquiring about outpatient wound care, given that the orders are daily dressing changes and both dressing changes have been done in OR. Orders for premedication prior to dressing change due on 11/01, but this may not be an outpatient dressing change if requiring IV morphine prior to. Reassess tomorrow with patient care. Pt is comfortable at present. Declines pain control, snacking on late meal without nausea. HTN noted and call into Dr Cunningham for additional medication. Not currently taking antihypertensives. WBAT for activity orders. Original Note: AM shift Pt off floor @ 0810 for OR. Returned @ 1030 with stable vitals. Reports pain 1/10 at present, declines medication at present. Daughter called, and per insurance coordinator, Pt is looking at transfer to facility with vascular for necrosis to wound.
--- NOTE | 2020-10-31 11:07 | PT-IP ANOTE ---
Pt undergoing surgical procedure. Unavailable.
[2020-10-31] MEDS: FINASTERIDE 5 MG TABLET PO (12:04)
[2020-10-31] MEDS: POTASSIUM CHLORIDE 20 MEQ TAB PO ×2 (12:04→20:07)
[2020-10-31] MEDS: FUROSEMIDE 40 MG TABLET PO (12:05)
[2020-10-31] MEDS: SENNOSIDES 8.6 MG TABLET 17.2 MG PO (12:05)
[2020-10-31] MEDS: DOCUSATE 100 MG CAPSULE 200 MG PO (12:06)
[2020-10-31] MEDS: ATORVASTATIN 20 MG TABLET 10 MG PO (12:07)
[2020-10-31] MEDS: SODIUM CHLORIDE 0.9% FLUSH 10 ML IV ×4 (12:07→20:04)
[2020-10-31] MEDS: MAGNESIUM OXIDE 400 MG TABLET PO (14:58)
--- NOTE | 2020-10-31 15:10 | CM.DPC ---
DCP Cont: Per Surgeon, pt was taken to OR this morning and attempted hospital transfer for vascular surgeon but pt not accepted for transfer at this time. Pt with extensive wound dressing changes and Surgeon recommending daily dressing changes and descriptive note in computer for dressing changes. Pt will now be able to weight bare on his leg and PT to assess pt today. PT pending for today to determine recommendations and if pt safe for d/c home and if he will be able to manage outpt wound clinic. SW met bedside with pt and explained role and discussed above and pt fairly adamant that he wants home with and outpt wound clinic and not interested in SNF at this time but aware that PT to work with him to determine if he can manage enough ambulation and transfers to make it to wound clinic. Pt states he does not have concerns with daily outpt appointments if needed and has worked closely with [facility] and [facility] and would be agreeable to this at d/c. SW discussed that SNF could be an option if he does not progress well enough for safe home plan. TRINA called [facility] and confirmed that they just closed pt out to service and would need to be given new referral with [facility] to open pt to service. SW made initial referral but F2F will be needed from Surgeon if she is agreeable with healthcare translator in addition to [facility]. SW called [facility] and they are very aware of pt and state that they do not provide daily dressing changes and have worked with pt 1-2x a week and set up [facility] for 2x week. Trinity at [facility] will update Dr. Galeana and they will consult with Surgeon Dr. Madrigal to determine if less frequent dressing changes could be appropriate in combination with [facility] RN. Plan: SW to follow closely tomorrow after PT assessment of pt's mobility and further discussion with Dr. Madrigal to determine if discussion with Dr. Galeana helped to provide option of home with [facility] and [facility] for dressing changes. SW to fax F2F and d/c summary to [facility] at d/c. AURA Edwards
--- NOTE | 2020-10-31 16:56 | PT.IIE ---
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 (10/26/20) Surgery Performed Operation Date: 10/26/20 18:30 Actual Procedures p evacuate hematoma left calf(Left) - Maribell Madrigal MD Operation Date: 10/31/20 09:00 Actual Procedures p Leg washout & debridement of wound posterior calf(Left) - Maribell Madrigal MD Surgical History (Last Reviewed 10/30/20 @ 08:57 by Maribell Madrigal MD) History of abdominal aortic aneurysm repair History of hydrocelectomy Hx of hernia repair Hx of shoulder surgery S/P skin biopsy Medical History (Last Reviewed 10/30/20 @ 08:57 by Maribell Madrigal MD) AAA (abdominal aortic aneurysm) (~2013) Acquired anal stenosis Anxiety Aortic dilatation Haile's syndrome CAD (coronary artery disease) Cardiomyopathy Cataracts, bilateral CHF (congestive heart failure) Chronic back pain Chronic diastolic congestive heart failure Chronic renal failure, stage 3 (moderate) Colon polyps Deep vein thrombosis (~2013) Diverticular disease Former smoker Fractures Gout Hearing loss History of urinary incontinence HLD (hyperlipidemia) Hypertension Knee pain Lumbar spine pain Meningitis spinal Paroxysmal atrial fibrillation Peripheral edema Peripheral neuropathy Persistent atrial fibrillation Prostate cancer (~2007) Pulmonary embolism (~2013) Pulmonic valve insufficiency Rheumatoid arthritis Shoulder pain Skin cancer (~1989) Tricuspid insufficiency Urinary incontinence due to urethral sphincter incompetence Venous stasis dermatitis Physical Therapy Inpatient Re-Evaluation M1 PT/OT-IP Prior Functional Status Start: 10/29/20 15:32 Freq: NEEDED Status: Active Protocol: Document 10/31/20 16:56 AW (Rec: 10/31/20 17:14 AW [id number]) Medical Review Prior Functional Status Medical History Reviewed Yes Communication able to make needs known Mobility and Gait pt stated that he is independent with all mobilities and ambulation without AD Social History Household Members spouse Living Arrangements House Number of Floors (Floors) One Floor Number of Stairs To Enter/Railing? 2 steps with R grab bar by the door Home Environment High Toilet,Walk in Shower, Built-In Shower Seat Home Equipment Front Wheel Walker,Straight Cane,Hand Held Shower,Lift Recliner,Grab Bars In Shower Additional Social History Comment pt stated that spouse will not be able to provide assistance has an adjustable bed without rails, a full lift recliner, and a portable sit to stand device M2 PT-IP Current Condition Start: 10/29/20 15:32 Freq: NEEDED Status: Active Protocol: Document 10/31/20 16:56 AW (Rec: 10/31/20 17:14 AW [id number]) Physical Therapy Current Condition Current Condition Evaluation Date 10/31/20 Treatment Diagnosis LLE hematoma s/p evacuation, staged I&D; difficulty in walking Onset Date 10/26/20 Weight Bearing Status Weight Bearing Status Weight Bear as Tolerated Allowed Weight Bearing Amount (enter % WBAT LLE or #) (%) M3 PT-IP Subjective Start: 10/29/20 15:32 Freq: NEEDED Status: Active Protocol: Document 10/31/20 16:56 AW (Rec: 10/31/20 17:14 AW [id number]) Subjective Physical Therapy Visit Type Type Re-Evaluation Visit Start Time 16:36 Visit Stop Time 16:56 Total Visit Minutes 20 Physical Therapy Visit Comments Patient Comments Pt is willing to participate with PT Patient Goals Return home with HH and outpatient wound care Therapy Pain Assessment Pain When Pain Assessed During Mobility Pain Present Pain Present Pain Reported Location Left Leg Intensity 3 Scale Used 0/10 at rest Pain Behaviors Guarding,Wincing Pain Management Techniques Distraction,Modification of Treatment,Re-positioning, Timing of Activity with Medications M4 PT-IP Mobility and Gait Start: 10/29/20 15:32 Freq: NEEDED Status: Active Protocol: Document 10/31/20 16:56 AW (Rec: 10/31/20 17:14 AW [id number]) PT-Bed Mobility Assessment Supine to Sit Supine to Sit Standby Assistance,Bedrails Sit to Supine Sit to Supine Standby Assistance Scooting Scooting to Edge of Bed Contact Guard Assistance PT-Transfer Assessment Sit to and From Stand Sit to and from Stand Minimal Assistance,1 Person Assistance,Use of Upper Extremities Equipment Transfer Assistive Device Gait Belt,Front Wheeled Walker Orthotic/Prosthetic Devices or Brace: No Transfers Transfer Destination Bed Transfer Technique ambulated with fww Transfer Ability Level of Assist Contact Guard Assistance Comments Mobility Comments Educated pt on updated weightbearing status. He was able to complete bed mobility SBA but did use rails to pull up to sitting. He needed bed raised 3 inches for successful sit to stand min A x 1. In standing, pt was able to shift weight to LLE with heavy UE weightbearing. He then ambulated toward the window, turned, and walked around the room with FWW CGA. No LOB, no SOB. On return to EOB, pt stood with urinal to void and then returned to supine SBA. Pt was positioned with call light and all needs in reach. Gait Assessment Gait Gait Assistance Required: Contact Guard Assist Distance (Feet) 50 Able to Maintain Weight Bearing Status Yes During Gait Assistive Devices Assistive Device Gait Belt,Front Wheeled Walker Orthotic/Prosthetic Devices or Brace: No Gait Deviations General Gait Pattern Antalgic,Decreased Stride Length,Decreased Feet Clearance,Flexed Trunk,Step-to Gait Factors Limiting Gait Function Factors Limiting Gait Function Decreased Sensation,Decreased Strength,Limited Range of Motion,Pain,Poor Balance,Poor Safety Awareness Comments Gait Comments See mobility comments for details. Stair Climbing Assessment Comments Stair Climbing Comments Not assessed. PT-Balance Assessment Sitting Balance and Reactions Static Sitting Balance Ability Good Dynamic Sitting Balance Ability Good Standing Balance and Reactions Static Standing Balance Ability Fair Dynamic Standing Balance Ability Fair Device Used FWW M5 PT-IP Objective Assessments Start: 10/29/20 15:32 Freq: NEEDED Status: Active Protocol: Document 10/31/20 16:56 AW (Rec: 10/31/20 17:14 AW [id number]) Orientation Orientation/Cognition Level of Alertness Alert Orientation Name,Day of Week,Place, Situation Language Function Ability No Deficits Noted Safety Awareness Understands Safety Issues Memory Description No Deficits Noted Strength Lower Extremity Strength Assessment Left Impaired Hip 3+/5 Knee 3+/5 Ankle n/t Sensation Assessment Sensation Gross Sensation Right LE Impaired,Left LE Impaired Light Touch Impaired Proprioception (Position) Impaired Comments Sensation Comments Chronic numbness bilateral feet. Muscle Tone Muscle Tone WNL Yes M6 PT-IP Treatment Start: 10/29/20 15:32 Freq: NEEDED Status: Active Protocol: Document 10/31/20 16:56 AW (Rec: 10/31/20 17:14 AW [id number]) Physical Therapy Treatment Education Education Provided Weight Bearing Status,Safety M7 PT-IP Assessment and Plan Start: 10/29/20 15:32 Freq: NEEDED Status: Active Protocol: Document 10/31/20 16:56 AW (Rec: 10/31/20 17:14 AW [id number]) PT Summary Assessment and Plan Potential Rehabilitation Potential Fair Status of Condition at Evaluation Evolving Summary Impairments Pain,ROM,Strength,Balance, Coordination,Sensation,Bed Mobility,Transfers,Gait, Activity Tolerance Assessment Summary Pt seen for re-evaluation after staged I&D earlier today and updated weightbearing status now WBAT LLE. Pt is able to complete bed mobility, transfer to/from high surface , and ambulation with FWW CGA to min assist. Pt states his spouse will not be able to provide much assist at home. With improved mobility demonstrated on re-evaluation today, pt may be appropriate for discharge to home depending on progress. Pt would benefit from PT to improve strength and mobility independence. Goals Bed Mobility Goal Independent Transfer Goal Standby Assistance,Front Wheeled Walker Gait Goal Standby Assistance,Front Wheel Walker Gait Distance 100 Other Goals - up/down two steps with R rail CGA Days to Meet Goals 8 Frequency of Treatment Frequency Of Treatment Once a Day Treatment Plan Physical Therapy Treatment Plan Bed Mobility Training,Transfer Training,Gait Training, Therapeutic Exercise,Balance Retraining,Post Op Education, Discharge Planning,Hot or Cold Pack,Neuromuscular Re-ed, Coordination Retraining,Manual Therapy Precautions Other Precautions WBAT LLE Recommendations To Nursing Amount of Assist Needed 1 Person Assist Discharge Recommendations PT Discharge Recommendations Home with Assistance,Home with 24/7 Assist Available,Home Health Transportation Needs at Discharge Private Vehicle,Wheelchair/ Cabulance
[2020-11-01] MEDS: CEFAZOLIN 2 GM/100 ML FROZ.PIGGY IV ×2 (02:54→11:24)
[2020-11-01] MEDS: SODIUM CHLORIDE 0.9% FLUSH 10 ML IV ×3 (02:56→08:44)
[2020-11-01 03:00] VITALS: BP 140/70; PULSE 75; RESP 17; TEMP 36.4; O2SAT 99
[2020-11-01 04:19] LABS: Add Manual Diff / Slide Review NO; Basophils Absolute Auto 0 /uL (0-100); Basophils Percent Auto 0.5 % (0-2); Eosinophils Absolute Auto 0 /uL (0-450); Hematocrit 28.4 % (41-53); Hemoglobin 9.1 g/dL (13.5-17.5); Lymphocytes Absolute Auto 900 /uL (1100-4500); Mean Corpuscular HGB Conc 32.2 % (30-36); Mean Corpuscular Hemoglobin 27.8 PG (26-34); Mean Corpuscular Volume 86.4 fL (80-100); Monocytes Absolute Auto 500 /uL (0-900); Monocytes Percent Auto 6.3 % (3-14); Neutrophils Absolute Auto 6100 /uL (1500-7000); Neutrophils Percent Auto 81.2 % (50-75); Platelet Count 166 X10^3/uL (150-400); Red Blood Cell Count 3.28 X10^6/uL (4.5-5.9); Red Cell Distribution Width 16.2 % (11.6-14.8); White Blood Cell Count 7.5 X10^3/uL (4.5-11.0)
[2020-11-01 04:30] LABS: BUN Creatinine Ratio 22.4 (6-22); Blood Urea Nitrogen 19 mg/dL (9-20); Calcium 8.5 mg/dL (8.4-10.2); Carbon Dioxide 27 mmol/L (22-32); Chloride 102 mmol/L (98-107); Estimated Glomerular Filt Rate > 60.0 mL/min (>60); Glucose 136 mg/dL (80-110); HEMOLYSIS < 15 (0-50); Potassium 4.2 mmol/L (3.4-5.1); Sodium 135 mmol/L (137-145)
--- NOTE | 2020-11-01 06:44 | PC.NURSE ---
Patient states that he doesn't have pain to his LLE until he gets OOB to ambulate. L leg dressing C, DI. Patient reports some neuropathy at baseline. Patient able to wiggle toes and pedal pulses positive. Foot warm with cap refill less than 2 seconds.Patient states that he is hopeful that he can go home today.
--- NOTE | 2020-11-01 06:55 | PM.PN.1 ---
Subjective Subjective Date Patient Seen: 11/01/20 Time Patient Seen: 06:56 Interval history: Patient went to the OR yesterday. I discussed with Dr. Madrigal that there is a significant area of probably necrotic tissue and large wound. She spoke with surgeons at [facility] in [place] who recommended continued wound care and dressing change here with slow monitoring of progress and if need be could be transferred there for continued wound care management and or plastic surgery but that currently they did not think that was necessary Patient was also minimally hypertensive through the course of the day yesterday and I start him on lisinopril (given his minimal left ventricular dysfunction) Exam Vital Signs (past 8 hours): - 11/01/20 03:00 Temperature 97.5 F L Pulse Rate 75 Respiratory Rate 17 Blood Pressure 140/70 Pulse Oximetry 99 Oxygen Delivery Method Room Air Oxygen Flow Rate 0 Objective Labs Result Diagrams: 11/01/20 03:40 11/01/20 03:40 Labs: Laboratory Results - last 24 hr 11/01/20 11/01/20 03:40 03:40 WBC 7.5 RBC 3.28 L Hgb 9.1 L Hct 28.4 L MCV 86.4 MCH 27.8 MCHC 32.2 RDW 16.2 H Plt Count 166 Neut % (Auto) 81.2 H Lymph % (Auto) 12.0 L Centre % (Auto) 6.3 Eos % (Auto) 0.0 L Baso % (Auto) 0.5 Neut # (Auto) 6100 Lymph # (Auto) 900 L Centre # (Auto) 500 Eos # (Auto) 0 Baso # (Auto) 0 Sodium 135 L Potassium 4.2 Chloride 102 Carbon Dioxide 27 BUN 19 Creatinine 0.85 Estimated GFR > 60.0 BUN/Creatinine Ratio 22.4 H Glucose 136 H Calcium 8.5 PFSH Medical History AAA (abdominal aortic aneurysm) (~2013) Acquired anal stenosis Anxiety Aortic dilatation Haile's syndrome CAD (coronary artery disease) Cardiomyopathy Cataracts, bilateral CHF (congestive heart failure) Chronic back pain Chronic diastolic congestive heart failure Chronic renal failure, stage 3 (moderate) Colon polyps Deep vein thrombosis (~2013) Diverticular disease Former smoker Fractures Gout Hearing loss History of urinary incontinence HLD (hyperlipidemia) Hypertension Knee pain Lumbar spine pain Meningitis spinal Paroxysmal atrial fibrillation Peripheral edema Peripheral neuropathy Persistent atrial fibrillation Prostate cancer (~2007) Pulmonary embolism (~2013) Pulmonic valve insufficiency Rheumatoid arthritis Shoulder pain Skin cancer (~1989) Tricuspid insufficiency Urinary incontinence due to urethral sphincter incompetence Venous stasis dermatitis Surgical History History of abdominal aortic aneurysm repair History of hydrocelectomy Hx of hernia repair Hx of shoulder surgery S/P skin biopsy Social History household members: spouse Smoking Status: Former smoker Tobacco: How many years used: 20 alcohol intake: current Assessment & Plan Assessment & Plan narrative: 1. left lower extremity wound-continue management as per General surgery. If we can arrange for appropriate care in the home setting that would make sense I know patient is very anxious to go home but the ordonez here is finding in providing appropriate care 2. Hypertension-somewhat improved on lisinopril. Continue to monitor through the course of the day today and plan to recheck renal function in 2 or 3 days 3. Acute blood loss anemia-patient's numbers have stabilized and I will not plan to recheck another CBC in the immediate future probably at least 1 more time prior to discharge 4. Chronic renal failure-numbers continue to be quite stable and good continue to monitor specially with the addition of the DUKE-inhibitor as above 5. History of chronic diastolic base congestive heart failure-no active symptoms at this time. Continue on low-dose furosemide. 6. Chronic anticoagulation-patient remain off anticoagulation until wound is much farther along. Risk of stroke related to atrial fibrillation is relatively small compared to risk of complications regarding his left lower extremity wound, in my opinion. Patient does have an IVC filter in place to protect against pulmonary embolism given his significant history of that as well. Overall patient is relatively stable needs ongoing aggressive wound care and management of his left lower extremity wound. Note: Greater than 20 minutes was spent evaluating the patient on the floor, including examining the patient, discussing clinical course with clinical and nursing staff, reviewing clinical course in the computer, preparing documentation and writing orders for continued management of care, discussing status with family as appropriate, reviewing plans for the next 24 hours with both patient/family and nursing staff as appropriate. Quality VTE Deep Vein Thrombosis/Pulmonary Embolism Present on Admission: Yes
[2020-11-01 08:00] VITALS: BP 149/75; PULSE 86; RESP 18; TEMP 36.6; O2SAT 100
[2020-11-01] MEDS: ATORVASTATIN 20 MG TABLET 10 MG PO (08:41)
[2020-11-01] MEDS: POTASSIUM CHLORIDE 20 MEQ TAB PO (08:42)
[2020-11-01 08:43] VITALS: BP 149/75; PULSE 80
[2020-11-01] MEDS: lisinopriL 10 MG TABLET PO (08:43)
[2020-11-01] MEDS: FUROSEMIDE 40 MG TABLET PO (08:43)
[2020-11-01] MEDS: FINASTERIDE 5 MG TABLET PO (08:44)
--- NOTE | 2020-11-01 10:53 | PC.NURSE ---
1050 - Pt up to ambulate with PT. Dr. Madrigal to do dressing change at bedside at 1145.
[2020-11-01] MEDS: MORPHINE 4 MG/ML INJ IV (11:25)
[2020-11-01] MEDS: SILVER SULFADIAZINE 1% CREAM 25 GM 1 APPLIC TOP (11:45)
[2020-11-01 12:00] VITALS: BP 129/66; PULSE 79; RESP 18; TEMP 37.2; O2SAT 97
--- NOTE | 2020-11-01 12:29 | P.PN_ITS ---
Subjective Subjective Date Patient Seen: 11/01/20 Time Patient Seen: 12:29 Interval history: No acute events overnight. Pt was able to ambulate with PT and was cleared for DC home. Pain has been manageable with PO pain meds. Exam Vital Signs (past 8 hours): - 11/01/20 08:00 11/01/20 08:43 Temperature 97.9 F Pulse Rate 86 80 Respiratory Rate 18 Blood Pressure 149/75 H 149/75 H Pulse Oximetry 100 Oxygen Delivery Method Room Air Oxygen Flow Rate 0 Narrative Exam Narrative: GENERAL: Alert , comfortable. Appears younger than stated age. Answers questions promptly and appropriately. Vital signs noted. HENT: Normocephalic, atraumatic. hard of hearing. EYES: Conjunctiva pink, sclera white, no periorbital swelling. CARDIOVASCULAR: Regular rate. chronic bilateral lower extremity edema with venous stasis changes RESPIRATORY: Non tachypneic, breathing comfortably and satting well on room air Extremities: Left lower leg wrap in place. Removed during exam. There is a 15 x 20 cm wound on the posterior left leg 5cm x 10cm of early eschar on the inferior border of the calf; this area was flaccid and wet appearing in the OR yesterday; today appears that it is beginning to dry and scar down; 15 x 15cm area of desquamation with 5cm x 5cm area of exposed dermis at the left lateral edge of the eschar; two loose nylon sutures in place 10cm lateral and just below the level of the tibial tuberosity; appears clean and not actively bleeding SKIN: extensive venous stasis changes in the lower extremities NEURO: Alert and Oriented X 3. No gross sensory deficits, or cognitive issues. PSYCH: Appropriate affect and mood. Objective Labs Result Diagrams: 11/01/20 03:40 11/01/20 03:40 Labs: Laboratory Results - last 24 hr 11/01/20 11/01/20 03:40 03:40 WBC 7.5 RBC 3.28 L Hgb 9.1 L Hct 28.4 L MCV 86.4 MCH 27.8 MCHC 32.2 RDW 16.2 H Plt Count 166 Neut % (Auto) 81.2 H Lymph % (Auto) 12.0 L [place] % (Auto) 6.3 Eos % (Auto) 0.0 L Baso % (Auto) 0.5 Neut # (Auto) 6100 Lymph # (Auto) 900 L [place] # (Auto) 500 Eos # (Auto) 0 Baso # (Auto) 0 Sodium 135 L Potassium 4.2 Chloride 102 Carbon Dioxide 27 BUN 19 Creatinine 0.85 Estimated GFR > 60.0 BUN/Creatinine Ratio 22.4 H Glucose 136 H Calcium 8.5 PFSH Medical History AAA (abdominal aortic aneurysm) (~2013) Acquired anal stenosis Anxiety Aortic dilatation Haile's syndrome CAD (coronary artery disease) Cardiomyopathy Cataracts, bilateral CHF (congestive heart failure) Chronic back pain Chronic diastolic congestive heart failure Chronic renal failure, stage 3 (moderate) Colon polyps Deep vein thrombosis (~2013) Diverticular disease Former smoker Fractures Gout Hearing loss History of urinary incontinence HLD (hyperlipidemia) Hypertension Knee pain Lumbar spine pain Meningitis spinal Paroxysmal atrial fibrillation Peripheral edema Peripheral neuropathy Persistent atrial fibrillation Prostate cancer (~2007) Pulmonary embolism (~2013) Pulmonic valve insufficiency Rheumatoid arthritis Shoulder pain Skin cancer (~1989) Tricuspid insufficiency Urinary incontinence due to urethral sphincter incompetence Venous stasis dermatitis Surgical History History of abdominal aortic aneurysm repair History of hydrocelectomy Hx of hernia repair Hx of shoulder surgery S/P skin biopsy Social History household members: spouse Smoking Status: Former smoker Tobacco: How many years used: 20 alcohol intake: current Assessment & Plan Assessment and plan (1) Persistent atrial fibrillation: Status: Chronic (2) Cardiomyopathy: Problem details: EF 50% 01/2020 Qualifiers: Cardiomyopathy type: ischemic Qualified Code(s): I25.5 - Ischemic cardiomyopathy Status: Chronic (3) Chronic diastolic congestive heart failure: Status: Chronic (4) Chronic renal failure, stage 3 (moderate): Qualifiers: Chronic kidney disease stage 3 subtype: stage 3b (GFR 30-44) Qualified Code(s): N18.32 - Chronic kidney disease, stage 3b Status: Chronic (5) Peripheral edema: Status: Chronic (6) Post-op bleeding: Qualifiers: Procedure type: musculoskeletal Surgical complication system/body Area: musculoskeletal system Qualified Code(s): M96.830 - Postprocedural hemorrhage of a musculoskeletal structure following a musculoskeletal system procedure Status: Acute (7) Peripheral neuropathy: Qualifiers: Peripheral neuropathy type: polyneuropathy, other Qualified Code(s): G62.89 - Other specified polyneuropathies Status: Chronic (8) Anticoagulated by anticoagulation treatment: Status: Acute Assessment & Plan narrative: This is an 85-year-old man with complex medical and surgical history, who came into the ER last night with a tense and exquisitely painful hematoma in his left lower leg. Earlier during the day yesterday he had debridement by wound care which resulted in some bleeding and a trip to the ER. A suture was placed in the skin by the ER doctor. After returning home from the ER, he came back in with an expanding hematoma in his left calf causing him severe pain. He was not able tolerate an exam or any bedside wound care due to his exquisite pain. In the OR, and about 3 units of blood and clots were evacuated from a large open space between his subcutaneous tissue and muscle in the left calf. Overnight he had some oozing, and an expected drop in his hemoglobin. He remained hemodynamically stable, and pain was reasonably well controlled. Although the hematoma was evacuated, hemostasis was not achieved in the OR due to anticoagulation. His bleeding is medical bleeding at this point, and is not expected to resolve until his anticoagulation has been reversed. Because of his clotting history K centra was not given. The dressing was taken down by Dr. Arora on 10/28, and by me on 10/29. The wound was re-evaluated in the OR on 10/31. The degloved skin was left in place as a flap rather than removing it to leave exposed muscle. Today 11/01 we took down the dressing and it appears that the degloved skin may be starting to scar down. It does appear ischemic, like a threatened flap, but it may at least get partial take. Would likely benefit from hyperbaric oxygen if available. If he is able to get close follow up through the local wound care doctor, Dr. Pittman with hyperbaric therapy he may be able to avoid referral to plastic surgery for a major flap or other advanced surgical intervention. Plan: hold anticoagulation until the wound has entirely healed Ambulate as tolerated keep willow wrap in place until follow up with Dr. Ptitman on Doxycycline [address] Pittman Follow up with me as needed (defer to Dr. Pittman for wound care, he can send Mr. Liang back to me if surgical debridement is needed) COVID-19 COVID-19 status: Result pending Result date/Date tested (Pos, Neg/Pending): 10/26/20 Time Spent With Patient Time with patient: Greater than 35 minutes Quality VTE Deep Vein Thrombosis/Pulmonary Embolism Present on Admission: Yes
--- NOTE | 2020-11-01 12:42 | PT.IPTN ---
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) use of anticoagulants (10/26/20) Surgery Performed Operation Date: 10/26/20 18:30 Actual Procedures p evacuate hematoma left calf(Left) - Maribell Madrigal MD Operation Date: 10/31/20 09:00 Actual Procedures p Leg washout & debridement of wound posterior calf(Left) - Maribell Madrigal MD Physical Therapy Treatment Note M2 PT-IP Current Condition Start: 10/29/20 15:32 Freq: NEEDED Status: Active Protocol: Document 10/31/20 16:56 AW (Rec: 10/31/20 17:14 AW [id number]) Physical Therapy Current Condition Current Condition Evaluation Date 10/31/20 Treatment Diagnosis LLE hematoma s/p evacuation, staged I&D; difficulty in walking Onset Date 10/26/20 Weight Bearing Status Weight Bearing Status Weight Bear as Tolerated Allowed Weight Bearing Amount (enter % WBAT LLE or #) (%) M3 PT-IP Subjective Start: 10/29/20 15:32 Freq: NEEDED Status: Active Protocol: Document 11/01/20 12:33 HH (Rec: 11/01/20 12:42 HH [email or web address]) Subjective Physical Therapy Visit Type Type Treatment Note Visit Start Time 10:38 Visit Stop Time 11:05 Total Visit Minutes 27 Number of SECURITY PATROL DRIVER Visits 0 Physical Therapy Visit Comments Patient Comments Pt is willing to participate with PT Patient Goals Return home with HH and outpatient wound care Therapy Pain Assessment Pain When Pain Assessed During Mobility Pain Present Pain Present Pain Reported Location Left Leg Intensity 2 Scale Used 0/10 at rest Pain Behaviors Guarding,Wincing Pain Management Techniques Distraction,Modification of Treatment,Re-positioning, Timing of Activity with Medications M4 PT-IP Mobility and Gait Start: 10/29/20 15:32 Freq: NEEDED Status: Active Protocol: Document 11/01/20 12:33 HH (Rec: 11/01/20 12:42 HH [email or web address]) PT-Bed Mobility Assessment Supine to Sit Supine to Sit Standby Assistance,Bedrails Sit to Supine Sit to Supine Standby Assistance Scooting Scooting to Edge of Bed Standby Assistance PT-Transfer Assessment Sit to and From Stand Sit to and from Stand Contact Guard Assistance,1 Person Assistance,Use of Upper Extremities Equipment Transfer Assistive Device Gait Belt,Front Wheeled Walker Orthotic/Prosthetic Devices or Brace: No Transfers Transfer Destination Bed Transfer Technique ambulated with fww Transfer Ability Level of Assist Contact Guard Assistance Comments Mobility Comments Pt was in bed upon PT arrival. Agreed to participate PT. Pt was able to sit up from supine with 1bedrail use followed by scooting EOB. He then raised the bed up by approx 3 inches and stood up with use of FWW CGA. Pt then amb from his room to AC entrance with FWW. Pt does show dec weight bearing on LLE d/t pain but he was able to complete such distance with step to/over gait. He also completed 3 steps climbing with B rails step to pattern since pt usually uses door frame and R bar to ascend . Pt completed 2 sets with CGA slowly. He was then WC back to his room and transferred himself with FWW back to bed CGA. call light placed within reach. Gait Assessment Gait Gait Assistance Required: Contact Guard Assist Distance (Feet) 260 Able to Maintain Weight Bearing Status Yes During Gait Assistive Devices Assistive Device Gait Belt,Front Wheeled Walker Orthotic/Prosthetic Devices or Brace: No Gait Deviations General Gait Pattern Antalgic,Decreased Stride Length,Decreased Feet Clearance,Flexed Trunk,Step-to Gait Factors Limiting Gait Function Factors Limiting Gait Function Decreased Sensation,Decreased Strength,Limited Range of Motion,Pain,Poor Balance,Poor Safety Awareness Comments Gait Comments See mobility comments for details. Stair Climbing Assessment Evaluation Level of Assist On Stairs Contact Guard Assistance Devices Stair Climbing Assistive Devices Left Railing,Right Railing Technique/Endurance Stair Climbing Direction Ascend and Descend Stair Climbing Technique Step to Step Number of Steps Climbed 3 Stair Climbing Set # Repetitions (reps) 3 Comments Stair Climbing Comments See mobility comments for details. PT-Balance Assessment Sitting Balance and Reactions Static Sitting Balance Ability Good Dynamic Sitting Balance Ability Good Standing Balance and Reactions Static Standing Balance Ability Fair Dynamic Standing Balance Ability Fair Device Used FWW M5 PT-IP Objective Assessments Start: 10/29/20 15:32 Freq: NEEDED Status: Active Protocol: Document 10/31/20 16:56 AW (Rec: 10/31/20 17:14 AW [id number]) Orientation Orientation/Cognition Level of Alertness Alert Orientation Name,Day of Week,Place, Situation Language Function Ability No Deficits Noted Safety Awareness Understands Safety Issues Memory Description No Deficits Noted Strength Lower Extremity Strength Assessment Left Impaired Hip 3+/5 Knee 3+/5 Ankle n/t Sensation Assessment Sensation Gross Sensation Right LE Impaired,Left LE Impaired Light Touch Impaired Proprioception (Position) Impaired Comments Sensation Comments Chronic numbness bilateral feet. Muscle Tone Muscle Tone WNL Yes M6 PT-IP Treatment Start: 10/29/20 15:32 Freq: NEEDED Status: Active Protocol: Document 10/31/20 16:56 AW (Rec: 10/31/20 17:14 AW [id number]) Physical Therapy Treatment Education Education Provided Weight Bearing Status,Safety M7 PT-IP Assessment and Plan Start: 10/29/20 15:32 Freq: NEEDED Status: Active Protocol: Document 11/01/20 12:33 HH (Rec: 11/01/20 12:42 HH [email or web address]) PT Summary Assessment and Plan Potential Rehabilitation Potential Fair Status of Condition at Evaluation Evolving Summary Impairments Pain,ROM,Strength,Balance, Coordination,Sensation,Bed Mobility,Transfers,Gait, Activity Tolerance Progress Towards Goals Slow Progress due to Pain,Slow Progress due to Medical Issues,Slow Progress due to Activity Tolerance,Slow Progress - Other,Safe For Discharge Assessment Summary Pt shows improved activity tolerance and less assistance needed for overall mobility and transfers with FWW. He completed 260 ft of amb and 3 steps climbing with B rails. Pt will have 2 children to stay with him to assist and HH to improve his mobility and strength. Frequency of Treatment Frequency Of Treatment Discharge Treatment Plan Physical Therapy Treatment Plan Bed Mobility Training,Transfer Training,Gait Training, Therapeutic Exercise,Balance Retraining,Post Op Education, Discharge Planning,Hot or Cold Pack,Neuromuscular Re-ed, Coordination Retraining,Manual Therapy Precautions Other Precautions WBAT LLE Recommendations To Nursing Amount of Assist Needed 1 Person Assist Discharge Recommendations PT Discharge Recommendations Home with Assistance,Home with 24/7 Assist Available,Home Health Transportation Needs at Discharge Private Vehicle,Wheelchair/ Cabulance
--- NOTE | 2020-11-01 12:56 | PC.NURSE ---
Addendum entered by Jojo Layton R.N. 11/01/20 14:12: Contacted Dr. Cunningham office regarding discharge of patient, pt very anxious to get home before 1615, received the OK from Dr Cunningham office to discharge pt. Original Note: Dr Madrigal and Dr Pittman at bedside for dressing change, pt tolerated well. Cleared by Dr. Madrigal to go home with home health for wound care. Dr Cunningham to discharge patient, will come in to see pt prior to. Will notify pt when discharge orders are completed. Bed low and locked, call light within reach, will continue to monitor.
[2020-11-01] MEDS: OXYCODONE IR 5 MG TABLET PO (13:45)
--- NOTE | 2020-11-01 14:45 | CM.DPC ---
DCP: case received again and EMR for last few days reviewed. Spoke with Dr. Madrigal who was here with Dr. Galeana to see pt and put together a d/c plan that would work for him. Went to room while Dr. Galeana was still talking with pt and joined in conversation. Dr. Galeana confirmed that he and Dr. Madrigal had determined pt's dressing would be fine until 11/03 and that he would see pt at the [facility] on that day. He stated that he would then coordinate a treatment schedule that would include Home Health Services. He confirmed that his clinic would place any referrals for same and etc. Pt was very agreeable to same and called his family. Family will be picking him up this afternoon. Issues IMM # 2 copy. Pt laughed; said I certainly don't want to dispute this d/c. Dr. Madrigal stated that Dr. Cunningham was the primary and thus would need to do the d/c orders. She called Dr. Cunningham and d/c orders were put in place later in the day. Home today. Follow as noted with Dr. Galeana in Wound clinic.
--- NOTE | 2020-11-01 16:03 | PC.NURSE ---
1515 - Mid-line d/c'd. Pt tolerated well. Pt declined to wait for family to review discharge instruction. Review instruction. Education provided. Discharged via private vehicle. Wound clinic will contact patient for follow up arrangements.
--- NOTE | 2020-11-02 08:15 | P.DS_ITS ---
History of Present Illness History of Present Illness Date Patient Seen: 11/01/20 Chief complaint: severe pain Narrative: 85-year-old male complex medical history atrial fibrillation recurr ent PE on chronic anticoagulation coronary artery disease congestive heart failure chronic renal failure chronic venous stasis with lower extremity wounds. Patient's been getting wound care to his lower extremity. Lower extremities are extremely fragile due to chronic venous stasis. The wound care center they did some debridement today and there was some bleeding he was sent to the emergency room after the bleeding was not able to be stopped. In the emergency room a stitch was placed bleeding was controlled. Patient came back to the emergency room for hours with continued bleeding and increasing pain in his lower extremity. This was evaluated by a surgeon. There was concern about a he matoma and due to his significant pain patient was taken to the OR to open up the wound. During the or process. The wound was opened he had approximately 3 units of blood. Patient did well surgically. And postoperatively did well. Patient was given a limited amount of fluid in the operating room. His postoperative care was complicated I was asked to address and evaluate him because of his anticoagulation. Last dose of Eliquis was this morning. On my arrival to the floor. Patient is having some postoperative bleeding. His hemoglobin hematocrit preoperatively was 11.3 and postoperative hemoglobin hematocrit is pending.. Patient's vital signs are currently stable with a normal blood pressure and normal pulse. Patient is not tachycardic. He is complaining of lower extremity pain. He is not short of breath. He is having no difficulty with chest pain lightheadedness and dizziness. Due to the blood loss in the emergency room and continue bleeding. He has a type and screen with 2 units available. His protime and INR is slightly prolonged with 1.6 has the INR. {from Dr. Ahmadi's H&P 10/26/20} Discharge Providers Provider Date of admission: 10/26/20 18:07 Discharge Date: 11/01/20 Primary care physician: Luis Alfredo Cunningham MD Consults: 10/26/20 19:33 Consult to Discharge Planning Routine Comment: 10/26/20 19:41 Consult to Physical Therapy Evaluate & Treat Comment: mobility in bed; no dangle or weight on left leg Physician Instructions: Evaluate and Treat 10/29/20 09:14 Consult to Physical Therapy Evaluate & Treat Comment: Full weight bearing as tolerated left leg Physician Instructions: Evaluate and Treat 10/31/20 15:07 Consult to Home Health Routine Comment: wound care post op Reason For Exam: for HH upon discharge for talent agent provider: Luis Alfredo Cunningham MD Summary Hospital Course Discharge Diagnosis: 1. Left lower extremity hematoma, status post surgical evacuation 2. Chronic left lower extremity wound likely secondary to venous stasis 3. Acute blood loss anemia 4. Chronic anticoagulation due to atrial fibrillation and VTE 5. Inferior vena caval filter in place 6. Chronic renal failure stage IIIA 7. Chronic congestive heart failure with preserved left ventricular ejection fraction 8. Peripheral neuropathy 9. Chronic back pain 10. Hypertension 11. Distant history prostate cancer Hospital Course: Patient was admitted via emergency department after presenting twice on the same day because of pain in the left lower extremity was bleeding. He had had some debridement performed on his chronic wound on the left leg which resulted in uncontrolled bleeding. Attempt to control bleeding was made with placement of a suture but subsequently had increasing pain and discomfort in the left lower leg. Was felt as though he was developing hematoma within the tissue the left lower extremity which was eventually proven to be true at time of surgery to evacuate this very large hematoma. Patient was taken to the OR and had evacuation of the hematoma and the wound was closed with pressure. Patient had his anticoagulation discontinued. He was on this for both history of venous thromboembolism although he does have an IVC filter in place as well as chronic atrial fibrillation. He is to remain off of this until more complete healing of his left lower extremity occurs Patient was taken back to the OR for further evaluation felt to have hemostasis but evidence of large wound with large space we hematoma have been present. Repeat evaluation at time of dressing changes suggested there may be some delayed healing of this wound although patient may still require intervention of plastic surgery for complete healing. Consultations made with the wound care at [facility] who felt like this could be managed in the local area over the next several weeks before assessing for needs for additional surgical intervention Patient did not require transfusion but was monitored carefully. Patient's blood pressure crept up during his hospitalization and he was placed on lisinopril for control of blood pressure which he tolerated well Patient was continued on low-dose furosemide over concerns regarding volume status and possible congestive heart failure. This will be continued as an outpatient as well Patient was discharged home to continue with wound care via the wound care clinic at [facility] as well as home health services. He will be seen in conjunction with general surgery as needed. Again patient remain off of his anticoagulation until there is much more complete healing of this wound on the left lower extremity than it should be restarted for indications as above Patient had significant pain which is part of his presentation to the emergency department to begin with but this was much improved by the time of discharge Exam Vital Signs (past 8 hours): Oxygen Delivery Method Room Air Oxygen Flow Rate 0 Objective Labs Result Diagrams: 11/01/20 03:40 11/01/20 03:40 [facility] Medical History AAA (abdominal aortic aneurysm) (~2013) Acquired anal stenosis Anxiety Aortic dilatation Haile's syndrome CAD (coronary artery disease) Cardiomyopathy Cataracts, bilateral CHF (congestive heart failure) Chronic back pain Chronic diastolic congestive heart failure Chronic renal failure, stage 3 (moderate) Colon polyps Deep vein thrombosis (~2013) Diverticular disease Former smoker Fractures Gout Hearing loss History of urinary incontinence HLD (hyperlipidemia) Hypertension Knee pain Lumbar spine pain Meningitis spinal Paroxysmal atrial fibrillation Peripheral edema Peripheral neuropathy Persistent atrial fibrillation Prostate cancer (~2007) Pulmonary embolism (~2013) Pulmonic valve insufficiency Rheumatoid arthritis Shoulder pain Skin cancer (~1989) Tricuspid insufficiency Urinary incontinence due to urethral sphincter incompetence Venous stasis dermatitis Surgical History History of abdominal aortic aneurysm repair History of hydrocelectomy Hx of hernia repair Hx of shoulder surgery S/P skin biopsy Social History household members: spouse Smoking Status: Former smoker Tobacco: How many years used: 20 alcohol intake: current Discharge Plan Discharge Plan Patient Disposition: Home Health Service Discharge orders & Medications Prescriptions: New doxycycline monohydrate 100 mg capsule 100 mg PO BID Qty: 10 RF: 3 Continued magnesium oxide 400 mg capsule 400 mg PO Q OTHER DAY RF: 0 gabapentin 300 mg capsule 300 mg PO DAILY Qty: 90 RF: 1 potassium chloride 20 mEq tablet extended release 20 meq PO BID Qty: 180 RF: 3 atorvastatin 10 mg tablet 10 mg PO DAILY RF: 0 docusate sodium [Stool Softener] 100 mg capsule 100 mg PO DAILY RF: 0 calcium polycarbophil [FiberCon] 625 mg tablet 1,250 mg PO DAILY RF: 0 hydrocodone-acetaminophen 5-325 mg tablet 1 - 2 tab PO Q6H PRN (Reason: Pain (Scale Score 4-6)) Qty: 60 RF: 0 cyclobenzaprine 10 mg tablet 10 mg PO TID PRN (Reason: muscle spasm) Qty: 14 RF: 0 finasteride 5 mg tablet 5 mg PO DAILY Qty: 20 RF: 0 oxybutynin chloride 5 mg tablet 5 mg PO DAILY RF: 0 Changed furosemide 40 mg tablet 40 mg PO DAILY Qty: 60 RF: 3 Discontinued apixaban 5 mg tablet 5 mg PO BID RF: 0 No Action lisinopril 10 mg tablet 10 mg PO DAILY Qty: 30 RF: 3 Follow up/Referrals: Luis Alfredo Cunningham MD [Primary Care Provider] - Diet/Activity/Treatments Diet: Diet as Tolerated Discharge Data Primary Care Provider: Luis Alfredo Cunningham Quality VTE Deep Vein Thrombosis/Pulmonary Embolism Present on Admission: Yes
== END 2020-11-01 16:05 | disposition home health service (06) | DRG 908 ==
LOC: ED 17:01 → AC 18:08 → ICU 10-27 07:41 → AC 10-28 14:43
PROVIDERS: Anesthesiology; Family Medicine; Surgery; Admitting Provider Family Medicine; Emergency Provider Emergency Medicine; PCP Internal Medicine; Referring Provider Emergency Medicine; Visit Provider Internal Medicine
PROC: 0Y9J0ZZ Drainage of Left Lower Leg, Open Approach (ICD-10-PCS; principal; 2020-10-26 18:30)
PROC: 0HQLXZZ Repair Left Lower Leg Skin, External Approach (ICD-10-PCS; principal; 2020-10-31 09:00)
DX: L76.22 Postprocedural hemorrhage of skin and subcutaneous tissue following other procedure (principal); I48.19 Other persistent atrial fibrillation; D68.32 Hemorrhagic disorder due to extrinsic circulating anticoagulants; I13.0 Hypertensive heart and chronic kidney disease with heart failure and stage 1 through stage 4 chronic kidney disease, or unspecified chronic kidney disease; I50.32 Chronic diastolic (congestive) heart failure; I42.9 Cardiomyopathy, unspecified; D62 Acute posthemorrhagic anemia; L02.416 Cutaneous abscess of left lower limb; L97.321 Non-pressure chronic ulcer of left ankle limited to breakdown of skin; L97.811 Non-pressure chronic ulcer of other part of right lower leg limited to breakdown of skin; T45.515A Adverse effect of anticoagulants, initial encounter; I87.8 Other specified disorders of veins; F41.9 Anxiety disorder, unspecified; Z87.891 Personal history of nicotine dependence; N18.31 Chronic kidney disease, stage 3a; E78.5 Hyperlipidemia, unspecified; G62.9 Polyneuropathy, unspecified; G89.29 Other chronic pain; Z20.822 Contact with and (suspected) exposure to COVID-19; K59.00 Constipation, unspecified; I87.2 Venous insufficiency (chronic) (peripheral); Z86.718 Personal history of other venous thrombosis and embolism; Z79.01 Long term (current) use of anticoagulants; Z86.711 Personal history of pulmonary embolism; I25.10 Atherosclerotic heart disease of native coronary artery without angina pectoris; Z85.46 Personal history of malignant neoplasm of prostate; Z95.828 Presence of other vascular implants and grafts
CPT/HCPCS: 10060; 36415; 36592; 80048; 80053; 83735; 83880; 84100; 85014; 85018; 85025; 85027; 85610; 86850; 86900; 86901; 87635; 87797; 96374; 96376; 97116; 97162; 97164; 97530; 99223; 99233; 99238; 99283; 99284; J0330; J0690; J1100; J1170; J1642; J1940; J2270; J2405; J2704; J3010

== ENCOUNTER → 2020-11-02 13:34 | Outpatient (CLI) | payer MEDICARE, BC, SELFPAY ==
[2020-10-26 22:17] VITALS: BMI 33.7
== END ==
PROVIDERS: PCP Internal Medicine; Referring Provider Surgery; Visit Provider Family Medicine
DX: I87.2 Venous insufficiency (chronic) (peripheral) (principal); S81.802A Unspecified open wound, left lower leg, initial encounter; L97.511 Non-pressure chronic ulcer of other part of right foot limited to breakdown of skin; R60.0 Localized edema; I50.9 Heart failure, unspecified; N18.9 Chronic kidney disease, unspecified
CPT/HCPCS: 99213

== ENCOUNTER → 2020-11-16 13:57 | Outpatient (CLI) | payer MEDICARE, BC, SELFPAY ==
[2020-10-26 22:17] VITALS: BMI 33.7
== END ==
PROVIDERS: PCP Internal Medicine; Referring Provider Internal Medicine; Visit Provider Family Medicine
DX: I87.2 Venous insufficiency (chronic) (peripheral) (principal); L97.811 Non-pressure chronic ulcer of other part of right lower leg limited to breakdown of skin; S81.802A Unspecified open wound, left lower leg, initial encounter; R60.0 Localized edema
CPT/HCPCS: 11042; 87070; 87075; 87077; 87185; 87186; 87205; 99213

== ENCOUNTER → 2020-11-23 11:04 | Outpatient (CLI) | payer MEDICARE, BC, SELFPAY ==
[2020-10-26 22:17] VITALS: BMI 33.7
== END ==
PROVIDERS: PCP Internal Medicine; Referring Provider Internal Medicine; Visit Provider Family Medicine
DX: I87.2 Venous insufficiency (chronic) (peripheral) (principal); L97.811 Non-pressure chronic ulcer of other part of right lower leg limited to breakdown of skin; S81.802A Unspecified open wound, left lower leg, initial encounter; S91.002A Unspecified open wound, left ankle, initial encounter; R60.0 Localized edema; B95.2 Enterococcus as the cause of diseases classified elsewhere; L08.9 Local infection of the skin and subcutaneous tissue, unspecified
CPT/HCPCS: 11042; 11045; 29581; 97605; 99214

== ENCOUNTER → 2020-11-28 09:00 | Outpatient (CLI) | payer MEDICARE, BC, SELFPAY ==
[2020-10-26 22:17] VITALS: BMI 33.7
[2020-11-28 11:09] LABS: Albumin 3.5 g/dL (3.5-5.0); BUN Creatinine Ratio 20.9 (6-22); Blood Urea Nitrogen 19 mg/dL (9-20); Calcium 9.3 mg/dL (8.4-10.2); Carbon Dioxide 21 mmol/L (22-32); Chloride 108 mmol/L (98-107); Estimated Glomerular Filt Rate > 60.0 mL/min (>60); Glucose 127 mg/dL (80-110); HEMOLYSIS < 15 (0-50); Phosphorous 3.3 mg/dL (2.3-3.7); Potassium 4.5 mmol/L (3.4-5.1); Sodium 139 mmol/L (137-145)
== END ==
PROVIDERS: PCP Internal Medicine; Referring Provider Internal Medicine Nephrology; Visit Provider Internal Medicine Nephrology
DX: N17.9 Acute kidney failure, unspecified (principal)
CPT/HCPCS: 36415; 80069

== ENCOUNTER → 2020-11-28 10:10 | Outpatient (CLI) | payer MEDICARE, BC, SELFPAY ==
[2020-10-26 22:17] VITALS: BMI 33.7
== END ==
PROVIDERS: PCP Internal Medicine; Referring Provider Internal Medicine; Visit Provider Family Medicine
DX: I87.2 Venous insufficiency (chronic) (peripheral) (principal); S81.802A Unspecified open wound, left lower leg, initial encounter; S91.002A Unspecified open wound, left ankle, initial encounter; R60.0 Localized edema
CPT/HCPCS: 97605; 99214

== ENCOUNTER → 2020-12-05 11:17 | Outpatient (CLI) | payer MEDICARE, BC, SELFPAY ==
[2020-10-26 22:17] VITALS: BMI 33.7
== END ==
PROVIDERS: PCP Internal Medicine; Referring Provider Internal Medicine; Visit Provider Family Medicine
DX: S81.802A Unspecified open wound, left lower leg, initial encounter (principal); S91.002A Unspecified open wound, left ankle, initial encounter; R60.0 Localized edema
CPT/HCPCS: 29581

== ENCOUNTER → 2020-12-06 08:56 | Outpatient (CLI) | payer MEDICARE, BC, SELFPAY ==
[2020-10-26 22:17] VITALS: BMI 33.7
[2020-12-06 09:43] LABS: Add Manual Diff / Slide Review NO; Basophils Absolute Auto 100 /uL (0-100); Basophils Percent Auto 0.9 % (0-2); Eosinophils Absolute Auto 200 /uL (0-450); Eosinophils Percent Auto 2.9 % (2-4); Hematocrit 32.9 % (41-53); Hemoglobin 10.4 g/dL (13.5-17.5); Lymphocytes Absolute Auto 1400 /uL (1100-4500); Lymphocytes Percent Auto 26.3 % (25-40); Mean Corpuscular HGB Conc 31.7 % (30-36); Mean Corpuscular Hemoglobin 25.5 PG (26-34); Mean Corpuscular Volume 80.5 fL (80-100); Monocytes Absolute Auto 400 /uL (0-900); Monocytes Percent Auto 8.2 % (3-14); Neutrophils Absolute Auto 3300 /uL (1500-7000); Neutrophils Percent Auto 61.7 % (50-75); Platelet Count 186 X10^3/uL (150-400); Red Blood Cell Count 4.09 X10^6/uL (4.5-5.9); Red Cell Distribution Width 18.1 % (11.6-14.8); White Blood Cell Count 5.4 X10^3/uL (4.5-11.0)
[2020-12-06 10:43] LABS: Blood Urea Nitrogen 19 mg/dL (9-20); Calcium 9.1 mg/dL (8.4-10.2); Carbon Dioxide 27 mmol/L (22-32); Chloride 105 mmol/L (98-107); Estimated Glomerular Filt Rate > 60.0 mL/min (>60); Glucose 103 mg/dL (80-110); HEMOLYSIS < 15 (0-50); Sodium 140 mmol/L (137-145)
== END ==
PROVIDERS: PCP Internal Medicine; Referring Provider Internal Medicine Cardiovascular Disease; Visit Provider Internal Medicine Cardiovascular Disease
DX: I50.32 Chronic diastolic (congestive) heart failure (principal)
CPT/HCPCS: 36415; 80048; 85025

== ENCOUNTER → 2020-12-13 11:20 | Outpatient (CLI) | payer MEDICARE, BC, SELFPAY ==
[2020-10-26 22:17] VITALS: BMI 33.7
== END ==
PROVIDERS: PCP Internal Medicine; Referring Provider Internal Medicine; Visit Provider Family Medicine
DX: I87.2 Venous insufficiency (chronic) (peripheral) (principal); S81.802A Unspecified open wound, left lower leg, initial encounter; S80.12XA Contusion of left lower leg, initial encounter; R60.0 Localized edema
CPT/HCPCS: 11042; 87070; 87075; 87205

== ENCOUNTER 2020-12-18 09:22 | Observation (INO) | payer MEDICARE, BC, SELFPAY ==
[2020-10-26 22:17] VITALS: BMI 33.7
[2020-12-18] VITALS (16 sets, daily range): BP systolic 132–168; BP diastolic 72–92; PULSE 64–102; RESP 10–28; TEMP 35.9–36.7; O2SAT 95–100; BMI 34.3
--- NOTE | 2020-12-18 09:33 | DI.RAD.S_ITS ---
PROCEDURE: XR CHEST 1V INDICATIONS: chest pain TECHNIQUE: One view of the chest was acquired. COMPARISON: [facility], CR, XR CHEST 1V, 08/13/2020, 13:04. FINDINGS: Mildly rotated somewhat limiting evaluation. 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 Lungs and pleura: There is a patchy opacity at the left lung base. Linear density at the right lung base. No pneumothorax or large volume pleural effusion. Elevation of the right hemidiaphragm with overall low lung volumes. Mediastinum: Mediastinal contours appear normal. Heart size is normal. Bones and chest wall: No suspicious bony lesions. Overlying soft tissues appear unremarkable. IMPRESSION: Patchy opacity at the left lung base may represent pneumonia in the correct clinical setting. This may also represent atelectasis given low lung volumes. In addition there is linear densities at the right lung base favoring atelectasis/scarring. Dictated by: Juanito Squires D.O. on 12/18/2020 at 9:02 Approved by: Juanito Squires D.O. on 12/18/2020 at 9:04
[2020-12-18 09:41] LABS: Add Manual Diff / Slide Review NO; Basophils Absolute Auto 100 /uL (0-100); Basophils Percent Auto 1.5 % (0-2); Eosinophils Absolute Auto 200 /uL (0-450); Eosinophils Percent Auto 2.4 % (2-4); Hematocrit 36.8 % (41-53); Hemoglobin 11.4 g/dL (13.5-17.5); Lymphocytes Absolute Auto 1900 /uL (1100-4500); Lymphocytes Percent Auto 26.4 % (25-40); Mean Corpuscular Hemoglobin 24.8 PG (26-34); Mean Corpuscular Volume 79.8 fL (80-100); Monocytes Absolute Auto 700 /uL (0-900); Monocytes Percent Auto 9.8 % (3-14); Neutrophils Absolute Auto 4300 /uL (1500-7000); Neutrophils Percent Auto 59.9 % (50-75); Platelet Count 200 X10^3/uL (150-400); Red Blood Cell Count 4.61 X10^6/uL (4.5-5.9); Red Cell Distribution Width 17.8 % (11.6-14.8); White Blood Cell Count 7.2 X10^3/uL (4.5-11.0)
--- NOTE | 2020-12-18 09:41 | ED_ITS ---
HPI - Chest Pain General Chief Complaint: Chest Pain Stated Complaint: chest pain, diff breathing Time Seen by Provider: 12/18/20 09:26 Source: patient Mode of arrival: Ambulatory Limitations: no limitations History of Present Illness HPI narrative: 85-year-old male former smoker with history of chronic AFib, CHF, hypertension, chronic wounds on his left leg presents with family in the chief complaint of multiple episodes of retrosternal chest pain that started while at rest last evening. The episodes are heavy and pressure-like in seem to be worsened by exertion or deep breaths. He denies any radiation of the discomfort. The episodes last seconds to minutes and most recently occurred just prior to his arrival. He did stop using his anticoagulant about 2 months ago secondary to possible complications with chronic wounds on his left leg. He denies associated symptoms such as dizziness or lightheadedness. He has had no nausea or vomiting and denies any unexplained diaphoresis. He does complain of shortness of breath associated with this that seems to be worse with lying flat and exertion. He denies any increased swelling in his legs. He denies any change in medications or diet MD complaint: chest pain Onset (ago): hour(s) Duration: intermittent Onset: during rest Pain location: substernal Severity: moderate Quality: heaviness Pain radiation: none Relieving factors: rest Exacerbating factors: exertion and inspiration Associated symptoms: dyspnea Treatments prior to arrival chest pain: none Related Data Home Medications Medication Instructions Recorded Confirmed magnesium oxide 400 mg PO Q OTHER DAY cap 08/18/18 12/18/20 atorvastatin 10 mg tablet 10 mg PO DAILY 10/19/19 12/18/20 calcium polycarbophil 625 mg tablet 1,250 mg PO DAILY 02/02/20 12/18/20 docusate sodium 100 mg capsule 100 mg PO DAILY 02/02/20 12/18/20 losartan 50 mg PO 12/18/20 Previous Rx's Medication Instructions Recorded gabapentin 300 mg capsule 300 mg PO DAILY #90 cap 12/25/19 finasteride 5 mg PO DAILY #20 tab 05/30/20 potassium chloride 20 mEq 20 meq PO BID #180 tab 09/12/20 tablet,extended release furosemide 40 mg PO DAILY #60 tab 11/01/20 lisinopril 10 mg tablet 10 mg PO DAILY #30 tab 11/01/20 Allergies Allergy/AdvReac Type Severity Reaction Status Date / Time No Known Drug Allergies Allergy Verified 12/07/20 13:10 Review of Systems Constitutional Constitutional: Denies chills, Denies fatigue, Denies fever(s), Denies frequent falls, Denies lethargy and Denies weakness Eyes Eyes: Denies change in vision, Denies eye discharge, Denies irritation and Denies loss of vision ENT Ears, Nose, Mouth, and Throat: Denies change in voice, Denies dizziness, Denies neck pain, Denies sore throat and Denies throat swelling Cardiovascular Cardiovascular: Reports chest pain, Denies irregular heart rhythm, Denies lightheadedness, Denies palpitations, Reports dyspnea, Reports dyspnea on exertion and Reports orthopnea Respiratory Respiratory: Denies cough, Reports dyspnea, Reports dyspnea on exertion and Denies wheezing Gastrointestinal Gastrointestinal: Denies abdominal pain, Denies change in bowel habits, Denies diarrhea, Denies nausea and Denies vomiting Musculoskeletal Musculoskeletal: Denies neck pain and Denies numbness Integumentary/Breasts Skin/Breast: Denies pruritus, Denies erythema, Denies rash and Denies wounds Neurologic Neurologic: Denies behavioral changes, Denies confusion, Denies dizziness, Denies frequent falls, Denies loss of vision, Denies numbness and Denies weakness Psychiatric Psychiatric: Denies anxiety, Denies behavioral changes, Denies confusion, Denies depression, Denies homicidal ideation and Denies suicidal ideation Endocrine Endocrine: Denies fatigue, Denies flushing and Denies palpitations Hematologic/Lymphatic Hematologic/Lymphatic: Denies easy bruising Allergic/Immunologic Allergic/Immunologic: Denies urticaria, Denies throat swelling and Denies wheezing Patient History Medical History AAA (abdominal aortic aneurysm) (~2013) Acquired anal stenosis Anxiety Aortic dilatation Haile's syndrome CAD (coronary artery disease) Cardiomyopathy Cataracts, bilateral CHF (congestive heart failure) Chronic back pain Chronic diastolic congestive heart failure Chronic renal failure, stage 3 (moderate) Colon polyps Deep vein thrombosis (~2013) Diverticular disease Former smoker Fractures Gout Hearing loss History of urinary incontinence HLD (hyperlipidemia) Hypertension Knee pain Lumbar spine pain Meningitis spinal Paroxysmal atrial fibrillation Peripheral edema Peripheral neuropathy Persistent atrial fibrillation Prostate cancer (~2007) Pulmonary embolism (~2013) Pulmonic valve insufficiency Rheumatoid arthritis Shoulder pain Skin cancer (~1989) Tricuspid insufficiency Urinary incontinence due to urethral sphincter incompetence Venous stasis dermatitis Surgical History History of abdominal aortic aneurysm repair History of hydrocelectomy Hx of hernia repair Hx of shoulder surgery S/P skin biopsy Social History household members: spouse Smoking Status: Former smoker Tobacco: How many years used: 20 alcohol intake: current Smoking Status: Former smoker alcohol intake frequency: 3 or more drinks per day Substance Use Type: does not use Exam Narrative Exam Narrative: GENERAL: [85] year old patient appears stated age. Well- nourished, well-developed patient, in mild distress. Chronically ill HEAD: Atraumatic. Normocephalic. EYES: Pupils equal round and reactive. Extraocular motions intact. No scleral icterus. No injection or drainage. ENT: Nose without bleeding, purulent drainage. Throat without erythema, tonsillar hypertrophy or exudate. Airway patent. NECK: Trachea midline. Non tender CARDIOVASCULAR: Regular rate, irregular rhythm without murmurs, gallops, or rubs. RESPIRATORY: Prolonged expiratory phase, decreased breath sounds bilaterally with faint crackles in bilateral bases GASTROINTESTINAL: Abdomen soft, non-tender, nondistended. EXTREMITIES: No edema or joint tenderness. BACK: Nontender without deformity or crepitance. No flank tenderness. NEURO: AOx3. SKIN: No rash or erythema of visible areas Initial Vital Signs Initial Vital Signs: Vital Signs Temperature 98.0 F 12/18/20 09:25 Pulse Rate 102 H 12/18/20 09:25 Respiratory Rate 20 12/18/20 09:25 Blood Pressure 143/85 H 12/18/20 09:25 Pulse Oximetry 100 12/18/20 09:25 Course Orders Ordered: ED Orders 12/18/20 09:30 Complete Blood Count AUTO DIFF Stat Comprehensive Metabolic Panel Stat Lipase Stat Partial Thromboplastin Time Stat Prothrombin Time INR Stat Troponin & CK Cardiac Panel Stat 12/18/20 09:31 COVID19 - ADMIT (EMS DIRECTOR swab/PCR) Stat 12/18/20 09:33 XR chest 1V Stat EKG-12 Lead Stat 12/18/20 09:43 D Dimer Stat 12/18/20 10:07 CT angio chest PE protocol Stat Acetaminophen (Acetaminophen 325 Mg Tablet) 650 mg PO Q6HR PRN PRN Reason: Fever/Mild Pain (1-3) Hydrocodone Bitart/Acetaminophen (Hydrocodone/Acet 5/325 Tablet) 1 tab PO Q4HR PRN PRN Reason: Pain, Moderate (4-6) Bisacodyl (Bisacodyl 10 Mg Supp) 10 mg TN DAILY PRN PRN Reason: Constipation Docusate Sodium (Docusate 100 Mg Capsule) 100 mg PO DAILY [facility] Finasteride (Finasteride 5 Mg Tablet) 5 mg PO BEDTIME GUSTAVO Gabapentin (Gabapentin 300 Mg Capsule) 300 mg PO BEDTIME GUSTAVO Lisinopril (Lisinopril 10 Mg Tablet) 10 mg PO DAILY [facility] Naloxone HCl (Naloxone 0.4 Mg/Ml Vial) 0.2 mg IV Q2MIN PRN PRN Reason: Opiate Reversal Nitroglycerin (Nitroglycerin 0.4 Mg Sl Tab) 0.4 mg SL [id number] PRN PRN Reason: Chest Pain Ondansetron HCl (Ondansetron 4 Mg/2 Ml Inj) 4 mg IV Q8HR GUSTAVO Oxybutynin (Oxybutynin 5 Mg Tablet) 5 mg PO DAILY G[facility] Pantoprazole Sodium (Pantoprazole 40 Mg Vial) 40 mg IV DAILY GUSTAVO Potassium Chloride (Potassium Chloride 20 Meq Tab) 20 meq PO DAILYCC [facility] Sodium Chloride (Sodium Chloride 0.9% Flush) 10 ml IV PRN PRN PRN Reason: Flush Sodium Chloride (Sodium Chloride 0.9% Flush) 10 ml IV BID GUSTAVO Discontinued Medications Aspirin (Aspirin 81 Mg Chew Tab) 324 mg PO NOW ONE Stop: 12/18/20 13:16 Last Admin: 12/18/20 13:24 Dose: 324 mg Documented by: JE Furosemide (Furosemide 40 Mg/4 Ml Vial) 40 mg IV NOW ONE Stop: 12/18/20 17:44 Vital Signs Vital signs: Vital Signs - 8 hr 12/18/20 10:30 12/18/20 11:00 12/18/20 11:30 Pulse Rate 67 68 69 Respiratory Rate 21 14 18 Blood Pressure Pulse Oximetry 98 95 96 12/18/20 12:00 12/18/20 12:30 12/18/20 12:57 Pulse Rate 75 68 76 Respiratory Rate 21 18 24 Blood Pressure 158/88 H Pulse Oximetry 99 97 99 12/18/20 13:00 Pulse Rate 76 Respiratory Rate 21 Blood Pressure 168/80 H Pulse Oximetry 100 MDM - Chest Pain Lab Data Result diagrams: 12/18/20 09:30 12/18/20 09:30 Labs: Lab Results 12/18/20 12/18/20 12/18/20 Range/Units 09:30 09:30 09:30 WBC 7.2 (4.5-11.0) X10^3/uL RBC 4.61 (4.5-5.9) X10^6/uL Hgb 11.4 L (13.5-17.5) g/dL Hct 36.8 L (41-53) % MCV 79.8 L (80-100) fL MCH 24.8 L (26-34) PG MCHC 31.0 (30-36) % RDW 17.8 H (11.6-14.8) % Plt Count 200 (150-400) X10^3/uL Neut % (Auto) 59.9 (50-75) % Lymph % (Auto) 26.4 (25-40) % Bartholomew % (Auto) 9.8 (3-14) % Eos % (Auto) 2.4 (2-4) % Baso % (Auto) 1.5 (0-2) % Neut # (Auto) 4300 (3107-5727) /uL Lymph # (Auto) 1900 (0468-8360) /uL Bartholomew # (Auto) 700 (0-900) /uL Eos # (Auto) 200 (0-450) /uL Baso # (Auto) 100 (0-100) /uL PT 12.6 (10.1-12.7) SECONDS INR 1.1 (0.9-1.3) APTT 30 (26.4-36.2) SECONDS D-Dimer (<230) ng/mL Sodium 140 (137-145) mmol/L Potassium 4.4 (3.4-5.1) mmol/L Chloride 108 H (98-107) mmol/L Carbon Dioxide 24 (22-32) mmol/L BUN 22 H (9-20) mg/dL Creatinine 0.97 (0.66-1.25) mg/dL Estimated GFR > 60.0 (>60) mL/min BUN/Creatinine Ratio 22.7 H (6-22) Glucose 114 H (80-110) mg/dL Calcium 9.4 (8.4-10.2) mg/dL Total Bilirubin 0.9 (0.2-1.3) mg/dL AST 26 (17-59) IU/L ALT 14 (<50) IU/L Alkaline Phosphatase 71 (38-126) U/L Total Creatine Kinase 70 (55-170) U/L CK-MB (CK-2) TNP CK-MB (CK-2) Rel Index TNP Troponin I 0.018 (0.01-0.034) ng/mL Total Protein 6.7 (6.3-8.2) g/dL Albumin 4.2 (3.5-5.0) g/dL Globulin 2.5 (1.7-4.1) g/dL Albumin/Globulin Ratio 1.7 (1.0-2.8) Lipase 262 (23-300) U/L SARS-CoV-2 (PCR) (Negative) 12/18/20 12/18/20 Range/Units 09:31 09:43 WBC (4.5-11.0) X10^3/uL RBC (4.5-5.9) X10^6/uL Hgb (13.5-17.5) g/dL Hct (41-53) % MCV (80-100) fL MCH (26-34) PG MCHC (30-36) % RDW (11.6-14.8) % Plt Count (150-400) X10^3/uL Neut % (Auto) (50-75) % Lymph % (Auto) (25-40) % Bartholomew % (Auto) (3-14) % Eos % (Auto) (2-4) % Baso % (Auto) (0-2) % Neut # (Auto) (0252-8034) /uL Lymph # (Auto) (2380-9566) /uL Bartholomew # (Auto) (0-900) /uL Eos # (Auto) (0-450) /uL Baso # (Auto) (0-100) /uL PT (10.1-12.7) SECONDS INR (0.9-1.3) APTT (26.4-36.2) SECONDS D-Dimer 2754 H (<230) ng/mL Sodium (137-145) mmol/L Potassium (3.4-5.1) mmol/L Chloride (98-107) mmol/L Carbon Dioxide (22-32) mmol/L BUN (9-20) mg/dL Creatinine (0.66-1.25) mg/dL Estimated GFR (>60) mL/min BUN/Creatinine Ratio (6-22) Glucose (80-110) mg/dL Calcium (8.4-10.2) mg/dL Total Bilirubin (0.2-1.3) mg/dL AST (17-59) IU/L ALT (<50) IU/L Alkaline Phosphatase (38-126) U/L Total Creatine Kinase (55-170) U/L CK-MB (CK-2) CK-MB (CK-2) Rel Index Troponin I (0.01-0.034) ng/mL Total Protein (6.3-8.2) g/dL Albumin (3.5-5.0) g/dL Globulin (1.7-4.1) g/dL Albumin/Globulin Ratio (1.0-2.8) Lipase (23-300) U/L SARS-CoV-2 (PCR) Negative (Negative) Urine Dip Bedside Urine Glucose Negative Bedside Urine Bilirubin - Negative Bedside Urine Ketone - Negative Urine Specific [place] 1.015 Bedside Urine Occult Blood - Negative Bedside Urine pH 6 Bedside Urine Protein - Negative Bedside Urine Urobilinogen - Negative Bedside Urine Nitrite - Negative Bedside Urine Leukocytes - Negative Esterase Imaging Data CT scan - chest: Radiologist's Impression: Gisele Lowry DO Find Patient Imaging - Nazario Liang 85 M 1935 ACTIVITY DATE EXAM STATUS AUTHOR 12/18/20 10:07 Signed Juanito Squires 12/18/20 09:[address] [id number] Scan ReportSigned Patient: Nazario Liang R#: [id number]: 5Acct:[id number]/Sex: 85 / MDate of Service: 12/18/20Loc: EDAccession Number: [id number] Procedure: CT angio chest PE protocol Ordering Provider: Woody Lowry D.O. PROCEDURE: CT ANGIO CHEST PE PROTOCOL INDICATIONS: chest pain, SOB, critical Dimer TECHNIQUE: After the administration of intravenous contrast, 2 mm thick sections acquired from the pulmonary apices to the posterior costophrenic angles. 3-dimensional maximum intensity projection (MIP) coronal and sagittal reformats were then acquired through the thorax. For radiation dose reduction, the following was used: automated exposure control, adjustment of mA and/or kV according to patient size. COMPARISON: [facility], CT, CT ANGIO CHEST ABDOMEN PELVIS, 05/30/2020, 15:45. FINDINGS: Image quality: Excellent. Pulmonary arteries: There is mild dilation of the main and proximal pulmonary arteries. The main pulmonary artery measures 3.8 centimeters. No filling defects to suggest central pulmonary embolism. Lungs and pleura: There is a small to moderate right-sided pleural effusion with adjacent atelectasis. More focal regions of atelectasis at the left lung base as well as the in the right middle lobe. No focal consolidation or pneumothorax. Stable granuloma within the right upper lobe. Central and peripheral airways are patent. Mediastinum: Heart size is normal, without pericardial effusion. Moderate multi-vessel coronary vascular calcifications. Multiple prominent and slightly enlarged mediastinal/hilar lymph nodes. The majority of which demonstrate normal fatty hilum. The largest lymph node which is a right paratracheal lymph node measures 1.5 centimeters in short axis diameter. The ascending aorta is normal in caliber. The descending aorta demonstrates an endograft with unchanged dilation measuring up to 4.3 cent imeters at the level of the right pulmonary artery. Bones and chest wall: No suspicious bony lesions. Ribs and thoracic spine appear intact throughout. Thyroid gland is diffusely enlarged with multiple nodules consistent with multinodular goiter, grossly unchanged. No axillary or supraclavicular adenopathy. Abdomen: Inferior vena cava filter is partially imaged. Multiple renal cystic lesions are noted. This includes a 3.9 centimeter hyperdense nodule along the posterior aspect of the superior pole of the left kidney previously characterized as a hyperdense cyst. No acute abnormality within the visualized upper abdomen. IMPRESSION: No evidence of pulmonary embolism. Mild to moderate right-sided pleural effusion with adjacent atelectasis. Nonspecific mediastinal adenopathy, grossly unchanged. Enlargement of the main pulmonary artery to 3.8 centimeters. Recommend co rrelation for pulmonary hypertension. 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 Additional chronic findings as above. Dictated by: Juanito Squires D.O. on 12/18/2020 at 10:12 Approved by: Juanito Squires D.O. on 12/18/2020 at 10:25 ECG Data Interpretation: EKG is AFib rate [ 73] and free of any signs of ischemia or ectopy. No ST segmental elevation or depression. No T wave inversions Discharge Plan Departure Patient Disposition: Admitted as Observation Clinical Impression: Chest pain Admit Date/Time: 12/18/20 13:18 Admit Provider: Tonja Black
[2020-12-18 09:45] LABS: INR 1.1 (0.9-1.3); Prothrombin Time 12.6 SECONDS (10.1-12.7)
[2020-12-18 09:48] LABS: PTT Partial Thromboplastin Tim 30 SECONDS (26.4-36.2)
[2020-12-18 09:52] LABS: Alanine Aminotransferase 14 IU/L (<50); Albumin 4.2 g/dL (3.5-5.0); Albumin Globulin Ratio 1.7 (1.0-2.8); Alkaline Phosphatase 71 U/L (38-126); Aspartate Aminotransferase 26 IU/L (17-59); BUN Creatinine Ratio 22.7 (6-22); Bilirubin Total 0.9 mg/dL (0.2-1.3); Blood Urea Nitrogen 22 mg/dL (9-20); Calcium 9.4 mg/dL (8.4-10.2); Carbon Dioxide 24 mmol/L (22-32); Chloride 108 mmol/L (98-107); Creatine Kinase 70 U/L (55-170); Estimated Glomerular Filt Rate > 60.0 mL/min (>60); Globulin 2.5 g/dL (1.7-4.1); Glucose 114 mg/dL (80-110); HEMOLYSIS < 15 (0-50); Lipase 262 U/L (23-300); Potassium 4.4 mmol/L (3.4-5.1); Sodium 140 mmol/L (137-145); Total Protein 6.7 g/dL (6.3-8.2)
[2020-12-18 10:02] LABS: D Dimer 2754 ng/mL (<230)
[2020-12-18 10:03] LABS: Troponin I 0.018 ng/mL (0.01-0.034)
--- NOTE | 2020-12-18 10:07 | DI.CT.S_ITS ---
PROCEDURE: CT ANGIO CHEST PE PROTOCOL INDICATIONS: chest pain, SOB, critical Dimer TECHNIQUE: After the administration of intravenous contrast, 2 mm thick sections acquired from the pulmonary apices to the posterior costophrenic angles. 3-dimensional maximum intensity projection (MIP) coronal and sagittal reformats were then acquired through the thorax. For radiation dose reduction, the following was used: automated exposure control, adjustment of mA and/or kV according to patient size. COMPARISON: [facility], CT, CT ANGIO CHEST ABDOMEN PELVIS, 05/30/2020, 15:45. FINDINGS: Image quality: Excellent. Pulmonary arteries: There is mild dilation of the main and proximal pulmonary arteries. The main pulmonary artery measures 3.8 centimeters. No filling defects to suggest central pulmonary embolism. Lungs and pleura: There is a small to moderate right-sided pleural effusion with adjacent atelectasis. More focal regions of atelectasis at the left lung base as well as the in the right middle lobe. No focal consolidation or pneumothorax. Stable granuloma within the right upper lobe. Central and peripheral airways are patent. Mediastinum: Heart size is normal, without pericardial effusion. Moderate multi-vessel coronary vascular calcifications. Multiple prominent and slightly enlarged mediastinal/hilar lymph nodes. The majority of which demonstrate normal fatty hilum. The largest lymph node which is a right paratracheal lymph node measures 1.5 centimeters in short axis diameter. The ascending aorta is normal in caliber. The descending aorta demonstrates an endograft with unchanged dilation measuring up to 4.3 centimeters at the level of the right pulmonary artery. Bones and chest wall: No suspicious bony lesions. Ribs and thoracic spine appear intact throughout. Thyroid gland is diffusely enlarged with multiple nodules consistent with multinodular goiter, grossly unchanged. No axillary or supraclavicular adenopathy. Abdomen: Inferior vena cava filter is partially imaged. Multiple renal cystic lesions are noted. This includes a 3.9 centimeter hyperdense nodule along the posterior aspect of the superior pole of the left kidney previously characterized as a hyperdense cyst. No acute abnormality within the visualized upper abdomen. IMPRESSION: No evidence of pulmonary embolism. Mild to moderate right-sided pleural effusion with adjacent atelectasis. Nonspecific mediastinal adenopathy, grossly unchanged. Enlargement of the main pulmonary artery to 3.8 centimeters. Recommend correlation for pulmonary hypertension. 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 Additional chronic findings as above. Dictated by: Juanito Squires D.O. on 12/18/2020 at 10:12 Approved by: Juanito Squires D.O. on 12/18/2020 at 10:25
[2020-12-18 12:28] LABS: COVID19 - ADMIT (NP swab/PCR) Negative (Negative)
[2020-12-18] MEDS: ASPIRIN 81 MG CHEW TAB 324 MG PO (13:24)
--- NOTE | 2020-12-18 14:11 | P.HP_ITS ---
History of Present Illness History of Present Illness Date Patient Seen: 12/18/20 Time Patient Seen: 14:11 Date of Onset of Symptoms: 12/17/20 Chief complaint: SDC Narrative: This is a very pleasant 85-year-old patient of Dr. Luis Alfredo hennessy who presents to the Emergency Department with complaints of anterior chest pressure. Apparently he had episode yesterday 2 times associated with shortness of breath but these were smaller and dissipated and then 1 hour prior to arriving in the ER he had recurrent symptoms. In the ER he was found to have stable vital signs and normal EKG and negative CK and troponin however he had elevated D-dimer and a CT angiogram did not show a pulmonary embolus. He has been on chronic anticoagulation due to paroxysmal atrial fibrillation but he went off of this a few months ago because he has had a chronic left lower extremity wound for which he is going to have surgical debridement on Saturday by Dr. Núñez. Patient states that he has had this chest pain that he describes to be in his lower sternum up but air mid epigastrium off and on for years but has not been as bad as it has been over the last 24 hours. It occurred last night while he was sleeping and it was pleuritic in nature associated with shortness of breath but no nausea vomiting or diaphoresis. It did not radiate to his back or his shoulders or his jaw. It occurred last night off and on and he also awakens painting the pain continued and that is why he presented to the emergency room. He has also had shortness of breath with long exertion but it was much worse today just with doing small things. He also states that the last few weeks he has been coughing at night and bringing up phlegm. The chest pain that he came in for is better but he states is still there 08/14. He did not receive any treatment in the emergency room. He does have a history of lower extremity swelling and that has been slightly worse over the last week or so. His weight ranges from 264 lb to 278 and now he is 274 so this is the upper and the normal. Past medical history: 1. Paroxysmal atrial fibrillation 2. Coronary artery disease 3. Congestive heart failure 4. Chronic kidney disease stage 3 5. Chronic venous stasis changes 6. Chronic lower extremity wounds secondary to chronic venous stasis 7. Abdominal aortic aneurysm 2013 8. Haile's esophagitis 9. Anxiety 10. Acquired anal stenosis 11. DVT 12. Diverticulosis 13. Gout 14. Colonic polyps 15. Hyperlipidemia 16. Prostate cancer in 2007 17. Rheumatoid arthritis 18. Hypertension 19 history of hearing loss 20. 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 Pulmonary embolus with filter in place Past surgical history: 1. Abdominal aortic aneurysm repair 2. Hydrocele repair 3. Hernia repair 4. Shoulder surgery Social history: Patient is for 64 years and lives with his in [place]. 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 His daughter Marisol is present during my discussion. He is originally from [place]. He has 5 kids and 15 grandkids. Two children living in a [facility] in [place], [place], [place] Healthier to behavior: Previous smoker Uses alcohol on a regular basis. He drinks martini every night but sometimes will go months without having anything Patient History Medical History AAA (abdominal aortic aneurysm) (~2013) Acquired anal stenosis Anxiety Aortic dilatation Haile's syndrome CAD (coronary artery disease) Cardiomyopathy Cataracts, bilateral CHF (congestive heart failure) Chronic back pain Chronic diastolic congestive heart failure Chronic renal failure, stage 3 (moderate) Colon polyps Deep vein thrombosis (~2013) Diverticular disease Former smoker Fractures Gout Hearing loss History of urinary incontinence HLD (hyperlipidemia) Hypertension Knee pain Lumbar spine pain Meningitis spinal Paroxysmal atrial fibrillation Peripheral edema Peripheral neuropathy Persistent atrial fibrillation Prostate cancer (~2007) Pulmonary embolism (~2013) Pulmonic valve insufficiency Rheumatoid arthritis Shoulder pain Skin cancer (~1989) Tricuspid insufficiency Urinary incontinence due to urethral sphincter incompetence Venous stasis dermatitis Surgical History History of abdominal aortic aneurysm repair History of hydrocelectomy Hx of hernia repair Hx of shoulder surgery S/P skin biopsy Family & Social History Social History: household members spouse Tobacco & Substance use: Smoking Status Former smoker alcohol intake current alcohol intake frequency 3 or more drinks per day Substance Use Type does not use Meds Home Medications and Allergies Home Medications Medication Instructions Recorded Confirmed Type magnesium oxide 400 mg PO Q OTHER DAY cap 08/18/18 12/07/20 History atorvastatin 10 mg tablet 10 mg PO DAILY 10/19/19 12/07/20 History gabapentin 300 mg capsule 300 mg PO DAILY #90 cap 12/25/19 12/07/20 Rx calcium polycarbophil 625 mg tablet 1,250 mg PO DAILY 02/02/20 12/07/20 History docusate sodium 100 mg capsule 100 mg PO DAILY 02/02/20 12/07/20 History finasteride 5 mg PO DAILY #20 tab 05/30/20 12/07/20 Rx oxybutynin chloride 5 mg PO DAILY 08/14/20 12/07/20 History cyclobenzaprine 10 mg PO TID PRN #14 tab 08/26/20 12/07/20 Rx hydrocodone 5 mg-acetaminophen 325 1 - 2 tab PO Q6H PRN #60 tab 08/30/20 12/07/20 Rx mg tablet potassium chloride 20 mEq 20 meq PO BID #180 tab 09/12/20 12/07/20 Rx tablet,extended release doxycycline monohydrate 100 mg PO BID #10 cap 11/01/20 12/07/20 Rx furosemide 40 mg PO DAILY #60 tab 11/01/20 12/07/20 Rx lisinopril 10 mg tablet 10 mg PO DAILY #30 tab 11/01/20 12/07/20 Rx Allergies Allergy/AdvReac Type Severity Reaction Status Date / Time No Known Drug Allergies Allergy Verified 12/07/20 13:10 Review of Systems Review of Systems Narrative: Patient denies any fever, lightheadedness, dizziness, palpitations. He denies any GI symptoms except for slight diarrhea. He did not have any urinary symptoms. He is not having any rashes. He is in chronic atrial fibrillation He is off Eliquis due to upcoming surgery on Saturday Otherwise review of systems is negative other than HPI Apparently his wound VAC fell off last week any scheduled for an appointment tomorrow to have it reapplied. He also is scheduled for an injection for his macular degeneration Exam Vital Signs (past 8 hours): Afebrile, vital signs are stable. Patient is hard of hearing. He is alert and oriented x3 and excellent historian. HEENT: Unremarkable other than decreased hearing Neck: Supple without adenopathy, thyromegaly, jugular venous distention or bru it Chest: Clear to auscultation without wheezes rhonchi or crackles but he does have decreased breath sounds in the right base Cor: Irregularly irregular rhythm at a well-controlled rate in the low 70s. 2/6 systolic ejection murmur heard loudest at the right upper sternal border. Nonradiating Abdomen: Positive bowel sounds, soft, nontender, obese, no hepatosplenomegaly. No reproduction of his pain with palpation of the midepigastrium Chest wall. No reproduction of pain with palpation although shortly after I examined him he had a brief 2nd period of having this chest pain. Extremities: I did not read removed the dressing from the left lower extremity. He has bilateral 1+ pitting edema. He has chronic venous stasis changes. Dorsalis pedis and posterior tibialis pulses are intact Neurologic exam is nonfocal Assessment & Plan Assessment & Plan narrative: Very pleasant 85-year-old male who appears younger than his stated age with multiple medical problems admitted for chest pain of unclear etiology Assessment 1. Chest pain of unclear etiology suspect musculoskeletal or GI but given high risk for coronary artery disease he will be admitted and will be ruled out for acute myocardial infarction and likely have Persantine stress test. Plan: Will do serial CKs and troponins He will be on telemetry. We will do echo in a.m. possibly Persantine stress test if he rules out for myocardial infarction At this point will hold on anticoagulation. He did receive an aspirin in the ER. We will continue this. We will continue his outpatient medications. Assessment 2. History of Haile's esophagitis with possibility of this is the etiology of his pain Plan: Will treat with Protonix Assessment 3. Pleural effusion with possible exacerbation of congestive heart failure Plan: Will give IV Lasix. Will repeat labs in a.m.. Will do echo. Assessment 4. BPH Plan: Continue outpatient medications Assessment 5. Atrial fibrillation currently not on anticoagulation due to previous history of bleeding from his wound and scheduled for surgery on Saturday so we will continue off anticoagulation. Assessment 6. GI prophylaxis Plan: Protonix Assessment 7. DVT prophylaxis with upcoming surgery. At this point we will hold the Lovenox. He also has chronic kidney disease. He has a filter in place due to previous PE. Assessment 8. Chronic kidney disease Plan: Will continue to monitor closely Assessment 9. Chronic left lower extremity wound Plan: Will have Wound Care evaluate him here tomorrow. Patient prefers full code.
--- NOTE | 2020-12-18 14:12 | PC.NURSE ---
Day shift: Pt on AC unit from ED at approx 1405. He is A&Ox4. Chronic left leg wounds (3 of them per Pt) and he also stated that the left left does hurt but he doesn't take anything for the pain anymore. RA 98. Hx HTN and BP is elevated. D-Dimer is also elevated. Has extensive medical Hx. He denies any nausea now but did have emesis in ED after eating. Oriented to room and call light. Call light in reach. Pt's daughter Marisol is in room for support. Pt also stated he has an eye appointment tomorrow he would like to go to as well as wound care tomorrow. No new MD orders at this time.
--- NOTE | 2020-12-18 18:09 | DI.ECHO.S_ITS ---
[facility] +---------+ : : [address] : : : : [id number] : : : : Phone: [phone]---------+ Echocardiogram Report + + :Name: SALLY VELA Study Date: 12/19/2020 Height: 75 in : :[facility] ReadingLocation: Weight: 275 lb : : Gender: Male BSA: 2.5 m2 : :: 1935 Age: 85 yrs BP: 155/82 mmHg: :Reason For Study: CHEST PAIN, SHORTNESS OF BREATH : :Ordering Physician: TRA, : :ZOE Performed By: Anh Avendano : :Referring: ZOE DUTTA : + + Interpretation Summary 1) Normal left ventricular size with low normal systolic function (EF about 50%). 2) The right ventricle is mildly dilated. Right ventricular systolic function is mildly reduced. 3) Severe biatrial enlargement. 4) No significant valvular abnormalities. 5) The IVC is dilated (diameter is greater than 2.1 cm) and it collapses less than 50% with a sniff. This suggests a high right atrial pressure of 15 mm Hg. 6) Hypertension present during the study (BP 155/82mmHg). 7) Compared to the Echo done 01/08/2020, no significant change. Procedure: A two-dimensional transthoracic echocardiogram with color flow and Doppler was performed. The study quality was technically adequate. Comparison is made with the echocardiogram of 01/08/2020. The patient was in atrial fibrillation with heart rates between 61-82 bpm during the exam. Left Ventricle: The left ventricle is normal in size. There is mild concentric left ventricular hypertrophy. Left ventricular ejection fraction is estimated to be 50 +/- 5%. Diastolic function could not be accurately assessed due to atrial fibrillation. Right Ventricle: The right ventricle is mildly dilated. Right ventricular systolic function is mildly reduced. Atria: Both atria are severely dilated. There is no Doppler evidence for an interatrial shunt. Mitral Valve: There is mild mitral annular calcification. The mitral valve leaflets appear mildly thickened, but open well. There is trace mitral regurgitation. Aortic Valve: There is mild aortic valve sclerosis. The aortic valve is trileaflet. The aortic valve is mildly calcified. There is no aortic valve stenosis. There is mild aortic regurgitation. Tricuspid Valve: The tricuspid valve is not well visualized, but is grossly normal. Pulmonary artery pressures cannot be estimated because of the lack of a measurable TR jet velocity but the IVC suggests a CVP of around 15 mmHg. There is trace tricuspid regurgitation. Pulmonic Valve: The pulmonic valve is not well visualized. There is trace pulmonic regurgitation. Great Vessels: The aortic root is normal size. The ascending aorta is at the upper limits of normal in size. The IVC is dilated (diameter is greater than 2.1 cm) and it collapses less than 50% with a sniff. This suggests a high right atrial pressure of 15 mm Hg. Pericardium/ Pleura There is no pericardial effusion. There is no pleural effusion. MMode/2D Measurements & Calculations LVIDd: 5.1 cm LVOT diam: 2.6 cm LVIDs: 4.0 cm Ao root diam: 3.7 cm FS: 22.3 % asc Aorta Diam: 4.0 cm EPSS: 0.29 cm Ao Arch Diam (Prox Trans): 3.0 cm IVSd: 1.2 cm LVPWd: 1.1 cm LV ford. diameter/BSA (cm/m^2): 2.0 LV sys. diameter/BSA (cm/m^2): 1.6 LA A2 area: 42.0 cm2 RA long axis: 6.8 cm LA A4 area: 40.9 cm2 RA area: 31.0 cm2 LA length (vol): 7.6 cm RA vol: 121.0 ml LA vol: 191.7 ml RA : 48.2 ml/m2 LA vol index: 76.3 ml/m2 IVC diam: 2.5 cm RVD1 (basal): 4.4 cm TAPSE: 1.7 cm Doppler Measurements & Calculations Ao V2 max: 141.3 cm/sec LVOT Max Gary: 65.2 cm/sec Ao V2 mean: 94.3 cm/sec LV V1 max P.7 mmHg Ao max P.0 mmHg LV V1 VTI: 13.5 cm Ao mean P.0 mmHg OSMANY(I,D): 2.5 cm2 Ao V2 VTI: 29.2 cm OSMANY(V,D): 2.5 cm2 sev ratio: 0.46 OSMANY indexed to BSA (cm^2/m^2): 0.99 MV E max gary: 93.1 cm/sec PA pr(Accel): 46.5 mmHg MV A max gary: 8.3 cm/sec MV E/A: 11.2 Med Peak E' Gary: 8.1 cm/sec E/E' med: 11.5 Lat Peak E' Gary: 11.6 cm/sec E/E' lat: 8.0 E/e' average: 9.8 MV dec time: 0.17 sec SV(OT): 72.8 ml Reading Physician:11:07 AM
[2020-12-18] MEDS: FUROSEMIDE 40 MG/4 ML VIAL IV (18:16)
[2020-12-18] MEDS: SODIUM CHLORIDE 0.9% FLUSH 10 ML IV (22:04)
[2020-12-18 22:38] LABS: Creatine Kinase 59 U/L (55-170)
[2020-12-18 22:51] LABS: Troponin I 0.022 ng/mL (0.01-0.034)
[2020-12-19] VITALS (12 sets, daily range): BP systolic 106–147; BP diastolic 52–103; PULSE 58–85; RESP 14–18; TEMP 36.2–37.2; O2SAT 96–100
[2020-12-19 04:29] LABS: Add Manual Diff / Slide Review NO; Basophils Absolute Auto 100 /uL (0-100); Basophils Percent Auto 1.1 % (0-2); Eosinophils Absolute Auto 200 /uL (0-450); Eosinophils Percent Auto 3.3 % (2-4); Hematocrit 33.1 % (41-53); Hemoglobin 10.4 g/dL (13.5-17.5); Lymphocytes Absolute Auto 1200 /uL (1100-4500); Lymphocytes Percent Auto 21.9 % (25-40); Mean Corpuscular HGB Conc 31.3 % (30-36); Mean Corpuscular Hemoglobin 24.8 PG (26-34); Mean Corpuscular Volume 79.3 fL (80-100); Monocytes Absolute Auto 500 /uL (0-900); Monocytes Percent Auto 9.7 % (3-14); Neutrophils Absolute Auto 3400 /uL (1500-7000); Platelet Count 146 X10^3/uL (150-400); Red Blood Cell Count 4.18 X10^6/uL (4.5-5.9); Red Cell Distribution Width 18.1 % (11.6-14.8); White Blood Cell Count 5.4 X10^3/uL (4.5-11.0)
[2020-12-19 04:31] LABS: Creatine Kinase 52 U/L (55-170)
[2020-12-19 04:33] LABS: Alanine Aminotransferase 12 IU/L (<50); Albumin 3.3 g/dL (3.5-5.0); Albumin Globulin Ratio 1.5 (1.0-2.8); Alkaline Phosphatase 58 U/L (38-126); Aspartate Aminotransferase 23 IU/L (17-59); BUN Creatinine Ratio 26.4 (6-22); Bilirubin Total 0.8 mg/dL (0.2-1.3); Blood Urea Nitrogen 28 mg/dL (9-20); Carbon Dioxide 25 mmol/L (22-32); Chloride 109 mmol/L (98-107); Estimated Glomerular Filt Rate > 60.0 mL/min (>60); Globulin 2.2 g/dL (1.7-4.1); Glucose 106 mg/dL (80-110); HEMOLYSIS < 15 (0-50); Magnesium 2.2 mg/dL (1.6-2.3); Potassium 4.2 mmol/L (3.4-5.1); Sodium 140 mmol/L (137-145); Total Protein 5.5 g/dL (6.3-8.2)
[2020-12-19 04:41] LABS: NT-proBNP (BNP-Adult 18+) 2060 pg/mL (<450)
[2020-12-19 04:44] LABS: Troponin I 0.024 ng/mL (0.01-0.034)
--- NOTE | 2020-12-19 07:11 | DI.NM.S_ITS ---
PROCEDURE: NM [facility] PERF SPECT R&S PHARM Rest and pharmacological stress myocardial perfusion SPECT with gated imaging and ejection fraction RADIOPHARMACEUTICAL: 13.4 mCi Tc-99m tetrafosmin IV at rest and 25.7 mCi Tc-99m tetrafosmin IV at peak effect of pharmacological stress. [id number] was performed. INDICATIONS: chest pain TECHNIQUE: Radiopharmaceutical was injected at peak stress test, and also at rest. SPECT images were obtained. SPECT myocardial perfusion images were displayed in short axis, horizontal long axis, and vertical long axis views. Gated images were reviewed using Standard Media Index software. COMPARISON: None. CARDIAC STRESS: A pharmacologic stress test was performed under the supervision of an attending staff, using an infusion of lexiscan 0.4mg IV X1. Hemodynamic data: There is normal blood pressure and heart rate response to pharmacologic stress. Symptoms: The patient denied anginal chest pain. Aminophylline: none EKG: Resting ECG shows atrial fibrillation with controlled ventricular rate. No diagnostic changes of ischemia with lexiscan. FINDINGS: Raw data: There is good myocardial uptake of radiotracer. No significant motion artifacts. Vxda-oj-mftyw ratio is 0.23 (normal is less than 0.38 for tetrafosmin tracer). Left ventricle function: Gated images demonstrate normal left ventricular wall thickening. No segmental wall motion abnormalities. No transient ischemic dilation; TID is 0.94 (normal less than 1.3). Left ventricle resting end diastolic volume is 137 mL. Left ventricle stress ejection fraction is 73%; normal range is above 45%. Myocardial perfusion: There is small mildly intense fixed defect in the mid anteroseptum, consistent with prior small infarction. No ischemia. IMPRESSION: Abnormal nuclear stress test consistent with small prior anteroseptal infarct. No ischemia. 1) There is small mildly intense fixed defect in the mid anteroseptum, consistent with prior small infarction. No ischemia. 2) Upper normal left ventricular size (resting EDV 137cc) with normal wall motion and normal systolic function (EF post stress 73%). 3) No ECG evidence of ischemia. 4) No angina during the study. 5) Compared to the nuclear stress test done 10/16/2018, no significant change. Dictated by: Yony Cline MD on 12/19/2020 at 15:37 Approved by: Yony Cline MD on 12/19/2020 at 15:40
[2020-12-19] MEDS: NITROGLYCERIN 0.4 MG SL TAB SL (08:00)
[2020-12-19] MEDS: HYDROCODONE/ACET 5/325 TABLET 1 TAB PO (08:15)
--- NOTE | 2020-12-19 08:33 | PM.PN.1 ---
Subjective Subjective Date Patient Seen: 12/19/20 Time Patient Seen: 08:33 Interval history: Patient's status time of admission reviewed with Dr. Black Patient have overall improvement in his chest pain. Did have another episode this morning and nurses did an EKG which was unchanged from previous. Reports this pain goes back several years actually although become more frequent and more intense here recently in the last several weeks. Patient does report a pretty clear pleuritic component to it. Troponin has remained normal. Patient had echocardiogram already this morning Exam Vital Signs (past 8 hours): - 12/19/20 04:12 12/19/20 08:00 Temperature 97.2 F L Pulse Rate 68 77 Respiratory Rate 16 Blood Pressure 143/88 H 141/103 H Pulse Oximetry 98 Oxygen Delivery Method Room Air Oxygen Flow Rate 0 Objective Labs Result Diagrams: 12/19/20 04:00 12/19/20 04:00 Labs: Laboratory Results - last 24 hr 12/18/20 12/18/20 12/18/20 09:30 09:30 09:30 WBC 7.2 RBC 4.61 Hgb 11.4 L Hct 36.8 L MCV 79.8 L MCH 24.8 L MCHC 31.0 RDW 17.8 H Plt Count 200 Neut % (Auto) 59.9 Lymph % (Auto) 26.4 Divide % (Auto) 9.8 Eos % (Auto) 2.4 Baso % (Auto) 1.5 Neut # (Auto) 4300 Lymph # (Auto) 1900 Divide # (Auto) 700 Eos # (Auto) 200 Baso # (Auto) 100 PT 12.6 INR 1.1 APTT 30 D-Dimer Sodium 140 Potassium 4.4 Chloride 108 H Carbon Dioxide 24 BUN 22 H Creatinine 0.97 Estimated GFR > 60.0 BUN/Creatinine Ratio 22.7 H Glucose 114 H Calcium 9.4 Magnesium Total Bilirubin 0.9 AST 26 ALT 14 Alkaline Phosphatase 71 Total Creatine Kinase 70 CK-MB (CK-2) TNP CK-MB (CK-2) Rel Index TNP Troponin I 0.018 NT-Pro-B Natriuret Pep Total Protein 6.7 Albumin 4.2 Globulin 2.5 Albumin/Globulin Ratio 1.7 Lipase 262 SARS-CoV-2 (PCR) 12/18/20 12/18/20 12/18/20 09:31 09:43 22:04 WBC RBC Hgb Hct MCV MCH MCHC RDW Plt Count Neut % (Auto) Lymph % (Auto) Divide % (Auto) Eos % (Auto) Baso % (Auto) Neut # (Auto) Lymph # (Auto) Divide # (Auto) Eos # (Auto) Baso # (Auto) PT INR APTT D-Dimer 2754 H Sodium Potassium Chloride Carbon Dioxide BUN Creatinine Estimated GFR BUN/Creatinine Ratio Glucose Calcium Magnesium Total Bilirubin AST ALT Alkaline Phosphatase Total Creatine Kinase 59 CK-MB (CK-2) TNP CK-MB (CK-2) Rel Index TNP Troponin I 0.022 NT-Pro-B Natriuret Pep Total Protein Albumin Globulin Albumin/Globulin Ratio Lipase SARS-CoV-2 (PCR) Negative 12/19/20 12/19/20 12/19/20 04:00 04:00 04:00 WBC 5.4 RBC 4.18 L Hgb 10.4 L Hct 33.1 L MCV 79.3 L MCH 24.8 L MCHC 31.3 RDW 18.1 H Plt Count 146 L Neut % (Auto) 64.0 Lymph % (Auto) 21.9 L Divide % (Auto) 9.7 Eos % (Auto) 3.3 Baso % (Auto) 1.1 Neut # (Auto) 3400 Lymph # (Auto) 1200 Divide # (Auto) 500 Eos # (Auto) 200 Baso # (Auto) 100 PT INR APTT D-Dimer Sodium 140 Potassium 4.2 Chloride 109 H Carbon Dioxide 25 BUN 28 H Creatinine 1.06 Estimated GFR > 60.0 BUN/Creatinine Ratio 26.4 H Glucose 106 Calcium 9.0 Magnesium 2.2 Total Bilirubin 0.8 AST 23 ALT 12 Alkaline Phosphatase 58 Total Creatine Kinase 52 L CK-MB (CK-2) TNP CK-MB (CK-2) Rel Index TNP Troponin I 0.024 NT-Pro-B Natriuret Pep 2060 H Total Protein 5.5 L Albumin 3.3 L Globulin 2.2 Albumin/Globulin Ratio 1.5 Lipase SARS-CoV-2 (PCR) [facility] Medical History AAA (abdominal aortic aneurysm) (~2013) Acquired anal stenosis Anxiety Aortic dilatation Haile's syndrome CAD (coronary artery disease) Cardiomyopathy Cataracts, bilateral CHF (congestive heart failure) Chronic back pain Chronic diastolic congestive heart failure Chronic renal failure, stage 3 (moderate) Colon polyps Deep vein thrombosis (~2013) Diverticular disease Former smoker Fractures Gout Hearing loss History of urinary incontinence HLD (hyperlipidemia) Hypertension Knee pain Lumbar spine pain Meningitis spinal Paroxysmal atrial fibrillation Peripheral edema Peripheral neuropathy Persistent atrial fibrillation Prostate cancer (~2007) Pulmonary embolism (~2013) Pulmonic valve insufficiency Rheumatoid arthritis Shoulder pain Skin cancer (~1989) Tricuspid insufficiency Urinary incontinence due to urethral sphincter incompetence Venous stasis dermatitis Surgical History History of abdominal aortic aneurysm repair History of hydrocelectomy Hx of hernia repair Hx of shoulder surgery S/P skin biopsy Social History household members: spouse Smoking Status: Former smoker Tobacco: How many years used: 20 alcohol intake: current Assessment & Plan Assessment & Plan narrative: 1. Chest pain-almost certainly noncardiac but I think specially given his need for surgery and general anesthesia tomorrow we need to be more confident there is no cardiac issue here. I have ordered a pharmacological myocardial perfusion imaging scan he has had the echo and I will ask his Cardiology group to see him, and give preoperative clearance as well His chest symptoms seem to be GI perhaps in origin although awfully brief to be true esophageal spasm. Does have a pleuritic nature so maybe related to whatever is causing the limited right-sided pleural effusion. Continue with diuretic therapy did have good output with the IV furosemide yesterday will switch back to oral furosemide at slightly higher dose for this morning. Await echocardiogram as well. 2. Left leg wound-will consult Wound Care but patient is on surgery scheduled for surgery tomorrow. Will notify Dr. Madrigal of his admission. He will need to remain off of any anticoagulation or DVT prophylaxis until postop. Assuming his cardiac workup is negative and Cardiology agrees he should be a reasonable candidate for surgery tomorrow 3. Chronic renal failure-patient's renal function appears to be stable 4. Atrial fibrillation-adequate rate control for now. Remains off anticoagulation for multiple reasons as previously outlined Quality VTE Deep Vein Thrombosis/Pulmonary Embolism Present on Admission: No
[2020-12-19] MEDS: DOCUSATE 100 MG CAPSULE PO (10:06)
[2020-12-19] MEDS: POTASSIUM CHLORIDE 20 MEQ TAB PO (10:06)
[2020-12-19] MEDS: LOSARTAN 50 MG TABLET PO (10:06)
[2020-12-19] MEDS: lisinopriL 10 MG TABLET PO (10:07)
[2020-12-19] MEDS: SODIUM CHLORIDE 0.9% FLUSH 10 ML IV ×2 (10:11→22:13)
[2020-12-19] MEDS: PANTOPRAZOLE 40 MG VIAL IV (10:13)
--- NOTE | 2020-12-19 13:15 | PM.TREADMILL ---
Cardiac Stress Test Report Referral & Results Date Patient Seen: 12/19/20 Time Patient Seen: 13:15 Requesting provider: Yony Cline Indication: chest pain Rest ECG: Atrial fibrillation with controlled ventricular rate Procedure Note: After Lexiscan had minimal dyspnea with non-limiting chest pain After Lexiscan injection had no significant EKG changes Occasional PVCs Impression: Symptom positive Lexiscan stress test Nuclear images pending Please note: Actual ECG tracings can be found in the PACS system.
[2020-12-19] MEDS: FUROSEMIDE 20 MG TABLET 60 MG PO (14:50)
--- NOTE | 2020-12-19 15:37 | PC.NURSE ---
Pt recieved lying in bed, wincing in pain from back, and complaining of 8-9/10 chest pain in center of chest. MD alerted, STAT EKG ordered, and x1 dose SL nitro tab given with good effect. MD Troncoso at bedside evaluating pt. Recieved orders to D/C telemetry. Echo completed as well as stress test this afternoon. Wound care consulted. Pt requesting to take po lasix after nuc med procedure requested to only take 40mg. Pt with leila at bedside. Per MD anticipates wound care to provide evaluation, and his home lead business analyst [place] to visit patient today.
--- NOTE | 2020-12-19 16:21 | CM.DANOTE ---
DCP ASSESSMENT: Patient is an 85 year-old male admitted to the hospital with chest pain. PCP is Dr. Cunningham. Primary payer is Medicare and [facility] out of [facility]. Per Dr. Cunningham report on 12/19/20 he is recommending a stress test (nuclear imaging pending). And a potential consult from Cardiology for preoperative clearance as patient has a surgical procedure scheduled for 12/20/[address] Madrigal for left leg wound. GENERAL STUDIES PROGRAM CHAIR Student met with patient at beside his daughter Marisol was present. Patient was alert and oriented. Educated patient on role of social work in D/C planning.? Patient reported he is independent at baseline including driving and sharing weight clerk with . He also has support from his two daughters Marisol and Carin who live within five minutes. Patient and daughter anticipate D/C home when medically. PLAN: Anticipate D/C home when medically stable. CM Team to continue to follow. AURA Momin MSW Student Discharge Planning/Care Management CM Discharge Assessment Start: 12/19/20 14:14 Freq: Status: Active Protocol: Document 12/19/20 14:14 AL (Rec: 12/19/20 14:17 AL [id number]) Discharge Planning Assessment Assigned Radio Electrician AURA Ascencio Student Contact Information Paige, Marisol Rausch, daughter Advance Directives? Yes Advance Directives on File No History Provided By Patient,Family Member,Medical Record Prior Living Arrangements House Household Members spouse Comment Home with Paige Type of transporation used prior to Drives own vehicle admit Independent with ADL's Yes Is patient alert and oriented? Yes Caregiver for Another No Barriers to Discharge No Discharge Plan Home Transportation Arrangement Daughter Marisol will provide transportation. Referrals Initiated None needed Whiteboard Updated in Patient Room with Yes name and ext. # of Radio Electrician Review Status In Process
--- NOTE | 2020-12-19 16:24 | P.CONS_ITS ---
History of Present Illness Consult details Chief complaint: chest pain, diff breathing Reason for consult: chest pain, dyspnea Narrative: 85 yo M h/o heart failure, and persistent AF admitted with chest pain and dyspnea. Patient states that he has been having progressive dyspnea over the past few weeks. Yesterday, he developed chest pain that was brought on in certain position and worse with deep breathing. He came to [facility] and was admitted for inpatient diuresis. He feels better today. Denies chest pain or dyspnea at this time. Denies heart racing sensations and syncope. Meds Home Medications and Allergies Home Medications Medication Instructions Recorded Confirmed Type magnesium oxide 400 mg PO Q OTHER DAY cap 08/18/18 12/19/20 History atorvastatin 10 mg tablet 10 mg PO DAILY 10/19/19 12/19/20 History gabapentin 300 mg capsule 300 mg PO DAILY #90 cap 12/25/19 12/19/20 Rx calcium polycarbophil 625 mg tablet 1,250 mg PO DAILY 02/02/20 12/19/20 History docusate sodium 100 mg capsule 100 mg PO DAILY 02/02/20 12/19/20 History finasteride 5 mg PO DAILY #20 tab 05/30/20 12/19/20 Rx potassium chloride 20 mEq 20 meq PO BID #180 tab 09/12/20 12/19/20 Rx tablet,extended release furosemide 40 mg PO DAILY #60 tab 11/01/20 12/19/20 Rx lisinopril 10 mg tablet 10 mg PO DAILY #30 tab 11/01/20 12/19/20 Rx losartan 50 mg PO DAILY 12/18/20 12/19/20 History Allergies Allergy/AdvReac Type Severity Reaction Status Date / Time No Known Drug Allergies Allergy Verified 12/07/20 13:10 Review of Systems Review of Systems Narrative: as per HPI Exam Vital Signs (past 8 hours): - 12/19/20 08:46 12/19/20 10:06 12/19/20 10:07 Temperature 97.1 F L Pulse Rate 71 71 71 Respiratory Rate 14 Blood Pressure 132/81 132/81 132/81 Pulse Oximetry 97 12/19/20 11:16 Temperature 97.2 F L Pulse Rate 71 Respiratory Rate 17 Blood Pressure 132/75 Pulse Oximetry 96 Oxygen Delivery Method Room Air Oxygen Flow Rate 0 Narrative Exam Narrative: Gen dada: NAD, elderly HEET: NCAT, no scleral icterus, MMM, neck supple CV: irregularly irregular, nl S1 and S2, 1+ LE edema on left, no edema on right leg Resp: Fair aeration, decreased breaths at the right base Abd: soft, NT, +BS Psych: appropriate affect Neuro: alert Objective Labs Result Diagrams: 12/19/20 04:00 12/19/20 04:00 Labs: Laboratory Results - last 24 hr 12/18/20 12/19/20 12/19/20 22:04 04:00 04:00 WBC RBC Hgb Hct MCV MCH MCHC RDW Plt Count Neut % (Auto) Lymph % (Auto) [place] % (Auto) Eos % (Auto) Baso % (Auto) Neut # (Auto) Lymph # (Auto) [place] # (Auto) Eos # (Auto) Baso # (Auto) Sodium 140 Potassium 4.2 Chloride 109 H Carbon Dioxide 25 BUN 28 H Creatinine 1.06 Estimated GFR > 60.0 BUN/Creatinine Ratio 26.4 H Glucose 106 Calcium 9.0 Magnesium 2.2 Total Bilirubin 0.8 AST 23 ALT 12 Alkaline Phosphatase 58 Total Creatine Kinase 59 52 L CK-MB (CK-2) TNP TNP CK-MB (CK-2) Rel Index TNP TNP Troponin I 0.022 0.024 NT-Pro-B Natriuret Pep 2060 H Total Protein 5.5 L Albumin 3.3 L Globulin 2.2 Albumin/Globulin Ratio 1.5 12/19/20 04:00 WBC 5.4 RBC 4.18 L Hgb 10.4 L Hct 33.1 L MCV 79.3 L MCH 24.8 L MCHC 31.3 RDW 18.1 H Plt Count 146 L Neut % (Auto) 64.0 Lymph % (Auto) 21.9 L [place] % (Auto) 9.7 Eos % (Auto) 3.3 Baso % (Auto) 1.1 Neut # (Auto) 3400 Lymph # (Auto) 1200 [place] # (Auto) 500 Eos # (Auto) 200 Baso # (Auto) 100 Sodium Potassium Chloride Carbon Dioxide BUN Creatinine Estimated GFR BUN/Creatinine Ratio Glucose Calcium Magnesium Total Bilirubin AST ALT Alkaline Phosphatase Total Creatine Kinase CK-MB (CK-2) CK-MB (CK-2) Rel Index Troponin I NT-Pro-B Natriuret Pep Total Protein Albumin Globulin Albumin/Globulin Ratio Assessment & Plan Assessment & Plan narrative: # Chest pain: atypical on story. It could be due to right sided pleural effusion. Nuc stress done today was unchanged from 2019 in that it showed old small mid anteroseptal infarct without ischemia. No need to further trend serial trops. # Dyspnea: probably from HF. Echo today is unchanged from the previous one. He remains hypervolemic on exam. Plan: - Continue IV furosemide today and agree to switch tomorrow to PO furosemide - Will give one dose of spironolactone 25mg X1 today # Persistent AF: - Hold anticoagulation for now due to falls earlier this year and need for surgery # Pre-op risk assessment: patient is intermediate to high risk from heart standpoint for his right leg surgery. - Recommend minimizing IV fluids victor manuel-operatively. Thank you for the interesting consultation. Cardiology is available if there are further questions.
[2020-12-19] MEDS: FUROSEMIDE 40 MG/4 ML VIAL IV (17:07)
[2020-12-19] MEDS: SPIRONOLACTONE 25 MG TABLET PO (17:09)
[2020-12-19] MEDS: FINASTERIDE 5 MG TABLET PO (20:53)
[2020-12-19] MEDS: GABAPENTIN 300 MG CAPSULE PO (20:53)
--- NOTE | 2020-12-19 22:06 | PC.NURSE ---
Pt independent in room. SpO2 97% RA RLE swollen, purplish in color, CMS + LLE in support stocking Med w/ lasix & Aldacto x 1 as per MD orders. Call light w.in reach, pt calls appropriately for needs. Continue w/plan of care.
[2020-12-20] VITALS (14 sets, daily range): BP systolic 91–138; BP diastolic 55–79; PULSE 65–78; RESP 16–18; TEMP 35.9–37.1; O2SAT 92–97
[2020-12-20] MEDS: SODIUM CHLORIDE 0.9% FLUSH 10 ML IV ×2 (05:26→10:11)
[2020-12-20] MEDS: ONDANSETRON 4 MG/2 ML INJ IV (05:26)
--- NOTE | 2020-12-20 06:34 | PC.NURSE ---
Pt. taken down to OR for surgical procedure.
[2020-12-20] MEDS: CEFAZOLIN VIAL 3 GM in SODIUM CHLORIDE 0.9% 100 ML 200 ML IV (08:00)
--- NOTE | 2020-12-20 08:33 | PM.OP.1 ---
Operative Date/Time/Diagnoses Date of procedure: 12/20/20 Time of procedure: 08:33 Pre-op diagnosis: Left leg degloving wound Post-op diagnosis: same (Clean well granulated wound 20cm x 15cm posterior left leg, appropriate for skin graft) Procedure & Clinicians Procedure: Excisional debridement of eschar and fibrinous wound material from left posterior leg wound 15cm x 20cm Same procedure as scheduled: Yes Indications: This is an 85-year-old man who had a degloving wound of the left posterior leg several months ago due to wound debridement on blood thinners and a large hematoma the skin and subcutaneous tissue way from the fascia and muscle. He has been treated through wound care as an outpatient for the most part. He is off blood thinners. He is not able to tolerate wound debridement in the office, and his when needs to be prepared for skin grafting, so he is brought into the operating room today for wound debridement under sedation and evaluation for the appropriateness for skin grafting. Surgeon: Maribell Madrigal Click Yes if Unassisted: Yes Operative Notes Findings: 15 x 20 cm well-granulated posterior left leg wound Specimen(s): none sent Estimated Blood Loss (mL): 1 Blood products transfused: none Procedure in detail: The patient was brought into the OR, placed supine on the OR table, and appropriate preoperative antibiotics were given. Sequential compression device was placed on the right leg and turned on. General anesthesia was induced and the patient was intubated by the anesthesiologist. Patient was positioned in right lateral decubitus position, and the left leg was elevated so that the left cast could be accessed. A surgical timeout was conducted. The wound dressing was removed, and the wound was closely evaluated. There were 2 large patches of black eschar about 5 x 8 cm, which were sharply removed. The underlying tissue was well granulated and healthy appearing. All non adherent slough was removed from the wound using rough debridement with 4 x 4 gauze saturated with saline. The entire area was cleaned with alcohol based prep, and then dressed with nonstick Adaptic dressings. These were covered with ABD pads, and the leg was rewrapped with soft padding, and wrapped with Coban. The patient was turned back supine onto his hospital bed. The patient was awakened from anesthesia and extubated. He tolerated the procedure well. Needle, sponge and instrument counts were correct x 2. The patient was transferred to PACU in stable condition. Complications: none Post-operative Condition: stable Disposition: PACU Plan for aftercare: Return to the acute care floor, and dispo to home once when medically cleared by Dr. Cunningham.
--- NOTE | 2020-12-20 08:37 | SUR.OPER ---
Lateral on padded OR bed on lovell bag, head on pillow, gel axillary roll in place, bottom leg bent with gel pad under knee to foot and gel pad on top of knee, upper leg bent at knee and supported with candy cane and padded hip kennel keeper at knee. Upper arm supported by pillows and secured over bottom arm to padded arm board. Safety belt at hip, tape over blanket lower leg and chest.
[2020-12-20] MEDS: GABAPENTIN 300 MG CAPSULE PO (09:09)
[2020-12-20] MEDS: ACETAMINOPHEN 325 MG TABLET 650 MG PO (09:09)
[2020-12-20] MEDS: LOSARTAN 50 MG TABLET PO (10:10)
[2020-12-20] MEDS: DOCUSATE 100 MG CAPSULE PO (10:10)
[2020-12-20] MEDS: PANTOPRAZOLE 40 MG VIAL IV (10:11)
--- NOTE | 2020-12-20 12:11 | P.PN_ITS ---
Subjective Subjective Date Patient Seen: 12/20/20 Time Patient Seen: 12:12 Interval history: Patient is still pretty somnolent after his procedure this morning. I did communicate with Dr. Madrigal and he had a favorable appearance of his wounds at time of surgery and hopefully is appropriate for grafting sometime in the near future She felt like he would be okay for discharge from a surgical standpoint later today I also spoke with Dr. Cline from Cardiology last evening. Echo was essentially unchanged. Myocardial perfusion imaging did not show evidence of new ischemia and essentially unchanged from his previous evaluation as well with maybe a small area prior infarction He felt like his pain was more pleuritic perhaps related to the right-sided pl eural effusion perhaps related to an element of volume overload/acute congestive heart failure. He wanted to persist with increased diuresis and so gave an additional dose of IV furosemide. Patient himself had refused an increased dose of oral furosemide earlier in the afternoon. Exam Vital Signs (past 8 hours): - 12/20/20 05:25 12/20/20 08:32 12/20/20 08:37 Temperature 98.8 F 97.4 F L Pulse Rate 77 74 68 Respiratory Rate 16 17 18 Blood Pressure 138/79 91/55 L 106/60 Pulse Oximetry 96 96 96 12/20/20 08:47 12/20/20 09:02 12/20/20 09:17 Temperature 97 F L Pulse Rate 65 66 68 Respiratory Rate 16 16 18 Blood Pressure 106/65 126/70 129/73 Pulse Oximetry 97 95 95 12/20/20 09:30 12/20/20 09:42 12/20/20 10:10 Temperature 97 F L 97.4 F L Pulse Rate 65 65 77 Respiratory Rate 16 18 Blood Pressure 126/69 125/77 123/79 Pulse Oximetry 96 97 12/20/20 10:12 12/20/20 11:21 Temperature 97.4 F L 97.7 F Pulse Rate 76 77 Respiratory Rate 18 18 Blood Pressure 136/73 110/61 Pulse Oximetry 96 92 Oxygen Delivery Method Room Air Oxygen Flow Rate 0 Objective Labs Result Diagrams: 12/19/20 04:00 12/19/20 04:00 [facility] Medical History AAA (abdominal aortic aneurysm) (~2013) Acquired anal stenosis Anxiety Aortic dilatation Haile's syndrome CAD (coronary artery disease) Cardiomyopathy Cataracts, bilateral CHF (congestive heart failure) Chronic back pain Chronic diastolic congestive heart failure Chronic renal failure, stage 3 (moderate) Colon polyps Deep vein thrombosis (~2013) Diverticular disease Former smoker Fractures Gout Hearing loss History of urinary incontinence HLD (hyperlipidemia) Hypertension Knee pain Lumbar spine pain Meningitis spinal Paroxysmal atrial fibrillation Peripheral edema Peripheral neuropathy Persistent atrial fibrillation Prostate cancer (~2007) Pulmonary embolism (~2013) Pulmonic valve insufficiency Rheumatoid arthritis Shoulder pain Skin cancer (~1989) Tricuspid insufficiency Urinary incontinence due to urethral sphincter incompetence Venous stasis dermatitis Surgical History History of abdominal aortic aneurysm repair History of hydrocelectomy Hx of hernia repair Hx of shoulder surgery S/P skin biopsy Social History household members: spouse Smoking Status: Former smoker Tobacco: How many years used: 20 alcohol intake: current Assessment & Plan Assessment & Plan narrative: 1. Status post wound revision lower extremity-postop management as per surgery and or wound care 2. Chest pain-I agree pleuritic and not cardiac ischemic at all. I would continue with little more aggressive diuretic therapy and diuresis. Can pr obably continue with oral diuretic therapy at this point. When patient is more awake perhaps at the end of the day he may likely be able to be discharged Patient's other medical problems are stable despite their complexity and relatively long list. He will need to continue off of anticoagulation upon discharge. Basically unless there is pain issues he can likely be discharged on essentially the same medications as he was admitted on with the exception of a slightly higher dose furosemide. He does have follow-up outpatient appointments with myself and wound care later in the week Quality VTE Deep Vein Thrombosis/Pulmonary Embolism Present on Admission: No
--- NOTE | 2020-12-20 12:39 | PC.NURSE ---
Addendum entered by Tierra Larkin R.N. 12/20/20 15:18: Pt awakened alert, ambulating with steady gait, denies pain. Feeling ok to discharge home. Daughter at bedside. Discharge orders received. RN and pharmacy reviewed discharge medications, instructions, activity, diet and follow up care with patient and daughter. Both verbalized understanding and agreement with instructions and follow up. RN escorted to private vehicle via wheelchair with all of belongings. Original Note: Pt taken to OR this a.m. and returned to room 210 at 1000 a.m. Pt A&O x3, agreeable to medications but requesting to take scheduled a.m. lasix and potassium later this afternoon due to wanting to rest. Pt tolerated toast and an orange and sips of water well. Pt with scratch on R cheek and cut on lip after returning from PACU, r/t intubation. Pt given moisturizing lip ointment. He denied pain. LLE wrapped with coban, +CMS to LLE. No edema noted. SCD to RLE.Pt verbalized wanting to discharge later today, upon MD evaluation patient resting after procedure feeling tired. Will reassess and encourage po lasix and potassium, and getting out of bed. Continuous monitoring.
== END 2020-12-20 15:22 | disposition home or self-care (01) ==
LOC: ED 09:26 → AC 13:18
PROVIDERS: Surgery; Admitting Provider Family Medicine; Emergency Provider Emergency Medicine; PCP Internal Medicine; Referring Provider Emergency Medicine; Visit Provider Internal Medicine
PROC: (CPT 11042; principal; 2020-12-20 07:45)
DX: R07.9 Chest pain, unspecified (principal); Z20.822 Contact with and (suspected) exposure to COVID-19; Z87.891 Personal history of nicotine dependence; I48.20 Chronic atrial fibrillation, unspecified; S81.802A Unspecified open wound, left lower leg, initial encounter; I11.0 Hypertensive heart disease with heart failure; I50.9 Heart failure, unspecified; S80.922A Unspecified superficial injury of left lower leg, initial encounter; L08.9 Local infection of the skin and subcutaneous tissue, unspecified; I87.8 Other specified disorders of veins
CPT/HCPCS: 11042; 36415; 71045; 71275; 78452; 80053; 81003; 82550; 83690; 83735; 83880; 84484; 85025; 85379; 85610; 85730; 87635; 93005; 93010; 93017; 93306; 96374; 96375; 96376; 99217; 99225; 99284; C9803; G0378; A9502; C9113; J0330; J0690; J1100; J1940; J2405; J2704; J2785; Q9967

== ENCOUNTER → 2020-12-22 09:56 | Outpatient (CLI) | payer MEDICARE, BC, SELFPAY ==
[2020-12-18 15:40] VITALS: BMI 34.3
== END ==
PROVIDERS: PCP Internal Medicine; Referring Provider Internal Medicine; Visit Provider Family Medicine
DX: I87.2 Venous insufficiency (chronic) (peripheral) (principal); L97.812 Non-pressure chronic ulcer of other part of right lower leg with fat layer exposed; S81.802A Unspecified open wound, left lower leg, initial encounter; R60.0 Localized edema
CPT/HCPCS: 11042; 11045; 97605

== ENCOUNTER → 2020-12-23 09:13 | Outpatient (CLI) | payer MEDICARE, BC, SELFPAY ==
[2020-12-18 15:40] VITALS: BMI 34.3
== END ==
PROVIDERS: PCP Internal Medicine; Referring Provider Internal Medicine; Visit Provider Nurse Practitioner Family
DX: S81.802A Unspecified open wound, left lower leg, initial encounter (principal); R60.0 Localized edema
CPT/HCPCS: 29581; 97605

== ENCOUNTER → 2020-12-23 11:12 | Outpatient (CLI) | payer MEDICARE, BC, SELFPAY ==
[2020-12-18 15:40] VITALS: BMI 34.3
[2020-12-23 12:04] LABS: Blood Urea Nitrogen 30 mg/dL (9-20); Calcium 9.4 mg/dL (8.4-10.2); Carbon Dioxide 27 mmol/L (22-32); Chloride 106 mmol/L (98-107); Estimated Glomerular Filt Rate > 60.0 mL/min (>60); Glucose 90 mg/dL (80-110); HEMOLYSIS < 15 (0-50); Magnesium 2.1 mg/dL (1.6-2.3); Potassium 4.2 mmol/L (3.4-5.1); Sodium 141 mmol/L (137-145)
== END ==
PROVIDERS: PCP Internal Medicine; Referring Provider Internal Medicine; Visit Provider Internal Medicine
DX: I10 Essential (primary) hypertension (principal); I50.32 Chronic diastolic (congestive) heart failure; N18.32 Chronic kidney disease, stage 3b; Z79.899 Other long term (current) drug therapy
CPT/HCPCS: 36415; 80048; 83735

== ENCOUNTER → 2020-12-27 09:42 | Outpatient (CLI) | payer MEDICARE, BC, SELFPAY ==
[2020-12-23 11:35] VITALS: BMI 34.3
== END ==
PROVIDERS: PCP Internal Medicine; Referring Provider Internal Medicine; Visit Provider Family Medicine
DX: I87.2 Venous insufficiency (chronic) (peripheral) (principal); L97.222 Non-pressure chronic ulcer of left calf with fat layer exposed; L97.822 Non-pressure chronic ulcer of other part of left lower leg with fat layer exposed; R60.0 Localized edema; I73.9 Peripheral vascular disease, unspecified
CPT/HCPCS: 11042; 11045; 97605

== ENCOUNTER → 2020-12-30 09:21 | Outpatient (CLI) | payer MEDICARE, BC, SELFPAY ==
[2020-12-23 11:35] VITALS: BMI 34.3
== END ==
PROVIDERS: PCP Internal Medicine; Referring Provider Internal Medicine; Visit Provider Nurse Practitioner Family
DX: I87.2 Venous insufficiency (chronic) (peripheral) (principal); L97.222 Non-pressure chronic ulcer of left calf with fat layer exposed; L95.8 Other vasculitis limited to the skin; R60.0 Localized edema
CPT/HCPCS: 29581

== ENCOUNTER → 2021-01-03 10:23 | Outpatient (CLI) | payer MEDICARE, BC, SELFPAY ==
[2020-12-23 11:35] VITALS: BMI 34.3
== END ==
PROVIDERS: PCP Internal Medicine; Referring Provider Internal Medicine; Visit Provider Family Medicine
DX: I87.2 Venous insufficiency (chronic) (peripheral) (principal); L97.221 Non-pressure chronic ulcer of left calf limited to breakdown of skin; R60.0 Localized edema
CPT/HCPCS: 11042; 11045

== ENCOUNTER → 2021-01-05 12:02 | Outpatient (CLI) | payer MEDICARE, BC, SELFPAY ==
[2020-12-23 11:35] VITALS: BMI 34.3
--- NOTE | 2021-01-05 12:13 | DI.RAD.S_ITS ---
PROCEDURE: XR CHEST 2V INDICATIONS: CHF TECHNIQUE: 2 views of the chest were acquired. COMPARISON: [facility], CR, XR CHEST 1V, 12/18/2020, 9:39. [facility], CR, XR CHEST 1V, 08/13/2020, 13:04. FINDINGS: Surgical changes and devices: None. Lungs and pleura: Lungs are clear. No pleural effusions or pneumothorax. Mediastinum: Mediastinal contours are normal. Heart size is normal. Bones and chest wall: No suspicious bony abnormalities. Soft tissues appear unremarkable. IMPRESSION: Normal for age, source of current CHF symptoms is not seen. Dictated by: Harvey Eubanks M.D. on 01/05/2021 at 15:21 Approved by: Harvey Eubanks M.D. on 01/05/2021 at 15:22
[2021-01-05 13:16] LABS: BUN Creatinine Ratio 26.2 (6-22); Blood Urea Nitrogen 28 mg/dL (9-20); Calcium 9.6 mg/dL (8.4-10.2); Carbon Dioxide 25 mmol/L (22-32); Chloride 104 mmol/L (98-107); Estimated Glomerular Filt Rate > 60.0 mL/min (>60); Glucose 103 mg/dL (80-110); HEMOLYSIS < 15 (0-50); Potassium 4.4 mmol/L (3.4-5.1); Sodium 139 mmol/L (137-145)
== END ==
PROVIDERS: PCP Internal Medicine; Referring Provider Internal Medicine Cardiovascular Disease; Visit Provider Internal Medicine Cardiovascular Disease
DX: R06.00 Dyspnea, unspecified (principal); I50.32 Chronic diastolic (congestive) heart failure
CPT/HCPCS: 36415; 71046; 80048

== ENCOUNTER → 2021-01-09 11:33 | Outpatient (CLI) | payer MEDICARE, BC, SELFPAY ==
[2020-12-23 11:35] VITALS: BMI 34.3
[2021-01-09 15:11] LABS: COVID19 -Nasal RAPID Negative (Negative)
== END ==
PROVIDERS: PCP Internal Medicine; Visit Provider Physician Assistant
DX: Z01.812 Encounter for preprocedural laboratory examination (principal); Z20.822 Contact with and (suspected) exposure to COVID-19
CPT/HCPCS: 87635; C9803

== ENCOUNTER → 2021-01-31 14:30 | Outpatient (CLI) | payer MEDICARE, BC, SELFPAY ==
[2020-12-23 11:35] VITALS: BMI 34.3
== END ==
PROVIDERS: PCP Internal Medicine; Referring Provider Internal Medicine; Visit Provider Family Medicine
DX: I87.2 Venous insufficiency (chronic) (peripheral) (principal); S81.802A Unspecified open wound, left lower leg, initial encounter; L97.222 Non-pressure chronic ulcer of left calf with fat layer exposed; R22.42 Localized swelling, mass and lump, left lower limb; M79.662 Pain in left lower leg
CPT/HCPCS: 11042; 99214

== ENCOUNTER → 2021-02-03 08:06 | Outpatient (CLI) | payer MEDICARE, BC, SELFPAY ==
[2020-12-23 11:35] VITALS: BMI 34.3
--- NOTE | 2021-02-03 | DI.MRI.S_ITS ---
PROCEDURE: MR LOWER LEG LT WO/W CON INDICATIONS: Localized swelling, mass and lump, left lower limb TECHNIQUE: Noncontrast coronal T1 spin echo and STIR, sagittal T1 spin echo with fat saturation and STIR, axial T1 spin echo and T2 fast spin echo with fat saturation. After the administration of contrast, axial/sagittal/coronal T1 spin echo with fat saturation through the left lower leg . COMPARISON: [facility], , MR LOWER LEG LT WO/W CON, 08/09/2020, 10:20. FINDINGS: Image quality: Excellent. Bones: No suspicious osseous edema or enhancement. No acute trabecular bone injury. Degenerative changes in the knee most notably involving the anterior compartment are suboptimally evaluated. Postsurgical changes are partially included from a right total knee arthroplasty. Soft tissues: A probable skin dressing versus marker is seen at the posterior medial aspect of the left lower leg at the level of the mid hyatt. A thin T2-hyperintense collection is seen in the subcutaneous tissues extending proximally from this level with a slightly larger component superiorly that measures 2.2 x 0.6 cm on axial images. The collection measures up to 8.6 cm in superior-inferior dimension. The collection demonstrates intrinsic T1-hyperintense signal without appreciable contrast enhancement on postcontrast images there may be mild peripheral hyperenhancement along the more inferior portion of the collection. Diffuse subcutaneous edema is seen throughout the lower leg that is more prominent in the distal lateral lower leg and medial hindfoot. There is moderate fatty infiltration of the lower leg musculature bilaterally. No intermuscular fascial edema or enhancement is seen. A small medial popliteal cyst is present. No solid soft tissue masses are visualized. IMPRESSION: 1. Thin subcutaneous fluid collection in the posterior medial the lower leg at the level of the mid hyatt measures 2.2 x 0.6 x 8.6 cm with intrinsic T1-hyperintense signal. This collection is nonspecific and could represent a subacute to chronic hematoma or seroma or abscess formation if there are clinical signs of infection. 2. Diffuse nonspecific subcutaneous edema throughout the left lower leg. No suspicious intermuscular fascial edema is seen. No signs of osteomyelitis. 3. No solid soft tissue mass. Moderate the infiltration and atrophy of the lower leg musculature bilaterally. Dictated by: Michele Dean M.D. on 02/03/2021 at 10:14 Approved by: Michele Dean M.D. on 02/03/2021 at 10:30
== END ==
PROVIDERS: PCP Internal Medicine; Referring Provider Family Medicine; Visit Provider Family Medicine
DX: S80.12XA Contusion of left lower leg, initial encounter (principal); R22.42 Localized swelling, mass and lump, left lower limb
CPT/HCPCS: 73720; A9579

== ENCOUNTER → 2021-02-07 14:13 | Outpatient (CLI) | payer MEDICARE, BC, SELFPAY ==
[2020-12-23 11:35] VITALS: BMI 34.3
== END ==
PROVIDERS: PCP Internal Medicine; Referring Provider Internal Medicine; Visit Provider Family Medicine
DX: S81.802A Unspecified open wound, left lower leg, initial encounter (principal); R22.42 Localized swelling, mass and lump, left lower limb
CPT/HCPCS: 97597; 99213

== ENCOUNTER → 2021-02-14 11:05 | Outpatient (CLI) | payer MEDICARE, BC, SELFPAY ==
[2020-12-23 11:35] VITALS: BMI 34.3
== END ==
PROVIDERS: PCP Internal Medicine; Referring Provider Internal Medicine; Visit Provider Family Medicine
DX: I87.2 Venous insufficiency (chronic) (peripheral) (principal)
CPT/HCPCS: 99213

== ENCOUNTER → 2021-03-07 10:39 | Outpatient (CLI) | payer MEDICARE, BC, SELFPAY ==
[2020-12-23 11:35] VITALS: BMI 34.3
[2021-03-07 11:52] LABS: Add Manual Diff / Slide Review NO; Basophils Absolute Auto 100 /uL (0-100); Eosinophils Absolute Auto 100 /uL (0-450); Eosinophils Percent Auto 1.8 % (2-4); Hematocrit 41.9 % (41-53); Hemoglobin 13.3 g/dL (13.5-17.5); Lymphocytes Absolute Auto 1600 /uL (1100-4500); Lymphocytes Percent Auto 26.9 % (25-40); Mean Corpuscular HGB Conc 31.8 % (30-36); Mean Corpuscular Hemoglobin 25.1 PG (26-34); Mean Corpuscular Volume 78.9 fL (80-100); Monocytes Absolute Auto 600 /uL (0-900); Monocytes Percent Auto 9.7 % (3-14); Neutrophils Absolute Auto 3600 /uL (1500-7000); Neutrophils Percent Auto 60.6 % (50-75); Platelet Count 153 X10^3/uL (150-400); Red Blood Cell Count 5.31 X10^6/uL (4.5-5.9); Red Cell Distribution Width 21.5 % (11.6-14.8)
[2021-03-07 12:10] LABS: Anisocytosis 2+
[2021-03-07 12:20] LABS: BUN Creatinine Ratio 23.8 (6-22); Blood Urea Nitrogen 24 mg/dL (9-20); Calcium 9.6 mg/dL (8.4-10.2); Carbon Dioxide 24 mmol/L (22-32); Chloride 106 mmol/L (98-107); Estimated Glomerular Filt Rate > 60.0 mL/min (>60); Glucose 92 mg/dL (80-110); HEMOLYSIS < 15 (0-50); Potassium 4.4 mmol/L (3.4-5.1); Sodium 139 mmol/L (137-145)
== END ==
PROVIDERS: PCP Internal Medicine; Referring Provider Internal Medicine Cardiovascular Disease; Visit Provider Internal Medicine Cardiovascular Disease
DX: I10 Essential (primary) hypertension (principal)
CPT/HCPCS: 36415; 80048; 85025